=== PATIENT | female | born 1935 | race Caucasian/White ===

== ENCOUNTER 2018-09-04 23:16 | Inpatient (IN) ==
--- OUTSIDE RECORDS SUMMARY | 2018-09-04 23:19 | External Medical Summary | Continuity of Care Document ---
:1935 Author Name Hernando Stack, Provider Address Unavailable Unavailable , Care Team Providers Name Role Phone Jan Canela DO Unavailable [email or web address] Unavailable Unavailable Problems Active medical history not documented Allergies and Adverse Reactions Allergy history not documented Medications Medications not documented Procedures Procedures not documented Immunizations Immunizations not documented Plan of Treatment Planned Observations Planned Goals not documented Results No Known Results Results not documented Encounters Appointment; Vascular, Studies SC1 11-Aug-2014 10:00 Encounter Diagnosis: Problem not documented
[2018-09-04] MEDS ORDERED: HYDROmorphone INJ 0.5 MG/0.5 ML SYR IV PRN (23:37)
[2018-09-04] MEDS ORDERED: ONDANSETRON INJ 2 MG/ML 2 ML VIAL IV STA (23:37)
[2018-09-05 00:24] LABS: INR 1.1 (0.9-1.1); Partial Thromboplastin Ratio 0.9; Partial Thromboplastin Time 24.6 Seconds (21.0-31.0); Prothrombin Time 11.1 Seconds (9.0-12.0)
[2018-09-05 00:25] LABS: Alanine Aminotransferase 24 U/L (12-78); Aspartate Aminotransferase 23 U/L (15-37); BUN Creatinine Ratio 27.3 (10-20); Blood Urea Nitrogen 54 mg/dl (7-18); Calcium 6.8 mg/dl (8.5-10.1); Carbon Dioxide 25 mmol/L (21-32); Chloride 109 mmol/L (98-107); Creatinine Clr Calc Pharmacy 23.2 ml/min; Est GFR (Non-African American) 23.3; Glucose 127 mg/dl (70-99); Hematocrit (blood only) 17.2 % (37-47); Hemoglobin 5.5 g/dL (12.0-16.0); Mean Corpuscular Volume 111.7 fL (80-100); Mean Platelet Volume 9.2 fL (7.4-10.4); Platelet Count 124 K/uL (130-400); RDW Coefficient of Variation 16.7 % (11.5-14.5); RDW Standard Deviation 65.7 fL (36.4-46.3); Red Blood Count 1.54 M/uL (4.2-5.4); Sodium 142 mmol/L (136-145)
[2018-09-05 00:27] LABS: Albumin Globulin Ratio 1.7 (0.9-2); Alkaline Phosphatase 62 U/L (45-117); Bilirubin,Total 1.2 mg/dl (0.2-1); Globulin 2.4 gm/dl (2.5-4.0); Total Protein 6.4 gm/dl (6.4-8.2)
[2018-09-05] MEDS ORDERED: SODIUM CHLORIDE 0.9% 250 ML IV PRN ×3 (00:34→18:42)
[2018-09-05 00:35] LABS: Basophilic Stippling 1+; Basophils # (auto) 0.01 K/uL (0-0.2); Basophils % (auto) 0.1 %; Eosinophils # (auto) 0.13 K/uL (0-0.5); Eosinophils % (auto) 1.1 %; Immature Granulocytes # (auto) 0.04 K/uL (0.00-0.02); Immature Granulocytes % (auto) 0.3 %; Lymphocytes # (auto) 9.07 K/uL (1.2-3.4); Lymphocytes % (auto) 77.5 %; Macrocytosis Present; Monocytes # (auto) 0.24 K/uL (0.11-0.59); Monocytes % (auto) 2.1 %; Neutrophils # (auto) 2.21 K/uL (1.4-6.5); Neutrophils % (auto) 18.9 %; Polychromasia 1+; Tear Drop Cells 1+
[2018-09-05] MEDS ORDERED: methylPREDNISolone 125 MG/2 ML VIAL IV STA (01:38)
[2018-09-05] MEDS ORDERED: CALCIUM GLUCONATE 10% 10 ML VIAL IV STA (01:47)
[2018-09-05] MEDS ORDERED: SODIUM CHLORIDE 0.45 % 1,000 ML IV STA (01:53)
[2018-09-05] MEDS ORDERED: CALCIUM GLUCONATE 10% 3,000 MG in 0.9 % SODIUM CHLORIDE 100 ML IV ONE (02:00)
[2018-09-05 02:12] LABS: Magnesium 2.1 mg/dl (1.8-2.4); Troponin I < 0.015 ng/ml (0-0.045)
--- NOTE | 2018-09-05 02:38 | Emergency Department Note ---
Entered by Thor Chapa acting as a scribe for ED Provider Note CHIEF COMPLAINT: Abnormal labs HISTORY OF PRESENT ILLNESS: The patient is an 83 year old female who presents to the Emergency Room after edna cm referred here by her PCP following abnormal blood work results. The patient states she had the test taken this afternoon around 13:00 because she has not been feeling well for the past 2 weeks. She states she has been feeling more fatigued and short of breath than normal. Her results came back later on today that showed her Hemoglobin was 5. The patient has a history of anemia and her last blood transfusion was in [place] about 3 years ago. The patient did note that she had to be transferred to [place] for this blood due to [facility] not having the correct type. Pt denies LOC, headache, fevers, chills, diaphoresis, visual changes, neck pain, chest pain, nausea, vomiting, abdominal pain, back pain, melena, hematochezia, urinary symptoms, numbness, weakness, lymphadenopathy, rash, or other complaints. REVIEW OF SYSTEMS: See HPI for pertinent positives and negatives. A total of ten systems were reviewed and were otherwise negative. PMHx/PSHx: Lymphoma, Asthma, Diabetes, Kidney stone, Anemia, NSTEMI, Sepsis, Thyroid cancer SOCIAL HISTORY: Patient lives at home. PHYSICAL EXAM: GENERAL: Awake, alert, well-appearing but pale, in no distress HENT: Normocephalic, atraumatic. Oropharynx unremarkable. EYES: Normal conjunctiva. Sclera non-icteric. NECK: Inspection normal. Non-tender. Supple. No nuchal rigidity. FROM. No masses. RESPIRATORY: Clear to auscultation. No wheezes. No rales. Normal respiratory effort. CARDIAC: Tachycardic rate. Normal rhythm. No murmurs. No rubs. Extremities warm and well perfused. Pulses equal. No JVD. GI: Soft, non-distended. No tenderness to palpation. No rebound or guarding. No masses. RECTAL: Deferred. MUSCULOSKELETAL: Atraumatic. Chest examination reveals no tenderness. The back is symmetrical on inspection without obvious abnormality. There is no CVA tenderness to palpation. No joint edema. LOWER EXTREMITIES: Calves are equal size bilaterally and non-tender. Trace edema. No discoloration. NEURO: Normal sensorium. No sensory or motor deficits noted. SKIN: No rash or jaundice noted. EMERGENCY DEPARTMENT COURSE: 2343: The patient was evaluated in room B12B, and a complete history and physical examination were performed. 0035: I reevaluated the patient and updated them on the treatment plan. Both the patient and family are agreeable with the plan. 0040: I spoke to Dr. Pierce - [facility] about the patient's case and he will be accepting him for further evaluation. 0105: After evaluation, Dr. Pierce would like a hematology consultation before he accepts the patient. [facility] has been paged. 0122: I spoke to Dr. Cardoso - [facility] and he recommended starting the patient on steroids and to have the blood transferred here so that she can be treated here. 0135: I spoke to Dr. Pierce about the hematology consult and he will be accepting the patient for further treatment. MEDICAL DECISION MAKING: Prior records/ancillary studies reviewed. 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 She was treated with prednisone and Rituxan. She had 2 courses of this. Once in 2013 and also in 2016. Nursing notes reviewed and agree them. The patient's history was concerning for recurrent anemia, fatigue and exertional shortness of breath. Differential diagnosis: Etiologies such as symptomatic anemia, metabolic, infection, hypo/hyperglycemia, electrolyte abnormalities, cardiac sources, intracerebral event, toxicologic, neurologic, as well as others were entertained. Physical examination: As above. ER treatment provided: IV Lock IV Solu-Medrol after consult with hematology. Type and cross. Patient consented for packed red blood cell transfusion however she has significant antibodies in her blood is not available here. Blood will need to be brought in for treatment. Diagnostics interpretation by me: ECG did not reveal any ischemia. The labs revealed severe anemia on CBC. Mild thrombocytopenia. Chemistry panel revealed some mild renal insufficiency. Consultation: A consultation was placed with the hospitalist. The case was discussed and diagnostics were reviewed. The patient was evaluated in the ER for further treatment. Dr. Pierce requested hematology consult. I did consult with [facility], Dr. Cardoso. Given the situation he felt it would be reasonable to treat the patient here, Initiate IV Solu-Medrol, and transfuse the patient. IMPRESSION: Severe anemia PLAN: Admitted as inpatient The scribe's documentation has been prepared under my direction and personally reviewed by me in its entirety. I confirm that the note above accurately reflects all work, treatment, procedures, and medical decision making performed by me. Impression & Plan Severe anemia Past Med/Surg History Medical History Lymphoma (Acute) Thyroid cancer (Acute) Asthma (Chronic) Diabetes (Chronic) Kidney stones (Chronic) Acute renal failure (Acute) Fever (Acute) Hemolytic anemia (Acute) Non-STEMI (non-ST elevated myocardial infarction) (Acute) Sepsis (Acute) Severe anemia (Acute) Symptomatic anemia (Acute 12/28/13) Weakness (Acute) Family History Other Family history non-contributory Social History Feels Safe at Home: Yes Smoking Status: Never smoker Results & Data Vital Signs Vital Signs - 24 hr 09/04/18 23:21 09/04/18 23:37 09/04/18 23:40 Temperature 36.8 C Temperature Source Oral Sepsis Recent Fever Within 48 Hours No Sepsis Action Taken by Nursing No Action Required Pulse Rate 109 H 103 H 101 H Pulse Rate from SpO2 Sensor 104 H 101 H Pulse Rhythm Regular Pulse Strength Normal Respiratory Rate 18 25 H 16 Respiratory Effort / Characteristics Non-Labored Spontaneous Respiratory Depth Normal Respiratory Pattern Regular Blood Pressure 103/49 L 112/54 L Blood Pressure Mean 67 73 Blood Pressure Position Sitting Pulse Oximetry 100 99 99 Oxygen Delivery Method Room Air Room Air Room Air 09/04/18 23:55 09/05/18 00:00 09/05/18 00:01 Temperature Temperature Source Sepsis Recent Fever Within 48 Hours Sepsis Action Taken by Nursing Pulse Rate 101 H 100 H Pulse Rate from SpO2 Sensor 99 H Pulse Rhythm Pulse Strength Respiratory Rate 20 17 Respiratory Effort / Characteristics Respiratory Depth Respiratory Pattern Blood Pressure 113/55 L Blood Pressure Mean 74 Blood Pressure Position Pulse Oximetry 100 100 Oxygen Delivery Method Room Air Room Air 09/05/18 00:30 09/05/18 01:00 09/05/18 01:30 Temperature Temperature Source Sepsis Recent Fever Within 48 Hours Sepsis Action Taken by Nursing Pulse Rate 94 H 96 H 92 H Pulse Rate from SpO2 Sensor 95 H 94 H 92 H Pulse Rhythm Pulse Strength Respiratory Rate 13 22 15 Respiratory Effort / Characteristics Respiratory Depth Respiratory Pattern Blood Pressure 109/58 L 118/52 L 113/50 L Blood Pressure Mean 75 74 71 Blood Pressure Position Pulse Oximetry 94 98 Oxygen Delivery Method Room Air Room Air 09/05/18 02:00 Temperature Temperature Source Sepsis Recent Fever Within 48 Hours Sepsis Action Taken by Nursing Pulse Rate 92 H Pulse Rate from SpO2 Sensor 92 H Pulse Rhythm Pulse Strength Respiratory Rate 13 Respiratory Effort / Characteristics Respiratory Depth Respiratory Pattern Blood Pressure 113/48 L Blood Pressure Mean 69 Blood Pressure Position Pulse Oximetry 99 Oxygen Delivery Method Room Air Home Medications Current Medication List: was personally reviewed by me Laboratory Data Attestation: I reviewed the patient's lab results. Result diagrams: 09/04/18 23:48 09/04/18 23:48 Lab Results 09/04/18 09/04/18 09/04/18 Range/Units 23:48 23:48 23:48 WBC 11.70 H (4.8-10.8) K/uL RBC 1.54 L (4.2-5.4) M/uL Hgb 5.5 L* (12.0-16.0) g/dL Hct 17.2 L* (37-47) % MCV 111.7 H (80-100) fL MCH 35.7 H (25-34) pg MCHC 32.0 (32-36) g/dL RDW Std Deviation 65.7 H (36.4-46.3) fL RDW Coeff of Marcelina 16.7 H (11.5-14.5) % Plt Count 124 L (130-400) K/uL MPV 9.2 (7.4-10.4) fL Immature Gran % (Auto) 0.3 % Neut % (Auto) 18.9 % Lymph % (Auto) 77.5 % Kimble % (Auto) 2.1 % Eos % (Auto) 1.1 % Baso % (Auto) 0.1 % Immature Gran # (Auto) 0.04 H (0.00-0.02) K/uL Neut # (Auto) 2.21 (1.4-6.5) K/uL Lymph # (Auto) 9.07 H (1.2-3.4) K/uL Kimble # (Auto) 0.24 (0.11-0.59) K/uL Eos # (Auto) 0.13 (0-0.5) K/uL Baso # (Auto) 0.01 (0-0.2) K/uL Polychromasia 1+ Basophilic Stippling 1+ Macrocytosis Present Tear Drop Cells 1+ PT 11.1 (9.0-12.0) Seconds INR 1.1 (0.9-1.1) APTT 24.6 (21.0-31.0) Seconds PTT Ratio 0.9 Sodium 142 (136-145) mmol/L Potassium 4.0 (3.5-5.1) mmol/L Chloride 109 H (98-107) mmol/L Carbon Dioxide 25 (21-32) mmol/L Anion Gap 8.0 (3-11) BUN 54 H (7-18) mg/dl Creatinine 1.97 H (0.6-1.2) mg/dl Est Cr Clr Drug Dosing 23.2 ml/min Est GFR ( Amer) 27.0 Est GFR (Non-Af Amer) 23.3 BUN/Creatinine Ratio 27.3 H (10-20) Glucose 127 H (70-99) mg/dl Calcium 6.8 L (8.5-10.1) mg/dl Magnesium 2.1 (1.8-2.4) mg/dl Total Bilirubin 1.2 H (0.2-1) mg/dl AST 23 (15-37) U/L ALT 24 (12-78) U/L Alkaline Phosphatase 62 (45-117) U/L Troponin I < 0.015 (0-0.045) ng/ml Total Protein 6.4 (6.4-8.2) gm/dl Albumin 4.0 (3.4-5.0) gm/dl Globulin 2.4 L (2.5-4.0) gm/dl Albumin/Globulin Ratio 1.7 (0.9-2) TSH 0.502 (0.300-4.500) uIu/ml Crossmatch 09/04/18 Range/Units 23:48 WBC (4.8-10.8) K/uL RBC (4.2-5.4) M/uL Hgb (12.0-16.0) g/dL Hct (37-47) % MCV (80-100) fL MCH (25-34) pg MCHC (32-36) g/dL RDW Std Deviation (36.4-46.3) fL RDW Coeff of Marcelina (11.5-14.5) % Plt Count (130-400) K/uL MPV (7.4-10.4) fL Immature Gran % (Auto) % Neut % (Auto) % Lymph % (Auto) % Kimble % (Auto) % Eos % (Auto) % Baso % (Auto) % Immature Gran # (Auto) (0.00-0.02) K/uL Neut # (Auto) (1.4-6.5) K/uL Lymph # (Auto) (1.2-3.4) K/uL Kimble # (Auto) (0.11-0.59) K/uL Eos # (Auto) (0-0.5) K/uL Baso # (Auto) (0-0.2) K/uL Polychromasia Basophilic Stippling Macrocytosis Tear Drop Cells PT (9.0-12.0) Seconds INR (0.9-1.1) APTT (21.0-31.0) Seconds PTT Ratio Sodium (136-145) mmol/L Potassium (3.5-5.1) mmol/L Chloride (98-107) mmol/L Carbon Dioxide (21-32) mmol/L Anion Gap (3-11) BUN (7-18) mg/dl Creatinine (0.6-1.2) mg/dl Est Cr Clr Drug Dosing ml/min Est GFR ( Amer) Est GFR (Non-Af Amer) BUN/Creatinine Ratio (10-20) Glucose (70-99) mg/dl Calcium (8.5-10.1) mg/dl Magnesium (1.8-2.4) mg/dl Total Bilirubin (0.2-1) mg/dl AST (15-37) U/L ALT (12-78) U/L Alkaline Phosphatase (45-117) U/L Troponin I (0-0.045) ng/ml Total Protein (6.4-8.2) gm/dl Albumin (3.4-5.0) gm/dl Globulin (2.5-4.0) gm/dl Albumin/Globulin Ratio (0.9-2) TSH (0.300-4.500) uIu/ml Crossmatch See Detail Administered Medications Sodium Chloride (1/2 Nss) 1,000 mls @ 50 mls/hr IV .Q20H STA Stop: 09/05/18 21:52 Last Admin: 09/05/18 02:07 Dose: 50 mls/hr Documented by: [id number] Discontinued Medications Calcium Gluconate 3,000 mg/ (Sodium Chloride) 130 mls @ 260 mls/hr IV ONE ONE Stop: 09/05/18 02:29 Last Admin: 09/05/18 02:07 Dose: 260 mls/hr Documented by: [id number] Methylprednisolone (Solumedrol) 125 mg IV NOW STA Stop: 09/05/18 01:39 Last Admin: 09/05/18 01:49 Dose: 125 mg Documented by: [id number] Ondansetron HCl (Zofran) 4 mg IV NOW STA Stop: 09/04/18 23:38 Last Admin: 09/05/18 00:10 Dose: Not Given Documented by: [id number] ECG Data Attestation: I personally reviewed and interpreted this ECG as follows: Indication: toxicologic Rate (beats per minute): 103 Rhythm: sinus tachycardia Findings: no PAC, no PVC, no ST depression and no ST elevation Blood Pressure Blood Pressure Findings: Low blood pressure Blood Pressure Disposition: further management by hospitalist Discharge Plan Visit Data Chief Complaint: Referred by Doctor Stated Complaint: TRANSFUSION ED Provider: Jonathan Norris Discharge Problem: Severe anemia Patient Disposition: Being Evaluated by Hospitalist Forms Stand Alone Forms: My [facility] Prescriptions Prescriptions: No Action isosorbide mononitrate 30 mg Tablet Extended Release 24 Hr 30 mg PO DAILY RF: 0 citalopram 10 mg Tablet 10 mg PO DAILY RF: 0 sennosides-docusate sodium [Senna with Docusate Sodium] 8.6-50 mg Tablet 1 tab PO DAILY PRN (Reason: Constipation) RF: 0 prochlorperazine maleate 10 mg Tablet 10 mg PO Q6H PRN (Reason: Nausea) RF: 0 folic acid 1 mg Tablet 1 mg PO DAILY RF: 0 tramadol 50 mg Tablet 25 mg PO Q6H PRN (Reason: Pain) RF: 0 benazepril 20 mg Tablet 20 mg PO DAILY RF: 0 clonazepam 1 mg Tablet 1 mg PO BID RF: 0 calcium carbonate-vitamin D3 [Oysco 500/D] 500 mg(1,250mg) -200 unit Tablet 1 tab PO BID RF: 0 glimepiride 1 mg Tablet 1 mg PO QAM RF: 0 furosemide [Lasix] 20 mg Tablet 20 mg PO TID RF: 0 triamcinolone acetonide 0.1 % Cream 1 applic TOPICAL BID RF: 0 levothyroxine 150 mcg Tablet 150 mcg PO DAILY RF: 0 omeprazole 20 mg Capsule,Delayed Release(Dr/Ec) 20 mg PO BID RF: 0 clotrimazole 10 mg Patrice 10 mg PO TID RF: 0 Referrals Referrals: Lor Garcia MD [Primary Care Provider] - The scribe's documentation has been prepared under my direction and personally reviewed by me in its entirety. I confirm that the note above accurately reflects all work, treatment, procedures, and medical decision making performed by me.
--- NOTE | 2018-09-05 04:34 | History & Physical Report ---
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 SCDs RE chronic thrombocytopenia Full code Case discussed with Dr. Flores ([facility] booking prizer on-call), He recommends 4-day oral course of Decadron 40 mg daily to follow IV Solu-Medrol administered at the ER. History of Present Illness Chief Complaint: Abnormal blood work Primary Care Provider: Lor Garcia MD History obtained from patient and records. Medical history significant for hypertension, DM 2 on oral meds, CRI (baseline creatinine 1.8), history of NHL, B cell CLL, hx Kailyn positive autoimmune hemolytic anemia status post prednisone, Rituxan Rx, chronic anemia (baseline hemoglobin 10-11), history of recurrent papillary thyroid cancer sp surgery/WILL, postsurgical hypothyroidism, chronic thrombocytopenia Recent confinement July 2014 for ARF. Patient diagnosed to have of autoimmune hemolytic anemia in 2013 status post prednisone, Rituxan chemotherapy. Recurrent AIHA bout in 2015. No treatment for AIHA since July 2017 as per outpatient records. 2 weeks history of fatigue, exertional SOB symptoms more prominent in the last few days. No chest pain. No black/bloody stools. Outpatient hemoglobin yesterday noted to be 5.4. Patient directed by PCP to the emergency room. 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 Cardoso) as per ER provider. 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 Allergies Allergy/AdvReac Type Severity Reaction Status Date / Time lorazepam Allergy Unknown UNKNOWN Unverified 09/05/18 00:19 pneumococcal vaccine Allergy Unknown Unknown Verified 09/05/18 00:19 Home Medications Home Medications Medication Instructions Recorded Confirmed Type benazepril 20 mg PO DAILY 09/05/18 09/05/18 History calcium carbonate-vitamin D3 1 tab PO BID 09/05/18 09/05/18 History [Oysco 500/D] citalopram 10 mg PO DAILY 09/05/18 09/05/18 History clonazepam 1 mg PO BID 09/05/18 09/05/18 History clotrimazole 10 mg PO TID 09/05/18 09/05/18 History folic acid 1 mg PO DAILY 09/05/18 09/05/18 History furosemide [Lasix] 20 mg PO TID 09/05/18 09/05/18 History glimepiride 1 mg PO QAM 09/05/18 09/05/18 History isosorbide mononitrate 30 mg PO DAILY 09/05/18 09/05/18 History levothyroxine 150 mcg PO DAILY 09/05/18 09/05/18 History omeprazole 20 mg PO BID 09/05/18 09/05/18 History prochlorperazine maleate 10 mg PO Q6H PRN 09/05/18 09/05/18 History sennosides-docusate sodium [Senna 1 tab PO DAILY PRN 09/05/18 09/05/18 History with Docusate Sodium] tramadol 25 mg PO Q6H PRN 09/05/18 09/05/18 History triamcinolone acetonide 1 applic TOPICAL BID 09/05/18 09/05/18 History Past Med/Surg History Medical History Lymphoma (Acute) Thyroid cancer (Acute) Asthma (Chronic) Diabetes (Chronic) Kidney stones (Chronic) Acute renal failure (Acute) Fever (Acute) Hemolytic anemia (Acute) Non-STEMI (non-ST elevated myocardial infarction) (Acute) Sepsis (Acute) Severe anemia (Acute) Symptomatic anemia (Acute 12/28/13) Weakness (Acute) Family History Other Family history non-contributory Social History Preferred Language: Turkmen Communication Ability: Effective Acid Mixer Required: No Beliefs That Will Affect Care: None Current Living Situation: Alone Current Living Situation Comment: Patient lives alone, Currently has son and gf living with her at this time. Other Information That Helps Us Care for You: No Feels Safe at Home: Yes Safety Concerns: Feels Safe At This Time Smoking Status: Never smoker Hx Alcohol Use: No Hx Substance Use: No Review of Systems Review of Systems: As per HPI, all 10 systems reviewed, all other ROS negative Physical Exam Physical Exam: GENERAL: Comfortable, pleasant, looks younger for stated age, obese, no respiratory distress SKIN: Pallor, warm HEENT: Bespectacled, pale palpebral conjunctivae, no ptosis, moist buccal mucosa, chronic left lower lip asymmetry as per patient NECK : Supple, short, no tenderness CHEST : CTA, no tenderness HEART : RRR, no obvious murmurs ABDOMEN: Some distention, nontender Rectal exam: Refused EXTREMITIES : Bilateral LE swelling (chronic as per patient, no LE tenderness, no other conspicuous deformities noted NEUROLOGIC : Coherent, chronic left lower lip asymmetry, no other gross focality Results & Data Vital Signs (Past 12 Hours) Vital Signs Temp Pulse Resp BP Pulse Ox 09/05/18 04:00 118/53 L 96 09/05/18 03:30 92 H 16 117/57 L 95 09/05/18 03:00 92 H 15 128/56 L 97 09/05/18 02:30 121 H 20 09/05/18 02:00 92 H 13 113/48 L 99 09/05/18 01:30 92 H 15 113/50 L 98 09/05/18 01:00 96 H 22 118/52 L 09/05/18 00:30 94 H 13 109/58 L 94 09/05/18 00:01 100 H 17 113/55 L 100 09/05/18 00:00 101 H 20 09/04/18 23:55 100 09/04/18 23:40 101 H 16 99 09/04/18 23:37 103 H 25 H 112/54 L 99 09/04/18 23:21 36.8 C 109 H 18 103/49 L 100 Laboratory Results Laboratory Results WBC 11.70 K/uL (4.8-10.8) H 09/04/18 23:48 RBC 1.54 M/uL (4.2-5.4) L 09/04/18 23:48 Hgb 5.5 g/dL (12.0-16.0) L* 09/04/18 23:48 Hct 17.2 % (37-47) L* 09/04/18 23:48 MCV 111.7 fL (80-100) H 09/04/18 23:48 MCH 35.7 pg (25-34) H 09/04/18 23:48 MCHC 32.0 g/dL (32-36) 09/04/18 23:48 RDW Std Deviation 65.7 fL (36.4-46.3) H 09/04/18 23:48 RDW Coeff of Marcelina 16.7 % (11.5-14.5) H 09/04/18 23:48 Plt Count 124 K/uL (130-400) L 09/04/18 23:48 MPV 9.2 fL (7.4-10.4) 09/04/18 23:48 Immature Gran % (Auto) 0.3 % 09/04/18 23:48 Neut % (Auto) 18.9 % 09/04/18 23:48 Lymph % (Auto) 77.5 % 09/04/18 23:48 [place] % (Auto) 2.1 % 09/04/18 23:48 Eos % (Auto) 1.1 % 09/04/18 23:48 Baso % (Auto) 0.1 % 09/04/18 23:48 Immature Gran # (Auto) 0.04 K/uL (0.00-0.02) H 09/04/18 23:48 Neut # (Auto) 2.21 K/uL (1.4-6.5) 09/04/18 23:48 Lymph # (Auto) 9.07 K/uL (1.2-3.4) H 09/04/18 23:48 [place] # (Auto) 0.24 K/uL (0.11-0.59) 09/04/18 23:48 Eos # (Auto) 0.13 K/uL (0-0.5) 09/04/18 23:48 Baso # (Auto) 0.01 K/uL (0-0.2) 09/04/18 23:48 Polychromasia 1+ 09/04/18 23:48 Basophilic Stippling 1+ 09/04/18 23:48 Macrocytosis Present 09/04/18 23:48 Tear Drop Cells 1+ 09/04/18 23:48 PT 11.1 Seconds (9.0-12.0) 09/04/18 23:48 INR 1.1 (0.9-1.1) 09/04/18 23:48 APTT 24.6 Seconds (21.0-31.0) 09/04/18 23:48 PTT Ratio 0.9 09/04/18 23:48 Sodium 142 mmol/L (136-145) 09/04/18 23:48 Potassium 4.0 mmol/L (3.5-5.1) 09/04/18 23:48 Chloride 109 mmol/L (98-107) H 09/04/18 23:48 Carbon Dioxide 25 mmol/L (21-32) 09/04/18 23:48 Anion Gap 8.0 (3-11) 09/04/18 23:48 BUN 54 mg/dl (7-18) H 09/04/18 23:48 Creatinine 1.97 mg/dl (0.6-1.2) H 09/04/18 23:48 Est Cr Clr Drug Dosing 23.2 ml/min 09/04/18 23:48 Est GFR ( Amer) 27.0 09/04/18 23:48 Est GFR (Non-Af Amer) 23.3 09/04/18 23:48 BUN/Creatinine Ratio 27.3 (10-20) H 09/04/18 23:48 Glucose 127 mg/dl (70-99) H 09/04/18 23:48 Calcium 6.8 mg/dl (8.5-10.1) L 09/04/18 23:48 Magnesium 2.1 mg/dl (1.8-2.4) 09/04/18 23:48 Total Bilirubin 1.2 mg/dl (0.2-1) H 09/04/18 23:48 AST 23 U/L (15-37) 09/04/18 23:48 ALT 24 U/L (12-78) 09/04/18 23:48 Alkaline Phosphatase 62 U/L (45-117) 09/04/18 23:48 Troponin I < 0.015 ng/ml (0-0.045) 09/04/18 23:48 Total Protein 6.4 gm/dl (6.4-8.2) 09/04/18 23:48 Albumin 4.0 gm/dl (3.4-5.0) 09/04/18 23:48 Globulin 2.4 gm/dl (2.5-4.0) L 09/04/18 23:48 Albumin/Globulin Ratio 1.7 (0.9-2) 09/04/18 23:48 TSH 0.502 uIu/ml (0.300-4.500) 09/04/18 23:48 Blood Type O Positive 09/04/18 23:48 Antibody Screen POSITIVE A 09/04/18 23:48 Crossmatch See Detail 09/04/18 23:48 Diagnostic Findings Chest x-ray as per my interpretation no congestion EKG as per my interpretation : Rate 105, sinus tachycardia, no ischemia
[2018-09-05] MEDS ORDERED: DOCUSATE SODIUM/SENNA 50/8.6MG TAB PO PRN (05:27)
[2018-09-05] MEDS ORDERED: GLUCAGON FOR INJ 1 MG VIAL SQ PRN (05:27)
[2018-09-05] MEDS ORDERED: DEXTROSE 50% 50 ML SYRINGE IV PRN (05:27)
[2018-09-05] MEDS ORDERED: CARBOHYDRATES FOR HYPOGLYCEMIA PO PRN (05:27)
[2018-09-05] MEDS ORDERED: GLUCOSE 10 TABS/TUBE PO PRN (05:27)
[2018-09-05] MEDS ORDERED: GLUCOSE 40% GEL 15 GM TUBE PO PRN (05:27)
[2018-09-05] MEDS ORDERED: TRAMADOL HCL 50 MG TABLET PO PRN (05:27)
[2018-09-05] MEDS ORDERED: INSULIN GLARGINE SOLOSTAR 100 UNITS/ML 3 ML PEN SQ ONE (05:45)
[2018-09-05] MEDS: INSULIN ASPART 100 UNITS/ML 3 ML PEN SC SCH ×4 (06:21→20:52)
[2018-09-05] MEDS: LEVOTHYROXINE SODIUM 150 MCG TABLET PO SCH (07:11)
[2018-09-05] MEDS: FOLIC ACID 1 MG TAB PO SCH (08:20)
[2018-09-05] MEDS: ISOSORBIDE MONO EXTENDED REL 30 MG TABCR PO SCH (08:21)
[2018-09-05] MEDS: PANTOprazole 40 MG TAB PO SCH ×2 (08:21→20:51)
[2018-09-05] MEDS: CITALOPRAM 20 MG TAB PO SCH (08:21)
--- NOTE | 2018-09-05 08:21 | XRay Report ---
XR chest 1V portable HISTORY: fatigue COMPARISON: Chest 10/12/2015. FINDINGS: Punctate calcified granuloma within the right upper lobe. Otherwise, the lungs are clear. T he heart is normal in size. Calcified right hilar lymph nodes are noted. No pleural effusions. No pne umothorax. IMPRESSION: No acute process. Electronically signed by: Gautam Ramirez M.D. 09/05/2018 8:19 AM
[2018-09-05] MEDS: clonazePAM 1 MG TAB PO SCH ×2 (08:55→22:55)
[2018-09-05 09:06] LABS: Reticulocytes # 0.2 10^6/uL (0.02-0.10)
[2018-09-05] MEDS: dexAMETHasone 4 MG TAB PO SCH (09:50)
--- NOTE | 2018-09-05 12:37 | Hospitalist Progress Note ---
Date of Service September 05, 2018 Assessment & Plan (1) Symptomatic anemia: Admitted with symptomatic anemia mainly exertional shortness of breath Noted to have hemoglobin of 5.5 We will get 3 units of blood transfusion Denies any symptoms at rest Present on Admission?: Yes (2) Hemolytic anemia: Has history of autoimmune hemolytic anemia Seems to be has an exacerbation Reticulocyte count is 11% Discussed with marine technician Received intravenous Solu-Medrol and will continue with Decadron 40 mg daily for the next 3 days as per recommendation Present on Admission?: Yes (3) Acute renal failure: Has acute kidney injury with history of CKD Creatinine 1.9 to We will give IV fluids cautiously and advised to increase oral intake of fluid Monitor PRP (4) Diabetes: Has been on SSI Other medical condition remains stable DVT prophylaxis SCDs due to thrombocytopenia Subjective 09/05 The patient was seen in medical telemetry unit She has symptomatic anemia secondary to autoimmune hemolytic anemia No complaints at rest Awaiting blood transfusion Review of Systems Review of Systems: All systems reviewed and are unremarkable except as noted below Constitutional: + weakness Respiratory: no dyspnea Cardiovascular: no chest pain Physical Exam Physical Exam: Lying in bed comfortably Constitutional: well developed; no acute distress Looks pale Eyes: PERRL, conjunctivae normal, anicteric sclerae ENMT: external ear and nose normal, oropharynx normal Neck: trachea midline, no thyromegaly Respiratory: normal respiratory effort, lungs clear to auscultation Cardiovascular: Rate/Rhythm: regular rate and regular rhythm Heart Sounds: no murmur Gastrointestinal (Abdomen): Inspection/Auscultation: abdomen normal to inspection Percussion/Palpation: abdomen soft; abdomen nontender Neurologic: moves all extremities Lymphatic: no cervical or axillary lymphadenopathy Results & Data Vital Signs (Past 12 Hours) Vital Signs Temp Pulse Pulse Resp BP BP Pulse Ox 09/05/18 11:50 36.7 C 98 H 20 102/62 95 09/05/18 08:00 37.2 C 94 H 18 117/72 94 09/05/18 07:00 94 H 09/05/18 05:51 96 H 09/05/18 05:30 36.8 C 18 119/71 97 09/05/18 05:00 94 H 14 112/49 L 96 09/05/18 04:30 92 H 14 130/60 97 09/05/18 04:00 118/53 L 96 09/05/18 03:30 92 H 16 117/57 L 95 09/05/18 03:00 92 H 15 128/56 L 97 09/05/18 02:30 121 H 20 09/05/18 02:00 92 H 13 113/48 L 99 09/05/18 01:30 92 H 15 113/50 L 98 09/05/18 01:00 96 H 22 118/52 L 09/05/18 00:30 94 H 13 109/58 L 94 Laboratory Results Short CBC 09/04/18 Range/Units 23:48 WBC 11.70 H (4.8-10.8) K/uL Hgb 5.5 L* (12.0-16.0) g/dL Hct 17.2 L* (37-47) % Plt Count 124 L (130-400) K/uL BMP 09/04/18 23:48 Sodium 142 Potassium 4.0 Chloride 109 H Carbon Dioxide 25 BUN 54 H Creatinine 1.97 H Glucose 127 H Calcium 6.8 L Cardiac Enzymes 09/04/18 Range/Units 23:48 Troponin I < 0.015 (0-0.045) ng/ml Liver Function 09/04/18 Range/Units 23:48 Total Bilirubin 1.2 H (0.2-1) mg/dl AST 23 (15-37) U/L ALT 24 (12-78) U/L Alkaline Phosphatase 62 (45-117) U/L Albumin 4.0 (3.4-5.0) gm/dl Medications Administered Current Inpatient Medications Citalopram Hydrobromide (Celexa) 10 mg PO DAILY YOGESH Stop: 10/05/18 08:59 Last Admin: 09/05/18 08:21 Dose: 10 mg Documented by: Clonazepam (Klonopin) 1 mg PO BID YOGESH Stop: 10/05/18 08:59 Last Admin: 09/05/18 08:55 Dose: 1 mg Documented by: Dexamethasone (Decadron) 40 mg PO DAILY YOGESH Stop: 09/09/18 08:59 Last Admin: 09/05/18 09:50 Dose: 40 mg Documented by: Dextrose (Dextrose 50%) 25 - 50 ml IV UD PRN; Protocol PRN Reason: Hypoglycemia Protocol Stop: 10/05/18 05:26 Folic Acid (Folvite) 1 mg PO DAILY YOGESH Stop: 10/05/18 08:59 Last Admin: 09/05/18 08:20 Dose: 1 mg Documented by: Glucagon (Glucagen) 1 mg SQ UD PRN; Protocol PRN Reason: Hypoglycemia Protocol Stop: 10/05/18 05:26 Glucose (Glucose 40%) 15 - 30 gm PO UD PRN; Protocol PRN Reason: Hypoglycemia Protocol Stop: 10/05/18 05:26 Glucose (Dex4 Glucose) 4 - 8 tabs PO UD PRN; Protocol PRN Reason: Hypoglycemia Protocol Stop: 10/05/18 05:26 Insulin Aspart (Novolog Flexpen) 0 units SC ACHS YOGESH Stop: 10/05/18 05:26 Last Admin: 09/05/18 06:21 Dose: Not Given Documented by: Insulin Glargine (Lantus Solostar Pen) 5 units SC DAILY [facility] Stop: 10/06/18 08:59 Isosorbide Mononitrate (Imdur Extended Rel) 30 mg PO DAILY [facility] Stop: 10/05/18 08:59 Last Admin: 09/05/18 08:21 Dose: 30 mg Documented by: Levothyroxine Sodium (Synthroid) 150 mcg PO DAILYBB YOGESH Stop: 10/05/18 06:29 Last Admin: 09/05/18 07:11 Dose: 150 mcg Documented by: Miscellaneous (Carbohydrates For Hypoglycemia) 15 - 30 gm PO UD PRN PRN Reason: Hypoglycemia Treatment Stop: 10/05/18 05:26 Pantoprazole Sodium (Protonix) 40 mg PO BID [facility] Stop: 10/05/18 08:59 Last Admin: 09/05/18 08:21 Dose: 40 mg Documented by: Senna/Docusate Sodium (Senokot S) 1 tab PO DAILY PRN PRN Reason: Constipation Stop: 10/05/18 05:26 Tramadol HCl (Ultram) 25 mg PO Q6H PRN PRN Reason: Pain Stop: 10/05/18 05:26
[2018-09-05] MEDS: SODIUM CHLORIDE 0.9% 1000ML 1,000 ML IV SCH (16:29)
[2018-09-05] MEDS ORDERED: INSULIN GLARGINE SOLOSTAR 100 UNITS/ML 3 ML PEN SQ STA (19:41)
[2018-09-05] MEDS ORDERED: FUROSEMIDE 20 MG in SYRINGE 0 ML IV SCH (20:00)
[2018-09-05] MEDS ORDERED: clonazePAM 0.5 MG TAB PO PRN (22:47)
[2018-09-05 23:26] LABS: Appearance Urine Clear (Clear); Bilirubin Urine Negative (Negative); Blood Urine Negative (Negative); Color Urine Yellow; Glucose Urine UA Negative (Negative); Ketones Urine Negative (Negative); Leukocyte Esterase Urine Negative (Negative); Nitrite Urine Negative (Negative); Protein Urine Negative (Negative); Specific Gravity Urine 1.014 (1.000-1.030); Urobilinogen Urine Negative (Negative)
[2018-09-06] MEDS: SODIUM CHLORIDE 0.9% 1000ML 1,000 ML IV SCH ×4 (01:45→22:38)
[2018-09-06] MEDS: LEVOTHYROXINE SODIUM 150 MCG TABLET PO SCH (05:52)
[2018-09-06 06:36] LABS: BUN Creatinine Ratio 31.2 (10-20); Calcium 7.4 mg/dl (8.5-10.1); Creatinine Clr Calc Pharmacy 24.4 ml/min; Est GFR (African American) 28.7; Est GFR (Non-African American) 24.8; Potassium 4.4 mmol/L (3.5-5.1)
[2018-09-06 06:41] LABS: Ferritin 227.6 ng/ml (8-388)
[2018-09-06 07:11] LABS: Hematocrit (blood only) 27.6 % (37-47); Hemoglobin 9.1 g/dL (12.0-16.0); Mean Corpuscular Volume 98.2 fL (80-100); Mean Platelet Volume 10.7 fL (7.4-10.4); Platelet Count 131 K/uL (130-400); RDW Coefficient of Variation 20.9 % (11.5-14.5); Red Blood Count 2.81 M/uL (4.2-5.4); White Blood Count 22.08 K/uL (4.8-10.8)
[2018-09-06 07:15] LABS: Anisocytosis Present; Basophils # (auto) 0.02 K/uL (0-0.2); Basophils % (auto) 0.1 %; Immature Granulocytes # (auto) 0.14 K/uL (0.00-0.02); Immature Granulocytes % (auto) 0.6 %; Lymphocytes % (auto) 76.5 %; Monocytes # (auto) 0.25 K/uL (0.11-0.59); Monocytes % (auto) 1.1 %; Neutrophils # (auto) 4.77 K/uL (1.4-6.5); Neutrophils % (auto) 21.7 %
[2018-09-06] MEDS: ISOSORBIDE MONO EXTENDED REL 30 MG TABCR PO SCH (07:59)
[2018-09-06] MEDS: CITALOPRAM 20 MG TAB PO SCH (07:59)
[2018-09-06] MEDS: dexAMETHasone 4 MG TAB PO SCH (07:59)
[2018-09-06] MEDS: FOLIC ACID 1 MG TAB PO SCH (07:59)
[2018-09-06] MEDS: clonazePAM 1 MG TAB PO SCH ×2 (07:59→21:58)
[2018-09-06] MEDS: PANTOprazole 40 MG TAB PO SCH ×2 (07:59→21:56)
[2018-09-06] MEDS ORDERED: INSULIN GLARGINE SOLOSTAR 100 UNITS/ML 3 ML PEN SC SCH (09:00)
[2018-09-06] MEDS ORDERED: predniSONE 20 MG TAB PO SCH (09:00)
[2018-09-06] MEDS: INSULIN ASPART 100 UNITS/ML 3 ML PEN SC SCH ×4 (09:06→20:41)
[2018-09-06] MEDS: INSULIN GLARGINE SOLOSTAR 100 UNITS/ML 3 ML PEN SC SCH (09:07)
--- NOTE | 2018-09-06 14:28 | Hospitalist Progress Note ---
Date of Service September 06, 2018 Assessment & Plan (1) Symptomatic anemia: Admitted with symptomatic anemia mainly exertional shortness of breath Noted to have hemoglobin of 5.5 Status post 3 units of PRBC transfusion Has been feeling better Hemoglobin went up to 9.1 as of this morning-09/06 Remains very weak and lethargic without any acute symptoms Will need PT and OT evaluation before discharge (2) Hemolytic anemia: Has history of autoimmune hemolytic anemia Seems to be has an exacerbation Reticulocyte count is 11% Discussed with art psychotherapist Received intravenous Solu-Medrol and will continue with Decadron 40 mg daily for the next 3 days as per recommendation from on-call art psychotherapist Will need to talk to her art psychotherapist for dose of Decadron on discharge (3) Acute renal failure: Has acute kidney injury with history of CKD Creatinine 1.9 to We will give IV fluids cautiously and advised to increase oral intake of fluid On Eliquis acute renal failure is slightly improved with creatinine of 1.87 on 09/06 We will continue intravenous fluid and advised more fluid intake orally Check PRP in the morning (4) Diabetes: Has been on SSI Other medical condition remains stable DVT prophylaxis SCDs due to thrombocytopenia Subjective 09/05 The patient was seen in medical telemetry unit She has symptomatic anemia secondary to autoimmune hemolytic anemia No complaints at rest Awaiting blood transfusion 09/06 Patient was seen and examined in medical telemetry unit She is status post 3 unit of packed red cell blood transfusion She has been very lethargic and drowsy since this morning Not been able to go home today Review of Systems Review of Systems: As per HPI, all 10 systems reviewed, all other ROS negative Constitutional: + fatigue and + weakness Neurologic: + generalized weakness Physical Exam Physical Exam: Remains very weak and lethargic in bed without any acute distress Constitutional: well developed and + ill appearing; no acute distress Eyes: PERRL, conjunctivae normal, anicteric sclerae ENMT: external ear and nose normal, oropharynx normal Neck: trachea midline, no thyromegaly Respiratory: normal respiratory effort; no respiratory distress Auscultation: lungs clear to auscultation bilaterally Cardiovascular: Rate/Rhythm: regular rate and regular rhythm Heart Sounds: no murmur Gastrointestinal (Abdomen): Inspection/Auscultation: abdomen normal to inspection Percussion/Palpation: abdomen soft; abdomen nontender Musculoskeletal: No acute arthritis in any joint Skin: no rashes, warm and dry Neurologic: moves all extremities; no focal motor deficits Remains very drowsy Lymphatic: no cervical or axillary lymphadenopathy Results & Data Vital Signs (Past 12 Hours) Vital Signs Temp Pulse Resp BP Pulse Ox 09/06/18 11:39 36.5 C 80 20 106/61 96 09/06/18 07:46 37.0 C 83 20 123/72 97 Laboratory Results Short CBC 09/06/18 Range/Units 05:39 WBC 22.08 H (4.8-10.8) K/uL Hgb 9.1 L D (12.0-16.0) g/dL Hct 27.6 L (37-47) % Plt Count 131 (130-400) K/uL BMP 09/06/18 05:39 Sodium 143 Potassium 4.4 Chloride 110 H Carbon Dioxide 23 BUN 58 H Creatinine 1.87 H Glucose 113 H Calcium 7.4 L Urine 09/05/18 Range/Units 22:10 Urine Color Yellow Urine Appearance Clear (Clear) Urine pH 5.0 (4.5-7.5) Ur Specific [place] 1.014 (1.000-1.030) Urine Protein Negative (Negative) Urine Glucose (UA) Negative (Negative) Medications Administered Current Inpatient Medications Citalopram Hydrobromide (Celexa) 10 mg PO DAILY YOGESH Stop: 10/05/18 08:59 Last Admin: 09/06/18 07:59 Dose: 10 mg Documented by: Clonazepam (Klonopin) 1 mg PO BID YOGESH Stop: 10/05/18 08:59 Last Admin: 09/06/18 07:59 Dose: 1 mg Documented by: Clonazepam (Klonopin) 0.5 mg PO HS PRN PRN Reason: Insomnia Stop: 10/05/18 22:46 Dexamethasone (Decadron) 40 mg PO DAILY YOGESH Stop: 09/09/18 08:59 Last Admin: 09/06/18 07:59 Dose: 40 mg Documented by: Dextrose (Dextrose 50%) 25 - 50 ml IV UD PRN; Protocol PRN Reason: Hypoglycemia Protocol Stop: 10/05/18 05:26 Folic Acid (Folvite) 1 mg PO DAILY YOGESH Stop: 10/05/18 08:59 Last Admin: 09/06/18 07:59 Dose: 1 mg Documented by: Glucagon (Glucagen) 1 mg SQ UD PRN; Protocol PRN Reason: Hypoglycemia Protocol Stop: 10/05/18 05:26 Glucose (Glucose 40%) 15 - 30 gm PO UD PRN; Protocol PRN Reason: Hypoglycemia Protocol Stop: 10/05/18 05:26 Glucose (Dex4 Glucose) 4 - 8 tabs PO UD PRN; Protocol PRN Reason: Hypoglycemia Protocol Stop: 10/05/18 05:26 Sodium Chloride (Nss) 250 mls @ 15 mls/hr IV .[id number] PRN PRN Reason: For Transfusion Stop: 10/05/18 18:41 Sodium Chloride (Nss 1000ml) 1,000 mls @ 125 mls/hr IV .Q8H YOGESH Stop: 09/07/18 07:59 Last Admin: 09/06/18 14:15 Dose: 125 mls/hr Documented by: Insulin Aspart (Novolog Flexpen) 0 units SC ACHS YOGESH Stop: 10/05/18 05:26 Last Admin: 09/06/18 12:25 Dose: 2 units Documented by: Insulin Glargine (Lantus Solostar Pen) 10 units SC DAILY YOGESH Stop: 10/06/18 08:59 Last Admin: 09/06/18 09:07 Dose: 10 units Documented by: Isosorbide Mononitrate (Imdur Extended Rel) 30 mg PO DAILY [facility] Stop: 10/05/18 08:59 Last Admin: 09/06/18 07:59 Dose: 30 mg Documented by: Levothyroxine Sodium (Synthroid) 150 mcg PO DAILYBB YOGESH Stop: 10/05/18 06:29 Last Admin: 09/06/18 05:52 Dose: 150 mcg Documented by: Miscellaneous (Carbohydrates For Hypoglycemia) 15 - 30 gm PO UD PRN PRN Reason: Hypoglycemia Treatment Stop: 10/05/18 05:26 Pantoprazole Sodium (Protonix) 40 mg PO BID YOGESH Stop: 10/05/18 08:59 Last Admin: 09/06/18 07:59 Dose: 40 mg Documented by: Senna/Docusate Sodium (Senokot S) 1 tab PO DAILY PRN PRN Reason: Constipation Stop: 10/05/18 05:26 Tramadol HCl (Ultram) 25 mg PO Q6H PRN PRN Reason: Pain Stop: 10/05/18 05:26
[2018-09-07] MEDS: LEVOTHYROXINE SODIUM 150 MCG TABLET PO SCH (06:07)
[2018-09-07 06:15] LABS: Hematocrit (blood only) 26.2 % (37-47); Hemoglobin 8.4 g/dL (12.0-16.0); Mean Corpuscular Hgb Conc 32.1 g/dL (32-36); Mean Corpuscular Volume 102.3 fL (80-100); Mean Platelet Volume 9.9 fL (7.4-10.4); Platelet Count 108 K/uL (130-400); RDW Coefficient of Variation 20.8 % (11.5-14.5); RDW Standard Deviation 74.9 fL (36.4-46.3); Red Blood Count 2.56 M/uL (4.2-5.4); White Blood Count 15.18 K/uL (4.8-10.8)
[2018-09-07 06:37] LABS: Anisocytosis Present; Immature Granulocytes # (auto) 0.09 K/uL (0.00-0.02); Immature Granulocytes % (auto) 0.6 %; Lymphocytes # (auto) 11.03 K/uL (1.2-3.4); Lymphocytes % (auto) 72.7 %; Monocytes # (auto) 0.33 K/uL (0.11-0.59); Monocytes % (auto) 2.2 %; Neutrophils # (auto) 3.73 K/uL (1.4-6.5); Neutrophils % (auto) 24.5 %; Ovalocytes 1+; Polychromasia 1+; Tear Drop Cells 1+
[2018-09-07 06:52] LABS: BUN Creatinine Ratio 36.6 (10-20); Calcium 6.6 mg/dl (8.5-10.1); Creatinine Clr Calc Pharmacy 26.5 ml/min; Est GFR (African American) 32.2; Est GFR (Non-African American) 27.8; Magnesium 2.2 mg/dl (1.8-2.4)
[2018-09-07 06:53] LABS: Phosphorus 5.5 mg/dl (2.5-4.9)
[2018-09-07] MEDS: ISOSORBIDE MONO EXTENDED REL 30 MG TABCR PO SCH (07:40)
[2018-09-07] MEDS: PANTOprazole 40 MG TAB PO SCH (07:40)
[2018-09-07] MEDS: clonazePAM 1 MG TAB PO SCH (07:40)
[2018-09-07] MEDS: dexAMETHasone 4 MG TAB PO SCH (07:40)
[2018-09-07] MEDS: CITALOPRAM 20 MG TAB PO SCH (07:41)
[2018-09-07] MEDS: FOLIC ACID 1 MG TAB PO SCH (07:41)
[2018-09-07 08:06] LABS: Folate (Folic Acid) > 24.00 ng/ml (>5.38); Vitamin B12 477 pg/ml (211-911)
[2018-09-07] MEDS ORDERED: INSULIN GLARGINE SOLOSTAR 100 UNITS/ML 3 ML PEN SC SCH (09:00)
[2018-09-07] MEDS: INSULIN GLARGINE SOLOSTAR 100 UNITS/ML 3 ML PEN SC SCH (09:09)
[2018-09-07] MEDS: INSULIN ASPART 100 UNITS/ML 3 ML PEN SC SCH ×2 (09:09→12:15)
--- NOTE | 2018-09-07 15:05 | Hospitalist Progress Note ---
Date of Service September 07, 2018 Assessment & Plan (1) Symptomatic anemia: Admitted for symptomatic anemia with fatigue and SOB Hemoglobin of 5.5 on admission Received 3 units of PRBC during hospital course Hgb today 8.4 Continue monitor CBC outpatient (2) Hemolytic anemia: Has history of autoimmune hemolytic anemia Reticulocyte count is 11% Discussed with raw sampler dr. Long recommended to continue decadron 40mg daily for 3 days Follow up with Hematology outpatient (3) CKD (chronic kidney disease) stage 3, GFR 30-59 ml/min: Creatinine 1.9 on admission, creatinine btw 1.8 to 2 baseline Received gentle hydration creatinine 1.7 today Avoid Nephroxic agents Will resume lasix on discharge Monitor BMP as an outpatient (4) Diabetes: Has been on SSI DVT prophylaxis SCDs due to thrombocytopenia Disposition Follow up with your primary care provider Dr. Garcia on 09/11 @ 11:05 AM Follow up with hematology Dr. Long Check CBC and BMP within 1 week Subjective Pt was seen and examined Lying in bed with no distress Pt said that she feels fine She said that she is ready to be discharged Denies any chest pain, palpitation, dizziness and SOB Physical Exam Physical Exam: General- No acute distress Head- atraumatic Eyes- PERRL, EOMI, ENT- oropharynx clear Neck- supple, no JVD Lungs- clear to auscultation Heart- regular rhythm; no murmur Abdomen- normal bowel sounds, soft, nontender Extremities- no calf tenderness Neuro- alert, oriented x 3; PERRL, EOMI; no facial palsy; no dysarthria Skin- warm & dry Results & Data Vital Signs (Past 12 Hours) Vital Signs Temp Pulse Resp BP Pulse Ox 09/07/18 11:39 36.4 C L 72 16 102/66 97 09/07/18 07:04 36.6 C 114 H 19 150/83 H 98 09/07/18 04:00 36.6 C 64 18 105/66 97
--- NOTE | 2018-09-08 08:05 | Discharge Summary ---
Date of Service September 07, 2018 Admission HPI Per Admitting Provider History obtained from patient and records. Medical history significant for hypertension, DM 2 on oral meds, CRI (baseline creatinine 1.8), history of NHL, B cell CLL, hx Kailyn positive autoimmune hemolytic anemia stat us post prednisone, Rituxan Rx, chronic anemia (baseline hemoglobin 10-11), history of recurrent papillary thyroid cancer sp surgery/WILL, postsurgical hypothyroidism, chronic thrombocytopenia Recent confinement July 2014 for ARF. Patient diagnosed to have of autoimmune hemolytic anemia in 2013 status post prednisone, Rituxan chemotherapy. Recurrent AIHA bout in 2016. No treatment for AIHA since July 2017 as per outpatient records. 2 weeks history of fatigue, exertional SOB symptoms more prominent in the last few days. No chest pain. No black/bloody stools. Outpatient hemoglobin yesterday noted to be 5.4. Patient directed by PCP to the emergency room. IV Solu-Medrol administered at the ER for possible AIHA relapse as per recommendations of [facility] materials scientist child monitor (Dr. Cardoso) as per ER provider. 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 Admission Exam Per Admitting Provider GENERAL: Comfortable, pleasant, looks younger for stated age, obese, no respiratory distress SKIN: Pallor, warm HEENT: Bespectacled, pale palpebral conjunctivae, no ptosis, moist buccal mucosa, chronic left lower lip asymmetry as per patient NECK : Supple, short, no tenderness CHEST : CTA, no tenderness HEART : RRR, no obvious murmurs ABDOMEN: Some distention, nontender Rectal exam: Refused EXTREMITIES : Bilateral LE swelling (chronic as per patient, no LE tenderness, no other conspicuous deformities noted NEUROLOGIC : Coherent, chronic left lower lip asymmetry, no other gross focality Principal Diagnosis Symptomatic anemia Hemolytic anemia CKD (chronic kidney disease) stage 3 Diabetes Discharge Exam General- No acute distress Head- atraumatic Eyes- PERRL, EOMI, ENT- oropharynx clear Neck- supple, no JVD Lungs- clear to auscultation Heart- regular rhythm; no murmur Abdomen- normal bowel sounds, soft, nontender Extremities- no calf tenderness Neuro- alert, oriented x 3; PERRL, EOMI; no facial palsy; no dysarthria Skin- warm & dry Discharge Data Allergies Allergy/AdvReac Type Severity Reaction Status Date / Time lorazepam Allergy Unknown UNKNOWN Unverified 09/05/18 00:19 pneumococcal vaccine Allergy Unknown Unknown Verified 09/05/18 00:19 Consultations 09/05/18 00:34 ED Decision to Admit Stat 09/05/18 05:27 Consult Hematology Routine Ordered Studies XR chest 1V portable HISTORY: fatigue COMPARISON: Chest 10/12/2015. FINDINGS: Punctate calcified granuloma within the right upper lobe. Otherwise, the lungs are clear. The heart is normal in size. Calcified right hilar lymph nodes are noted. No pleural effusions. No pneumothorax. IMPRESSION: No acute process. Electronically signed by: Gautam Ramirez M.D. 09/05/2018 8:19 AM Dictated: 09/05/18817 Transcribed: 09/05/18817 Hospital Course (1) Symptomatic anemia: Admitted for symptomatic anemia with fatigue and SOB Hemoglobin of 5.5 on admission Received 3 units of PRBC during hospital course Hgb today 8.4 Continue monitor CBC outpatient (2) Hemolytic anemia: Has history of autoimmune hemolytic anemia Reticulocyte count is 11% Discussed with materials scientist dr. Long recommended to continue decadron 40mg daily for 3 days Follow up with Hematology outpatient (3) CKD (chronic kidney disease) stage 3, GFR 30-59 ml/min: Creatinine 1.9 on admission, creatinine btw 1.8 to 2 baseline Received gentle hydration creatinine 1.7 today Avoid Nephroxic agents Will resume lasix on discharge Monitor BMP as an outpatient (4) Diabetes: Has been on SSI DVT prophylaxis SCDs due to thrombocytopenia Disposition Follow up with your primary care provider Dr. Garcia on 09/11 @ 11:05 AM Follow up with hematology Dr. Long Check CBC and BMP within 1 week Total Time Total Time Spent Total Time Spent (In Minutes): 35 minutes Total Time Includes: Examination of the Patient, Discharge Planning, Medication Reconciliation, Communication With Other Providers and Other Discharge Plan Discharge Items Patient Disposition: Home - Self-Care Reason For Visit: SYMPTOMATIC ANEMIA Discharge Diagnosis: Symptomatic anemia Hemolytic anemia CKD (chronic kidney disease) stage 3 Diabetes Discharge Goals: Decrease discomfort, Improve disease control, Improve function and Increase independence Activity: Resume your previous activity Activity Comment: As tolerated Non-emergency contact: Primary Care Provider and Oncologist Call non-emergency contact if: you have any medication questions Follow-up/Referrals: Lor Garcia MD [Primary Care Provider] - Diet: Carb Consistent or DM2 Addtl Provider Instructions: Follow up with your primary care provider Dr. Garcia on 09/11 @ 11:05 AM Follow up with hematology Dr. Long Check CBC and BMP within 1 week Avoid any NSAID (such as motrin, aleve, naproxen, advil, , ibuprofen, ..) Prescriptions: New dexamethasone 6 mg tablet 40 mg PO DAILY 3 Days Qty: 20.01 RF: 0 Continued isosorbide mononitrate 30 mg Tablet Extended Release 24 Hr 30 mg PO DAILY RF: 0 citalopram 10 mg Tablet 10 mg PO DAILY RF: 0 sennosides-docusate sodium [Senna with Docusate Sodium] 8.6-50 mg Tablet 1 tab PO DAILY PRN (Reason: Constipation) RF: 0 prochlorperazine maleate 10 mg Tablet 10 mg PO Q6H PRN (Reason: Nausea) RF: 0 folic acid 1 mg Tablet 1 mg PO DAILY RF: 0 tramadol 50 mg Tablet 25 mg PO Q6H PRN (Reason: Pain) RF: 0 benazepril 20 mg Tablet 20 mg PO DAILY RF: 0 clonazepam 1 mg Tablet 1 mg PO BID RF: 0 calcium carbonate-vitamin D3 [Oysco 500/D] 500 mg(1,250mg) -200 unit Tablet 1 tab PO BID RF: 0 glimepiride 1 mg Tablet 1 mg PO QAM RF: 0 furosemide [Lasix] 20 mg Tablet 20 mg PO TID RF: 0 triamcinolone acetonide 0.1 % Cream 1 applic TOPICAL BID RF: 0 levothyroxine 150 mcg Tablet 150 mcg PO DAILY RF: 0 omeprazole 20 mg Capsule,Delayed Release(Dr/Ec) 20 mg PO BID RF: 0 clotrimazole 10 mg Patrice 10 mg PO TID RF: 0 Stand-Alone Forms: [facility] Discharge Orders: Discharge Order (Routine); Ordered 09/07/18 Ordered By: Milagros Galdamez Admission Data Admit Date/Time: 09/05/18 04:36 Attending Provider: Milagros Galdamez Admit Provider: Tenzin Pierce Primary Care Provider: Lor Garcia Other Providers: Tenzin Pierce ; Latesha Flores ; Wendy Ribeiro Service: Telemetry Medical Other Interventions: Discharge Summary Assessment (RN) Last Done: 09/07/18 15:45 DC Date/Time DO NOT enter until pt leaves facility: 09/07/18 16:30
== END 2018-09-07 16:30 | disposition home or self-care (01) | DRG 809 ==
LOC: ED 23:16 → 2N 09-05 04:36 → SUATTDRO 09-05 04:36 → 2N 09-05 05:13

== ENCOUNTER 2018-09-24 16:35 | Inpatient (IN) ==
[2018-09-24] MEDS ORDERED: SODIUM CHLORIDE 0.9% 1000ML 1,000 ML IV ONE (17:14)
[2018-09-24] MEDS ORDERED: predniSONE 50 MG TAB PO ONE (17:15)
[2018-09-24] MEDS ORDERED: predniSONE 50 MG TAB PO STA (17:21)
[2018-09-24] MEDS ORDERED: predniSONE 20 MG TAB ONE (17:30)
[2018-09-24] MEDS ORDERED: SODIUM CHLORIDE 0.9% 250 ML IV PRN ×3 (17:34→21:39)
[2018-09-24 17:36] LABS: Hematocrit (blood only) 20.3 % (37-47); Hemoglobin 6.3 g/dL (12.0-16.0); Mean Corpuscular Volume 109.1 fL (80-100); Mean Platelet Volume 9.4 fL (7.4-10.4); Platelet Count 90 K/uL (130-400); RDW Coefficient of Variation 18.4 % (11.5-14.5); RDW Standard Deviation 70.8 fL (36.4-46.3); Red Blood Count 1.86 M/uL (4.2-5.4); White Blood Count 8.63 K/uL (4.8-10.8)
[2018-09-24 17:40] LABS: INR 1.1 (0.9-1.1); Partial Thromboplastin Ratio 0.9; Partial Thromboplastin Time 24.7 Seconds (21.0-31.0); Prothrombin Time 11.4 Seconds (9.0-12.0)
[2018-09-24 17:43] LABS: iSTAT Creatinine 1.7 mg/dl (0.6-1.3); iSTAT Hemoglobin 6.1 g/dl (12.0-16.0); iSTAT Ionized Calcium 0.8 mmol/l (1.12-1.32); iSTAT Potassium 4.5 mEq/L (3.3-5.0)
[2018-09-24 18:06] LABS: Alanine Aminotransferase 20 U/L (12-78); Alkaline Phosphatase 62 U/L (45-117); Aspartate Aminotransferase 26 U/L (15-37); BUN Creatinine Ratio 24.2 (10-20); Bilirubin Direct 0.4 mg/dl (0-0.2); Blood Urea Nitrogen 44 mg/dl (7-18); Calcium 6.2 mg/dl (8.5-10.1); Carbon Dioxide 26 mmol/L (21-32); Chloride 109 mmol/L (98-107); Creatinine Clr Calc Pharmacy 26.1 ml/min; Est GFR (African American) 29.7; Est GFR (Non-African American) 25.6; Glucose 151 mg/dl (70-99); Potassium 4.4 mmol/L (3.5-5.1); Sodium 141 mmol/L (136-145); Total Protein 6.3 gm/dl (6.4-8.2); Troponin I < 0.015 ng/ml (0-0.045)
[2018-09-24 18:11] LABS: Anisocytosis Present; Basophils # (auto) 0.01 K/uL (0-0.2); Basophils % (auto) 0.1 %; Eosinophils # (auto) 0.02 K/uL (0-0.5); Eosinophils % (auto) 0.2 %; Immature Granulocytes # (auto) 0.04 K/uL (0.00-0.02); Immature Granulocytes % (auto) 0.5 %; Lymphocytes # (auto) 4.78 K/uL (1.2-3.4); Lymphocytes % (auto) 55.4 %; Monocytes # (auto) 0.23 K/uL (0.11-0.59); Monocytes % (auto) 2.7 %; Neutrophils # (auto) 3.55 K/uL (1.4-6.5); Neutrophils % (auto) 41.1 %; Platelet Estimate Decreased (Normal)
--- NOTE | 2018-09-24 19:54 | History & Physical Report ---
Date of Service September 24, 2018 Assessment & Plan (1) Symptomatic anemia: (2) Hemolytic anemia: Pt with hx B-cell CLL diagnosed in 2013, Kailyn positive autoimmune hemolytic anemia diagnosed in 2013. Today with Hgb: 6.0. Having exertional SOB and dizziness. Had Rituximab and hydrocortisone 100mg today In ER afebrile, P: 105 down to 93, BP: 80/42 up to 99/43, R: 12, 99% on RA. WBC: 8.6, H/H: 6.3/20, Plt: 90 -In ER given 1L NSS, prednisone 60mg po -Transfuse 2 units PRBCs (pt with antibodies and blood needs to be obtained from [facility]). Will pretreat with Benadryl and Tylenol -Continue prednisone 60mg daily and folic acid 1mg daily per Dr Long - hematology recommendations -Monitor H&H (3) HTN (hypertension): Currently hypotensive -Hold benazepril, lasix -Continue isosorbide with holding parameters (4) CKD (chronic kidney disease) stage 3, GFR 30-59 ml/min: Cr: 1.8. Was 1.7 on 09/15/18 and 1.9 on 09/04/18 -Avoid nephrotoxic agents when possible -Monitor renal functions (5) Diabetes: DM II A1c: 3.9 on 08/05/18 and glimepiride has been discontinued Current diet controlled -Monitor BSGs -Novolog sliding scale per protocol (6) Thyroid cancer: H/O recurrent papillary thyroid cancer in 2009 s/p surgery TSH: 0.38 on 08/05/18 -Continue levothyroxine DVT Prophylaxis -SCDs secondary to anemia and thrombocytopenia DNR/DNI as per discussion with pt Follows with Dr Garcia for routine care Pt was seen and care coordinated with Dr Louis. See addendum History of Present Illness Chief Complaint: Abnormal labs - Anemia Primary Care Provider: Lor Garcia MD Pt is 83 y/o F with PMH HTN, DM II, CKD III, B-cell CLL diagnosed in 2013, Kailyn positive autoimmune hemolytic anemia diagnosed in 2013, H/O recurrent papillary thyroid cancer in 2009 s/p surgery presented to ER for abnormal labs with hemoglobin of 6.0 today. Patient follows with Dr. Long with hematology oncology and had rituximab today. Patient was instructed to start taking p rednisone 60 mg daily and was referred to ER for transfusion. Patient reports past several days has been having shortness of breath with walking approximately 15 steps and has been feeling lightheaded. Denies any syncope or falls. Patient with hemoglobin 7.0 on 09/15/2018 and received 2 units PRBCs on 09/18/2018. Recent hospital admission 09/05/2018-09/07/2018 for symptomatic anemia, KEO it was transfused with 3 units PRBCs and received Decadron 40 mg daily x3 days. Pt reports didn't take her medications today. Denies fever/chills, diaphoresis, N/V/D/C, ANDREA, syncope, vision changes, neck pain, CP, orthopnea, palpitations, cough, sore throat, choking, otalgia, rhinorrhea, abdominal pain, paresthesias, extremity weakness, extremity edema, rashes, urinary symptoms, epistaxis, hematuria, melena, hematochezia. Allergies Allergy/AdvReac Type Severity Reaction Status Date / Time lorazepam Allergy Unknown UNKNOWN Unverified 09/24/18 18:00 pneumococcal vaccine Allergy Unknown Unknown Verified 09/24/18 18:00 Home Medications Home Medications Medication Instructions Recorded Confirmed Type benazepril 20 mg PO HS 09/05/18 09/24/18 History calcium carbonate-vitamin D3 1 tab PO BID 09/05/18 09/24/18 History [Oysco 500/D] clonazepam 1 mg PO BID PRN 09/05/18 09/24/18 History folic acid 1 mg PO QAM 09/05/18 09/24/18 History furosemide [Lasix] 20 mg PO TID 09/05/18 09/24/18 History isosorbide mononitrate 30 mg PO QAM 09/05/18 09/24/18 History levothyroxine 150 mcg PO QAM 09/05/18 09/24/18 History omeprazole 20 mg PO BID 09/05/18 09/24/18 History tramadol 25 mg PO Q6H PRN 09/05/18 09/24/18 History citalopram 10 mg PO DAILY 09/24/18 09/24/18 History prednisone 60 mg PO DAILY 09/24/18 09/24/18 History Past Med/Surg History Medical History HTN (hypertension) (Chronic) TIA (transient ischemic attack) (Resolved) Lymphoma (Chronic) B-cell CLL, dx in 2013 Thyroid cancer (Chronic) recurrent papillary thyroid cancer; s/p surgery; dx in 2009 Asthma (Chronic) Diabetes (Chronic) Kidney stones (Chronic) Acute renal failure (Resolved) 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; dx in 2013 Non-STEMI (non-ST elevated myocardial infarction) (Resolved) Sepsis (Resolved) Surgical History History of thyroidectomy (Chronic) several cancer surgeries on thyroid History of knee surgery (Chronic) b/l knees History of hernia repair (Chronic) Family History Mother Colorectal cancer Brother Diabetes Sister Diabetes Social History Preferred Language: Wolof Communication Ability: Effective Celery Cutter Required: No Beliefs That Will Affect Care: None Current Living Situation: Family Current Living Situation Comment: Lives in own home; her son and granddtr are living w/ her at this time. Other Information That Helps Us Care for You: No Feels Safe at Home: Yes Safety Concerns: Feels Safe At This Time Smoking Status: Never smoker Do You Dip or Chew Tobacco: No Hx Alcohol Use: No Hx Substance Use: No Review of Systems Review of Systems: All systems reviewed & are unremarkable except as noted in HPI & below Physical Exam Physical Exam: General: no acute distress, WDWN Head: normocephalic, atraumatic Eyes: PERRL, EOM's intact, pale conjunctiva, anicteric ENT: normal inspection external ears, nose, mucous membranes moist Neck: supple, trachea midline Lungs: clear, no respiratory distress, no wheezing/rhonchi/rales CV: RRR, systolic murmur, no JVD, 1+ pretibial edema Abd: normal BS, soft, non-tender Ext: no cyanosis, no calf tenderness Neuro: A&O x 3, no focal deficits noted, normal affect Skin: warm, dry, pale Results & Data Vital Signs (Past 12 Hours) Vital Signs Temp Pulse Resp BP Pulse Ox 09/24/18 18:30 93 H 10 L 09/24/18 18:15 97 H 14 09/24/18 18:00 98 H 14 09/24/18 17:45 99 H 10 L 09/24/18 17:31 101 H 12 99/43 L 09/24/18 17:30 102 H 12 09/24/18 17:17 107 H 15 09/24/18 17:15 94 09/24/18 17:07 107 H 19 107/50 L 09/24/18 16:59 37 C 105 H 20 80/42 L 99 Laboratory Results Short CBC 09/24/18 Range/Units 17:16 WBC 8.63 (4.8-10.8) K/uL Hgb 6.3 L* (12.0-16.0) g/dL Hct 20.3 L* (37-47) % Plt Count 90 L (130-400) K/uL BMP 09/24/18 17:16 Sodium 141 Potassium 4.4 Chloride 109 H Carbon Dioxide 26 BUN 44 H Creatinine 1.82 H Glucose 151 H Calcium 6.2 L Cardiac Enzymes 09/24/18 Range/Units 17:16 Troponin I < 0.015 (0-0.045) ng/ml Liver Function 09/24/18 Range/Units 17:16 Total Bilirubin 1.0 (0.2-1) mg/dl Direct Bilirubin 0.4 H (0-0.2) mg/dl AST 26 (15-37) U/L ALT 20 (12-78) U/L Alkaline Phosphatase 62 (45-117) U/L Albumin 4.0 (3.4-5.0) gm/dl Supervising Physician Co-Signing Physician Notes I saw this patient with the physician assistant to the dean, I participated in the history, physical, review of systems, and physical exam. I reviewed the medications with the patient and the physician assistant to the dean and helped reconcile the medications. I helped take a detailed family and social history as well. I formulated the assessment and plan personally with the physician assistant to the dean and went over it with the patient. ROS-No Headache, No Visual Changes, No Nausea, No Vomiting, No Fever, No Chills, No Neck Pain or Stiffness, No Chest Pain, No Palpitations, No SOB, No LEVY, No Cough, No Sputum, No Wheezing, No Abdominal Pain, No Diarrhea, No Hematemesis, No Hemoptysis, No Unexpected Weight Loss, No Flank pain, No Melena, No Hematochezia, No Frequency, No Urgency, No Burning, No Hematuria, No Rashes, No Diaphoresis. Appetite is Normal, Weak Physical Exam Gen-AAO x 3, NAD, Afebrile, Pale, Pleasant Head-NCAT, EOMI, PERRLA, Anicteric Sclera, No Posterior Pharyngeal Erythema Neck-Supple, No JVD, No Thyromegaly, No Masses, No LAD, No Bruits Lungs-Clear to Auscultation Bilaterally, No Rales, No Rhonchi, No Wheezing, No Crepitus Chest-No S4, +S1, +S2, No S3, No Murmurs, No Rubs, No Gallops, No Ectopy Abdomen-Soft, Bowel Sounds Present, Non Tender, Non Distended, No Hepatomegaly, No Splenomegaly, No Palpable Masses, No Rebound, No Rigidity, No Guarding Musculoskeletal-Full Range of Motion Bilaterally, No CVAT Extremities-No Cyanosis, No Clubbing, No Edema Nuero-Cranial Nerves II-XII grossly intact, Motor WNL, DTRs WNL, Strength WNL, Non Focal Psych-Normal Mood
--- NOTE | 2018-09-24 20:12 | Emergency Department Note ---
Entered by Carolee Mccoy acting as a scribe for History of Present Illness General Chief complaint: Abnormal Labs/Diagnostic Testing Stated complaint: LOW LABS, NEEDS TRANSFUSION Time Seen by Provider: 09/24/18 17:07 Source: patient and other (nursing staff) History of Present Illness Onset (ago): hour(s) (just prior to arrival) Location: head (general) Severity: similar to prior episodes Pain Consistency: + other (episode ) Quality: + other (abnormal blood work ) Associated symptoms: + shortness of breath (with exertion), + weakness and + other (negative dark black stools; negative blood in stool; positive left lower quadrant abdominal pain); no chest pain and no nausea/vomiting The patient is a 83 year old female who presents to the Emergency Room with complaints of an episode of abnormal blood work that began just prior to arrival. The patient states that she was at her PCP's office when her blood counts were found to be at 6. The patient states that her PCP generally tries to keep her at about 9 or 10. She reports feeling weak currently. The patient denies dark black stools, blood in her stool, nausea, vomiting, and chest pain. She states that she has some shortness of breath with exertion and some left lower quadrant abdominal pain. The patient denies any recent falls or head trauma, and denies being on blood thinners. The patient states that she has a history of leukemia and hemolytic anemia. Nursing staff states that the patient received chemotherapy treatment this morning for lymphoma. The patient states that she was in the ED 2 weeks ago and received a transfusion, and states that about one week after this she received another transfusion outpatient. Home Medications Home Medications Medication Instructions Recorded Confirmed Type benazepril 20 mg PO HS 09/05/18 09/24/18 History calcium carbonate-vitamin D3 1 tab PO BID 09/05/18 09/24/18 History [Oysco 500/D] clonazepam 1 mg PO BID PRN 09/05/18 09/24/18 History folic acid 1 mg PO QAM 09/05/18 09/24/18 History furosemide [Lasix] 20 mg PO TID 09/05/18 09/24/18 History isosorbide mononitrate 30 mg PO QAM 09/05/18 09/24/18 History levothyroxine 150 mcg PO QAM 09/05/18 09/24/18 History omeprazole 20 mg PO BID 09/05/18 09/24/18 History tramadol 25 mg PO Q6H PRN 09/05/18 09/24/18 History citalopram 10 mg PO DAILY 09/24/18 09/24/18 History prednisone 60 mg PO DAILY 09/24/18 09/24/18 History Allergies Allergy/AdvReac Type Severity Reaction Status Date / Time lorazepam Allergy Unknown UNKNOWN Unverified 09/24/18 18:00 pneumococcal vaccine Allergy Unknown Unknown Verified 09/24/18 18:00 Past Med/Surg History Medical History HTN (hypertension) (Chronic) TIA (transient ischemic attack) (Resolved) Lymphoma (Chronic) B-cell CLL, dx in 2013 Thyroid cancer (Chronic) recurrent papillary thyroid cancer; s/p surgery; dx in 2009 Asthma (Chronic) Diabetes (Chronic) Kidney stones (Chronic) Acute renal failure (Resolved) 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; dx in 2013 Non-STEMI (non-ST elevated myocardial infarction) (Resolved) Sepsis (Resolved) Surgical History History of thyroidectomy (Chronic) several cancer surgeries on thyroid History of knee surgery (Chronic) b/l knees History of hernia repair (Chronic) Family History Mother Colorectal cancer Brother Diabetes Sister Diabetes Social History Preferred Language: Macanese Communication Ability: Effective Executive Director Of Nursing Required: No Beliefs That Will Affect Care: None Current Living Situation: Family Current Living Situation Comment: Lives in own home; her son and granddtr are living w/ her at this time. Other Information That Helps Us Care for You: No Feels Safe at Home: Yes Safety Concerns: Feels Safe At This Time Smoking Status: Never smoker Do You Dip or Chew Tobacco: No Hx Alcohol Use: No Hx Substance Use: No Review of Systems See HPI for pertinent positives & negatives. and A total of 10 systems reviewed and were otherwise negative Physical Exam Vital Signs Vital Signs - 24 hr 09/24/18 16:59 09/24/18 17:07 09/24/18 17:15 Temperature 37 C Temperature Source Oral Sepsis Recent Fever Within 48 Hours No Sepsis New/Unexplained Change in Mental Status No Sepsis Action Taken by Nursing No Action Required Pulse Rate 105 H 107 H Pulse Rhythm Regular Pulse Strength Normal Respiratory Rate 20 19 Respiratory Effort / Characteristics Non-Labored Spontaneous Respiratory Depth Normal Respiratory Pattern Regular Blood Pressure 80/42 L 107/50 L Blood Pressure Mean 54 69 Blood Pressure Position Sitting Pulse Oximetry 99 94 Oxygen Delivery Method Room Air Room Air 09/24/18 17:17 09/24/18 17:30 09/24/18 17:31 Temperature Temperature Source Sepsis Recent Fever Within 48 Hours Sepsis New/Unexplained Change in Mental Status Sepsis Action Taken by Nursing Pulse Rate 107 H 102 H 101 H Pulse Rhythm Pulse Strength Respiratory Rate 15 12 12 Respiratory Effort / Characteristics Respiratory Depth Respiratory Pattern Blood Pressure 99/43 L Blood Pressure Mean 61 Blood Pressure Position Pulse Oximetry Oxygen Delivery Method 09/24/18 17:45 09/24/18 18:00 09/24/18 18:15 Temperature Temperature Source Sepsis Recent Fever Within 48 Hours Sepsis New/Unexplained Change in Mental Status Sepsis Action Taken by Nursing Pulse Rate 99 H 98 H 97 H Pulse Rhythm Pulse Strength Respiratory Rate 10 L 14 14 Respiratory Effort / Characteristics Respiratory Depth Respiratory Pattern Blood Pressure Blood Pressure Mean Blood Pressure Position Pulse Oximetry Oxygen Delivery Method 09/24/18 18:30 09/24/18 18:31 09/24/18 18:37 Temperature Temperature Source Sepsis Recent Fever Within 48 Hours Sepsis New/Unexplained Change in Mental Status Sepsis Action Taken by Nursing Pulse Rate 93 H 91 H Pulse Rhythm Pulse Strength Respiratory Rate 10 L 12 Respiratory Effort / Characteristics Respiratory Depth Respiratory Pattern Blood Pressure 105/52 L Blood Pressure Mean 69 Blood Pressure Position Pulse Oximetry Oxygen Delivery Method Room Air 09/24/18 18:45 09/24/18 19:00 09/24/18 19:01 Temperature Temperature Source Sepsis Recent Fever Within 48 Hours Sepsis New/Unexplained Change in Mental Status Sepsis Action Taken by Nursing Pulse Rate 95 H 93 H 91 H Pulse Rhythm Pulse Strength Respiratory Rate 17 13 13 Respiratory Effort / Characteristics Respiratory Depth Respiratory Pattern Blood Pressure 118/51 L Blood Pressure Mean 73 Blood Pressure Position Pulse Oximetry Oxygen Delivery Method 09/24/18 19:15 09/24/18 19:30 09/24/18 19:31 Temperature Temperature Source Sepsis Recent Fever Within 48 Hours Sepsis New/Unexplained Change in Mental Status Sepsis Action Taken by Nursing Pulse Rate 93 H 89 88 Pulse Rhythm Pulse Strength Respiratory Rate 14 17 17 Respiratory Effort / Characteristics Respiratory Depth Respiratory Pattern Blood Pressure 106/57 L Blood Pressure Mean 73 Blood Pressure Position Pulse Oximetry Oxygen Delivery Method 09/24/18 19:45 09/24/18 20:00 09/24/18 20:01 Temperature Temperature Source Sepsis Recent Fever Within 48 Hours Sepsis New/Unexplained Change in Mental Status Sepsis Action Taken by Nursing Pulse Rate 89 87 88 Pulse Rhythm Pulse Strength Respiratory Rate 18 16 16 Respiratory Effort / Characteristics Respiratory Depth Respiratory Pattern Blood Pressure 105/52 L Blood Pressure Mean 69 Blood Pressure Position Pulse Oximetry Oxygen Delivery Method Physical Exam GENERAL: The patient is pale. She is oriented to person, place, and time. She appears well-developed and well-nourished. She does not appear distressed. HENT: Exam performed. - Head: Normocephalic and atraumatic. - Right Ear: External ear normal. No mastoid tenderness. - Left Ear: External ear normal. No mastoid tenderness. - Mouth/Throat: The oropharynx is clear and moist. No trismus in the jaw. No dental abscesses or uvula swelling. No oropharyngeal exudate or tonsillar abscesses. EYES: Conjunctivae and EOM are normal. Pupils are equal, round, and reactive to light. Right eye exhibits no discharge. Left eye exhibits no discharge. No scleral icterus. NECK: Normal range of motion. Neck supple. No JVD present. No spinous process tenderness present. No carotid bruit present. No rigidity. No tracheal deviation and normal range of motion present. No Brudzinski's sign and no Kernig's sign noted. CV: Systolic murmur. Normal rate, regular rhythm, normal heart sounds and intact distal pulses. There is no peripheral edema. Palpable radial pulses bue. PULM/CHEST: Effort normal and breath sounds normal. No respiratory distress. No stridor. She has no wheezes. She has no rales. - Chest Wall: She exhibits no tenderness. ABD: The abdomen is soft. Bowel sounds are normal. She has no distension. No mass is present. Pain on palpation of the left lower quadrant. There is no rebound, no guarding, no Mendez's sign and no tenderness at McBurney's point. Rovsig negative RECTAL: Hemoccult negative. MUSC/SKEL: Normal range of motion. There is no peripheral edema, tenderness or deformity. LYMPH: No cervical adenopathy. NEURO: She is alert and oriented to person, place, and time. She has normal strength. No cranial nerve deficit or sensory deficit. Coordination and gait normal. GCS eye subscore is 4. GCS verbal subscore is 5. GCS motor subscore is 6. cerbellar tests wnl. SKIN: Skin is warm and dry. She is not diaphoretic. PSYCH: She has a normal mood and affect. Her behavior is normal. Judgment and thought content normal. Course 1707: Past medical records reviewed. The patient was evaluated in room A3. A complete history and physical exam was performed. EMR reviewed showed that the patient has a history of Kailyn positive autoimmune hemolytic anemia, B cell CLL. The patient was starting rituxan and became nauseous during her infusion. The patient's hemoglobin was at 6 today which is down from 7 on 09/15. The patient had a transfusion on 09/15 of 2 units of red blood cells. Dr. Long- Hematology Oncology states that the patient is a difficult cross match, so he recommends the patient being further evaluated in the hospital and being given 16 mg of prednisone daily. There is no mention of a cardiac murmur in the patient's past history and physicals. On arrival in the emergency department, the patient is tachycardic and hypotensive. 2 large-bore IVs were immediately obtained. I-STAT was immediately obtained to make sure this patient's anemia sent causing her hypotension. IV fluids were immediately started. 1731: The patient's ISTAT hemoglobin was 6.1 and lactate 2.3. I ordered for 2 units to be transfused. We are waiting for the patient's blood work to come back and will plan for further evaluation in the hospital. 3: Vital signs stable status post IV fluid resuscitation. Hemoglobin shows 6.3. I discussed the case with Manisha Girard PA-C who accepts the patient to Dr. Louis service for further evaluation. Administered Medications Discontinued Medications Sodium Chloride (Nss 1000ml) 1,000 mls @ 999 mls/hr IV .Q1H1M ONE Stop: 09/24/18 18:14 Last Admin: 09/24/18 17:35 Dose: 999 mls/hr Documented by: [id number] Prednisone (Prednisone) 50 mg PO ONCE ONE Stop: 09/24/18 17:16 Last Admin: 09/24/18 19:37 Dose: Not Given Documented by: [id number] Prednisone (Prednisone) 60 mg PO NOW STA Stop: 09/24/18 17:22 Last Admin: 09/24/18 17:36 Dose: Not Given Documented by: [id number] Prednisone (Prednisone) Confirm Administered Dose 60 mg .ROUTE .STK-MED ONE Stop: 09/24/18 17:31 Last Admin: 09/24/18 17:35 Dose: 60 mg Documented by: [id number] Medical Decision Making Medical Records Attestation: I reviewed the patient's medical records. Home Medications Current Medication List: was personally reviewed by me Laboratory Data Attestation: I reviewed the patient's lab results. Result diagrams: 09/24/18 17:16 09/24/18 17:16 Lab Results 09/24/18 09/24/18 09/24/18 Range/Units 17:16 17:16 17:16 WBC 8.63 (4.8-10.8) K/uL RBC 1.86 L (4.2-5.4) M/uL Hgb 6.3 L* (12.0-16.0) g/dL POC Hgb (12.0-16.0) g/dl Hct 20.3 L* (37-47) % POC Hct (37-47) % MCV 109.1 H (80-100) fL MCH 33.9 (25-34) pg MCHC 31.0 L (32-36) g/dL RDW Std Deviation 70.8 H (36.4-46.3) fL RDW Coeff of Marcelina 18.4 H (11.5-14.5) % Plt Count 90 L (130-400) K/uL MPV 9.4 (7.4-10.4) fL Immature Gran % (Auto) 0.5 % Neut % (Auto) 41.1 % Lymph % (Auto) 55.4 % Coal % (Auto) 2.7 % Eos % (Auto) 0.2 % Baso % (Auto) 0.1 % Immature Gran # (Auto) 0.04 H (0.00-0.02) K/uL Neut # (Auto) 3.55 (1.4-6.5) K/uL Lymph # (Auto) 4.78 H (1.2-3.4) K/uL Coal # (Auto) 0.23 (0.11-0.59) K/uL Eos # (Auto) 0.02 (0-0.5) K/uL Baso # (Auto) 0.01 (0-0.2) K/uL Platelet Estimate Decreased L (Normal) Anisocytosis Present PT 11.4 (9.0-12.0) Seconds INR 1.1 (0.9-1.1) APTT 24.7 (21.0-31.0) Seconds PTT Ratio 0.9 POC Sodium (135-144) mEq/L Sodium (136-145) mmol/L POC Potassium (3.3-5.0) mEq/L Potassium (3.5-5.1) mmol/L POC Chloride (101-112) mEq/L Chloride (98-107) mmol/L Carbon Dioxide (21-32) mmol/L POC Total CO2 (24-31) mEq/l Anion Gap (3-11) POC Anion Gap (16-25) mmol/L POC BUN (7-18) mg/dl BUN (7-18) mg/dl Creatinine (0.6-1.2) mg/dl POC Creatinine (0.6-1.3) mg/dl Est Cr Clr Drug Dosing ml/min Est GFR ( Amer) Est GFR (Non-Af Amer) BUN/Creatinine Ratio (10-20) Glucose (70-99) mg/dl POC Glucose (other) (70-99) mg/dl POC Lactic Acid Sy (0.90-1.70) mmol/L Calcium (8.5-10.1) mg/dl POC Ioniz Calcium Will (1.12-1.32) mmol/l Total Bilirubin (0.2-1) mg/dl Direct Bilirubin (0-0.2) mg/dl AST (15-37) U/L ALT (12-78) U/L Alkaline Phosphatase (45-117) U/L Troponin I (0-0.045) ng/ml Total Protein (6.4-8.2) gm/dl Albumin (3.4-5.0) gm/dl Lipase (73-393) U/L Blood Type O Positive Antibody Screen POSITIVE A Antibody Identification Cancelled Direct Antiglob Test Positive A (Negative) RONALDO (IgG-AHG) 3+ A (Negative) RONALDO, Polyspecific 3+ A (Negative) RONALDO C3b, C3d 5 Min Weak Pos A (Negative) Crossmatch See Detail 09/24/18 09/24/18 09/24/18 Range/Units 17:16 17:26 17:30 WBC (4.8-10.8) K/uL RBC (4.2-5.4) M/uL Hgb (12.0-16.0) g/dL POC Hgb 6.1 L* (12.0-16.0) g/dl Hct (37-47) % POC Hct 18 L* (37-47) % MCV (80-100) fL MCH (25-34) pg MCHC (32-36) g/dL RDW Std Deviation (36.4-46.3) fL RDW Coeff of Marcelina (11.5-14.5) % Plt Count (130-400) K/uL MPV (7.4-10.4) fL Immature Gran % (Auto) % Neut % (Auto) % Lymph % (Auto) % Coal % (Auto) % Eos % (Auto) % Baso % (Auto) % Immature Gran # (Auto) (0.00-0.02) K/uL Neut # (Auto) (1.4-6.5) K/uL Lymph # (Auto) (1.2-3.4) K/uL Coal # (Auto) (0.11-0.59) K/uL Eos # (Auto) (0-0.5) K/uL Baso # (Auto) (0-0.2) K/uL Platelet Estimate (Normal) Anisocytosis PT (9.0-12.0) Seconds INR (0.9-1.1) APTT (21.0-31.0) Seconds PTT Ratio POC Sodium 141 (135-144) mEq/L Sodium 141 (136-145) mmol/L POC Potassium 4.5 (3.3-5.0) mEq/L Potassium 4.4 (3.5-5.1) mmol/L POC Chloride 104 (101-112) mEq/L Chloride 109 H (98-107) mmol/L Carbon Dioxide 26 (21-32) mmol/L POC Total CO2 22 L (24-31) mEq/l Anion Gap 6.0 (3-11) POC Anion Gap 21.0 (16-25) mmol/L POC BUN 45 H (7-18) mg/dl BUN 44 H (7-18) mg/dl Creatinine 1.82 H (0.6-1.2) mg/dl POC Creatinine 1.7 H (0.6-1.3) mg/dl Est Cr Clr Drug Dosing 26.1 ml/min Est GFR ( Amer) 29.7 Est GFR (Non-Af Amer) 25.6 BUN/Creatinine Ratio 24.2 H (10-20) Glucose 151 H (70-99) mg/dl POC Glucose (other) 155 H (70-99) mg/dl POC Lactic Acid Sy 2.34 H (0.90-1.70) mmol/L Calcium 6.2 L (8.5-10.1) mg/dl POC Ioniz Calcium Will 0.80 L (1.12-1.32) mmol/l Total Bilirubin 1.0 (0.2-1) mg/dl Direct Bilirubin 0.4 H (0-0.2) mg/dl AST 26 (15-37) U/L ALT 20 (12-78) U/L Alkaline Phosphatase 62 (45-117) U/L Troponin I < 0.015 (0-0.045) ng/ml Total Protein 6.3 L (6.4-8.2) gm/dl Albumin 4.0 (3.4-5.0) gm/dl Lipase 97 (73-393) U/L Blood Type Antibody Screen Antibody Identification Direct Antiglob Test (Negative) RONALDO (IgG-AHG) (Negative) RONALDO, Polyspecific (Negative) RONALDO C3b, C3d 5 Min (Negative) Crossmatch ECG Data Attestation: I personally reviewed and interpreted this ECG as follows: Indication: weakness Rate (beats per minute): 105 Rhythm: sinus rhythm Findings: + other (GA, QRS, QTC intervals within normal limits); no ST depre ssion and no ST elevation Blood Pressure Blood Pressure Findings: Low blood pressure Blood Pressure Disposition: further management by hospitalist SEDRICK Narrative 0487: Past medical records reviewed. The patient was evaluated in room A3. A complete history and physical exam was performed. EMR reviewed showed that the patient has a history of Kailyn positive autoimmune hemolytic anemia, B cell CLL. The patient was starting rituxan and became nauseous during her infusion. The patient's hemoglobin was at 6 today which is down from 7 on 09/15. The patient had a transfusion on 09/15 of 2 units of red blood cells. Dr. Long- Hematology Oncology states that the patient is a difficult cross match, so he recommends the patient being further evaluated in the hospital and being given 16 mg of prednisone daily. There is no mention of a cardiac murmur in the patie nt's past history and physicals. On arrival in the emergency department, the patient is tachycardic and hypotensive. 2 large-bore IVs were immediately obtained. I-STAT was immediately obtained to make sure this patient's anemia sent causing her hypotension. IV fluids were immediately started. 1731: The patient's ISTAT hemoglobin was 6.1 and lactate 2.3. I ordered for 2 units to be transfused. We are waiting for the patient's blood work to come back and will plan for further evaluation in the hospital. 1902: Vital signs stable status post IV fluid resuscitation. Hemoglobin shows 6.3. I discussed the case with Manisha Girard PA-C who accepts the patient to Dr. Louis service for further evaluation. Impression & Plan Symptomatic anemia, Acute kidney injury Critical Care Time Critical Care Time: Yes Total Critical Care Time: 40 I have personally spent 40 minutes of critical care time in the direct managemen t of this patient. This includes bedside care, interpretation of diagnostic studies, and testing, discussion with consultants, patient, and family members, and other required patient management activities. This 40 minutes is in excess of all separately billable procedures. Discharge Plan Visit Data Chief Complaint: Abnormal Labs/Diagnostic Testing Stated Complaint: LOW LABS, NEEDS TRANSFUSION ED Provider: Fred Powers Discharge Problem: Symptomatic anemia, Acute kidney injury Patient Disposition: Being Evaluated by Hospitalist Forms Stand Alone Forms: My [facility] [employer] Prescriptions Prescriptions: No Action prednisone 10 mg Tablet 60 mg PO DAILY RF: 0 citalopram 10 mg Tablet 10 mg PO DAILY RF: 0 isosorbide mononitrate 30 mg Tablet Extended Release 24 Hr 30 mg PO QAM RF: 0 folic acid 1 mg Tablet 1 mg PO QAM RF: 0 tramadol 50 mg Tablet 25 mg PO Q6H PRN (Reason: Pain) RF: 0 benazepril 20 mg Tablet 20 mg PO HS RF: 0 clonazepam 1 mg Tablet 1 mg PO BID PRN (Reason: Anxiety) RF: 0 calcium carbonate-vitamin D3 [Oysco 500/D] 500 mg(1,250mg) -200 unit Tablet 1 tab PO BID RF: 0 furosemide [Lasix] 20 mg Tablet 20 mg PO TID RF: 0 levothyroxine 150 mcg Tablet 150 mcg PO QAM RF: 0 omeprazole 20 mg Capsule,Delayed Release(Dr/Ec) 20 mg PO BID RF: 0 Referrals Referrals: Lor Garcia MD [Primary Care Provider] - The scribe's documentation has been prepared under my direction and personally reviewed by me in its entirety. I confirm that the note above accurately reflects all work, treatment, procedures, and medical decision making performed by me.
[2018-09-24] MEDS ORDERED: CARBOHYDRATES FOR HYPOGLYCEMIA PO PRN (21:13)
[2018-09-24] MEDS ORDERED: GLUCOSE 40% GEL 15 GM TUBE PO PRN (21:13)
[2018-09-24] MEDS ORDERED: TRAMADOL HCL 50 MG TABLET PO PRN (21:13)
[2018-09-24] MEDS ORDERED: DEXTROSE 50% 50 ML SYRINGE IV PRN (21:13)
[2018-09-24] MEDS ORDERED: GLUCAGON FOR INJ 1 MG VIAL SQ PRN (21:13)
[2018-09-24] MEDS ORDERED: GLUCOSE 10 TABS/TUBE PO PRN (21:13)
[2018-09-24] MEDS ORDERED: ACETAMINOPHEN 325 MG TAB PO PRN (21:13)
[2018-09-24] MEDS ORDERED: clonazePAM 1 MG TAB PO PRN (21:13)
[2018-09-24] MEDS ORDERED: ACETAMINOPHEN 325 MG TAB PO ONE (21:13)
[2018-09-24] MEDS ORDERED: FUROSEMIDE 40 MG in SYRINGE 0 ML IV ONE (22:00)
[2018-09-24] MEDS: INSULIN ASPART 100 UNITS/ML 3 ML PEN SC SCH (22:01)
[2018-09-24] MEDS: CALCIUM 600MG + VIT D 400 IU TAB PO SCH (22:05)
[2018-09-24] MEDS: PANTOprazole 40 MG TAB PO SCH (22:05)
[2018-09-25] MEDS: LEVOTHYROXINE SODIUM 150 MCG TABLET PO SCH (06:20)
[2018-09-25] MEDS: INSULIN ASPART 100 UNITS/ML 3 ML PEN SC SCH ×4 (08:01→21:25)
[2018-09-25] MEDS: FOLIC ACID 1 MG TAB PO SCH (08:16)
[2018-09-25] MEDS: CALCIUM 600MG + VIT D 400 IU TAB PO SCH ×2 (08:16→21:24)
[2018-09-25] MEDS: PANTOprazole 40 MG TAB PO SCH ×2 (08:16→21:24)
[2018-09-25] MEDS: CITALOPRAM 20 MG TAB PO SCH (08:17)
[2018-09-25] MEDS: ISOSORBIDE MONO EXTENDED REL 30 MG TABCR PO SCH (08:17)
[2018-09-25] MEDS: predniSONE 10 MG TABLET PO SCH (08:17)
[2018-09-25 12:15] LABS: Hematocrit (blood only) 23.6 % (37-47); Hemoglobin 7.9 g/dL (12.0-16.0); Mean Corpuscular Hgb Conc 33.5 g/dL (32-36); Mean Corpuscular Volume 100.9 fL (80-100); Mean Platelet Volume 9.9 fL (7.4-10.4); Platelet Count 90 K/uL (130-400); RDW Coefficient of Variation 20.1 % (11.5-14.5); RDW Standard Deviation 71.4 fL (36.4-46.3); Red Blood Count 2.34 M/uL (4.2-5.4)
[2018-09-25 12:26] LABS: BUN Creatinine Ratio 29.9 (10-20); Calcium 6.3 mg/dl (8.5-10.1); Creatinine Clr Calc Pharmacy 28.5 ml/min; Est GFR (African American) 32.4; Potassium 4.3 mmol/L (3.5-5.1)
[2018-09-25 12:32] LABS: Anisocytosis Present; Basophils # (auto) 0.01 K/uL (0-0.2); Basophils % (auto) 0.1 %; Immature Granulocytes # (auto) 0.03 K/uL (0.00-0.02); Immature Granulocytes % (auto) 0.3 %; Lymphocytes # (auto) 8.55 K/uL (1.2-3.4); Lymphocytes % (auto) 71.3 %; Monocytes % (auto) 0.8 %; Neutrophils # (auto) 3.31 K/uL (1.4-6.5); Neutrophils % (auto) 27.5 %
--- NOTE | 2018-09-25 14:46 | Hospitalist Progress Note ---
Date of Service September 25, 2018 Assessment & Plan (1) Symptomatic anemia: Secondary to autoimmune hemolytic anemia (2) Hemolytic anemia: Pt with hx B-cell CLL diagnosed in 2013, Kailyn positive autoimmune hemolytic anemia diagnosed in 2014. Today with Hgb: 6.0. Having exertional SOB and dizziness. Had Rituximab and hydrocortisone 100mg on the day of admission Was started with oral prednisone 60 mg a day as per recommendations from branch logistics supervisor We will get blood transfusion Check H&H after the transfusion, if remains stable tomorrow then she will be discharged Denies any symptoms (3) HTN (hypertension): Currently hypotensive -Hold benazepril, lasix -Continue isosorbide with holding parameters -Blood pressure is controlled (4) CKD (chronic kidney disease) stage 3, GFR 30-59 ml/min: Cr: 1.8. Was 1.7 on 09/15/18 and 1.9 on 09/04/18 -Avoid nephrotoxic agents when possible -Creatinine remains stable at 1.69 (5) Diabetes: DM II A1c: 3.9 on 08/05/18 and glimepiride has been discontinued Current diet controlled -Monitor BSGs -Novolog sliding scale per protocol (6) Thyroid cancer: H/O recurrent papillary thyroid cancer in 2009 s/p surgery TSH: 0.38 on 08/05/18 -Continue levothyroxine DVT Prophylaxis -SCDs secondary to anemia and thrombocytopenia DNR/DNI as per discussion with pt Follows with Dr Garcia for routine care Likely discharge tomorrow Subjective 09/25 The patient was seen and examined in medical floor She does not have any complaints except weakness and shortness of breath on exertion Denies any chest pain and/or palpitation, any nausea and/or vomiting Review of Systems Review of Systems: All systems reviewed and are unremarkable except as noted below Constitutional: Looks pale without any symptoms at rest Physical Exam Physical Exam: Lying in bed comfortably Constitutional: well developed and well nourished; no acute distress Eyes: PERRL, conjunctivae normal, anicteric sclerae Respiratory: normal respiratory effort; no respiratory distress Cardiovascular: Rate/Rhythm: regular rate and regular rhythm Extremities: no edema Gastrointestinal (Abdomen): Inspection/Auscultation: abdomen normal to inspection and normal bowel sounds Musculoskeletal: No acute arthritis Neurologic: moves all extremities Alert, awake and oriented x3 Lymphatic: no cervical or axillary lymphadenopathy Results & Data Vital Signs (Past 12 Hours) Vital Signs Temp Pulse Pulse Resp BP BP Pulse Ox 09/25/18 10:15 36.6 C 87 18 109/67 100 09/25/18 09:45 36.6 C 89 18 129/76 98 09/25/18 09:15 36.7 C 87 18 129/76 99 09/25/18 09:05 36.6 C 90 18 107/57 L 100 09/25/18 08:46 36.7 C 90 18 98/62 L 100 09/25/18 08:22 86 09/25/18 07:57 36.9 C 94 H 18 118/76 99 09/25/18 07:19 36.7 C 83 20 110/71 97 09/25/18 06:19 36.7 C 82 20 112/57 L 97 09/25/18 06:16 36.7 C 82 20 112/57 L 97 09/25/18 05:49 36.6 C 87 18 103/66 96 09/25/18 05:34 36.8 C 96 H 18 105/67 95 09/25/18 05:19 36.8 C 91 H 18 110/54 L 97 09/25/18 04:07 36.8 C 89 16 111/71 98 Laboratory Results Short CBC 09/24/18 09/25/18 Range/Units 17:16 11:53 WBC 8.63 12.00 H (4.8-10.8) K/uL Hgb 6.3 L* 7.9 L (12.0-16.0) g/dL Hct 20.3 L* 23.6 L (37-47) % Plt Count 90 L 90 L (130-400) K/uL BMP 09/24/18 09/25/18 17:16 11:53 Sodium 141 145 Potassium 4.4 4.3 Chloride 109 H 113 H Carbon Dioxide 26 24 BUN 44 H 51 H Creatinine 1.82 H 1.69 H Glucose 151 H 124 H Calcium 6.2 L 6.3 L Cardiac Enzymes 09/24/18 Range/Units 17:16 Troponin I < 0.015 (0-0.045) ng/ml Liver Function 09/24/18 Range/Units 17:16 Total Bilirubin 1.0 (0.2-1) mg/dl Direct Bilirubin 0.4 H (0-0.2) mg/dl AST 26 (15-37) U/L ALT 20 (12-78) U/L Alkaline Phosphatase 62 (45-117) U/L Albumin 4.0 (3.4-5.0) gm/dl Medications Administered Current Inpatient Medications Acetaminophen (Tylenol) 650 mg PO Q4H PRN PRN Reason: Pain or Fever Stop: 10/24/18 21:12 Citalopram Hydrobromide (Celexa) 10 mg PO DAILY [facility] Stop: 10/25/18 08:59 Last Admin: 09/25/18 08:17 Dose: 10 mg Documented by: Clonazepam (Klonopin) 1 mg PO BID PRN PRN Reason: Anxiety Stop: 10/24/18 21:12 Dextrose (Dextrose 50%) 25 - 50 ml IV UD PRN; Protocol PRN Reason: Hypoglycemia Protocol Stop: 10/24/18 21:12 Folic Acid (Folvite) 1 mg PO QAM [facility] Stop: 10/25/18 08:59 Last Admin: 09/25/18 08:16 Dose: 1 mg Documented by: Glucagon (Glucagen) 1 mg SQ UD PRN; Protocol PRN Reason: Hypoglycemia Protocol Stop: 10/24/18 21:12 Glucose (Glucose 40%) 15 - 30 gm PO UD PRN; Protocol PRN Reason: Hypoglycemia Protocol Stop: 10/24/18 21:12 Glucose (Dex4 Glucose) 4 - 8 tabs PO UD PRN; Protocol PRN Reason: Hypoglycemia Protocol Stop: 10/24/18 21:12 Sodium Chloride (Nss) 250 mls @ 15 mls/hr IV .[id number] PRN PRN Reason: For Transfusion Stop: 10/24/18 21:12 Sodium Chloride (Nss) 250 mls @ 15 mls/hr IV .[id number] PRN PRN Reason: For Transfusion Stop: 10/24/18 21:38 Insulin Aspart (Novolog Flexpen) 0 units SC ACHS [facility] Stop: 10/24/18 21:12 Last Admin: 09/25/18 13:14 Dose: 3 units Documented by: Isosorbide Mononitrate (Imdur Extended Rel) 30 mg PO QAM [facility] Stop: 10/25/18 08:59 Last Admin: 09/25/18 08:17 Dose: 30 mg Documented by: Levothyroxine Sodium (Synthroid) 150 mcg PO DAILYBB [facility] Stop: 10/25/18 06:29 Last Admin: 09/25/18 06:20 Dose: 150 mcg Documented by: Miscellaneous (Carbohydrates For Hypoglycemia) 15 - 30 gm PO UD PRN PRN Reason: Hypoglycemia Treatment Stop: 10/24/18 21:12 Multivitamins/Minerals (Caltrate Plus) 1 tab PO BID [facility] Stop: 10/24/18 21:12 Last Admin: 09/25/18 08:16 Dose: 1 tab Documented by: Pantoprazole Sodium (Protonix) 40 mg PO BID [facility] Stop: 10/24/18 21:12 Last Admin: 09/25/18 08:16 Dose: 40 mg Documented by: Prednisone (Prednisone) 60 mg PO DAILY [facility] Stop: 10/25/18 08:59 Last Admin: 09/25/18 08:17 Dose: 60 mg Documented by: Tramadol HCl (Ultram) 25 mg PO Q6H PRN PRN Reason: Pain Stop: 10/24/18 21:12
[2018-09-26] MEDS: LEVOTHYROXINE SODIUM 150 MCG TABLET PO SCH (06:20)
[2018-09-26 06:49] LABS: Hematocrit (blood only) 24.2 % (37-47); Mean Corpuscular Hgb Conc 33.1 g/dL (32-36); Mean Corpuscular Volume 101.7 fL (80-100); RDW Coefficient of Variation 20.6 % (11.5-14.5); RDW Standard Deviation 74.3 fL (36.4-46.3); Red Blood Count 2.38 M/uL (4.2-5.4); White Blood Count 11.39 K/uL (4.8-10.8)
[2018-09-26 06:51] LABS: Mean Platelet Volume 10.2 fL (7.4-10.4); Platelet Count 94 K/uL (130-400)
[2018-09-26 07:17] LABS: BUN Creatinine Ratio 27.5 (10-20); Creatinine Clr Calc Pharmacy 23.3 ml/min; Est GFR (African American) 25.4; Est GFR (Non-African American) 21.9; Potassium 3.7 mmol/L (3.5-5.1)
[2018-09-26 07:25] LABS: Anisocytosis Present; Basophils # (auto) 0.01 K/uL (0-0.2); Basophils % (auto) 0.1 %; Eosinophils # (auto) 0.01 K/uL (0-0.5); Eosinophils % (auto) 0.1 %; Immature Granulocytes # (auto) 0.02 K/uL (0.00-0.02); Immature Granulocytes % (auto) 0.2 %; Lymphocytes # (auto) 8.19 K/uL (1.2-3.4); Lymphocytes % (auto) 71.9 %; Monocytes # (auto) 0.29 K/uL (0.11-0.59); Monocytes % (auto) 2.5 %; Neutrophils # (auto) 2.87 K/uL (1.4-6.5); Neutrophils % (auto) 25.2 %; Polychromasia 1+
[2018-09-26] MEDS: INSULIN ASPART 100 UNITS/ML 3 ML PEN SC SCH ×2 (08:32→12:41)
[2018-09-26] MEDS: FOLIC ACID 1 MG TAB PO SCH (08:32)
[2018-09-26] MEDS: ISOSORBIDE MONO EXTENDED REL 30 MG TABCR PO SCH (08:33)
[2018-09-26] MEDS: PANTOprazole 40 MG TAB PO SCH (08:33)
[2018-09-26] MEDS: predniSONE 10 MG TABLET PO SCH (08:33)
[2018-09-26] MEDS: CITALOPRAM 20 MG TAB PO SCH (08:33)
[2018-09-26] MEDS: CALCIUM 600MG + VIT D 400 IU TAB PO SCH (08:36)
--- NOTE | 2018-09-26 11:47 | Hospitalist Progress Note ---
Date of Service September 26, 2018 Assessment & Plan (1) Symptomatic anemia: Secondary to autoimmune hemolytic anemia (2) Hemolytic anemia: Pt with hx B-cell CLL diagnosed in 2013, Kailyn positive autoimmune hemolytic anemia diagnosed in 2013. Today with Hgb: 6.0. Having exertional SOB and dizziness. Had Rituximab and hydrocortisone 100mg on the day of admission Was started with oral prednisone 60 mg a day as per recommendations from slitter creaser slotter operator We will get blood transfusion Check H&H after the transfusion, if remains stable tomorrow then she will be discharged Denies any symptoms Hemoglobin went up to 8.0 Has prescription of prednisone as an outpatient Discussed with slitter creaser slotter operator and the patient will be going home this afternoon (3) HTN (hypertension): Currently hypotensive -Hold benazepril, lasix -Continue isosorbide with holding parameters -Blood pressure is controlled (4) CKD (chronic kidney disease) stage 3, GFR 30-59 ml/min: Cr: 1.8. Was 1.7 on 09/15/18 and 1.9 on 09/04/18 -Avoid nephrotoxic agents when possible -Creatinine remains stable at 1.69 (5) Diabetes: DM II A1c: 3.9 on 08/05/18 and glimepiride has been discontinued Current diet controlled -Monitor BSGs -Novolog sliding scale per protocol (6) Thyroid cancer: H/O recurrent papillary thyroid cancer in 2009 s/p surgery TSH: 0.38 on 08/05/18 -Continue levothyroxine DVT Prophylaxis -SCDs secondary to anemia and thrombocytopenia DNR/DNI as per discussion with pt Follows with Dr Garcia for routine care Discharge this afternoon Subjective 09/25 The patient was seen and examined in medical floor She does not have any complaints except weakness and shortness of breath on exertion Denies any chest pain and/or palpitation, any nausea and/or vomiting 09/26 The patient was seen and examined in medical floor She is a status post blood transfusion and her hemoglobin is 8.0 this morning Denies any symptoms No acute bleeding source Review of Systems Review of Systems: All systems reviewed and are unremarkable except as noted below Constitutional: Looks pale without any symptoms at rest Physical Exam Physical Exam: No apparent distress at rest Constitutional: well developed and well nourished; no acute distress and not ill appearing Eyes: PERRL, conjunctivae normal, anicteric sclerae Respiratory: normal respiratory effort; no respiratory distress Cardiovascular: Rate/Rhythm: regular rate and regular rhythm Extremities: no edema Gastrointestinal (Abdomen): Inspection/Auscultation: abdomen normal to inspection and normal bowel sounds Neurologic: moves all extremities Lymphatic: no cervical or axillary lymphadenopathy Results & Data Vital Signs (Past 12 Hours) Vital Signs Temp Pulse Pulse Resp BP Pulse Ox 09/26/18 07:26 76 09/26/18 07:15 36.8 C 84 16 118/71 99 09/26/18 04:43 36.7 C 78 16 97/60 L 97 09/26/18 00:00 72 Laboratory Results Short CBC 09/25/18 09/26/18 Range/Units 11:53 06:21 WBC 12.00 H 11.39 H (4.8-10.8) K/uL Hgb 7.9 L 8.0 L (12.0-16.0) g/dL Hct 23.6 L 24.2 L (37-47) % Plt Count 90 L 94 L (130-400) K/uL BMP 09/25/18 09/26/18 11:53 06:21 Sodium 145 142 Potassium 4.3 3.7 Chloride 113 H 109 H Carbon Dioxide 24 24 BUN 51 H 57 H Creatinine 1.69 H 2.07 H D Glucose 124 H 100 H Calcium 6.3 L 6.0 L Medications Administered Current Inpatient Medications Acetaminophen (Tylenol) 650 mg PO Q4H PRN PRN Reason: Pain or Fever Stop: 10/24/18 21:12 Citalopram Hydrobromide (Celexa) 10 mg PO DAILY [facility] Stop: 10/25/18 08:59 Last Admin: 09/26/18 08:33 Dose: 10 mg Documented by: Clonazepam (Klonopin) 1 mg PO BID PRN PRN Reason: Anxiety Stop: 10/24/18 21:12 Dextrose (Dextrose 50%) 25 - 50 ml IV UD PRN; Protocol PRN Reason: Hypoglycemia Protocol Stop: 10/24/18 21:12 Folic Acid (Folvite) 1 mg PO QAM [facility] Stop: 10/25/18 08:59 Last Admin: 09/26/18 08:32 Dose: 1 mg Documented by: Glucagon (Glucagen) 1 mg SQ UD PRN; Protocol PRN Reason: Hypoglycemia Protocol Stop: 10/24/18 21:12 Glucose (Glucose 40%) 15 - 30 gm PO UD PRN; Protocol PRN Reason: Hypoglycemia Protocol Stop: 10/24/18 21:12 Glucose (Dex4 Glucose) 4 - 8 tabs PO UD PRN; Protocol PRN Reason: Hypoglycemia Protocol Stop: 10/24/18 21:12 Sodium Chloride (Nss) 250 mls @ 15 mls/hr IV .[id number] PRN PRN Reason: For Transfusion Stop: 10/24/18 21:12 Sodium Chloride (Nss) 250 mls @ 15 mls/hr IV .[id number] PRN PRN Reason: For Transfusion Stop: 10/24/18 21:38 Insulin Aspart (Novolog Flexpen) 0 units SC ACHS [facility] Stop: 10/24/18 21:12 Last Admin: 09/26/18 08:32 Dose: 1 units Documented by: Isosorbide Mononitrate (Imdur Extended Rel) 30 mg PO QAM [facility] Stop: 10/25/18 08:59 Last Admin: 09/26/18 08:33 Dose: 30 mg Documented by: Levothyroxine Sodium (Synthroid) 150 mcg PO DAILYBB [facility] Stop: 10/25/18 06:29 Last Admin: 09/26/18 06:20 Dose: 150 mcg Documented by: Miscellaneous (Carbohydrates For Hypoglycemia) 15 - 30 gm PO UD PRN PRN Reason: Hypoglycemia Treatment Stop: 10/24/18 21:12 Multivitamins/Minerals (Caltrate Plus) 1 tab PO BID [facility] Stop: 10/24/18 21:12 Last Admin: 09/26/18 08:36 Dose: 1 tab Documented by: Pantoprazole Sodium (Protonix) 40 mg PO BID [facility] Stop: 10/24/18 21:12 Last Admin: 09/26/18 08:33 Dose: 40 mg Documented by: Prednisone (Prednisone) 60 mg PO DAILY [facility] Stop: 10/25/18 08:59 Last Admin: 09/26/18 08:33 Dose: 60 mg Documented by: Tramadol HCl (Ultram) 25 mg PO Q6H PRN PRN Reason: Pain Stop: 10/24/18 21:12
--- NOTE | 2018-09-27 08:02 | Discharge Summary ---
Date of Service September 27, 2018 Admission HPI Per Admitting Provider Pt is 83 y/o F with PMH HTN, DM II, CKD III, B-cell CLL diagnosed in 2013, Kailyn positive autoimmune hemolytic anemia diagnosed in 2013, H/O recurrent papillary thyroid cancer in 2009 s/p surgery presented to ER for abnormal labs with hemoglobin of 6.0 today. Patient follows with Dr. Long with hematology oncology and had rituximab today. Patient was instructed to start taking prednisone 60 mg daily and was referred to ER for transfusion. Patient reports past several days has been having shortness of breath with walking approximately 15 steps and has been feeling lightheaded. Denies any syncope or falls. Seb tient with hemoglobin 7.0 on 09/15/2018 and received 2 units PRBCs on 09/18/2018. Recent hospital admission 09/05/2018-09/07/2018 for symptomatic anemia, KEO it was transfused with 3 units PRBCs and received Decadron 40 mg daily x3 days. Pt reports didn't take her medications today. Denies fever/chills, diaphoresis, N/V/D/C, ANDREA, syncope, vision changes, neck pain, CP, orthopnea, palpitations, cough, sore throat, choking, otalgia, rhinorrhea, abdominal pain, paresthesias, extremity weakness, extremity edema, rashes, urinary symptoms, epistaxis, hematuria, melena, hematochezia. Admission Exam Per Admitting Provider Physical Exam: General: no acute distress, WDWN Head: normocephalic, atraumatic Eyes: PERRL, EOM's intact, pale conjunctiva, anicteric ENT: normal inspection external ears, nose, mucous membranes moist Neck: supple, trachea midline Lungs: clear, no respiratory distress, no wheezing/rhonchi/rales CV: RRR, systolic murmur, no JVD, 1+ pretibial edema Abd: normal BS, soft, non-tender Ext: no cyanosis, no calf tenderness Neuro: A&O x 3, no focal deficits noted, normal affect Skin: warm, dry, pale Principal Diagnosis Autoimmune hemolytic anemia, symptomatic anemia status post 2 units of blood transfusion Discharge Exam Constitutional well developed and well nourished; no acute distress and not ill appearing Eyes PERRL, conjunctivae normal, anicteric sclerae Respiratory normal respiratory effort; no respiratory distress Cardiovascular Rate/Rhythm: regular rate and regular rhythm Extremities: no edema Gastrointestinal (Abdomen) Inspection/Auscultation: abdomen normal to inspection and normal bowel sounds Neurologic moves all extremities Lymphatic no cervical or axillary lymphadenopathy Discharge Data Allergies Allergy/AdvReac Type Severity Reaction Status Date / Time lorazepam Allergy Unknown UNKNOWN Unverified 09/24/18 18:00 pneumococcal vaccine Allergy Unknown Unknown Verified 09/24/18 18:00 Consultations 09/24/18 19:03 ED Decision to Admit Stat 09/24/18 21:13 Consult Case Management - Discharge Planning Routine Hospital Course (1) Symptomatic anemia: Secondary to autoimmune hemolytic anemia (2) Hemolytic anemia: Pt with hx B-cell CLL diagnosed in 2013, Kailyn positive autoimmune hemolytic anemia diagnosed in 2013. Today with Hgb: 6.0. Having exertional SOB and dizziness. Had Rituximab and hydrocortisone 100mg on the day of admission Was started with oral prednisone 60 mg a day as per recommendations from test fixture designer We will get blood transfusion Check H&H after the transfusion, if remains stable tomorrow then she will be discharged Denies any symptoms Hemoglobin went up to 8.0 Has prescription of prednisone as an outpatient Discussed with test fixture designer and the patient will be going home this afternoon (3) HTN (hypertension): Currently hypotensive -Hold benazepril, lasix -Continue isosorbide with holding parameters -Blood pressure is controlled (4) CKD (chronic kidney disease) stage 3, GFR 30-59 ml/min: Cr: 1.8. Was 1.7 on 09/15/18 and 1.9 on 09/04/18 -Avoid nephrotoxic agents when possible -Creatinine remains stable at 1.69 (5) Diabetes: DM II A1c: 3.9 on 08/05/18 and glimepiride has been discontinued Current diet controlled -Monitor BSGs -Novolog sliding scale per protocol (6) Thyroid cancer: H/O recurrent papillary thyroid cancer in 2009 s/p surgery TSH: 0.38 on 08/05/18 -Continue levothyroxine DVT Prophylaxis -SCDs secondary to anemia and thrombocytopenia DNR/DNI as per discussion with pt Follows with Dr Garcia for routine care Discharge this afternoon Total Time Total Time Spent Total Time Spent (In Minutes): 35 minutes Total Time Includes: Examination of the Patient, Discharge Planning, Medication Reconciliation and Communication With Other Providers Discharge Plan Discharge Items Patient Disposition: Home - Self-Care Reason For Visit: SYMPTOMATIC ANEMIA Discharge Diagnosis: Autoimmune hemolytic anemia, symptomatic anemia status post 2 units of blood transfusion Condition: Good Discharge Goals: Decrease discomfort, Improve function and Increase independence Activity: Resume your previous activity Non-emergency contact: Primary Care Provider Call non-emergency contact if: you have any medication questions and your sympt oms worsen Follow-up/Referrals: Lor Garcia MD [Primary Care Provider] - (Please make an appointment with your primary care physician within 2 weeks. Keep appointment with your h ematologist) Diet: Carb Consistent or DM2 Addtl Provider Instructions: Please keep taking prednisone as prescribed Keep appointment with your test fixture designer on . Prescriptions: Continued prednisone 10 mg Tablet 60 mg PO DAILY RF: 0 citalopram 10 mg Tablet 10 mg PO DAILY RF: 0 isosorbide mononitrate 30 mg Tablet Extended Release 24 Hr 30 mg PO QAM RF: 0 folic acid 1 mg Tablet 1 mg PO QAM RF: 0 tramadol 50 mg Tablet 25 mg PO Q6H PRN (Reason: Pain) RF: 0 benazepril 20 mg Tablet 20 mg PO HS RF: 0 clonazepam 1 mg Tablet 1 mg PO BID PRN (Reason: Anxiety) RF: 0 calcium carbonate-vitamin D3 [Oysco 500/D] 500 mg(1,250mg) -200 unit Tablet 1 tab PO BID RF: 0 furosemide [Lasix] 20 mg Tablet 20 mg PO TID RF: 0 levothyroxine 150 mcg Tablet 150 mcg PO QAM RF: 0 omeprazole 20 mg Capsule,Delayed Release(Dr/Ec) 20 mg PO BID RF: 0 Stand-Alone Forms: [facility] Discharge Orders: Discharge Order (Routine); Ordered 09/26/18 Ordered By: Wendy Ribeiro Admission Data Admit Date/Time: 09/24/18 19:37 Attending Provider: Wendy Ribeiro Admit Provider: Tye Louis Primary Care Provider: Lor Garcia Other Providers: Tye Louis Service: Telemetry Medical Other Interventions: Discharge Summary Assessment (RN) Last Done: 09/26/18 13:24 DC Date/Time DO NOT enter until pt leaves facility: 09/26/18 13:44
== END 2018-09-26 13:44 | disposition home or self-care (01) | DRG 809 ==
LOC: ED 16:35 → 2W 19:37

== ENCOUNTER 2018-10-15 14:47 | Observation (INO) ==
[2018-10-15] MEDS ORDERED: SODIUM CHLORIDE 0.9% 250 ML IV PRN ×2 (15:02→19:15)
--- NOTE | 2018-10-15 15:26 | XRay Report ---
XR chest 1V portable CLINICAL HISTORY: weakness dyspnea COMPARISON STUDY: 09/05/2018 FINDINGS: The bones soft tissues and hemidiaphragms are normal. The cardiomediastinal silhouette is n ormal. The lungs are clear. The pulmonary vasculature is normal. IMPRESSION: Negative chest. The above report was generated using voice recognition software. It may contain grammatical, syntax or spelling errors. Electronically signed by: Aquilino Sosa M.D. 10/15/2018 3:25 PM
--- NOTE | 2018-10-15 15:43 | Emergency Department Note ---
Entered by Nika Zamora acting as a scribe for Luis Carmona MD History of Present Illness General Chief complaint: Abnormal Labs/Diagnostic Testing Stated complaint: REFERRED BY DR. CORINA LONG FOR TRANSFUSION Time Seen by Provider: 10/15/18 14:52 Source: patient History of Present Illness Onset (ago): day(s) (this morning) Severity: moderate (hemoglobin 6.6) Pain Consistency: + other (episode) Quality: + other (abnormal labs) Associated symptoms: + denies other symptoms (abnormal eating/drinking), + shortness of breath and + other (dizzy); no fever/chills (fever) The patient is an 83 year old female who presents to the Emergency Room with complaints of an episode of abnormal labs occurring this morning. The patient states that she is currently seeing Dr. Long for lymphoma. She reports that she had her fourth chemo treatment this morning and they did blood work with it. She notes that this was supposed to be her last chemo treatment. She states that a few hours later, they called her telling her she needed to come to the ED as her hemoglobin was 6.6 and she needed a blood transfusion. The patient states that she had 7 pints of blood transfused 2 weeks ago when her hemoglobin was in the 6s. She states that she had to stay in the hospital for 2 days. She reports that she felt like she was low again as she has been dizzy and short of breath. She notes that Dr. Long told her her hemoglobin is dropping because the white corpuscles are eating the red ones faster than her body can manufacture them. The patient denies abnormal eating/drinking, fever, a history of GI bleeds, and difficulty with her past blood transfusions. Home Medications Home Medications Medication Instructions Recorded Confirmed Type benazepril 20 mg PO DAILY 09/05/18 10/15/18 History calcium carbonate-vitamin D3 1 tab PO BID 09/05/18 10/15/18 History [Oysco 500/D] clonazepam 1 mg PO BID PRN 09/05/18 10/15/18 History folic acid 1 mg PO QAM 09/05/18 10/15/18 History furosemide [Lasix] 20 mg PO TID 09/05/18 10/15/18 History isosorbide mononitrate 30 mg PO QAM 09/05/18 10/15/18 History levothyroxine 150 mcg PO QAM 09/05/18 10/15/18 History omeprazole 20 mg PO BID 09/05/18 10/15/18 History tramadol 25 mg PO Q6H PRN 09/05/18 10/15/18 History citalopram 10 mg PO DAILY 09/24/18 10/15/18 History prednisone 60 mg PO DAILY 09/24/18 10/15/18 History glimepiride 1 mg PO DAILY 10/15/18 10/15/18 History nystatin 5 ml PO QID 10/15/18 10/15/18 History prochlorperazine maleate 10 mg PO Q6H PRN 10/15/18 10/15/18 History [Compazine] sennosides-docusate sodium [Senna 1 tab PO DAILY 10/15/18 10/15/18 History with Docusate Sodium] triamcinolone acetonide 1 applic TOPICAL BID PRN 10/15/18 10/15/18 History Allergies Allergy/AdvReac Type Severity Reaction Status Date / Time lorazepam Allergy Unknown UNKNOWN Unverified 09/24/18 18:00 pneumococcal vaccine Allergy Unknown Unknown Verified 09/24/18 18:00 Past Med/Surg History Medical History Hypocalcemia (Chronic) HTN (hypertension) (Chronic) TIA (transient ischemic attack) (Resolved) Lymphoma (Chronic) B-cell CLL, dx in 2013 Thyroid cancer (Chronic) recurrent papillary thyroid cancer; s/p surgery; dx in 2009 Asthma (Chronic) Diabetes (Chronic) Kidney stones (Chronic) Acute renal failure (Resolved) 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; dx in 2013 Non-STEMI (non-ST elevated myocardial infarction) (Resolved) Sepsis (Resolved) Surgical History History of thyroidectomy (Chronic) several cancer surgeries on thyroid History of knee surgery (Chronic) b/l knees History of hernia repair (Chronic) Family History Mother Colorectal cancer Brother Diabetes Sister Diabetes Social History Preferred Language: German Communication Ability: 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 current occupational status: retired Feels Safe at Home: Yes Smoking Status: Never smoker Hx Alcohol Use: No Hx Substance Use: No Review of Systems See HPI for pertinent positives & negatives. and A total of 10 systems reviewed and were otherwise negative Physical Exam Vital Signs Vital Signs - 24 hr 10/15/18 14:49 10/15/18 15:20 10/15/18 15:34 Temperature 36.4 C L Temperature Source Oral Sepsis Recent Fever Within 48 Hours No Sepsis New/Unexplained Change in Mental Status No Sepsis Action Taken by Nursing No Action Required Pulse Rate 97 H 89 Pulse Rate from SpO2 Sensor 90 Respiratory Rate 20 11 L Blood Pressure 121/67 Blood Pressure Mean 85 Pulse Oximetry 96 96 99 Oxygen Delivery Method Room Air Room Air Room Air 10/15/18 16:00 Temperature Temperature Source Sepsis Recent Fever Within 48 Hours Sepsis New/Unexplained Change in Mental Status Sepsis Action Taken by Nursing Pulse Rate 86 Pulse Rate from SpO2 Sensor 86 Respiratory Rate 16 Blood Pressure Blood Pressure Mean Pulse Oximetry 97 Oxygen Delivery Method Room Air GENERAL: Patient is in no acute distress. HEENT: No acute trauma, normocephalic atraumatic, mucous membranes moist, no nasal congestion, no scleral icterus. NECK: No stridor, no adenopathy, no meningismus, trachea is midline. LUNGS: Clear to auscultation bilaterally, no wheeze, no rhonchi, breath sounds equal. HEART: 2/6 systolic murmur. Mild tachycardia. Normal rhythm. ABDOMEN: Soft, nontender, bowel sounds positive, no hernias, no peritonitis. EXTREMITIES: No cyanosis or edema, full range of motion of all the joints without pain or difficulty, no signs for acute trauma. NEUROLOGIC: Oriented x 3, no acute motor or sensory deficits, no focal weakness. SKIN: Pale. No rash, no jaundice, no diaphoresis. Course 1453: Past medical records reviewed. The patient was evaluated in room B12B. A complete history and physical exam was performed. 1457: I reviewed the patient's lab results that she bought with her. Her labs from today at [facility] show a creatinine of 2.1, a potassium of 5.3, a hemoglobin of 6.6, a white blood cell count of 28, and a platelet count of 130. 1522: I discussed the patient's case with SHAZIA Squires. She accepts the patient for further evaluation under Dr. Esperanza Ruiz. 1539: I reevaluated the patient and updated her on her test results. I discussed the treatment plan with her. She verbally agrees and understands. Consultations Consultation #1: I discussed the patient's case with SHAZIA Squires. She accepts the patient for further evaluation under Dr. Esperanza Ruiz. Time: 15:22 Administered Medications Medical Decision Making Differential Diagnosis Differential diagnoses include anemia, hemolytic anemia, chemotherapy reaction, GI bleeding, bone marrow suppression, CHF, pneumonia, [place] Medical Records Attestation: I reviewed the patient's medical records. Home Medications Current Medication List: was personally reviewed by me Laboratory Data Attestation: I reviewed the patient's lab results. Result diagrams: 10/15/18 15:17 10/15/18 15:17 Lab Results 10/15/18 10/15/18 10/15/18 Range/Units 15:17 15:17 15:17 WBC 43.59 H* (4.8-10.8) K/uL RBC 1.98 L (4.2-5.4) M/uL Hgb 7.1 L (12.0-16.0) g/dL Hct 22.3 L (37-47) % MCV 112.6 H (80-100) fL MCH 35.9 H (25-34) pg MCHC 31.8 L (32-36) g/dL RDW Std Deviation 74.4 H (36.4-46.3) fL RDW Coeff of Marcelina 19.1 H (11.5-14.5) % Plt Count 141 (130-400) K/uL MPV 10.4 (7.4-10.4) fL Immature Gran % (Auto) 0.3 % Neut % (Auto) 16.1 % Lymph % (Auto) 83.6 % [place] % (Auto) 0.0 % Eos % (Auto) 0.0 % Baso % (Auto) 0.0 % Immature Gran # (Auto) 0.14 H (0.00-0.02) K/uL Neut # (Auto) 6.97 H (1.4-6.5) K/uL Lymph # (Auto) 36.44 H (1.2-3.4) K/uL [place] # (Auto) 0.02 L (0.11-0.59) K/uL Eos # (Auto) 0.00 (0-0.5) K/uL Baso # (Auto) 0.02 (0-0.2) K/uL Anisocytosis Present PT 10.7 (9.0-12.0) Seconds INR 1.0 (0.9-1.1) APTT 21.7 (21.0-31.0) Seconds PTT Ratio 0.8 Sodium 140 (136-145) mmol/L Potassium 4.4 (3.5-5.1) mmol/L Chloride 104 (98-107) mmol/L Carbon Dioxide 26 (21-32) mmol/L Anion Gap 10.0 (3-11) BUN 84 H (7-18) mg/dl Creatinine 2.17 H (0.6-1.2) mg/dl Est Cr Clr Drug Dosing 21.7 ml/min Est GFR ( Amer) 24.0 Est GFR (Non-Af Amer) 20.7 BUN/Creatinine Ratio 38.6 H (10-20) Glucose 188 H (70-99) mg/dl Calcium 5.8 L* (8.5-10.1) mg/dl Magnesium 2.3 (1.8-2.4) mg/dl Total Bilirubin 0.9 (0.2-1) mg/dl AST 7 L (15-37) U/L ALT 18 (12-78) U/L Alkaline Phosphatase 59 (45-117) U/L Troponin I 0.023 (0-0.045) ng/ml Total Protein 6.5 (6.4-8.2) gm/dl Albumin 4.3 (3.4-5.0) gm/dl Globulin 2.2 L (2.5-4.0) gm/dl Albumin/Globulin Ratio 2.0 (0.9-2) Blood Type Antibody Screen Direct Antiglob Test (Negative) RONALDO (IgG-AHG) (Negative) RONALDO, Polyspecific (Negative) RONALDO C3b, C3d 5 Min (Negative) Crossmatch 10/15/18 Range/Units 15:17 WBC (4.8-10.8) K/uL RBC (4.2-5.4) M/uL Hgb (12.0-16.0) g/dL Hct (37-47) % MCV (80-100) fL MCH (25-34) pg MCHC (32-36) g/dL RDW Std Deviation (36.4-46.3) fL RDW Coeff of Marcelina (11.5-14.5) % Plt Count (130-400) K/uL MPV (7.4-10.4) fL Immature Gran % (Auto) % Neut % (Auto) % Lymph % (Auto) % [place] % (Auto) % Eos % (Auto) % Baso % (Auto) % Immature Gran # (Auto) (0.00-0.02) K/uL Neut # (Auto) (1.4-6.5) K/uL Lymph # (Auto) (1.2-3.4) K/uL [place] # (Auto) (0.11-0.59) K/uL Eos # (Auto) (0-0.5) K/uL Baso # (Auto) (0-0.2) K/uL Anisocytosis PT (9.0-12.0) Seconds INR (0.9-1.1) APTT (21.0-31.0) Seconds PTT Ratio Sodium (136-145) mmol/L Potassium (3.5-5.1) mmol/L Chloride (98-107) mmol/L Carbon Dioxide (21-32) mmol/L Anion Gap (3-11) BUN (7-18) mg/dl Creatinine (0.6-1.2) mg/dl Est Cr Clr Drug Dosing ml/min Est GFR ( Amer) Est GFR (Non-Af Amer) BUN/Creatinine Ratio (10-20) Glucose (70-99) mg/dl Calcium (8.5-10.1) mg/dl Magnesium (1.8-2.4) mg/dl Total Bilirubin (0.2-1) mg/dl AST (15-37) U/L ALT (12-78) U/L Alkaline Phosphatase (45-117) U/L Troponin I (0-0.045) ng/ml Total Protein (6.4-8.2) gm/dl Albumin (3.4-5.0) gm/dl Globulin (2.5-4.0) gm/dl Albumin/Globulin Ratio (0.9-2) Blood Type O Positive Antibody Screen POSITIVE A Direct Antiglob Test Positive A (Negative) RONALDO (IgG-AHG) 3+ A (Negative) RONALDO, Polyspecific 3+ A (Negative) RONALDO C3b, C3d 5 Min Weak Pos A (Negative) Crossmatch See Detail Imaging Data Radiologist's Impression: Radiology results as stated below per my review and the radiologist's interpretation: XR chest 1V portable CLINICAL HISTORY: weakness dyspnea COMPARISON STUDY: 09/05/2018 FINDINGS: The bones soft tissues and hemidiaphragms are normal. The cardiomediastinal silhouette is normal. The lungs are clear. The pulmonary vasculature is normal. IMPRESSION: Negative chest. The above report was generated using voice recognition software. It may contain grammatical, syntax or spelling errors. Electronically signed by: Aquilino Sosa M.D. 10/15/2018 3:25 PM ECG Data Attestation: I personally reviewed and interpreted this ECG as follows: Indication: SOB/dyspnea Rate (beats per minute): 91 Rhythm: normal sinus Findings: no PVC and no ST elevation Blood Pressure Blood Pressure Findings: Normal blood pressure Blood Pressure Disposition: did not require urgent referral MDM Narrative There is a significant leukocytosis at 43,000, she has had an elevated white blood cell count before however, today's value is quite a bit higher than baseline. The patient is anemic with a hemoglobin of 7.1. Platelet count is normal. There is no coagulopathy. Creatinine is elevated at 2.1, she has had a higher creatinine value in the past but today's value is higher than baseline. Calcium was low at 5.8. No liver enzyme elevation. Blood was ordered for transfusion but is not yet ready to be given. As per the laboratory, the patient's blood may not be ready until tomorrow as she has a history of difficult matching. Chest film does not show pneumonia or CHF. EKG shows a sinus rhythm, no acute ischemia. Cardiac enzyme testing x1 is not consistent with acute cardiac injury. The patient requires a hospital stay for this transfusion. Her calcium can be replaced while here in the hospital. I did speak to the patient and case management. The on-call hospitalist was consulted. The blood bank is working on her matching for transfusion. Impression & Plan Shortness of breath, Weakness, Anemia, History of lymphoma, Leukocytosis, Hypocalcemia Discharge Plan Visit Data Chief Complaint: Abnormal Labs/Diagnostic Testing Stated Complaint: REFERRED BY DR. CORINA LONG FOR TRANSFUSION ED Provider: Luis Carmona Discharge Problem: Shortness of breath, Weakness, Anemia, History of lymphoma, Leukocytosis, Hypocalcemia Patient Disposition: Being Evaluated by Hospitalist Discharge Instructions Interventions: ED Discharge Assessment Last Done: 10/15/18 18:28 Discharge Problem: Anemia Qualifiers: Anemia type: unspecified type Qualified Code(s): D64.9 - Anemia, unspecified Leukocytosis Qualifiers: Leukocytosis type: unspecified Qualified Code(s): D72.829 - Elevated white blood cell count, unspecified The scribe's documentation has been prepared under my direction and personally reviewed by me in its entirety. I confirm that the note above accurately reflects all work, treatment, procedures, and medical decision making performed by me.
[2018-10-15 15:44] LABS: Hematocrit (blood only) 22.3 % (37-47); Hemoglobin 7.1 g/dL (12.0-16.0); Mean Corpuscular Hgb Conc 31.8 g/dL (32-36); Mean Corpuscular Volume 112.6 fL (80-100); Mean Platelet Volume 10.4 fL (7.4-10.4); Platelet Count 141 K/uL (130-400); RDW Coefficient of Variation 19.1 % (11.5-14.5); RDW Standard Deviation 74.4 fL (36.4-46.3); Red Blood Count 1.98 M/uL (4.2-5.4); White Blood Count 43.59 K/uL (4.8-10.8)
[2018-10-15 15:47] LABS: Partial Thromboplastin Ratio 0.8; Partial Thromboplastin Time 21.7 Seconds (21.0-31.0); Prothrombin Time 10.7 Seconds (9.0-12.0)
[2018-10-15 16:02] LABS: Albumin Level 4.3 gm/dl (3.4-5.0); BUN Creatinine Ratio 38.6 (10-20); Bilirubin,Total 0.9 mg/dl (0.2-1); Calcium 5.8 mg/dl (8.5-10.1); Creatinine Clr Calc Pharmacy 21.7 ml/min; Est GFR (Non-African American) 20.7; Globulin 2.2 gm/dl (2.5-4.0); Magnesium 2.3 mg/dl (1.8-2.4); Potassium 4.4 mmol/L (3.5-5.1); Total Protein 6.5 gm/dl (6.4-8.2); Troponin I 0.023 ng/ml (0-0.045)
--- NOTE | 2018-10-15 16:07 | History & Physical Report ---
Date of Service October 15, 2018 Assessment & Plan (1) Symptomatic anemia: (2) Hemolytic anemia: Pt with hx B-cell CLL diagnosed in 2013, Kailyn positive autoimmune hemolytic anemia diagnosed in 2013. outpatient labs today: WBC:28, H/H: 6.6/2.3, Plt: 130 Today In ER WBC: 43 H/H: 7.1/22.3. Afebrile, P: 97, BP: 121/67, R: 20 -Had Rituximab and hydrocortisone 100mg today -Had prednisone 60mg po today -Transfuse 2 units PRBCs (pt with antibodies and blood needs to be obtained from [employer]). Will pretreat with Benadryl and Tylenol -Continue prednisone 60mg daily and folic acid 1mg daily -Monitor H&H (3) Hypocalcemia: Chronic hypocalcemia with baseline ~6-7 outpatient labs today: Calcium: 6.9 In ER calcium: 5.8 which is corrected 5.6 with albumin of 4.3 -obtain ionized calcium, and may need to give IV calcium -obtain magnesium and phosphorus labs -Pt did not take her am calcium carbonate 500mg today -Continue calcium carbonate oral supplement (4) CKD (chronic kidney disease) stage 3, GFR 30-59 ml/min: CKD III-IV Cr: 2.17, was 2.0 on 10/08/18 and 10/01/18, was 1.8 on 09/24/18 -Monitor renal functions -Avoid nephrotoxic agents when possible (5) HTN (hypertension): BP stable at 121/67 -Hold benazepril, lasix and re-evaluate tomorrow -Continue isosorbide (6) Diabetes: A1c: 3.9 on 08/05/18 -Hold glimepiride -Monitor BSGs -Novolog sliding scale per protocol (7) Thyroid cancer: H/O recurrent papillary thyroid cancer in 2009 s/p surgery TSH: 0.38 on 08/05/18 -Continue levothyroxine DVT Prophylaxis -SCDs secondary to anemia and thrombocytopenia DNR/DNI as per discussion with pt Follows with Dr Garcia for routine care Pt was seen and care coordinated with Dr Ribeiro. See addendum History of Present Illness Chief Complaint: Referred for symptomatic anemia Primary Care Provider: Lor Garcia MD Pt is 83 y/o F with PMH HTN, DM II, CKD III, B-cell CLL diagnosed in 2013, Kailyn positive autoimmune hemolytic anemia diagnosed in 2013, H/O recurrent papillary thyroid cancer in 2009 s/p surgery presented to ER for abnormal labs with hemoglobin of 6.6 today with exertional SOB, dizziness. Denies any syncope or CP. Follows with Dr. Long with hematology oncology and had rituximab today which is reported fourth dose. She is on prednisone 60 mg daily and had dose this morning. Pt has required multiple PRBC transfusions recently with most recent admission in 09/24/18 for symptomatic anemia with Hgb: 6 and received PRBC transfusion. Also received 2 units PRBCs on 09/18/2018 for hgb: 7. Denies fever/chills, diaphoresis, N/V/D/C, ANDREA, syncope, vision changes, neck pain, CP, orthopnea, palpitations, cough, sore throat, choking, otalgia, rhinorrhea, abdominal pain, paresthesias, extremity weakness, extremity edema, rashes, urinary symptoms, epistaxis, hematuria, melena, hematochezia. outpatient labs today: WBC:28, H/H: 6.6/2.3, Plt: 130, BUN: 89, Cr: 2.2, GFR: 20.8, Calcium: 6.9 Pt only had prednisone, and compazine, no other am meds today. Allergies Allergy/AdvReac Type Severity Reaction Status Date / Time lorazepam Allergy Unknown UNKNOWN Unverified 09/24/18 18:00 pneumococcal vaccine Allergy Unknown Unknown Verified 09/24/18 18:00 Home Medications Home Medications Medication Instructions Recorded Confirmed Type benazepril 20 mg PO DAILY 09/05/18 10/15/18 History calcium carbonate-vitamin D3 1 tab PO BID 09/05/18 10/15/18 History [Oysco 500/D] clonazepam 1 mg PO BID PRN 09/05/18 10/15/18 History folic acid 1 mg PO QAM 09/05/18 10/15/18 History furosemide [Lasix] 20 mg PO TID 09/05/18 10/15/18 History isosorbide mononitrate 30 mg PO QAM 09/05/18 10/15/18 History levothyroxine 150 mcg PO QAM 09/05/18 10/15/18 History omeprazole 20 mg PO BID 09/05/18 10/15/18 History tramadol 25 mg PO Q6H PRN 09/05/18 10/15/18 History citalopram 10 mg PO DAILY 09/24/18 10/15/18 History prednisone 60 mg PO DAILY 09/24/18 10/15/18 History glimepiride 1 mg PO DAILY 10/15/18 10/15/18 History nystatin 5 ml PO QID 10/15/18 10/15/18 History prochlorperazine maleate 10 mg PO Q6H PRN 10/15/18 10/15/18 History [Compazine] sennosides-docusate sodium [Senna 1 tab PO DAILY 10/15/18 10/15/18 History with Docusate Sodium] triamcinolone acetonide 1 applic TOPICAL BID PRN 10/15/18 10/15/18 History Past Med/Surg History Medical History Hypocalcemia (Chronic) HTN (hypertension) (Chronic) TIA (transient ischemic attack) (Resolved) Lymphoma (Chronic) B-cell CLL, dx in 2013 Thyroid cancer (Chronic) recurrent papillary thyroid cancer; s/p surgery; dx in 2009 Asthma (Chronic) Diabetes (Chronic) Kidney stones (Chronic) Acute renal failure (Resolved) 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; dx in 2013 Non-STEMI (non-ST elevated myocardial infarction) (Resolved) Sepsis (Resolved) Surgical History History of thyroidectomy (Chronic) several cancer surgeries on thyroid History of knee surgery (Chronic) b/l knees History of hernia repair (Chronic) Family History Mother Colorectal cancer Brother Diabetes Sister Diabetes Social History Preferred Language: French Communication Ability: Effective Family Medicine Physician Required: No Beliefs That Will Affect Care: None marital status: / Current Living Situation: Family Current Living Situation Comment: pt son lives in pt basement until he is able to find a new place to live. current occupational status: retired Feels Safe at Home: Yes Safety Concerns: Feels Safe At This Time Smoking Status: Never smoker Hx Alcohol Use: No Hx Substance Use: No Review of Systems Review of Systems: All systems reviewed & are unremarkable except as noted in HPI & below Physical Exam Physical Exam: General: no acute distress, obese Head: normocephalic, atraumatic Eyes: PERRL, EOM's intact, pale conjunctiva, anicteric ENT: normal inspection external ears, nose, mucous membranes moist Neck: supple, trachea midline Lungs: clear, no respiratory distress, no wheezing/rhonchi/rales CV: RRR, rate 96, systolic murmur, no JVD, trace pretibial edema Abd: normal BS, soft, non-tender Ext: no cyanosis, no calf tenderness Neuro: A&O x 3, no focal deficits noted, normal affect Skin: warm, dry, pale Results & Data Vital Signs (Past 12 Hours) Vital Signs Temp Pulse Resp BP Pulse Ox 10/15/18 15:20 96 10/15/18 14:49 36.4 C L 97 H 20 121/67 96 Laboratory Results Short CBC 10/15/18 10/15/18 Range/Units 15:17 15:17 WBC 43.59 H* (4.8-10.8) K/uL Hgb 7.1 L (12.0-16.0) g/dL Hct 22.3 L (37-47) % Plt Count 141 (130-400) K/uL Creatinine 2.17 H (0.6-1.2) mg/dl Calcium 5.8 L* (8.5-10.1) mg/dl BMP 10/15/18 15:17 Sodium 140 Potassium 4.4 Chloride 104 Carbon Dioxide 26 BUN 84 H Creatinine 2.17 H Glucose 188 H Calcium 5.8 L* Cardiac Enzymes 10/15/18 Range/Units 15:17 Troponin I 0.023 (0-0.045) ng/ml Liver Function 10/15/18 Range/Units 15:17 Total Bilirubin 0.9 (0.2-1) mg/dl AST 7 L (15-37) U/L ALT 18 (12-78) U/L Alkaline Phosphatase 59 (45-117) U/L Albumin 4.3 (3.4-5.0) gm/dl Diagnostic Findings CXR: IMPRESSION: Negative chest. Code Status & VTE Plan VTE Prophylaxis Plan VTE Prophylaxis will be ordered: Yes Supervising Physician Co-Signing Physician Notes Attending addendum The patient was seen and examined in emergency room She has known history of autoimmune hemolytic anemia with symptomatic anemia which came hemoglobin of 7.1 She complains of weakness and tiredness going to shortness of breath on exertion but no chest pain Examination No apparent distress at rest Looks pale Hemodynamically stable Chest-clear to auscultate bilaterally Heart-S1-S2 regular no murmur, Abdomen-benign Extremities -trace edema bilateral 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 No focal neuro deficit Admission labs noted Has hemolytic anemia with symptomatic anemia on presentation We will get blood transfusion as ordered Agree with assessment plan as outlined above by SHAZIA Squires Dr
[2018-10-15 16:25] LABS: Anisocytosis Present; Basophils # (auto) 0.02 K/uL (0-0.2); Immature Granulocytes # (auto) 0.14 K/uL (0.00-0.02); Immature Granulocytes % (auto) 0.3 %; Lymphocytes # (auto) 36.44 K/uL (1.2-3.4); Lymphocytes % (auto) 83.6 %; Monocytes # (auto) 0.02 K/uL (0.11-0.59); Neutrophils # (auto) 6.97 K/uL (1.4-6.5); Neutrophils % (auto) 16.1 %
[2018-10-15 17:23] LABS: Magnesium 2.5 mg/dl (1.8-2.4); Phosphorus 5.4 mg/dl (2.5-4.9)
[2018-10-15] MEDS ORDERED: CALCIUM GLUCONATE 10% 1,000 MG in SODIUM CHLORIDE 0.9% 50 ML IV ONE (19:15)
[2018-10-15] MEDS ORDERED: DEXTROSE 50% 50 ML SYRINGE IV PRN (19:15)
[2018-10-15] MEDS ORDERED: CARBOHYDRATES FOR HYPOGLYCEMIA PO PRN (19:15)
[2018-10-15] MEDS ORDERED: clonazePAM 1 MG TAB PO PRN (19:15)
[2018-10-15] MEDS ORDERED: GLUCOSE 10 TABS/TUBE PO PRN (19:15)
[2018-10-15] MEDS ORDERED: TRAMADOL HCL 50 MG TABLET PO PRN (19:15)
[2018-10-15] MEDS ORDERED: GLUCAGON FOR INJ 1 MG VIAL SQ PRN (19:15)
[2018-10-15] MEDS ORDERED: ACETAMINOPHEN 325 MG TAB PO PRN (19:15)
[2018-10-15] MEDS ORDERED: PROCHLORPERAZINE MALEATE 10 MG TAB PO PRN (19:15)
[2018-10-15] MEDS ORDERED: ACETAMINOPHEN 325 MG TAB PO ONE (19:15)
[2018-10-15] MEDS ORDERED: FUROSEMIDE 20 MG in SYRINGE 0 ML IV ONE (19:15)
[2018-10-15] MEDS ORDERED: GLUCOSE 40% GEL 15 GM TUBE PO PRN (19:15)
[2018-10-15] MEDS: INSULIN ASPART 100 UNITS/ML 3 ML PEN SC SCH (20:33)
[2018-10-15] MEDS: NYSTATIN SUSP 500,000 U/5 ML UDC PO SCH ×2 (20:33→20:39)
[2018-10-15] MEDS: PANTOprazole 40 MG TAB PO SCH (20:36)
[2018-10-15] MEDS: CALCIUM 600MG + VIT D 400 IU TAB PO SCH (20:38)
[2018-10-16] MEDS ORDERED: ACETAMINOPHEN 325 MG TAB PO SCH (06:00)
[2018-10-16] MEDS ORDERED: FUROSEMIDE 20 MG in SYRINGE 0 ML IV SCH (06:00)
[2018-10-16] MEDS: LEVOTHYROXINE SODIUM 150 MCG TABLET PO SCH (06:12)
[2018-10-16 07:10] LABS: Hematocrit (blood only) 20.4 % (37-47); Hemoglobin 6.5 g/dL (12.0-16.0); Mean Corpuscular Hgb Conc 31.9 g/dL (32-36); Mean Corpuscular Volume 111.5 fL (80-100); Platelet Count 97 K/uL (130-400); RDW Coefficient of Variation 18.5 % (11.5-14.5); RDW Standard Deviation 72.7 fL (36.4-46.3); Red Blood Count 1.83 M/uL (4.2-5.4); White Blood Count 17.55 K/uL (4.8-10.8)
[2018-10-16 07:33] LABS: Anisocytosis Present; Basophils # (auto) 0.01 K/uL (0-0.2); Basophils % (auto) 0.1 %; Immature Granulocytes # (auto) 0.05 K/uL (0.00-0.02); Immature Granulocytes % (auto) 0.3 %; Lymphocytes % (auto) 80.9 %; Macrocytosis Present; Monocytes # (auto) 0.19 K/uL (0.11-0.59); Monocytes % (auto) 1.1 %; Neutrophils % (auto) 17.6 %; Platelet Estimate Decreased (Normal)
[2018-10-16 07:40] LABS: Albumin Level 3.8 gm/dl (3.4-5.0); BUN Creatinine Ratio 38.7 (10-20); Calcium 6.2 mg/dl (8.5-10.1); Creatinine Clr Calc Pharmacy 23.6 ml/min; Est GFR (African American) 26.8; Est GFR (Non-African American) 23.1; Phosphorus 5.6 mg/dl (2.5-4.9); Potassium 4.3 mmol/L (3.5-5.1)
[2018-10-16] MEDS: INSULIN ASPART 100 UNITS/ML 3 ML PEN SC SCH ×4 (08:20→21:08)
[2018-10-16] MEDS: DOCUSATE SODIUM/SENNA 50/8.6MG TAB PO SCH (08:21)
[2018-10-16] MEDS: ISOSORBIDE MONO EXTENDED REL 30 MG TABCR PO SCH (08:21)
[2018-10-16] MEDS: CALCIUM 600MG + VIT D 400 IU TAB PO SCH ×2 (08:21→21:00)
[2018-10-16] MEDS: NYSTATIN SUSP 500,000 U/5 ML UDC PO SCH ×4 (08:21→21:01)
[2018-10-16] MEDS: PANTOprazole 40 MG TAB PO SCH ×2 (08:21→21:00)
[2018-10-16] MEDS: predniSONE 20 MG TAB PO SCH (08:21)
[2018-10-16] MEDS: FOLIC ACID 1 MG TAB PO SCH (08:21)
[2018-10-16] MEDS: CITALOPRAM 20 MG TAB PO SCH (08:22)
[2018-10-16] MEDS ORDERED: CALCIUM GLUCONATE 10% 1,000 MG in SODIUM CHLORIDE 0.9% 50 ML IV ONE (10:00)
--- NOTE | 2018-10-16 10:52 | Hospitalist Progress Note ---
Date of Service October 16, 2018 Assessment & Plan (1) Symptomatic anemia: (2) Hemolytic anemia: Hx B-cell CLL diagnosed in 2013, Kailyn positive autoimmune hemolytic anemia diagnosed in 2014. Had multiple blood transfusion in the past outpatient labs today: WBC:28, H/H: 6.6/2.3, Plt: 130 Hbg on admission 7.1, then 6.5 today On Rituximab and hydrocortisone 100mg today Type and cross done and waiting for the blood to [facility] Will transfuse 2 units PRBC Continue monitor CBC (3) Hypocalcemia: Chronic hypocalcemia with baseline ~6-7 Calcium on admission 5.8, that slightly increased to 6.2 today Ionized calcium is low, will give Calcium gluconate 1 g today Continue calcium carbonate oral supplement (4) CKD (chronic kidney disease) stage 3, GFR 30-59 ml/min: CKD III-IV Cr: 2.17 on admission, His creatinine was 2.0 on 10/08/18 and 10/01/18, was 1.8 on 09/24/18 Creatinine 1.9 today Continue to avoid nephrotoxic agents (5) HTN (hypertension): BP stable Continue to hold Benazepril and Lasix for now Will give Lasix between transfusion Continue isosorbide (6) Diabetes: A1c: 3.9 on 08/05/18 Hba1c will not be accurate due to recurrent blood transfusion Glimepiride on hold On Novolog sliding scale per protocol (7) Thyroid cancer: Hypothyroidism H/O recurrent papillary thyroid cancer in 2009 s/p surgery TSH: 0.38 on 08/05/18 Continue levothyroxine Electrolytes Imbalance Elevated Mg and phosphorus Low calcium Mostly related to repeat blood transfusion Monitor Electrolytes DVT Prophylaxis SCDs secondary to anemia and thrombocytopenia CODE STATUS DNR/DNI Subjective Pt was seen and examined. Lying in bed with no distress. Pt said that she feels fine She said that she had multiple blood transfusion in the past Denies any chest pain, palpitation, dizziness and SOB Physical Exam Physical Exam: General- No acute distress Head- atraumatic Eyes- PERRL, EOMI, ENT- oropharynx clear Neck- supple, no JVD Lungs- clear to auscultation Heart- regular rhythm; +murmur Abdomen- normal bowel sounds, soft, nontender Extremities- no calf tenderness Neuro- alert, oriented x 3; PERRL, EOMI; no facial palsy; no dysarthria Skin- warm & dry Results & Data Vital Signs (Past 12 Hours) Vital Signs Temp Pulse Pulse Resp BP BP Pulse Ox 10/16/18 08:40 68 10/16/18 07:27 36.7 C 74 18 103/65 100 10/16/18 04:00 36.2 C L 74 18 113/73 97 10/16/18 00:32 81 10/15/18 23:00 36.7 C 91 H 20 113/71 97
[2018-10-17] MEDS: LEVOTHYROXINE SODIUM 150 MCG TABLET PO SCH (05:40)
--- NOTE | 2018-10-17 08:06 | Hospitalist Progress Note ---
Date of Service October 17, 2018 Assessment & Plan (1) Symptomatic anemia: (2) Hemolytic anemia: Hx B-cell CLL diagnosed in 2013, Kailyn positive autoimmune hemolytic anemia diagnosed in 2014. Had multiple blood transfusion in the past Presented with abnormal labshemoglobin 6.6 with exertional shortness of breath/dizziness. Outpatient labs on presentation: WBC:28, H/H: 6.6/2.3, Plt: 130 -Hbg on admission 7.1, then went as low as 6.5. -On Rituximab and hydrocortisone 100 mg -Type and cross done and waiting for the blood to give from [facility] --> Received 2 units PRBC overnight -Monitor H & H outpatient and anticipate requirement for blood transfusions in the future too which can be arranged for outpatient. (3) Hypocalcemia: -Chronic hypocalcemia with baseline ~6-7 -Calcium on admission 5.8, that slightly increased -Received Calcium gluconate 1 g , will give another dose. -Continue calcium carbonate oral supplement (4) CKD (chronic kidney disease) stage 3, GFR 30-59 ml/min: CKD III-IV -Cr: 2.17 on admission, His creatinine was 2.0 on 10/08/18 and 10/01/18, was 1.8 on 09/24/18 -Currently Hb 2.17, received a dose of lasix between blood transfusions. -Hold benazepril and Lasix 20 mg 3 times daily which are home medications -Continue to avoid nephrotoxic agents -Monitor BMP. Repeat BMP during next office appt (5) HTN (hypertension): BP slightly high -Hold benazapril, lasix as creatinine high -Will start on low dose of amlodipine as holding benazapril and lasix both -Continue isosorbide (6) Diabetes: A1c: 3.9 on 08/05/18 -Hba1c will not be accurate due to recurrent blood transfusion -Glimepiride on hold -On Novolog sliding scale per protocol (7) Thyroid cancer: Hypothyroidism H/O recurrent papillary thyroid cancer in 2009 s/p surgery TSH: 0.38 on 08/05/18 -Continue levothyroxine DVT Prophylaxis SCDs secondary to anemia and thrombocytopenia CODE STATUS DNR/DNI Disposition Very eager to be discharged. No discharge needs identified. Ambulating well. Okay to discharge home today Subjective Pt is feeling much better today. Received 2 units of blood transfusion yesterday night, hemoglobin is up to 9.5. Patient is very eager to be discharged home. Denies any fever, chills. Shortness of breath, fatigue has significantly improved. No melena, fresh red blood in stool, no abdominal pain. Physical Exam Physical Exam: GENERAL- AAOX3, No acute distress LUNGS- Air entry bilaterally equal. No rales, rhonchi, crackles, wheezes heard. HEART- Regular rate and rhythm. Murmur + ABDOMEN- Soft, non tender, non distended, Bowel sounds heard. EXTREMITIES- Good peripheral pulses, no edema Results & Data Vital Signs (Past 12 Hours) Vital Signs Temp Pulse Pulse Resp BP BP Pulse Ox 10/17/18 07:32 36.7 C 91 H 18 149/79 H 95 10/17/18 07:24 67 10/17/18 05:35 36.6 C 70 18 134/73 100 10/17/18 05:20 36.7 C 64 18 114/58 L 100 10/17/18 04:20 36.4 C L 63 18 123/68 100 10/17/18 03:50 36.7 C 70 18 121/70 99 10/17/18 03:20 36.6 C 70 18 118/71 100 10/17/18 03:05 36.7 C 67 18 129/69 96 10/17/18 02:45 36.7 C 80 18 122/71 99 10/17/18 01:17 78 10/17/18 00:55 36.6 C 82 18 126/71 98 10/17/18 00:25 36.7 C 80 18 125/73 99 10/16/18 23:25 36.8 C 83 18 112/69 98 10/16/18 22:55 36.7 C 85 18 107/65 96 10/16/18 22:25 37.0 C 85 18 104/63 97 10/16/18 22:10 36.8 C 90 18 109/65 96 10/16/18 21:53 36.7 C 90 18 119/65 96 10/16/18 21:31 89
[2018-10-17] MEDS: INSULIN ASPART 100 UNITS/ML 3 ML PEN SC SCH (08:26)
[2018-10-17] MEDS: NYSTATIN SUSP 500,000 U/5 ML UDC PO SCH (08:27)
[2018-10-17] MEDS: PANTOprazole 40 MG TAB PO SCH (08:27)
[2018-10-17] MEDS: predniSONE 20 MG TAB PO SCH (08:27)
[2018-10-17] MEDS: CITALOPRAM 20 MG TAB PO SCH (08:28)
[2018-10-17] MEDS: ISOSORBIDE MONO EXTENDED REL 30 MG TABCR PO SCH (08:28)
[2018-10-17] MEDS: CALCIUM 600MG + VIT D 400 IU TAB PO SCH (08:28)
[2018-10-17] MEDS: DOCUSATE SODIUM/SENNA 50/8.6MG TAB PO SCH (08:28)
[2018-10-17] MEDS: FOLIC ACID 1 MG TAB PO SCH (08:29)
[2018-10-17 08:56] LABS: Hematocrit (blood only) 29.1 % (37-47); Hemoglobin 9.5 g/dL (12.0-16.0); Mean Corpuscular Hgb Conc 32.6 g/dL (32-36); Mean Corpuscular Volume 101.7 fL (80-100); Mean Platelet Volume 10.6 fL (7.4-10.4); Platelet Count 97 K/uL (130-400); RDW Coefficient of Variation 23.1 % (11.5-14.5); RDW Standard Deviation 80.2 fL (36.4-46.3); Red Blood Count 2.86 M/uL (4.2-5.4); White Blood Count 18.87 K/uL (4.8-10.8)
[2018-10-17 09:53] LABS: BUN Creatinine Ratio 30.1 (10-20); Calcium 6.6 mg/dl (8.5-10.1); Creatinine Clr Calc Pharmacy 21.4 ml/min; Est GFR (African American) 23.8; Est GFR (Non-African American) 20.6; Potassium 3.8 mmol/L (3.5-5.1)
--- NOTE | 2018-10-17 10:24 | Discharge Summary ---
Date of Service October 17, 2018 Admission HPI Per Admitting Provider Pt is 83 y/o F with PMH HTN, DM II, CKD III, B-cell CLL diagnosed in 2013, Kailyn positive autoimmune hemolytic anemia diagnosed in 2013, H/O recurrent papillary thyroid cancer in 2009 s/p surgery presented to ER for abnormal labs with hemoglobin of 6.6 today with exertional SOB, dizziness. Denies any syncope or CP. Follows with Dr. Long with hematology oncology and had rituximab today which is reported fourth dose. She is on prednisone 60 mg daily and had dose this morning. Pt has required multiple PRBC transfusions recently with most recent admission in 09/24/18 for symptomatic anemia with Hgb: 6 and received PRBC transfusion. Also received 2 units PRBCs on 09/18/2018 for hgb: 7. Denies fever/chills, diaphoresis, N/V/D/C, ANDREA, syncope, vision changes, neck pain, CP, orthopnea, palpitations, cough, sore throat, choking, otalgia, rhinorrhea, abdominal pain, paresthesias, extremity weakness, extremity edema, rashes, urinary symptoms, epistaxis, hematuria, melena, hematochezia. outpatient labs today: WBC:28, H/H: 6.6/2.3, Plt: 130, BUN: 89, Cr: 2.2, GFR: 20.8, Calcium: 6.9 Pt only had prednisone, and compazine, no other am meds today. Principal Diagnosis 1. Symptomatic hemolytic anemia 2. History of B-cell chronic lymphocytic leukemia/Kailyn positive autoimmune hemolytic anemia 3. Hypocalcemia Secondary diagnoses on discharge 1. Chronic kidney disease stage III-IV 2. Hypertension 3. Diabetes mellitus type 2 4. Thyroid carcinoma history Discharge Exam GENERAL- AAOX3, No acute distress LUNGS- Air entry bilaterally equal. No rales, rhonchi, crackles, wheezes heard. HEART- Regular rate and rhythm. Murmur + ABDOMEN- Soft, non tender, non distended, Bowel sounds heard. EXTREMITIES- Good peripheral pulses, no edema Discharge Data Allergies Allergy/AdvReac Type Severity Reaction Status Date / Time lorazepam Allergy Unknown UNKNOWN Unverified 09/24/18 18:00 pneumococcal vaccine Allergy Unknown Unknown Verified 09/24/18 18:00 Consultations 10/15/18 15:23 ED Decision to Admit Stat 10/15/18 19:15 Consult Case Management - Discharge Planning Routine Hospital Course (1) Symptomatic anemia: (2) Hemolytic anemia: Hx B-cell CLL diagnosed in 2013, Kailyn positive autoimmune hemolytic anemia diagnosed in 2014. Had multiple blood transfusion in the past Presented with abnormal labshemoglobin 6.6 with exertional shortness of breath/dizziness. Outpatient labs on presentation: WBC:28, H/H: 6.6/2.3, Plt: 130 -Hbg on admission 7.1, then went as low as 6.5. -On Rituximab and hydrocortisone 100 mg -Type and cross done and waiting for the blood to give from [facility] --> Received 2 units PRBC overnight -Monitor H & H outpatient and anticipate requirement for blood transfusions in the future too which can be arranged for outpatient. (3) Hypocalcemia: -Chronic hypocalcemia with baseline ~6-7 -Calcium on admission 5.8, that slightly increased -Received Calcium gluconate 1 g , will give another dose. -Continue calcium carbonate oral supplement (4) CKD (chronic kidney disease) stage 3, GFR 30-59 ml/min: CKD III-IV -Cr: 2.17 on admission, His creatinine was 2.0 on 10/08/18 and 10/01/18, was 1.8 on 09/24/18 -Currently Hb 2.17, received a dose of lasix between blood transfusions. -Hold benazepril and Lasix 20 mg 3 times daily which are home medications -Continue to avoid nephrotoxic agents -Monitor BMP. Repeat BMP during next office appt (5) HTN (hypertension): BP slightly high -Hold benazapril, lasix as creatinine high -Will start on low dose of amlodipine as holding benazapril and lasix both -Continue isosorbide (6) Diabetes: A1c: 3.9 on 08/05/18 -Hba1c will not be accurate due to recurrent blood transfusion -Glimepiride on hold -On Novolog sliding scale per protocol (7) Thyroid cancer: Hypothyroidism H/O recurrent papillary thyroid cancer in 2009 s/p surgery TSH: 0.38 on 08/05/18 -Continue levothyroxine DVT Prophylaxis SCDs secondary to anemia and thrombocytopenia CODE STATUS DNR/DNI Disposition Very eager to be discharged. No discharge needs identified. Ambulating well. Okay to discharge home today Total Time Total Time Spent Total Time Spent (In Minutes): 38 minutes Discharge Plan Discharge Items Patient Disposition: Home - Self-Care Reason For Visit: SYMPTOMATIC ANEMIA Discharge Diagnosis: Symptomatic hemolytic anemia requiring blood transfusions Discharge Goals: Decrease discomfort Activity: Resume your previous activity Non-emergency contact: Primary Care Provider Call non-emergency contact if: your symptoms worsen Follow-up/Referrals: Lor Garcia MD [Primary Care Provider] - (We will call you for 7-day hospital follow-up visit with date/time) Diet: Carb Consistent or DM2 and Low Sodium (2gm) Addtl Provider Instructions: You were admitted to the hospital for symptomatic anemia. You received 2 units of packed red blood cells. MEDICATION CHANGES 1. Hold benazepril and Lasix due to elevated creatinine 2. New medicationamlodipine 5 mg daily as held above medications for high blood pressure. Monitor 1. Need BMP to monitor creatinine levels during next office visit 2. Need to monitor CBC for hemoglobin levels on a regular basis Prescriptions: New amlodipine 5 mg tablet 5 mg PO DAILY Qty: 30 RF: 0 Continued prednisone 10 mg Tablet 60 mg PO DAILY RF: 0 citalopram 10 mg Tablet 10 mg PO DAILY RF: 0 nystatin 100,000 unit/mL Suspension 5 ml PO QID RF: 0 sennosides-docusate sodium [Senna with Docusate Sodium] 8.6-50 mg Tablet 1 tab PO DAILY RF: 0 prochlorperazine maleate [Compazine] 10 mg Tablet 10 mg PO Q6H PRN (Reason: Nausea And Vomiting) RF: 0 triamcinolone acetonide 0.1 % Cream 1 applic TOPICAL BID PRN (Reason: Rash) RF: 0 glimepiride 1 mg tablet 1 mg PO DAILY RF: 0 isosorbide mononitrate 30 mg Tablet Extended Release 24 Hr 30 mg PO QAM RF: 0 folic acid 1 mg Tablet 1 mg PO QAM RF: 0 tramadol 50 mg Tablet 25 mg PO Q6H PRN (Reason: Pain) RF: 0 clonazepam 1 mg Tablet 1 mg PO BID PRN (Reason: Anxiety) RF: 0 calcium carbonate-vitamin D3 [Oysco 500/D] 500 mg(1,250mg) -200 unit Tablet 1 tab PO BID RF: 0 levothyroxine 150 mcg Tablet 150 mcg PO QAM RF: 0 omeprazole 20 mg Capsule,Delayed Release(Dr/Ec) 20 mg PO BID RF: 0 Discontinued benazepril 20 mg Tablet 20 mg PO DAILY RF: 0 furosemide [Lasix] 20 mg Tablet 20 mg PO TID RF: 0 Stand-Alone Forms: [facility] Discharge Orders: Discharge Order (Routine); Ordered 10/17/18 Ordered By: Celine Long Admission Data Admit Date/Time: 10/15/18 16:02 Attending Provider: Celine Long Admit Provider: Wendy Ribeiro Primary Care Provider: Lor Garcia Other Providers: Wendy Ribeiro Service: Telemetry Medical Other Interventions: Discharge Summary Assessment (RN) Last Done: 10/17/18 11:42 DC Date/Time DO NOT enter until pt leaves facility: 10/17/18 12:50
[2018-10-17] MEDS ORDERED: CALCIUM GLUCONATE 10% 1,000 MG in SODIUM CHLORIDE 0.9% 50 ML IV ONE (10:30)
== END 2018-10-17 12:50 | disposition home or self-care (01) ==
LOC: 2N 14:47 → ED 14:47 → SUATTDRO 16:02 → 2N 18:28
DX: D59.1 Other autoimmune hemolytic anemias; N18.3 Chronic kidney disease, stage 3 (moderate); I12.9 Hypertensive chronic kidney disease with stage 1 through stage 4 chronic kidney disease, or unspecified chronic kidney disease; E11.22 Type 2 diabetes mellitus with diabetic chronic kidney disease; C91.11 Chronic lymphocytic leukemia of B-cell type in remission; Z79.899 Other long term (current) drug therapy; Z85.850 Personal history of malignant neoplasm of thyroid

== ENCOUNTER 2018-12-01 16:30 | Inpatient (IN) ==
[2018-12-01] MEDS ORDERED: SODIUM CHLORIDE 0.9% 1000ML 1,000 ML IV SCH (17:45)
[2018-12-01 18:35] LABS: Hematocrit (blood only) 26.3 % (37-47); Hemoglobin 8.5 g/dL (12.0-16.0); Mean Corpuscular Hemoglobin 35.6 pg (25-34); Mean Corpuscular Hgb Conc 32.3 g/dL (32-36); Mean Platelet Volume 9.9 fL (7.4-10.4); Platelet Count 126 K/uL (130-400); RDW Coefficient of Variation 15.2 % (11.5-14.5); RDW Standard Deviation 60.3 fL (36.4-46.3); Red Blood Count 2.39 M/uL (4.2-5.4); White Blood Count 4.07 K/uL (4.8-10.8)
[2018-12-01 19:04] LABS: Alanine Aminotransferase 18 U/L (12-78); Albumin Globulin Ratio 1.3 (0.9-2); Albumin Level 3.6 gm/dl (3.4-5.0); Alkaline Phosphatase 49 U/L (45-117); Aspartate Aminotransferase 13 U/L (15-37); BUN Creatinine Ratio 22.6 (10-20); Bilirubin,Total 0.8 mg/dl (0.2-1); Blood Urea Nitrogen 49 mg/dl (7-18); Calcium 5.1 mg/dl (8.5-10.1); Carbon Dioxide 34 mmol/L (21-32); Chloride 94 mmol/L (98-107); Est GFR (African American) 23.8; Est GFR (Non-African American) 20.6; Globulin 2.7 gm/dl (2.5-4.0); Glucose 89 mg/dl (70-99); Magnesium 1.7 mg/dl (1.8-2.4); Potassium 3.1 mmol/L (3.5-5.1); Sodium 140 mmol/L (136-145); Total Protein 6.3 gm/dl (6.4-8.2)
[2018-12-01 19:10] LABS: Anisocytosis Present; Dohle Bodies 1+; Immature Granulocytes # (auto) 0.04 K/uL (0.00-0.02); Lymphocytes # (auto) 2.55 K/uL (1.2-3.4); Lymphocytes % (auto) 62.7 %; Macrocytosis Present; Monocytes # (auto) 0.21 K/uL (0.11-0.59); Monocytes % (auto) 5.2 %; Neutrophils # (auto) 1.27 K/uL (1.4-6.5); Neutrophils % (auto) 31.1 %
[2018-12-01] MEDS ORDERED: CALCIUM GLUCONATE 10% 1,000 MG in SODIUM CHLORIDE 0.9% 50 ML IV STA (19:10)
[2018-12-01] MEDS ORDERED: POTASSIUM CHLORIDE 20 MEQ TABCR PO STA (19:11)
[2018-12-01] MEDS ORDERED: MAGNESIUM SULFATE 1GM / D5W BAG IV STA (19:18)
[2018-12-01] MEDS ORDERED: TRAMADOL HCL 50 MG TABLET PO PRN (19:52)
--- NOTE | 2018-12-01 20:15 | History & Physical Report ---
Date of Service December 01, 2018 Assessment & Plan (1) Hypocalcemia: -chronic hypocalcemia; as per October 2018 discharge summary Chronic hypocalcemia with baseline between 6 to 7 -serum albumin generally normal as 3.6 -presentation calcium level as 5.1 -received calcium gluconate in the ED -give oral calcium/vitamin D supplements -check vitamin D levels, check PTH, check ionized calcium Hypomagnesemia -serum magnesium 1.7, receiving magnesium supplements from ED provider, trend and try to target serum level of 2 Hypokalemia -serum potassium 3.1, received oral potassium of 40 meq, trend and try to target serum level of 3.5 to 4 CKD (chronic kidney disease) stage 4 -monitor renal function Hypertension -blood pressure is low normal tensive -hold diuretics, hold ELIE inhibitor for now -continue amlodipine 5 mg daily Hypothyroidism -H/O recurrent papillary thyroid cancer in 2009 s/p surgery -check TSH -continue home dose levothyroxine Diabetes Mellitus without supervisor intermediates use of insulin -hold home dose oral anti-hyperglycemics -sliding scale insulin and glucose checks History of B-cell Chronic lymphocytic leukemia diagnosed in 2013 chronic current use of steroids -reports last chemotherapy in August 2018 -on daily prednisone, continue Chronic Anemia History of Hemolytic anemia -Kailyn positive autoimmune hemolytic anemia diagnosed in 2013 -Hgb is 8.5 -maintain active type and screen DVT prophylaxis: SCDs because of anemia patient reports she has advance directives but currently the code status is Full Code as per my discussion with patient son Jan [phone] History of Present Illness Pt is 83 y/o F with PMH HTN, DM II, CKD III, B-cell CLL diagnosed in 2013, Kailyn positive autoimmune hemolytic anemia diagnosed in 2013, H/O recurrent papillary thyroid cancer in 2009 s/p surgery presented to ER for abnormal labs of hypocalcemia that is lower than her baseline of between 6 to 7. admission serum calcium of 5.1. Patient reports she has been taking home medications of calcium/vitamin D at home On review of systems: Patient denies recent symptoms of headache, lightheadedness, dizziness, vomiting, chest pain, abdominal pain, palpitations. Patient's heart rate was noted to be mildly tachycardic in the emergency room. patient reports subjective warmth 3 days ago but did not take a body temperature. is afebrile in the emergency room. blood pressures noted to be low normotensive. patient denies blood loss in urine or stool. Primary Care Provider: Lor Garcia MD Allergies Allergy/AdvReac Type Severity Reaction Status Date / Time lorazepam Allergy Unknown UNKNOWN Unverified 12/01/18 17:35 pneumococcal vaccine Allergy Unknown Unknown Verified 12/01/18 17:35 Home Medications Home Medications Medication Instructions Recorded Confirmed Type calcium carbonate-vitamin D3 1 tab PO BID 09/05/18 12/01/18 History [Oysco 500/D] clonazepam 1 mg PO BID 09/05/18 12/01/18 History folic acid 1 mg PO QAM 09/05/18 12/01/18 History isosorbide mononitrate 30 mg PO QAM 09/05/18 12/01/18 History levothyroxine 150 mcg PO QAM 09/05/18 12/01/18 History omeprazole 20 mg PO BID 09/05/18 12/01/18 History tramadol 25 mg PO Q6H PRN 09/05/18 12/01/18 History citalopram 10 mg PO DAILY 09/24/18 12/01/18 History prednisone 60 mg PO DAILY 09/24/18 12/01/18 History nystatin 5 ml PO QID 10/15/18 12/01/18 History prochlorperazine maleate 10 mg PO Q6H PRN 10/15/18 12/01/18 History [Compazine] sennosides-docusate sodium [Senna 1 tab PO DAILY 10/15/18 12/01/18 History with Docusate Sodium] triamcinolone acetonide 1 applic TOPICAL BID PRN 10/15/18 12/01/18 History amlodipine 5 mg PO DAILY #30 tab 10/17/18 12/01/18 Rx benazepril 20 mg PO DAILY 12/01/18 12/01/18 History furosemide 20 mg PO TID 12/01/18 12/01/18 History glimepiride 1 mg PO DAILY@0800 12/01/18 12/01/18 History glipizide 5 mg PO DAILY@0800 12/01/18 12/01/18 History nystatin 1 applic TOPICAL TID 12/01/18 12/01/18 History Past Med/Surg History Medical History Hypocalcemia (Chronic) HTN (hypertension) (Chronic) TIA (transient ischemic attack) (Resolved) Lymphoma (Chronic) B-cell CLL, dx in 2013 Thyroid cancer (Chronic) recurrent papillary thyroid cancer; s/p surgery; dx in 2009 Asthma (Chronic) Diabetes (Chronic) Kidney stones (Chronic) Acute renal failure (Resolved) 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; dx in 2013 Non-STEMI (non-ST elevated myocardial infarction) (Resolved) Sepsis (Resolved) Surgical History History of thyroidectomy (Chronic) several cancer surgeries on thyroid History of knee surgery (Chronic) b/l knees History of hernia repair (Chronic) Family History Mother Colorectal cancer Brother Diabetes Sister Diabetes Social History Preferred Language: Afghan Communication Ability: Effective Clerical Manager Required: No Beliefs That Will Affect Care: None marital status: / Current Living Situation: Family Current Living Situation Comment: pt son lives in pt basement until he is able to find a new place to live. current occupational status: retired Feels Safe at Home: Yes Smoking Status: Never smoker Hx Alcohol Use: No Hx Substance Use: No Review of Systems Review of Systems: All systems reviewed & are unremarkable except as noted in HPI & below Physical Exam Constitutional: comfortable Eyes: PERRL, conjunctivae normal, anicteric sclerae EOM intact bilaterally ENMT: mouth asymmetry is chronic as per patient Neck: normal visual inspection Respiratory: normal respiratory effort, lungs clear to auscultation Cardiovascular: mild tacycardia Gastrointestinal (Abdomen): normal bowel sounds, soft, nontender, no hepatosplenomegaly Musculoskeletal: Head/Neck/Chest: normocephalic and head atraumatic Neurologic: CN's II-XI intact bilaterally Psychiatric: A+Ox3, euthymic affect Results & Data Vital Signs (Past 12 Hours) Vital Signs Temp Pulse Resp BP Pulse Ox 12/01/18 17:00 37.1 C 104 H 18 105/60 99 Code Status & VTE Plan VTE Prophylaxis Plan VTE Prophylaxis will be ordered: Yes
[2018-12-01] MEDS ORDERED: CARBOHYDRATES FOR HYPOGLYCEMIA PO PRN (20:32)
[2018-12-01] MEDS ORDERED: GLUCOSE 40% GEL 15 GM TUBE PO PRN (20:32)
[2018-12-01] MEDS ORDERED: GLUCAGON FOR INJ 1 MG VIAL SQ PRN (20:32)
[2018-12-01] MEDS ORDERED: GLUCOSE 10 TABS/TUBE PO PRN (20:32)
[2018-12-01] MEDS ORDERED: DEXTROSE 50% 50 ML SYRINGE IV PRN (20:32)
--- NOTE | 2018-12-01 20:43 | Emergency Department Note ---
Entered by Ashley Finch acting as a scribe for History of Present Illness General Chief complaint: Abnormal Labs/Diagnostic Testing Stated complaint: EXTREMELY LOW LABS Time Seen by Provider: 12/01/18 17:28 Source: patient Limitations: no limitations History of Present Illness Onset (ago): hour(s) (a few hours ) Location: head Pain Consistency: + other (episode) Maximum Pain Intensity: 0 Quality: + other (abnormal labs) Associated symptoms: + other (fever, fatigue ); no chest pain and no cough The patient is an 83 year old female who presents to the Emergency Room with complaints of an episode of abnormal labs that occurred a few hours ago. She states that she gets blood work done weekly, because she has leukemia, and her results from today showed a low potassium. The patient states that the blood work was done through Dr. Long's office with Rames[facility]. She complains of constant fatigue that began 2-3 days ago. The patient complains of a fever 4 days ago, noting that it is now resolved. She denies any diarrhea, chest pain, cough, and urinary symptoms. The patient notes a history of diabetes, stating that her blood sugars have between 300-400 recently. She states that she has been on Prednisone for the past 3 months. The patient states that she takes a potassium supplement daily. Home Medications Home Medications Medication Instructions Recorded Confirmed Type calcium carbonate-vitamin D3 1 tab PO BID 09/05/18 12/01/18 History [Oysco 500/D] clonazepam 1 mg PO BID 09/05/18 12/01/18 History folic acid 1 mg PO QAM 09/05/18 12/01/18 History isosorbide mononitrate 30 mg PO QAM 09/05/18 12/01/18 History levothyroxine 150 mcg PO QAM 09/05/18 12/01/18 History omeprazole 20 mg PO BID 09/05/18 12/01/18 History tramadol 25 mg PO Q6H PRN 09/05/18 12/01/18 History citalopram 10 mg PO DAILY 09/24/18 12/01/18 History prednisone 60 mg PO DAILY 09/24/18 12/01/18 History nystatin 5 ml PO QID 10/15/18 12/01/18 History prochlorperazine maleate 10 mg PO Q6H PRN 10/15/18 12/01/18 History [Compazine] sennosides-docusate sodium [Senna 1 tab PO DAILY 10/15/18 12/01/18 History with Docusate Sodium] triamcinolone acetonide 1 applic TOPICAL BID PRN 10/15/18 12/01/18 History amlodipine 5 mg PO DAILY #30 tab 10/17/18 12/01/18 Rx benazepril 20 mg PO DAILY 12/01/18 12/01/18 History furosemide 20 mg PO TID 12/01/18 12/01/18 History glimepiride 1 mg PO DAILY@0800 12/01/18 12/01/18 History glipizide 5 mg PO DAILY@0800 12/01/18 12/01/18 History nystatin 1 applic TOPICAL TID 12/01/18 12/01/18 History Allergies Allergy/AdvReac Type Severity Reaction Status Date / Time lorazepam Allergy Unknown UNKNOWN Unverified 12/01/18 17:35 pneumococcal vaccine Allergy Unknown Unknown Verified 12/01/18 17:35 Past Med/Surg History Medical History Hypocalcemia (Chronic) HTN (hypertension) (Chronic) TIA (transient ischemic attack) (Resolved) Lymphoma (Chronic) B-cell CLL, dx in 2013 Thyroid cancer (Chronic) recurrent papillary thyroid cancer; s/p surgery; dx in 2009 Asthma (Chronic) Diabetes (Chronic) Kidney stones (Chronic) Acute renal failure (Resolved) 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; dx in 2013 Non-STEMI (non-ST elevated myocardial infarction) (Resolved) Sepsis (Resolved) Surgical History History of thyroidectomy (Chronic) several cancer surgeries on thyroid History of knee surgery (Chronic) b/l knees History of hernia repair (Chronic) Family History Mother Colorectal cancer Brother Diabetes Sister Diabetes Social History Preferred Language: Sami Communication Ability: Effective Bolt Loader Required: No Beliefs That Will Affect Care: None marital status: / Current Living Situation: Alone Current Living Situation Comment: pt son lives in pt basement until he is able to find a new place to live. current occupational status: retired Other Information That Helps Us Care for You: No Feels Safe at Home: Yes Safety Concerns: Feels Safe At This Time Smoking Status: Never smoker Hx Alcohol Use: No Hx Substance Use: No Review of Systems See HPI for pertinent positives & negatives. and A total of 10 systems reviewed and were otherwise negative Physical Exam Vital Signs Vital Signs - 24 hr 12/01/18 17:00 Temperature 37.1 C Temperature Source Oral Sepsis Recent Fever Within 48 Hours No Sepsis New/Unexplained Change in Mental Status No Sepsis Action Taken by Nursing No Action Required Pulse Rate 104 H Respiratory Rate 18 Respiratory Effort / Characteristics Non-Labored Spontaneous Respiratory Depth Normal Respiratory Pattern Regular Blood Pressure 105/60 Blood Pressure Mean 75 Blood Pressure Position Sitting Pulse Oximetry 99 Oxygen Delivery Method Room Air GENERAL: Patient is in no acute distress. HEENT: No acute trauma, normocephalic atraumatic, mucous membranes moist, no nasal congestion, no scleral icterus. NECK: No stridor, no adenopathy, no meningismus, trachea is midline. LUNGS: Clear to auscultation bilaterally, no wheeze, no rhonchi, breath sounds equal. HEART: Irregular rhythm, normal rate. 2/6 systolic murmur that is heard best at the left sternal boarder. ABDOMEN: Soft, nontender, bowel sounds positive, no hernias, no peritonitis. EXTREMITIES: No cyanosis, full range of motion of all the joints without pain or difficulty, no signs for acute trauma. Mild bilateral pedal edema. NEUROLOGIC: Oriented x 3, no acute motor or sensory deficits, no focal weakness. SKIN: No rash, no jaundice, no diaphoresis. Course 1736: The patient was evaluated in room C04. A complete history and physical exam was performed. 1745: I reviewed the lab work from [facility] today, and it showed creatinine of 1.9, a potassium of 3.5, a hemoglobin of 8.7, and a calcium of 5.4. 1908: I got a call informing me that the patient has a critical calcium value. 1915: I spoke with Ramesh Holley PA-C, about the patient's case. She will further evaluate the patient with Dr. Cardenas, [facility] hospitalist. 1923: I updated the patient, and she was in agreement with the plan. Consultations Consultation #1: I spoke with Ramesh Holley PA-C, about the patient's case. She will further evaluate the patient with Dr. Cardenas, [facility] hospitalist. Time: 19:16 Administered Medications Insulin Aspart (Novolog Flexpen) 0 units SC ACHS YOGESH Stop: 12/31/18 20:59 Last Admin: 12/01/18 21:47 Dose: Not Given Documented by: [id number] Cosigned by: [id number] Magnesium Oxide (Mag-Ox) 400 mg PO BID YOGESH Stop: 12/31/18 20:59 Last Admin: 12/01/18 21:52 Dose: 400 mg Documented by: [id number] Metoprolol Tartrate (Lopressor) 5 mg IV Q6 PRN PRN Reason: heart rate above 110 bpm Stop: 01/01/19 00:00 Last Admin: 12/01/18 22:31 Dose: 5 mg Documented by: [id number] Multivitamins/Minerals (Caltrate Plus) 1 tab PO BID YOGESH Stop: 12/31/18 20:59 Last Admin: 12/01/18 21:52 Dose: 1 tab Documented by: [id number] Discontinued Medications Sodium Chloride (Nss 1000ml) 1,000 mls @ 999 mls/hr IV .Q1H1M YOGESH Stop: 12/01/18 18:45 Last Infusion: 12/01/18 20:58 Dose: 0 mls/hr Documented by: [id number] Admin: 12/01/18 18:26 Dose: 999 mls/hr Documented by: [id number] Calcium Gluconate 1,000 mg/ (Sodium Chloride) 60 mls @ 240 mls/hr IV NOW STA Stop: 12/01/18 19:24 Last Infusion: 12/01/18 20:57 Dose: 0 mls/hr Documented by: [id number] Admin: 12/01/18 19:36 Dose: 240 mls/hr Documented by: [id number] Calcium Gluconate 2,000 mg/ (Sodium Chloride) 70 mls @ 120 mls/hr IV NOW ONE Stop: 12/01/18 23:19 Last Admin: 12/01/18 22:45 Dose: 120 mls/hr Documented by: [id number] Magnesium Sulfate/Dextrose (Magnesium Sulfate / D5w) 1 gm IV NOW STA Stop: 12/01/18 19:19 Last Admin: 12/01/18 20:15 Dose: 1 gm Documented by: [id number] Potassium Chloride (Klor-Con M20) 40 meq PO NOW STA Stop: 12/01/18 19:12 Last Admin: 12/01/18 19:36 Dose: 40 meq Documented by: [id number] Potassium Chloride (Klor-Con M20) 40 meq PO NOW ONE Stop: 12/01/18 22:46 Last Admin: 12/01/18 22:43 Dose: 40 meq Documented by: [id number] Medical Decision Making Differential Diagnosis The differential diagnosis includes: hypokalemia, hypocalcemia, dehydration, renal failure, anemia, hyperglycemia, dysthymia, A-fib, and A-flutter. Medical Records Attestation: I reviewed the patient's medical records. Home Medications Current Medication List: was personally reviewed by me Laboratory Data Attestation: I reviewed the patient's lab results. Result diagrams: 12/01/18 18:26 12/01/18 21:15 Lab Results 12/01/18 12/01/18 Range/Units 18:26 18:26 WBC 4.07 L (4.8-10.8) K/uL RBC 2.39 L (4.2-5.4) M/uL Hgb 8.5 L (12.0-16.0) g/dL Hct 26.3 L (37-47) % MCV 110.0 H (80-100) fL MCH 35.6 H (25-34) pg MCHC 32.3 (32-36) g/dL RDW Std Deviation 60.3 H (36.4-46.3) fL RDW Coeff of Marcelina 15.2 H (11.5-14.5) % Plt Count 126 L (130-400) K/uL MPV 9.9 (7.4-10.4) fL Immature Gran % (Auto) 1.0 % Neut % (Auto) 31.1 % Lymph % (Auto) 62.7 % Graves % (Auto) 5.2 % Eos % (Auto) 0.0 % Baso % (Auto) 0.0 % Immature Gran # (Auto) 0.04 H (0.00-0.02) K/uL Neut # (Auto) 1.27 L (1.4-6.5) K/uL Lymph # (Auto) 2.55 (1.2-3.4) K/uL Graves # (Auto) 0.21 (0.11-0.59) K/uL Eos # (Auto) 0.00 (0-0.5) K/uL Baso # (Auto) 0.00 (0-0.2) K/uL Hypersegmented Neuts 1+ Dohle Bodies 1+ Anisocytosis Present Macrocytosis Present Sodium 140 (136-145) mmol/L Potassium 3.1 L (3.5-5.1) mmol/L Chloride 94 L (98-107) mmol/L Carbon Dioxide 34 H (21-32) mmol/L Anion Gap 12.0 H (3-11) BUN 49 H (7-18) mg/dl Creatinine 2.18 H (0.6-1.2) mg/dl Est Cr Clr Drug Dosing Not Reportable Est GFR ( Amer) 23.8 Est GFR (Non-Af Amer) 20.6 BUN/Creatinine Ratio 22.6 H (10-20) Glucose 89 (70-99) mg/dl Calcium 5.1 L* (8.5-10.1) mg/dl Magnesium 1.7 L (1.8-2.4) mg/dl Total Bilirubin 0.8 (0.2-1) mg/dl AST 13 L (15-37) U/L ALT 18 (12-78) U/L Alkaline Phosphatase 49 (45-117) U/L Total Protein 6.3 L (6.4-8.2) gm/dl Albumin 3.6 (3.4-5.0) gm/dl Globulin 2.7 (2.5-4.0) gm/dl Albumin/Globulin Ratio 1.3 (0.9-2) ECG Data Attestation: I personally reviewed and interpreted this ECG as follows: Indication: other (abnormal labs) Rate (beats per minute): 100 Rhythm: sinus rhythm (with frequent PACs and a PVC) Findings: + other (QTC is 559), + PAC and + PVC; no ST elevation and no acute ischemic change Blood Pressure Blood Pressure Findings: Normal blood pressure Blood Pressure Disposition: further management by hospitalist MDM Narrative There is a slightly low white count, this is baseline though for the patient looking back at recent testing. The patient is anemic but this is also baseline looking back at recent testing. Platelet count slightly low at 126. Renal panel testing shows an elevation to the creatinine of 2.18, this is chronic for the patient. Magnesium is low at 1.7. Calcium is critically low at 5.1. Potassium low at 3.1. No liver enzyme elevations. EKG shows a sinus rhythm with frequent PACs and PVCs. No acute ischemia. The patient received IV saline, oral potassium, IV magnesium and IV calcium. The patient presents with weakness. She has significant electrolyte abnormalities in particular, her calcium is critically low. Hospitalization is warranted. I spoke to the patient and case management. The on-call hospitalist was consulted. Impression & Plan Hypocalcemia, Weakness, Hypokalemia, Leukemia, Hypomagnesemia Critical Care Time Critical Care Time: Yes Total Critical Care Time: 32 I have personally spent greater than 32 minutes of critical care time in the direct management of this patient. This includes bedside care, interpretation of diagnostic studies and testing, discussion with consultants, the patient, and family members, and other required patient management activities. This 32 minutes is in excess of all separately billable procedures. Discharge Plan Visit Data *Final* Discharge Date/Time: 12/01/18 20:48 Chief Complaint: Abnormal Labs/Diagnostic Testing Stated Complaint: EXTREMELY LOW LABS ED Provider: Luis Carmona Discharge Problem: Hypocalcemia, Weakness, Hypokalemia, Leukemia, Hypomagnesemia Patient Disposition: Admitted As Inpatient Discharge Instructions Interventions: ED Discharge Assessment Last Done: 12/01/18 20:48 Discharge Problem: Leukemia Qualifiers: Leukemia type: unspecified Leukemia Active/Remission status: without remission Qualified Code(s): C95.90 - Leukemia, unspecified not having achieved remission The gay's documentation has been prepared under my direction and personally reviewed by me in its entirety. I confirm that the note above accurately reflects all work, treatment, procedures, and medical decision making performed by me.
[2018-12-01] MEDS ORDERED: CALCIUM 600MG + VIT D 400 IU TAB PO SCH (21:00)
[2018-12-01] MEDS ORDERED: ACETAMINOPHEN 325 MG TAB PO PRN (21:05)
[2018-12-01] MEDS: INSULIN ASPART 100 UNITS/ML 3 ML PEN SC SCH (21:47)
[2018-12-01] MEDS: MAGNESIUM OXIDE 400 MG TAB PO SCH (21:52)
[2018-12-01 22:14] LABS: Albumin Globulin Ratio 1.5 (0.9-2); Albumin Level 3.8 gm/dl (3.4-5.0); BUN Creatinine Ratio 23.7 (10-20); Calcium 5.4 mg/dl (8.5-10.1); Creatinine Clr Calc Pharmacy 23.4 ml/min; Est GFR (Non-African American) 22.4; Globulin 2.5 gm/dl (2.5-4.0); Magnesium 2.2 mg/dl (1.8-2.4); Phosphorus 5.5 mg/dl (2.5-4.9); Potassium 2.9 mmol/L (3.5-5.1); Thyroid Stimulating Hormone 0.399 uIu/ml (0.300-4.500); Total Protein 6.3 gm/dl (6.4-8.2)
[2018-12-01] MEDS ORDERED: METOPROLOL TARTRATE 1 MG/ML VIAL IV PRN (22:19)
[2018-12-01] MEDS ORDERED: CALCIUM GLUCONATE 10% 2,000 MG in SODIUM CHLORIDE 0.9% 50 ML IV ONE (22:45)
[2018-12-01] MEDS ORDERED: CALCIUM GLUCONATE 10% 1,000 MG in SODIUM CHLORIDE 0.9% 50 ML IV ONE (22:45)
[2018-12-01] MEDS ORDERED: POTASSIUM CHLORIDE 20 MEQ TABCR PO ONE (22:45)
[2018-12-01] MEDS: POTASSIUM CHLORIDE / WTR 10 MEQ/100 ML PLCT IV SCH (23:32)
[2018-12-02] MEDS: POTASSIUM CHLORIDE / WTR 10 MEQ/100 ML PLCT IV SCH (01:23)
[2018-12-02 02:10] LABS: Hematocrit (blood only) 25.3 % (37-47); Hemoglobin 8.2 g/dL (12.0-16.0); Mean Corpuscular Hgb Conc 32.4 g/dL (32-36); Mean Platelet Volume 10.4 fL (7.4-10.4); Platelet Count 120 K/uL (130-400); RDW Coefficient of Variation 15.2 % (11.5-14.5); RDW Standard Deviation 60.3 fL (36.4-46.3); Red Blood Count 2.28 M/uL (4.2-5.4); White Blood Count 3.64 K/uL (4.8-10.8)
[2018-12-02 02:30] LABS: INR 1.1 (0.9-1.1); Partial Thromboplastin Ratio 1.1; Partial Thromboplastin Time 28.7 Seconds (21.0-31.0); Prothrombin Time 11.4 Seconds (9.0-12.0)
[2018-12-02 02:38] LABS: Albumin Globulin Ratio 1.3 (0.9-2); Albumin Level 3.2 gm/dl (3.4-5.0); BUN Creatinine Ratio 24.2 (10-20); Bilirubin,Total 0.7 mg/dl (0.2-1); Calcium 5.7 mg/dl (8.5-10.1); Creatinine Clr Calc Pharmacy 23.6 ml/min; Dohle Bodies 1+; Est GFR (African American) 26.3; Est GFR (Non-African American) 22.7; Giant Platelets 1+; Globulin 2.4 gm/dl (2.5-4.0); Immature Granulocytes # (auto) 0.05 K/uL (0.00-0.02); Immature Granulocytes % (auto) 1.4 %; Lymphocytes % (auto) 63.2 %; Macrocytosis Present; Monocytes # (auto) 0.22 K/uL (0.11-0.59); Neutrophils # (auto) 1.07 K/uL (1.4-6.5); Neutrophils % (auto) 29.4 %; Potassium 3.6 mmol/L (3.5-5.1); Total Protein 5.6 gm/dl (6.4-8.2)
[2018-12-02 03:01] LABS: Magnesium 1.9 mg/dl (1.8-2.4)
[2018-12-02] MEDS: SODIUM CHLOR 0.45% + 20MEQ KCL 20 MEQ/1,000 ML BAG IV SCH ×2 (03:14→08:49)
[2018-12-02] MEDS ORDERED: CALCIUM GLUCONATE 10% 2,000 MG in SODIUM CHLORIDE 0.9% 50 ML IV ONE ×2 (03:15→15:15)
[2018-12-02] MEDS ORDERED: POTASSIUM CHLORIDE 20 MEQ TABCR PO ONE (03:15)
[2018-12-02] MEDS: LEVOTHYROXINE SODIUM 150 MCG TABLET PO SCH (06:00)
[2018-12-02 08:05] LABS: Estimated Average Glucose 68 mg/dl
[2018-12-02 08:27] LABS: Albumin Level 3.2 gm/dl (3.4-5.0); BUN Creatinine Ratio 23.8 (10-20); Calcium 6.4 mg/dl (8.5-10.1); Est GFR (African American) 29.3; Est GFR (Non-African American) 25.3; Magnesium 2.1 mg/dl (1.8-2.4); Potassium 4.3 mmol/L (3.5-5.1)
[2018-12-02 08:28] LABS: Albumin Globulin Ratio 1.4 (0.9-2); Bilirubin,Total 0.8 mg/dl (0.2-1); Globulin 2.3 gm/dl (2.5-4.0); Total Protein 5.5 gm/dl (6.4-8.2)
[2018-12-02] MEDS ORDERED: ERGOCALCIFEROL 50,000 UNITS CAP PO STA (08:44)
[2018-12-02] MEDS ORDERED: CALCIUM GLUCONATE 10% 1,000 MG in SODIUM CHLORIDE 0.9% 50 ML IV STA (08:47)
[2018-12-02] MEDS: INSULIN ASPART 100 UNITS/ML 3 ML PEN SC SCH ×4 (08:51→20:36)
[2018-12-02] MEDS: ISOSORBIDE MONO EXTENDED REL 30 MG TABCR PO SCH (08:53)
[2018-12-02] MEDS: predniSONE 20 MG TAB PO SCH (08:54)
[2018-12-02] MEDS: CITALOPRAM 20 MG TAB PO SCH (08:55)
[2018-12-02] MEDS: DOCUSATE SODIUM/SENNA 50/8.6MG TAB PO SCH (08:56)
[2018-12-02] MEDS: MAGNESIUM OXIDE 400 MG TAB PO SCH ×2 (08:56→20:37)
[2018-12-02] MEDS: FOLIC ACID 1 MG TAB PO SCH (08:57)
[2018-12-02] MEDS ORDERED: INFLUENZA VIRUS QUAD VACCINE 0.5 ML SYR IM ONE (09:00)
[2018-12-02] MEDS ORDERED: INFLUENZA ADMINISTRATION CHARGE ONE (09:00)
[2018-12-02] MEDS ORDERED: CALCIUM CARBONATE 1,250 MG/5 ML UDC PO SCH (09:00)
[2018-12-02] MEDS ORDERED: AMLODIPINE BESYLATE 5 MG TAB PO SCH (09:00)
[2018-12-02] MEDS ORDERED: ENALAPRIL MALEATE 10 MG TAB PO SCH (09:00)
--- NOTE | 2018-12-02 10:06 | Cardiology Consultation ---
Date of Consultation December 02, 2018 Assessment & Plan (1) Multifocal atrial tachycardia: Patient presented with abnormal laboratory testing as described with marked hypokalemia hypocalcemia as a referral diagnosis. Telemetry on presentation demonstrated marked sinus arrhythmia with atrial and ventricular ectopy as well as intermittent multifocal atrial tachycardia. Recommendations: Treat underlying electrolyte abnormalities as already begun. Add low-dose beta-melvin to regimen for heart rate control, will begin Toprol- XL 12.5 g p.o. daily Echocardiogram ordered no recent study Review of telemetry reveals no atrial fibrillation and suspect current arrhythmias exacerbated by underlying medical issues and electrolyte abnormalities. Remains at risk for further atrial arrhythmias (2) Hypokalemia: (3) Hypocalcemia: History of Present Illness Reason for Consultation: Abnormal EKG, atrial tachycardia Requesting Physician: Dr. Cardenas Attending Physician: Tye Cardenas MD History of Present Illness Patient is an 83-year-old female with complex past medical history on review of records and discussion with patient. Issues include 1. B-cell chronic lymphocytic leukemia 2. Kailyn positive autoimmune hemolytic anemia 3. Profound hypocalcemia recurrence 4. Chronic kidney disease stage IV 5. Hypertension 6. History of TIA post thyroidectomy 2009 7. Type 2 diabetes mellitus Patient presents this admission having been referred after abnormal lab testing as an outpatient. She noted symptoms of weakness and fatigue. Notes no prior cardiac disease or cardiac complaints. Denies any chest pain or worsening shortness of breath. Has not been aware of any tachypalpitations syncope or near syncope. There is no prior difficulties with anemia. Notes no overt bleeding melena hematochezia dysuria hematuria. Denies current fevers chills or sweats. EKG and telemetry since admission have demonstrated sinus with sinus arrhythmia atrial ventricular ectopy and runs of multifocal atrial tachycardia. No overt atrial fibrillation observed despite mechanical EKG reading. Laboratory studies on presentation notable for marked hypokalemia and hypocalcemia Patient denies prior history of atrial fibrillation myocardial infarction or congestive heart failure. Allergies Allergy/AdvReac Type Severity Reaction Status Date / Time lorazepam Allergy Unknown UNKNOWN Unverified 12/01/18 17:35 pneumococcal vaccine Allergy Unknown Unknown Verified 12/01/18 17:35 Home Medications Home Medications Medication Instructions Recorded Confirmed Type calcium carbonate-vitamin D3 1 tab PO BID 09/05/18 12/01/18 History [Oysco 500/D] clonazepam 1 mg PO BID 09/05/18 12/01/18 History folic acid 1 mg PO QAM 09/05/18 12/01/18 History isosorbide mononitrate 30 mg PO QAM 09/05/18 12/01/18 History levothyroxine 150 mcg PO QAM 09/05/18 12/01/18 History omeprazole 20 mg PO BID 09/05/18 12/01/18 History tramadol 25 mg PO Q6H PRN 09/05/18 12/01/18 History citalopram 10 mg PO DAILY 09/24/18 12/01/18 History prednisone 60 mg PO DAILY 09/24/18 12/01/18 History nystatin 5 ml PO QID 10/15/18 12/01/18 History prochlorperazine maleate 10 mg PO Q6H PRN 10/15/18 12/01/18 History [Compazine] sennosides-docusate sodium [Senna 1 tab PO DAILY 10/15/18 12/01/18 History with Docusate Sodium] triamcinolone acetonide 1 applic TOPICAL BID PRN 10/15/18 12/01/18 History amlodipine 5 mg PO DAILY #30 tab 10/17/18 12/01/18 Rx benazepril 20 mg PO DAILY 12/01/18 12/01/18 History furosemide 20 mg PO TID 12/01/18 12/01/18 History glimepiride 1 mg PO DAILY@0800 12/01/18 12/01/18 History glipizide 5 mg PO DAILY@0800 12/01/18 12/01/18 History nystatin 1 applic TOPICAL TID 12/01/18 12/01/18 History Patient History Medical History Hypocalcemia (Chronic) HTN (hypertension) (Chronic) TIA (transient ischemic attack) (Resolved) Lymphoma (Chronic) B-cell CLL, dx in 2013 Thyroid cancer (Chronic) recurrent papillary thyroid cancer; s/p surgery; dx in 2009 Asthma (Chronic) Diabetes (Chronic) Kidney stones (Chronic) Acute renal failure (Resolved) 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; dx in 2013 Non-STEMI (non-ST elevated myocardial infarction) (Resolved) Sepsis (Resolved) Surgical History History of thyroidectomy (Chronic) several cancer surgeries on thyroid History of knee surgery (Chronic) b/l knees History of hernia repair (Chronic) Family History Mother Colorectal cancer Brother Diabetes Sister Diabetes Social History Preferred Language: [place] Communication Ability: Effective [employer]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 current occupational status: retired Other Information That Helps Us Care for You: No Feels Safe at Home: Yes Safety Concerns: Feels Safe At This Time Smoking Status: Never smoker Hx Alcohol Use: No Hx Substance Use: No Physical Exam Constitutional: WD/WN, vitals as above no acute distress Eyes: PERRL, conjunctivae normal, anicteric sclerae ENMT: external ear and nose normal, oropharynx normal Neck: trachea midline Thyroidectomy scar present Respiratory: normal respiratory effort, lungs clear to auscultation Cardiovascular: Rate/Rhythm: regular rate and regular rhythm Heart Sounds: normal S1 and normal S2; no gallop and no murmur Palpation: normal PMI Vessels: normal carotid upstroke and radial pulses present; no JVD and no carotid bruit Extremities: no edema Gastrointestinal (Abdomen): normal bowel sounds, soft, nontender, no hepatosplenomegaly Musculoskeletal: no cyanosis or clubbing, extremities motor strength 5/5 Skin: no rashes, warm and dry Neurologic: PERRL, EOMI, accommodation nl, no face palsy, no dysarthria Psychiatric: A+Ox3, euthymic affect Results & Data Vital Signs (Past 12 Hours) Vital Signs Temp Pulse Pulse Resp BP BP Pulse Ox 12/02/18 07:51 37.1 C 92 H 16 124/78 95 12/02/18 04:59 120 H 12/02/18 02:45 37.1 C 111 H 18 112/64 97 12/01/18 23:19 37.2 C 112 H 20 100/67 95 12/01/18 22:31 135 H 109/69 Laboratory Results Laboratory Results - last 24 hr 12/01/18 12/01/1812/01/19 18:26 18:26 21:10 WBC 4.07 L RBC 2.39 L Hgb 8.5 L Hct 26.3 L MCV 110.0 H MCH 35.6 H MCHC 32.3 RDW Std Deviation 60.3 H RDW Coeff of Marcelina 15.2 H Plt Count 126 L MPV 9.9 Immature Gran % (Auto) 1.0 Neut % (Auto) 31.1 Lymph % (Auto) 62.7 [place] % (Auto) 5.2 Eos % (Auto) 0.0 Baso % (Auto) 0.0 Immature Gran # (Auto) 0.04 H Neut # (Auto) 1.27 L Lymph # (Auto) 2.55 [place] # (Auto) 0.21 Eos # (Auto) 0.00 Baso # (Auto) 0.00 Hypersegmented Neuts 1+ Dohle Bodies 1+ Giant Platelets Anisocytosis Present Macrocytosis Present PT INR APTT PTT Ratio Sodium 140 Potassium 3.1 L Chloride 94 L Carbon Dioxide 34 H Anion Gap 12.0 H BUN 49 H Creatinine 2.18 H Est Cr Clr Drug Dosing Not Reportable Est GFR ( Amer) 23.8 Est GFR (Non-Af Amer) 20.6 BUN/Creatinine Ratio 22.6 H Glucose 89 POC Glucose 94 Estimat Average Glucose Hemoglobin A1c Calcium 5.1 L* Ionized Calcium Phosphorus Magnesium 1.7 L Total Bilirubin 0.8 AST 13 L ALT 18 Alkaline Phosphatase 49 Total Protein 6.3 L Albumin 3.6 Globulin 2.7 Albumin/Globulin Ratio 1.3 25-OH Vitamin D Total TSH PTH Intact Blood Type Antibody Screen Antibody Identification Antibody ID Comment Direct Antiglob Test RONALDO (IgG-AHG) RONALDO, Polyspecific RONALDO C3b, C3d 5 Min 12/01/18 12/01/18 12/01/18 21:15 21:15 21:15 WBC RBC Hgb Hct MCV MCH MCHC RDW Std Deviation RDW Coeff of Marcelina Plt Count MPV Immature Gran % (Auto) Neut % (Auto) Lymph % (Auto) [place] % (Auto) Eos % (Auto) Baso % (Auto) Immature Gran # (Auto) Neut # (Auto) Lymph # (Auto) [place] # (Auto) Eos # (Auto) Baso # (Auto) Hypersegmented Neuts Dohle Bodies Giant Platelets Anisocytosis Macrocytosis PT INR APTT PTT Ratio Sodium 139 Potassium 2.9 L Chloride 97 L Carbon Dioxide 35 H Anion Gap 8.0 BUN 48 H Creatinine 2.03 H Est Cr Clr Drug Dosing 23.4 Est GFR ( Amer) 26.0 Est GFR (Non-Af Amer) 22.4 BUN/Creatinine Ratio 23.7 H Glucose 94 POC Glucose Estimat Average Glucose Hemoglobin A1c Calcium 5.4 L* Ionized Calcium Phosphorus 5.5 H Magnesium 2.2 Total Bilirubin 1.0 AST 16 ALT 18 Alkaline Phosphatase 53 Total Protein 6.3 L Albumin 3.8 Globulin 2.5 Albumin/Globulin Ratio 1.5 25-OH Vitamin D Total 28.4 L TSH 0.399 PTH Intact Blood Type O Positive Antibody Screen POSITIVE A Antibody Identification Pending Antibody ID Comment Pending Direct Antiglob Test Positive A RONALDO (IgG-AHG) 3+ A RONALDO, Polyspecific 3+ A RONALDO C3b, C3d 5 Min Weak Pos A 12/01/18 12/01/18 12/01/18 21:15 21:15 21:15 WBC RBC Hgb Hct MCV MCH MCHC RDW Std Deviation RDW Coeff of Marcelina Plt Count MPV Immature Gran % (Auto) Neut % (Auto) Lymph % (Auto) [place] % (Auto) Eos % (Auto) Baso % (Auto) Immature Gran # (Auto) Neut # (Auto) Lymph # (Auto) [place] # (Auto) Eos # (Auto) Baso # (Auto) Hypersegmented Neuts Dohle Bodies Giant Platelets Anisocytosis Macrocytosis PT INR APTT PTT Ratio Sodium Potassium Chloride Carbon Dioxide Anion Gap BUN Creatinine Est Cr Clr Drug Dosing Est GFR ( Amer) Est GFR (Non-Af Amer) BUN/Creatinine Ratio Glucose POC Glucose Estimat Average Glucose 68 Hemoglobin A1c 4.0 L Calcium Ionized Calcium 0.60 L* Phosphorus Magnesium Total Bilirubin AST ALT Alkaline Phosphatase Total Protein Albumin Globulin Albumin/Globulin Ratio 25-OH Vitamin D Total TSH PTH Intact 65.6 Blood Type Antibody Screen Antibody Identification Antibody ID Comment Direct Antiglob Test RONALDO (IgG-AHG) RONALDO, Polyspecific RONALDO C3b, C3d 5 Min 12/02/18 12/02/18 12/02/18 01:56 01:56 01:56 WBC 3.64 L RBC 2.28 L Hgb 8.2 L Hct 25.3 L MCV 111.0 H MCH 36.0 H MCHC 32.4 RDW Std Deviation 60.3 H RDW Coeff of Marcelina 15.2 H Plt Count 120 L MPV 10.4 Immature Gran % (Auto) 1.4 Neut % (Auto) 29.4 Lymph % (Auto) 63.2 [place] % (Auto) 6.0 Eos % (Auto) 0.0 Baso % (Auto) 0.0 Immature Gran # (Auto) 0.05 H Neut # (Auto) 1.07 L Lymph # (Auto) 2.30 [place] # (Auto) 0.22 Eos # (Auto) 0.00 Baso # (Auto) 0.00 Hypersegmented Neuts Dohle Bodies 1+ Giant Platelets 1+ Anisocytosis Macrocytosis Present PT 11.4 INR 1.1 APTT 28.7 PTT Ratio 1.1 Sodium 145 Potassium 3.6 D Chloride 101 Carbon Dioxide 36 H Anion Gap 8.0 BUN 49 H Creatinine 2.01 H Est Cr Clr Drug Dosing 23.6 Est GFR ( Amer) 26.3 Est GFR (Non-Af Amer) 22.7 BUN/Creatinine Ratio 24.2 H Glucose 105 H POC Glucose Estimat Average Glucose Hemoglobin A1c Calcium 5.7 L* Ionized Calcium Phosphorus Magnesium 1.9 Total Bilirubin 0.7 AST 13 L ALT 16 Alkaline Phosphatase 43 L Total Protein 5.6 L Albumin 3.2 L Globulin 2.4 L Albumin/Globulin Ratio 1.3 25-OH Vitamin D Total TSH PTH Intact Blood Type Antibody Screen Antibody Identification Antibody ID Comment Direct Antiglob Test RONALDO (IgG-AHG) RONALDO, Polyspecific RONALDO C3b, C3d 5 Min 12/02/18 12/02/18 12/02/18 01:56 07:43 07:43 WBC RBC Hgb Hct MCV MCH MCHC RDW Std Deviation RDW Coeff of Marcelina Plt Count MPV Immature Gran % (Auto) Neut % (Auto) Lymph % (Auto) [place] % (Auto) Eos % (Auto) Baso % (Auto) Immature Gran # (Auto) Neut # (Auto) Lymph # (Auto) [place] # (Auto) Eos # (Auto) Baso # (Auto) Hypersegmented Neuts Dohle Bodies Giant Platelets Anisocytosis Macrocytosis PT INR APTT PTT Ratio Sodium 144 Potassium 4.3 D Chloride 104 Carbon Dioxide 33 H Anion Gap 7.0 BUN 44 H Creatinine 1.84 H Est Cr Clr Drug Dosing 26.0 Est GFR ( Amer) 29.3 Est GFR (Non-Af Amer) 25.3 BUN/Creatinine Ratio 23.8 H Glucose 82 POC Glucose Estimat Average Glucose Hemoglobin A1c Calcium 6.4 L Ionized Calcium 0.68 L* 0.70 L* Phosphorus Magnesium 2.1 Total Bilirubin 0.8 AST 15 ALT 15 Alkaline Phosphatase 46 Total Protein 5.5 L Albumin 3.2 L Globulin 2.3 L Albumin/Globulin Ratio 1.4 25-OH Vitamin D Total TSH PTH Intact Blood Type Antibody Screen Antibody Identification Antibody ID Comment Direct Antiglob Test RONALDO (IgG-AHG) RONALDO, Polyspecific RONALDO C3b, C3d 5 Min 12/02/18 07:43 WBC RBC Hgb Hct MCV MCH MCHC RDW Std Deviation RDW Coeff of Marcelina Plt Count MPV Immature Gran % (Auto) Neut % (Auto) Lymph % (Auto) [place] % (Auto) Eos % (Auto) Baso % (Auto) Immature Gran # (Auto) Neut # (Auto) Lymph # (Auto) [place] # (Auto) Eos # (Auto) Baso # (Auto) Hypersegmented Neuts Dohle Bodies Giant Platelets Anisocytosis Macrocytosis PT INR APTT PTT Ratio Sodium Potassium Chloride Carbon Dioxide Anion Gap BUN Creatinine Est Cr Clr Drug Dosing Est GFR ( Amer) Est GFR (Non-Af Amer) BUN/Creatinine Ratio Glucose POC Glucose Estimat Average Glucose Hemoglobin A1c Calcium Ionized Calcium Phosphorus 5.1 H Magnesium Total Bilirubin AST ALT Alkaline Phosphatase Total Protein Albumin Globulin Albumin/Globulin Ratio 25-OH Vitamin D Total TSH PTH Intact Blood Type Antibody Screen Antibody Identification Antibody ID Comment Direct Antiglob Test RONALDO (IgG-AHG) RONALDO, Polyspecific RONALDO C3b, C3d 5 Min Laboratory Results - last 24 hr 12/01/18 12/01/18 12/01/18 18:26 18:26 21:10 WBC 4.07 L RBC 2.39 L Hgb 8.5 L Hct 26.3 L MCV 110.0 H MCH 35.6 H MCHC 32.3 RDW Std Deviation 60.3 H RDW Coeff of Marcelina 15.2 H Plt Count 126 L MPV 9.9 Immature Gran % (Auto) 1.0 Neut % (Auto) 31.1 Lymph % (Auto) 62.7 [place] % (Auto) 5.2 Eos % (Auto) 0.0 Baso % (Auto) 0.0 Immature Gran # (Auto) 0.04 H Neut # (Auto) 1.27 L Lymph # (Auto) 2.55 [place] # (Auto) 0.21 Eos # (Auto) 0.00 Baso # (Auto) 0.00 Hypersegmented Neuts 1+ Dohle Bodies 1+ Giant Platelets Anisocytosis Present Macrocytosis Present PT INR APTT PTT Ratio Sodium 140 Potassium 3.1 L Chloride 94 L Carbon Dioxide 34 H Anion Gap 12.0 H BUN 49 H Creatinine 2.18 H Est Cr Clr Drug Dosing Not Reportable Est GFR ( Amer) 23.8 Est GFR (Non-Af Amer) 20.6 BUN/Creatinine Ratio 22.6 H Glucose 89 POC Glucose 94 Estimat Average Glucose Hemoglobin A1c Calcium 5.1 L* Ionized Calcium Phosphorus Magnesium 1.7 L Total Bilirubin 0.8 AST 13 L ALT 18 Alkaline Phosphatase 49 Total Protein 6.3 L Albumin 3.6 Globulin 2.7 Albumin/Globulin Ratio 1.3 25-OH Vitamin D Total TSH PTH Intact Blood Type Antibody Screen Antibody Identification Antibody ID Comment Direct Antiglob Test RONALDO (IgG-AHG) RONALDO, Polyspecific RONALDO C3b, C3d 5 Min 12/01/18 12/01/18 12/01/18 21:15 21:15 21:15 WBC RBC Hgb Hct MCV MCH MCHC RDW Std Deviation RDW Coeff of Marcelina Plt Count MPV Immature Gran % (Auto) Neut % (Auto) Lymph % (Auto) [place] % (Auto) Eos % (Auto) Baso % (Auto) Immature Gran # (Auto) Neut # (Auto) Lymph # (Auto) [place] # (Auto) Eos # (Auto) Baso # (Auto) Hypersegmented Neuts Dohle Bodies Giant Platelets Anisocytosis Macrocytosis PT INR APTT PTT Ratio Sodium 139 Potassium 2.9 L Chloride 97 L Carbon Dioxide 35 H Anion Gap 8.0 BUN 48 H Creatinine 2.03 H Est Cr Clr Drug Dosing 23.4 Est GFR ( Amer) 26.0 Est GFR (Non-Af Amer) 22.4 BUN/Creatinine Ratio 23.7 H Glucose 94 POC Glucose Estimat Average Glucose Hemoglobin A1c Calcium 5.4 L* Ionized Calcium Phosphorus 5.5 H Magnesium 2.2 Total Bilirubin 1.0 AST 16 ALT 18 Alkaline Phosphatase 53 Total Protein 6.3 L Albumin 3.8 Globulin 2.5 Albumin/Globulin Ratio 1.5 25-OH Vitamin D Total 28.4 L TSH 0.399 PTH Intact Blood Type O Positive Antibody Screen POSITIVE A Antibody Identification Pending Antibody ID Comment Pending Direct Antiglob Test Positive A RONALDO (IgG-AHG) 3+ A RONALDO, Polyspecific 3+ A RONALDO C3b, C3d 5 Min Weak Pos A 12/01/18 12/01/18 12/01/18 21:15 21:15 21:15 WBC RBC Hgb Hct MCV MCH MCHC RDW Std Deviation RDW Coeff of Marcelina Plt Count MPV Immature Gran % (Auto) Neut % (Auto) Lymph % (Auto) [place] % (Auto) Eos % (Auto) Baso % (Auto) Immature Gran # (Auto) Neut # (Auto) Lymph # (Auto) [place] # (Auto) Eos # (Auto) Baso # (Auto) Hypersegmented Neuts Dohle Bodies Giant Platelets Anisocytosis Macrocytosis PT INR APTT PTT Ratio Sodium Potassium Chloride Carbon Dioxide Anion Gap BUN Creatinine Est Cr Clr Drug Dosing Est GFR ( Amer) Est GFR (Non-Af Amer) BUN/Creatinine Ratio Glucose POC Glucose Estimat Average Glucose 68 Hemoglobin A1c 4.0 L Calcium Ionized Calcium 0.60 L* Phosphorus Magnesium Total Bilirubin AST ALT Alkaline Phosphatase Total Protein Albumin Globulin Albumin/Globulin Ratio 25-OH Vitamin D Total TSH PTH Intact 65.6 Blood Type Antibody Screen Antibody Identification Antibody ID Comment Direct Antiglob Test RONALDO (IgG-AHG) RONALDO, Polyspecific RONALDO C3b, C3d 5 Min 12/02/18 12/02/18 12/02/18 01:56 01:56 01:56 WBC 3.64 L RBC 2.28 L Hgb 8.2 L Hct 25.3 L MCV 111.0 H MCH 36.0 H MCHC 32.4 RDW Std Deviation 60.3 H RDW Coeff of Marcelina 15.2 H Plt Count 120 L MPV 10.4 Immature Gran % (Auto) 1.4 Neut % (Auto) 29.4 Lymph % (Auto) 63.2 [place] % (Auto) 6.0 Eos % (Auto) 0.0 Baso % (Auto) 0.0 Immature Gran # (Auto) 0.05 H Neut # (Auto) 1.07 L Lymph # (Auto) 2.30 [place] # (Auto) 0.22 Eos # (Auto) 0.00 Baso # (Auto) 0.00 Hypersegmented Neuts Dohle Bodies 1+ Giant Platelets 1+ Anisocytosis Macrocytosis Present PT 11.4 INR 1.1 APTT 28.7 PTT Ratio 1.1 Sodium 145 Potassium 3.6 D Chloride 101 Carbon Dioxide 36 H Anion Gap 8.0 BUN 49 H Creatinine 2.01 H Est Cr Clr Drug Dosing 23.6 Est GFR ( Amer) 26.3 Est GFR (Non-Af Amer) 22.7 BUN/Creatinine Ratio 24.2 H Glucose 105 H POC Glucose Estimat Average Glucose Hemoglobin A1c Calcium 5.7 L* Ionized Calcium Phosphorus Magnesium 1.9 Total Bilirubin 0.7 AST 13 L ALT 16 Alkaline Phosphatase 43 L Total Protein 5.6 L Albumin 3.2 L Globulin 2.4 L Albumin/Globulin Ratio 1.3 25-OH Vitamin D Total TSH PTH Intact Blood Type Antibody Screen Antibody Identification Antibody ID Comment Direct Antiglob Test RONALDO (IgG-AHG) RONALDO, Polyspecific RONALDO C3b, C3d 5 Min 12/02/18 12/02/18 12/02/18 01:56 07:43 07:43 WBC RBC Hgb Hct MCV MCH MCHC RDW Std Deviation RDW Coeff of Marcelina Plt Count MPV Immature Gran % (Auto) Neut % (Auto) Lymph % (Auto) [place] % (Auto) Eos % (Auto) Baso % (Auto) Immature Gran # (Auto) Neut # (Auto) Lymph # (Auto) [place] # (Auto) Eos # (Auto) Baso # (Auto) Hypersegmented Neuts Dohle Bodies Giant Platelets Anisocytosis Macrocytosis PT INR APTT PTT Ratio Sodium 144 Potassium 4.3 D Chloride 104 Carbon Dioxide 33 H Anion Gap 7.0 BUN 44 H Creatinine 1.84 H Est Cr Clr Drug Dosing 26.0 Est GFR ( Amer) 29.3 Est GFR (Non-Af Amer) 25.3 BUN/Creatinine Ratio 23.8 H Glucose 82 POC Glucose Estimat Average Glucose Hemoglobin A1c Calcium 6.4 L Ionized Calcium 0.68 L* 0.70 L* Phosphorus Magnesium 2.1 Total Bilirubin 0.8 AST 15 ALT 15 Alkaline Phosphatase 46 Total Protein 5.5 L Albumin 3.2 L Globulin 2.3 L Albumin/Globulin Ratio 1.4 25-OH Vitamin D Total TSH PTH Intact Blood Type Antibody Screen Antibody Identification Antibody ID Comment Direct Antiglob Test RONALDO (IgG-AHG) RONALDO, Polyspecific RONALDO C3b, C3d 5 Min 12/02/18 07:43 WBC RBC Hgb Hct MCV MCH MCHC RDW Std Deviation RDW Coeff of Marcelina Plt Count MPV Immature Gran % (Auto) Neut % (Auto) Lymph % (Auto) [place] % (Auto) Eos % (Auto) Baso % (Auto) Immature Gran # (Auto) Neut # (Auto) Lymph # (Auto) [place] # (Auto) Eos # (Auto) Baso # (Auto) Hypersegmented Neuts Dohle Bodies Giant Platelets Anisocytosis Macrocytosis PT INR APTT PTT Ratio Sodium Potassium Chloride Carbon Dioxide Anion Gap BUN Creatinine Est Cr Clr Drug Dosing Est GFR ( Amer) Est GFR (Non-Af Amer) BUN/Creatinine Ratio Glucose POC Glucose Estimat Average Glucose Hemoglobin A1c Calcium Ionized Calcium Phosphorus 5.1 H Magnesium Total Bilirubin AST ALT Alkaline Phosphatase Total Protein Albumin Globulin Albumin/Globulin Ratio 25-OH Vitamin D Total TSH PTH Intact Blood Type Antibody Screen Antibody Identification Antibody ID Comment Direct Antiglob Test RONALDO (IgG-AHG) RONALDO, Polyspecific RONALDO C3b, C3d 5 Min
[2018-12-02] MEDS: METOPROLOL SUCC 25MG EXT REL TAB PO SCH (10:23)
--- NOTE | 2018-12-02 10:24 | Nephrology Consultation ---
Date of Consultation December 02, 2018 Assessment & Plan (1) Hypocalcemia: Patient with hypercalcemia of likely multifactorial etiology. She had thyroidectomy many years ago. It is possible that she lost some parathyroid tissue. PTH is inappropriately normal in setting of hypocalcemia. Patient now has multifocal atrial tachycardia. Recommend aggressive calcium supplementation. We will give her calcium carbonate 750 mg 3 times daily. We will give her calcitriol 0.5 mcg daily. Monitor calcium daily. (2) Hypokalemia: Likely in setting of increased renal potassium wasting with the high doses of prednisone which can have mineralocorticoid activity. Agree with aggressive supplementation with potassium chloride. K is 4.3 today. (3) CKD (chronic kidney disease) stage 4, GFR 15-29 ml/min: Patient with the CKD stage IV of multifactorial etiology including history of diabetes and multiple episodes of chemotherapy. Creatinine runs between 1.8- 2 at baseline. Renal function appears to be at baseline. Will obtain a renal ultrasound to ensure no obstructive uropathy given history of kidney stones in the past. Monitor renal function with daily BMP. Avoid nephrotoxins. No indication for dialysis. History of Present Illness Reason for Consultation: Hypocalcemia Requesting Physician: Tye Cardenas MD Attending Physician: Tye Cardenas MD History of Present Illness This is 83 y/o F with PMH HTN, DM II, CKD 4 baseline cr 1.8-2, B-cell CLL diagnosed in 2013, Kailyn positive autoimmune hemolytic anemia diagnosed in 2013, H/O recurrent papillary thyroid cancer in 2009 s/p surgery who was admitted on 12/01/18 with abnormal labs of hypocalcemia that is lower than her baseline of between 6 to 7. admission serum calcium of 5.1. Patient reports she has been taking home medications of calcium/vitamin D at home. She reports completing chemotherapy in August 2018. She is now taking prednisone. She has recently been told that she has kidney disease but does not follow with nephrology outpatient. She denied NSAID use. No vomiting or diarrhea recently. She has had low calcium for a long time and takes vitamin D and calcium supplements at home. She denies any shortness of breath or leg swelling. No urinary symptoms such as dysuria, hematuria or frequency. She has reportedly had kidney stones in the past. Allergies Allergy/AdvReac Type Severity Reaction Status Date / Time lorazepam Allergy Unknown UNKNOWN Unverified 12/01/18 17:35 pneumococcal vaccine Allergy Unknown Unknown Verified 12/01/18 17:35 Home Medications Home Medications Medication Instructions Recorded Confirmed Type calcium carbonate-vitamin D3 1 tab PO BID 09/05/18 12/01/18 History [Oysco 500/D] clonazepam 1 mg PO BID 09/05/18 12/01/18 History folic acid 1 mg PO QAM 09/05/18 12/01/18 History isosorbide mononitrate 30 mg PO QAM 09/05/18 12/01/18 History levothyroxine 150 mcg PO QAM 09/05/18 12/01/18 History omeprazole 20 mg PO BID 09/05/18 12/01/18 History tramadol 25 mg PO Q6H PRN 09/05/18 12/01/18 History citalopram 10 mg PO DAILY 09/24/18 12/01/18 History prednisone 60 mg PO DAILY 09/24/18 12/01/18 History nystatin 5 ml PO QID 10/15/18 12/01/18 History prochlorperazine maleate 10 mg PO Q6H PRN 10/15/18 12/01/18 History [Compazine] sennosides-docusate sodium [Senna 1 tab PO DAILY 10/15/18 12/01/18 History with Docusate Sodium] triamcinolone acetonide 1 applic TOPICAL BID PRN 10/15/18 12/01/18 History amlodipine 5 mg PO DAILY #30 tab 10/17/18 12/01/18 Rx benazepril 20 mg PO DAILY 12/01/18 12/01/18 History furosemide 20 mg PO TID 12/01/18 12/01/18 History glimepiride 1 mg PO DAILY@0800 12/01/18 12/01/18 History glipizide 5 mg PO DAILY@0800 12/01/18 12/01/18 History nystatin 1 applic TOPICAL TID 12/01/18 12/01/18 History Patient History Medical History Hypocalcemia (Chronic) HTN (hypertension) (Chronic) TIA (transient ischemic attack) (Resolved) Lymphoma (Chronic) B-cell CLL, dx in 2013 Thyroid cancer (Chronic) recurrent papillary thyroid cancer; s/p surgery; dx in 2009 Asthma (Chronic) Diabetes (Chronic) Kidney stones (Chronic) Acute renal failure (Resolved) 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; dx in 2013 Non-STEMI (non-ST elevated myocardial infarction) (Resolved) Sepsis (Resolved) Surgical History History of thyroidectomy (Chronic) several cancer surgeries on thyroid History of knee surgery (Chronic) b/l knees History of hernia repair (Chronic) Family History Mother Colorectal cancer Brother Diabetes Sister Diabetes Social History Preferred Language: Bhutanese Communication Ability: Effective Lead Assistant Manager Required: No Beliefs That Will Affect Care: None marital status: / Current Living Situation: Alone Current Living Situation Comment: pt son lives in pt basement until he is able to find a new place to live. current occupational status: retired Other Information That Helps Us Care for You: No Feels Safe at Home: Yes Safety Concerns: Feels Safe At This Time Smoking Status: Never smoker Hx Alcohol Use: No Hx Substance Use: No Review of Systems Review of Systems: All systems reviewed & are unremarkable except as noted in HPI & below Physical Exam Physical Exam: General exam: Appears comfortable, no acute distress HEENT: Pupils are equal and reactive to light Neck: No JVD, neck is supple trachea is midline Respiratory system: Clear breath sounds bilaterally. Gastrointestinal: Abdomen is soft, non distended, non tender, bowel sounds are present CVS: Regular rate and rhythm. No murmurs, rubs or gallops Musculoskeletal: No joint or muscle tenderness Extremities: Non tender, no edema, peripheral pulses are present Neuro: Oriented, no tremors, no focal neurological deficits Skin: No rashes Results & Data Vital Signs (Past 12 Hours) Vital Signs Temp Pulse Pulse Resp BP BP Pulse Ox 12/02/18 07:51 37.1 C 92 H 16 124/78 95 12/02/18 04:59 120 H 12/02/18 02:45 37.1 C 111 H 18 112/64 97 12/01/18 23:19 37.2 C 112 H 20 100/67 95 12/01/18 22:31 135 H 109/69 Laboratory Results Laboratory Results - last 24 hr 10/03/2112/01/18 12/01/18 18:26 18:26 21:10 WBC 4.07 L RBC 2.39 L Hgb 8.5 L Hct 26.3 L MCV 110.0 H MCH 35.6 H MCHC 32.3 RDW Std Deviation 60.3 H RDW Coeff of Marcelina 15.2 H Plt Count 126 L MPV 9.9 Immature Gran % (Auto) 1.0 Neut % (Auto) 31.1 Lymph % (Auto) 62.7 [place] % (Auto) 5.2 Eos % (Auto) 0.0 Baso % (Auto) 0.0 Immature Gran # (Auto) 0.04 H Neut # (Auto) 1.27 L Lymph # (Auto) 2.55 [place] # (Auto) 0.21 Eos # (Auto) 0.00 Baso # (Auto) 0.00 Hypersegmented Neuts 1+ Dohle Bodies 1+ Giant Platelets Anisocytosis Present Macrocytosis Present PT INR APTT PTT Ratio Sodium 140 Potassium 3.1 L Chloride 94 L Carbon Dioxide 34 H Anion Gap 12.0 H BUN 49 H Creatinine 2.18 H Est Cr Clr Drug Dosing Not Reportable Est GFR ( Amer) 23.8 Est GFR (Non-Af Amer) 20.6 BUN/Creatinine Ratio 22.6 H Glucose 89 POC Glucose 94 Estimat Average Glucose Hemoglobin A1c Calcium 5.1 L* Ionized Calcium Phosphorus Magnesium 1.7 L Total Bilirubin 0.8 AST 13 L ALT 18 Alkaline Phosphatase 49 Total Protein 6.3 L Albumin 3.6 Globulin 2.7 Albumin/Globulin Ratio 1.3 25-OH Vitamin D Total TSH PTH Intact Blood Type Antibody Screen Antibody Identification Antibody ID Comment Direct Antiglob Test RONALDO (IgG-AHG) RONALDO, Polyspecific RONALDO C3b, C3d 5 Min 12/01/18 12/01/18 12/01/18 21:15 21:15 21:15 WBC RBC Hgb Hct MCV MCH MCHC RDW Std Deviation RDW Coeff of Marcelina Plt Count MPV Immature Gran % (Auto) Neut % (Auto) Lymph % (Auto) [place] % (Auto) Eos % (Auto) Baso % (Auto) Immature Gran # (Auto) Neut # (Auto) Lymph # (Auto) [place] # (Auto) Eos # (Auto) Baso # (Auto) Hypersegmented Neuts Dohle Bodies Giant Platelets Anisocytosis Macrocytosis PT INR APTT PTT Ratio Sodium 139 Potassium 2.9 L Chloride 97 L Carbon Dioxide 35 H Anion Gap 8.0 BUN 48 H Creatinine 2.03 H Est Cr Clr Drug Dosing 23.4 Est GFR ( Amer) 26.0 Est GFR (Non-Af Amer) 22.4 BUN/Creatinine Ratio 23.7 H Glucose 94 POC Glucose Estimat Average Glucose Hemoglobin A1c Calcium 5.4 L* Ionized Calcium Phosphorus 5.5 H Magnesium 2.2 Total Bilirubin 1.0 AST 16 ALT 18 Alkaline Phosphatase 53 Total Protein 6.3 L Albumin 3.8 Globulin 2.5 Albumin/Globulin Ratio 1.5 25-OH Vitamin D Total 28.4 L TSH 0.399 PTH Intact Blood Type O Positive Antibody Screen POSITIVE A Antibody Identification Pending Antibody ID Comment Pending Direct Antiglob Test Positive A RONALDO (IgG-AHG) 3+ A RONALDO, Polyspecific 3+ A RONALDO C3b, C3d 5 Min Weak Pos A 12/01/18 12/01/18 12/01/18 21:15 21:15 21:15 WBC RBC Hgb Hct MCV MCH MCHC RDW Std Deviation RDW Coeff of Marcelina Plt Count MPV Immature Gran % (Auto) Neut % (Auto) Lymph % (Auto) [place] % (Auto) Eos % (Auto) Baso % (Auto) Immature Gran # (Auto) Neut # (Auto) Lymph # (Auto) [place] # (Auto) Eos # (Auto) Baso # (Auto) Hypersegmented Neuts Dohle Bodies Giant Platelets Anisocytosis Macrocytosis PT INR APTT PTT Ratio Sodium Potassium Chloride Carbon Dioxide Anion Gap BUN Creatinine Est Cr Clr Drug Dosing Est GFR ( Amer) Est GFR (Non-Af Amer) BUN/Creatinine Ratio Glucose POC Glucose Estimat Average Glucose 68 Hemoglobin A1c 4.0 L Calcium Ionized Calcium 0.60 L* Phosphorus Magnesium Total Bilirubin AST ALT Alkaline Phosphatase Total Protein Albumin Globulin Albumin/Globulin Ratio 25-OH Vitamin D Total TSH PTH Intact 65.6 Blood Type Antibody Screen Antibody Identification Antibody ID Comment Direct Antiglob Test RONALDO (IgG-AHG) RONALDO, Polyspecific RONALDO C3b, C3d 5 Min 12/02/18 12/02/18 12/02/18 01:56 01:56 01:56 WBC 3.64 L RBC 2.28 L Hgb 8.2 L Hct 25.3 L MCV 111.0 H MCH 36.0 H MCHC 32.4 RDW Std Deviation 60.3 H RDW Coeff of Marcelina 15.2 H Plt Count 120 L MPV 10.4 Immature Gran % (Auto) 1.4 Neut % (Auto) 29.4 Lymph % (Auto) 63.2 [place] % (Auto) 6.0 Eos % (Auto) 0.0 Baso % (Auto) 0.0 Immature Gran # (Auto) 0.05 H Neut # (Auto) 1.07 L Lymph # (Auto) 2.30 [place] # (Auto) 0.22 Eos # (Auto) 0.00 Baso # (Auto) 0.00 Hypersegmented Neuts Dohle Bodies 1+ Giant Platelets 1+ Anisocytosis Macrocytosis Present PT 11.4 INR 1.1 APTT 28.7 PTT Ratio 1.1 Sodium 145 Potassium 3.6 D Chloride 101 Carbon Dioxide 36 H Anion Gap 8.0 BUN 49 H Creatinine 2.01 H Est Cr Clr Drug Dosing 23.6 Est GFR ( Amer) 26.3 Est GFR (Non-Af Amer) 22.7 BUN/Creatinine Ratio 24.2 H Glucose 105 H POC Glucose Estimat Average Glucose Hemoglobin A1c Calcium 5.7 L* Ionized Calcium Phosphorus Magnesium 1.9 Total Bilirubin 0.7 AST 13 L ALT 16 Alkaline Phosphatase 43 L Total Protein 5.6 L Albumin 3.2 L Globulin 2.4 L Albumin/Globulin Ratio 1.3 25-OH Vitamin D Total TSH PTH Intact Blood Type Antibody Screen Antibody Identification Antibody ID Comment Direct Antiglob Test RONALDO (IgG-AHG) RONALDO, Polyspecific RONALDO C3b, C3d 5 Min 12/02/18 12/02/18 12/02/18 01:56 07:43 07:43 WBC RBC Hgb Hct MCV MCH MCHC RDW Std Deviation RDW Coeff of Marcelina Plt Count MPV Immature Gran % (Auto) Neut % (Auto) Lymph % (Auto) [place] % (Auto) Eos % (Auto) Baso % (Auto) Immature Gran # (Auto) Neut # (Auto) Lymph # (Auto) [place] # (Auto) Eos # (Auto) Baso # (Auto) Hypersegmented Neuts Dohle Bodies Giant Platelets Anisocytosis Macrocytosis PT INR APTT PTT Ratio Sodium 144 Potassium 4.3 D Chloride 104 Carbon Dioxide 33 H Anion Gap 7.0 BUN 44 H Creatinine 1.84 H Est Cr Clr Drug Dosing 26.0 Est GFR ( Amer) 29.3 Est GFR (Non-Af Amer) 25.3 BUN/Creatinine Ratio 23.8 H Glucose 82 POC Glucose Estimat Average Glucose Hemoglobin A1c Calcium 6.4 L Ionized Calcium 0.68 L* 0.70 L* Phosphorus Magnesium 2.1 Total Bilirubin 0.8 AST 15 ALT 15 Alkaline Phosphatase 46 Total Protein 5.5 L Albumin 3.2 L Globulin 2.3 L Albumin/Globulin Ratio 1.4 25-OH Vitamin D Total TSH PTH Intact Blood Type Antibody Screen Antibody Identification Antibody ID Comment Direct Antiglob Test RONALDO (IgG-AHG) RONALDO, Polyspecific RONALDO C3b, C3d 5 Min 12/02/18 07:43 WBC RBC Hgb Hct MCV MCH MCHC RDW Std Deviation RDW Coeff of Marcelnia Plt Count MPV Immature Gran % (Auto) Neut % (Auto) Lymph % (Auto) [place] % (Auto) Eos % (Auto) Baso % (Auto) Immature Gran # (Auto) Neut # (Auto) Lymph # (Auto) [place] # (Auto) Eos # (Auto) Baso # (Auto) Hypersegmented Neuts Dohle Bodies Giant Platelets Anisocytosis Macrocytosis PT INR APTT PTT Ratio Sodium Potassium Chloride Carbon Dioxide Anion Gap BUN Creatinine Est Cr Clr Drug Dosing Est GFR ( Amer) Est GFR (Non-Af Amer) BUN/Creatinine Ratio Glucose POC Glucose Estimat Average Glucose Hemoglobin A1c Calcium Ionized Calcium Phosphorus 5.1 H Magnesium Total Bilirubin AST ALT Alkaline Phosphatase Total Protein Albumin Globulin Albumin/Globulin Ratio 25-OH Vitamin D Total TSH PTH Intact Blood Type Antibody Screen Antibody Identification Antibody ID Comment Direct Antiglob Test RONALDO (IgG-AHG) RONALDO, Polyspecific RONALDO C3b, C3d 5 Min
[2018-12-02] MEDS: CALCITRIOL 0.25 MCG CAPSULE PO SCH (11:28)
--- NOTE | 2018-12-02 13:33 | Ultrasound Report ---
RENAL ULTRASOUND CLINICAL HISTORY: CKD 4 ? obstructive uropathy COMPARISON STUDY: CT of the abdomen and pelvis October 12, 2015. TECHNIQUE: Sonography of the kidneys and the urinary bladder was performed. FINDINGS: This exam is moderately compromised by suboptimal penetration. There is marked bilateral re nal cortical thinning. The right kidney measures 10.7 x 3.5 x 5.1 cm and the left measures 12.5 x 6.4 x 5.8 cm. There is moderate right hydronephrosis. There is no left hydronephrosis. There are suspect ed bilateral renal calculi. There is a 2 cm cyst within the left kidney. The right ureteral jet was n ot visualized. IMPRESSION: 1. Moderate right hydronephrosis of uncertain etiology. 2. Marked bilateral renal cortical thinning. 3. Suspected bilateral nephrolithiasis. Electronically signed by: Elio Cohen M.D. 12/02/2018 1:32 PM
--- NOTE | 2018-12-02 13:43 | Hospitalist Progress Note ---
Date of Service December 02, 2018 Assessment & Plan (1) Hypocalcemia: -chronic hypocalcemia; as per October 2018 discharge summary Chronic hypocalcemia with baseline between 6 to 7 -presentation calcium level as 5.1 with low ionized calcium on 12/01/18, serum albumin generally normal as 3.6, mildly decreased vitamin D levels of 28, normal PTH of 65.6 -since admission, patient has received multiple rounds of IV calcium gluconate and also oral calcium and vitamin D supplements -as of the 12/02/18 AM labs, serum calcium increased to 6.4 and additional IV calcium gluconate given -asked nephrology for further assistance on 12/02/18: nephrology recommending calcium carbonate 750 mg 3 times daily and calcitriol 0.5 mcg daily -will give additional dose of IV calcium gluconate later on 12/02/18 and recheck labs Hypomagnesemia -serum magnesium 1.7 on admission -serum magnesium has been repleted and now at goal Hypokalemia -serum potassium 3.1 on admission -serum potassium has been repleted and now at goal CKD (chronic kidney disease) stage 4 -monitor renal function -patient does not have flank pain; the renal ultrasound completed on 12/02/18 as ordered by nephrology service is moderately compromised by suboptimal penetration. "There is marked bilateral renal cortical thinning. The right kidney measures 10.7 x 3.5 x 5.1 cm and the left measures 12.5 x 6.4 x 5.8 cm. There is moderate right hydronephrosis. There is no left hydronephrosis. There are suspected bilateral renal calculi. There is a 2 cm cyst within the left kidney. The right ureteral jet was not visualized" Multifocal atrial tachycardia: -Telemetry on presentation demonstrated marked sinus arrhythmia with atrial and ventricular ectopy as well as intermittent multifocal atrial tachycardia. -Treat underlying electrolyte abnormalities -sap pi architect added Toprol-XL 12.5 g p.o. daily and Echocardiogram ordered Hypertension -blood pressure is controlled -will stop amlodipine after 12/02/18 -restart ELIE inhibitor on 12/03/18 Hypothyroidism -H/O recurrent papillary thyroid cancer in 2009 s/p surgery -TSH 0.399 is normal -continue home dose levothyroxine of 150 mcg daily Diabetes Mellitus without vermin exterminator use of insulin -hold home dose oral anti-hyperglycemics -sliding scale insulin and glucose checks History of B-cell Chronic lymphocytic leukemia diagnosed in 2013 chronic current use of steroids -reports last chemotherapy in August 2018 -on daily prednisone, continue Chronic Anemia History of Hemolytic anemia -Kailyn positive autoimmune hemolytic anemia diagnosed in 2013 -Hgb is above 8 -maintain active type and screen DVT prophylaxis: SCDs because of anemia patient reports she has advance directives but currently the code status is Full Code as per my discussion with patient son Jan [phone] Subjective Patient denies feeling palpitations. no chest pain. no shortness of breath. breathing on room air. able to eat the meals. no vomiting. no abdomen pain. Physical Exam Constitutional: comfortable Eyes: PERRL, conjunctivae normal, anicteric sclerae EOM intact bilaterally Neck: normal visual inspection Respiratory: normal respiratory effort, lungs clear to auscultation Cardiovascular: mild tachycardia on exam Gastrointestinal (Abdomen): normal bowel sounds, soft, nontender, no hepatosplenomegaly Musculoskeletal: Head/Neck/Chest: normocephalic and head atraumatic Neurologic: CN's II-XI intact bilaterally Psychiatric: A+Ox3, euthymic affect Results & Data Vital Signs (Past 12 Hours) Vital Signs Temp Pulse Pulse Resp BP Pulse Ox 12/02/18 07:51 37.1 C 92 H 16 124/78 95 12/02/18 04:59 120 H 12/02/18 02:45 37.1 C 111 H 18 112/64 97
[2018-12-02] MEDS: CALCIUM CARBONATE 1,250 MG/5 ML UDC PO SCH ×2 (13:59→20:37)
[2018-12-02 14:55] LABS: Albumin Level 3.5 gm/dl (3.4-5.0); BUN Creatinine Ratio 22.7 (10-20); Calcium 6.7 mg/dl (8.5-10.1); Creatinine Clr Calc Pharmacy 26.3 ml/min; Est GFR (African American) 29.7; Est GFR (Non-African American) 25.6; Potassium 4.4 mmol/L (3.5-5.1)
[2018-12-02 15:02] LABS: Albumin Globulin Ratio 1.5 (0.9-2); Bilirubin,Total 0.7 mg/dl (0.2-1); Globulin 2.3 gm/dl (2.5-4.0); Total Protein 5.9 gm/dl (6.4-8.2)
[2018-12-02] MEDS ORDERED: CALCIUM GLUCONATE 10% 10 ML VIAL IV STA (15:08)
[2018-12-02] MEDS ORDERED: PHARMACY GLYCEMIC MGMT CONSULT PRN (15:17)
--- NOTE | 2018-12-02 20:55 | Pharmacy Report ---
Pharmacy Glycemic Short Note 2 - Date of Service December 02, 2018 - Glycemic Short BSG Results (Last 24 hours): 12/01/18 12/01/18 12/02/18 21:10 21:15 01:56 Glucose 94 105 H POC Glucose 94 12/02/18 12/02/18 12/02/18 07:34 07:43 11:37 Glucose 82 POC Glucose 85 214 H 12/02/18 12/02/18 12/02/18 14:11 16:35 20:00 Glucose 209 H POC Glucose 189 H 249 H OUTPATIENT ANTIDIABETIC REGIMEN: * Glipizide 5 mg PO daily * Of note, pt also on prednisone 60 mg PO daily * A1 c = 4% (12/01/18) * However, this result is likely somewhat unreliable in ESRD patients d/t interactions between the A1c analyzing technique and high levels of urea in ESRD, reduced RBC life span, iron deficiency anemia, and EPO administration. ASSESSMENT: * 83 yr old T2DM female with h/o CKD stage IV admitted with electrolyte abnormalities. * Fasting BSG of 85 mg/dL is at goal. * Post prandial BSG elevation is due to chronic prednisone use. * Initiate once daily weight based dose of NPH to combat steroid induced hyperglycemia (Dose = 0.32 units/kg) * Tighten carb ratio to weight/stress 3 PLAN FOR INPATIENT GLYCEMIC CONTROL: * Hold outpatient oral diabetes medications * Basal insulin * NPH 30 units SQ daily - to be given with prednisone * Bolus insulin * NovoLog per scale ACHS or Q6hrs while NPO * Goal Range: Low 100 mg/dL - High 140 mg/dL * Correction Factor: 20 mg/dL/unit * Nutritional / Prandial insulin per carb ratio of 1 unit per 6 grams CHO consumed thank you
[2018-12-02] MEDS ORDERED: ZOLPIDEM TARTRATE 5 MG TAB PO STA (22:13)
[2018-12-03] MEDS ORDERED: INSULIN ASPART 100 UNITS/ML 3 ML PEN SC SCH
[2018-12-03] MEDS: LEVOTHYROXINE SODIUM 150 MCG TABLET PO SCH (06:26)
[2018-12-03] MEDS ORDERED: CALCIUM GLUCONATE 10% 10 ML VIAL IV STA (07:09)
[2018-12-03 07:22] LABS: Albumin Level 3.4 gm/dl (3.4-5.0); Calcium 7.2 mg/dl (8.5-10.1); Creatinine Clr Calc Pharmacy 29.7 ml/min; Est GFR (African American) 34.4; Est GFR (Non-African American) 29.7; Potassium 4.6 mmol/L (3.5-5.1)
[2018-12-03 07:27] LABS: Albumin Globulin Ratio 1.5 (0.9-2); Globulin 2.3 gm/dl (2.5-4.0); Phosphorus 4.4 mg/dl (2.5-4.9); Total Protein 5.7 gm/dl (6.4-8.2)
[2018-12-03] MEDS ORDERED: CALCIUM GLUCONATE 10% 2,000 MG in SODIUM CHLORIDE 0.9% 50 ML IV SCH (07:30)
[2018-12-03] MEDS: CITALOPRAM 20 MG TAB PO SCH (07:58)
[2018-12-03] MEDS: predniSONE 20 MG TAB PO SCH (07:58)
[2018-12-03] MEDS: ISOSORBIDE MONO EXTENDED REL 30 MG TABCR PO SCH (07:58)
[2018-12-03] MEDS: CALCITRIOL 0.25 MCG CAPSULE PO SCH (07:59)
[2018-12-03] MEDS: METOPROLOL SUCC 25MG EXT REL TAB PO SCH ×2 (07:59→20:50)
[2018-12-03] MEDS: CALCIUM CARBONATE 1,250 MG/5 ML UDC PO SCH ×3 (07:59→20:52)
[2018-12-03] MEDS: FOLIC ACID 1 MG TAB PO SCH (07:59)
[2018-12-03] MEDS: MAGNESIUM OXIDE 400 MG TAB PO SCH ×2 (07:59→20:51)
[2018-12-03] MEDS: DOCUSATE SODIUM/SENNA 50/8.6MG TAB PO SCH (07:59)
[2018-12-03] MEDS: INSULIN ASPART 100 UNITS/ML 3 ML PEN SC SCH ×4 (08:08→20:53)
[2018-12-03] MEDS: lisinopriL 20 MG TAB PO SCH (08:34)
[2018-12-03] MEDS ORDERED: INSULIN HUMAN NPH SC SCH (09:00)
--- NOTE | 2018-12-03 09:52 | Pharmacy Report ---
Pharmacy Glycemic Short Note 2 - Date of Service December 03, 2018 - Glycemic Short BSG Results (Last 24 hours): 12/02/18 12/02/18 12/02/18 07:34 11:37 14:11 Glucose 209 H POC Glucose 85 214 H 12/02/18 12/02/18 12/03/18 16:35 20:00 00:15 Glucose POC Glucose 189 H 249 H 97 12/03/18 12/03/18 06:16 07:24 Glucose 89 POC Glucose 89 OUTPATIENT ANTIDIABETIC REGIMEN: * Glipizide 5 mg PO daily * Of note, pt also on prednisone 60 mg PO daily for B-cell chronic lymphocytic leukemia * A1 c = 4% (12/01/18) * However, this result is likely somewhat unreliable in ESRD patients d/t interactions between the A1c analyzing technique and high levels of urea in ESRD, reduced RBC life span, iron deficiency anemia, and EPO administration. ASSESSMENT: * 83 yr old T2DM female with h/o CKD stage IV admitted with electrolyte abnormalities. * BSGs ranging 82-249 yesterday (highs most likely due to steroid-induced hyperglycemia) * Patient received 24 units of bolus insulin yesterday * Fasting BSG of 89 mg/dL is at goal * Patient to continue on prednisone 60 mg PO daily PLAN FOR INPATIENT GLYCEMIC CONTROL: * Hold outpatient oral diabetes medications * Basal insulin * NPH 30 units SQ daily - given with prednisone * 0.3 unit/kg dose * Bolus insulin - continue current parameters * NovoLog per scale ACHS or Q6hrs while NPO * Goal Range: Low 100 mg/dL - High 140 mg/dL * Correction Factor: 15 mg/dL/unit * Nutritional / Prandial insulin per carb ratio of 1 unit per 5 grams CHO consumed thank you
--- NOTE | 2018-12-03 11:32 | Cardiology Progress Note ---
Date of Service December 03, 2018 Assessment & Plan (1) Multifocal atrial tachycardia: Patient presented with abnormal laboratory testing as described with marked hypokalemia hypocalcemia as a referral diagnosis. Telemetry on presentation demonstrated marked sinus arrhythmia with atrial and ventricular ectopy as well as intermittent multifocal atrial tachycardia. Recommendations: We will increase Toprol-XL to 12.5 mg twice per day given good tolerance so far and hopefully prevent further atrial arrhythmias, degeneration into atrial fibrillation (2) Hypokalemia: Improved (3) Hypocalcemia: Subjective Patient seen and examined, chart, medications, telemetry reviewed. Patient denies any cardiac complaints and is not aware of elevated heart rate or palpitations. No chest pain or shortness of breath. No dizziness or lightheadedness. Telemetry reveals sinus and sinus arrhythmia/multifocal atrial tachycardia times Physical Exam Constitutional: WD/WN, vitals as above no acute distress Eyes: PERRL, conjunctivae normal, anicteric sclerae ENMT: external ear and nose normal, oropharynx normal Neck: trachea midline Respiratory: normal respiratory effort, lungs clear to auscultation Cardiovascular: Rate/Rhythm: regular rate and regular rhythm Heart Sounds: normal S1 and normal S2; no gallop and no murmur Palpation: normal PMI Vessels: normal carotid upstroke and radial pulses present; no JVD and no ca rotid bruit Extremities: no edema Gastrointestinal (Abdomen): normal bowel sounds, soft, nontender, no hepatosplenomegaly Musculoskeletal: no cyanosis or clubbing, extremities motor strength 5/5 Skin: no rashes, warm and dry Neurologic: PERRL, EOMI, accommodation nl, no face palsy, no dysarthria Psychiatric: A+Ox3, euthymic affect Results & Data Vital Signs (Past 12 Hours) Vital Signs Temp Pulse Pulse Resp BP Pulse Ox 12/03/18 11:16 37.5 C 98 H 18 98/61 L 93 12/03/18 06:57 36.9 C 90 18 116/72 95 12/03/18 03:49 37 C 92 H 18 105/60 96 Laboratory Results Laboratory Results - last 24 hr 12/01/18 12/02/18 12/02/18 21:15 07:34 11:37 Sodium Potassium Chloride Carbon Dioxide Anion Gap BUN Creatinine Est Cr Clr Drug Dosing Est GFR ( Amer) Est GFR (Non-Af Amer) BUN/Creatinine Ratio Glucose POC Glucose 85 214 H Calcium Ionized Calcium Phosphorus Total Bilirubin AST ALT Alkaline Phosphatase Total Protein Albumin Globulin Albumin/Globulin Ratio Antibody Identification Auto Pittman Agglutinin 12/02/18 12/02/18 12/02/18 14:11 14:11 16:35 Sodium 141 Potassium 4.4 Chloride 104 Carbon Dioxide 31 Anion Gap 7.0 BUN 41 H Creatinine 1.82 H Est Cr Clr Drug Dosing 26.3 Est GFR ( Amer) 29.7 Est GFR (Non-Af Amer) 25.6 BUN/Creatinine Ratio 22.7 H Glucose 209 H POC Glucose 189 H Calcium 6.7 L Ionized Calcium 0.72 L* Phosphorus Total Bilirubin 0.7 AST 14 L ALT 18 Alkaline Phosphatase 50 Total Protein 5.9 L Albumin 3.5 Globulin 2.3 L Albumin/Globulin Ratio 1.5 Antibody Identification 12/02/18 12/03/18 12/03/18 20:00 00:15 06:16 Sodium 145 Potassium 4.6 Chloride 107 Carbon Dioxide 32 Anion Gap 6.0 BUN 35 H Creatinine 1.61 H Est Cr Clr Drug Dosing 29.7 Est GFR ( Amer) 34.4 Est GFR (Non-Af Amer) 29.7 BUN/Creatinine Ratio 22.0 H Glucose 89 POC Glucose 249 H 97 Calcium 7.2 L Ionized Calcium Phosphorus 4.4 Total Bilirubin 1.0 AST 12 L ALT 15 Alkaline Phosphatase 47 Total Protein 5.7 L Albumin 3.4 Globulin 2.3 L Albumin/Globulin Ratio 1.5 Antibody Identification 12/03/18 12/03/18 06:16 07:24 Sodium Potassium Chloride Carbon Dioxide Anion Gap BUN Creatinine Est Cr Clr Drug Dosing Est GFR ( Amer) Est GFR (Non-Af Amer) BUN/Creatinine Ratio Glucose POC Glucose 89 Calcium Ionized Calcium 0.85 L Phosphorus Total Bilirubin AST ALT Alkaline Phosphatase Total Protein Albumin Globulin Albumin/Globulin Ratio Antibody Identification Diagnostic Findings Echocardiogram 12/02/2018 Mild left hypertrophy with normal left systolic function EF 65 to 70% Aortic sclerosis without stenosis Mild mitral tricuspid insufficiency
--- NOTE | 2018-12-03 12:09 | Hospitalist Progress Note ---
Date of Service December 03, 2018 Assessment & Plan (1) Hypocalcemia: -chronic hypocalcemia; as per October 2018 discharge summary Chronic hypocalcemia with baseline between 6 to 7 -of note, patient has been on chronic prednisone since August 2018 and steroids can decrease calcium absorption. chart review also shows furosemide home medications and diuretics can also contribute to patient electrolyte abnormalities -presentation calcium level as 5.1 with low ionized calcium on 12/01/18, serum al bumin generally normal as 3.6, mildly decreased vitamin D levels of 28, normal PTH of 65.6 -since admission, patient has received multiple rounds of IV calcium gluconate and also oral calcium and vitamin D supplements -asked nephrology for further assistance on 12/02/18: nephrology recommending calcium carbonate 750 mg 3 times daily and calcitriol 0.5 mcg daily -as of the 12/03/18 AM labs, serum calcium increased to 7.2 and additional IV calcium gluconate given Hypomagnesemia -serum magnesium 1.7 on admission -serum magnesium has been repleted and currently at goal Hypokalemia -serum potassium 3.1 on admission -serum potassium has been repleted and currently at goal CKD (chronic kidney disease) stage 4 -monitor renal function -patient does not have flank pain; the renal ultrasound completed on 12/02/18 as ordered by nephrology service is moderately compromised by suboptimal penetration. "There is marked bilateral renal cortical thinning. The right kidney measures 10.7 x 3.5 x 5.1 cm and the left measures 12.5 x 6.4 x 5.8 cm. There is moderate right hydronephrosis. There is no left hydronephrosis. There are suspected bilateral renal calculi. There is a 2 cm cyst within the left kidn ey. The right ureteral jet was not visualized" Multifocal atrial tachycardia: -Telemetry on presentation demonstrated marked sinus arrhythmia with atrial and ventricular ectopy as well as intermittent multifocal atrial tachycardia. -Treat underlying electrolyte abnormalities -Echocardiogram with ejection fraction of 60 to 65 percent -gis engineer added Toprol-XL 12.5 g p.o. daily on 12/02/18 and increased to BID starting on 12/03/18 Hypertension -blood pressure is controlled -off amlodipine after 12/02/18 -restarted ELIE inhibitor on 12/03/18 -continue to hold diuretics Hypothyroidism -H/O recurrent papillary thyroid cancer in 2009 s/p surgery -TSH 0.399 is normal -continue home dose levothyroxine of 150 mcg daily Diabetes Mellitus without supervisor intermediates use of insulin -PLAN FOR INPATIENT GLYCEMIC CONTROL: Hold outpatient oral diabetes medications; Basal insulin NPH 30 units SQ daily - given with prednisone History of B-cell Chronic lymphocytic leukemia diagnosed in 2013 chronic current use of systemic steroids -reports last chemotherapy in August 2018 -on daily prednisone 60 mg daily, continue Chronic Anemia History of Hemolytic anemia -Kailyn positive autoimmune hemolytic anemia diagnosed in 2013 -Hgb is above 8 -maintain active type and screen DVT prophylaxis: SCDs because of anemia patient reports she has advance directives but currently the code status is Full Code as per my discussion with patient son Jan [phone] Subjective patient denies palpitations. no chest pain. no shortness of breath. breathing on room air. no abdominal pain. no vomiting. we discussed telemetry findings of the persistent tachycardia and that doctors in hospital would recommend further adjustment of metoprolol and inpatient hospital monitoring while working on supplementing the serum calcium levels. Patient initially wanted to go home but then changed her mind when no available family members to transport her from hospital. She agrees for further interventions in the hospital on heart rate and hypocalcemia Physical Exam Constitutional: comfortable Eyes: PERRL, conjunctivae normal, anicteric sclerae EOM intact bilaterally Neck: normal visual inspection Respiratory: normal respiratory effort, lungs clear to auscultation Cardiovascular: mild tachycardia Gastrointestinal (Abdomen): normal bowel sounds, soft, nontender, no hepatosplenomegaly Musculoskeletal: Head/Neck/Chest: normocephalic and head atraumatic Neurologic: CN's II-XI intact bilaterally Psychiatric: A+Ox3, euthymic affect Results & Data Vital Signs (Past 12 Hours) Vital Signs Temp Pulse Pulse Resp BP Pulse Ox 12/03/18 11:16 37.5 C 98 H 18 98/61 L 93 12/03/18 06:57 36.9 C 90 18 116/72 95 12/03/18 03:49 37 C 92 H 18 105/60 96
--- NOTE | 2018-12-03 17:42 | Nephrology Progress Note ---
Date of Service December 03, 2018 Assessment & Plan (1) Hypocalcemia: Patient with hypercalcemia of likely multifactorial etiology. She had thyroidectomy many years ago. It is possible that she lost some parathyroid tissue. PTH is inappropriately normal in setting of hypocalcemia. Patient now has multifocal atrial tachycardia. Continue calcium carbonate 750 mg 3 times daily and calcitriol 0.5 mcg daily. Monitor calcium daily. She will likely go home on same. She will need renal follow up in 2 weeks and BMP in a week (2) Hypokalemia: Likely in setting of increased renal potassium wasting with the high doses of prednisone which can have mineralocorticoid activity. Agree with aggressive supplementation with potassium chloride. K is 4.6 today. (3) CKD (chronic kidney disease) stage 4, GFR 15-29 ml/min: Patient with the CKD stage IV of multifactorial etiology including history of diabetes and multiple episodes of chemotherapy. Creatinine runs between 1.8- 2 at baseline. Renal function appears to be at baseline. renal ultrasound show moderate right hydronephrosis. She will need to see urology. Monitor renal function with daily BMP. Avoid nephrotoxins. No indication for dialysis. Subjective She feels better. No palpitations or SOB. Ca improving. She wants to go home Review of Systems Review of Systems: All systems reviewed & are unremarkable except as noted in HPI & below Physical Exam Physical Exam: General exam: Appears comfortable, no acute distress HEENT: Pupils are equal and reactive to light Neck: No JVD, neck is supple trachea is midline Respiratory system: Clear breath sounds bilaterally. Gastrointestinal: Abdomen is soft, non distended, non tender, bowel sounds are present CVS: Regular rate and rhythm. No murmurs, rubs or gallops Musculoskeletal: No joint or muscle tenderness Extremities: Non tender, no edema, peripheral pulses are present Neuro: Oriented, no tremors, no focal neurological deficits Skin: No rashes Results & Data Vital Signs (Past 12 Hours) Vital Signs Temp Pulse Pulse Resp BP Pulse Ox 12/03/18 15:02 36.9 C 85 18 105/66 93 12/03/18 11:16 37.5 C 98 H 18 98/61 L 93 12/03/18 06:57 36.9 C 90 18 116/72 95 Laboratory Results Laboratory Results - last 24 hr 12/01/18 12/02/18 12/03/18 21:15 20:00 00:15 Sodium Potassium Chloride Carbon Dioxide Anion Gap BUN Creatinine Est Cr Clr Drug Dosing Est GFR ( Amer) Est GFR (Non-Af Amer) BUN/Creatinine Ratio Glucose POC Glucose 249 H 97 Calcium Ionized Calcium Phosphorus Total Bilirubin AST ALT Alkaline Phosphatase Total Protein Albumin Globulin Albumin/Globulin Ratio Antibody Identification Auto Pittman Agglutinin Antibody ID Comment 12/03/18 12/03/18 12/03/18 06:16 06:16 07:24 Sodium 145 Potassium 4.6 Chloride 107 Carbon Dioxide 32 Anion Gap 6.0 BUN 35 H Creatinine 1.61 H Est Cr Clr Drug Dosing 29.7 Est GFR ( Amer) 34.4 Est GFR (Non-Af Amer) 29.7 BUN/Creatinine Ratio 22.0 H Glucose 89 POC Glucose 89 Calcium 7.2 L Ionized Calcium 0.85 L Phosphorus 4.4 Total Bilirubin 1.0 AST 12 L ALT 15 Alkaline Phosphatase 47 Total Protein 5.7 L Albumin 3.4 Globulin 2.3 L Albumin/Globulin Ratio 1.5 Antibody Identification Antibody ID Comment
[2018-12-04] MEDS: LEVOTHYROXINE SODIUM 150 MCG TABLET PO SCH (05:52)
[2018-12-04] MEDS ORDERED: INSULIN HUMAN NPH SC SCH (07:30)
[2018-12-04 07:40] LABS: Albumin Globulin Ratio 1.6 (0.9-2); Albumin Level 3.3 gm/dl (3.4-5.0); BUN Creatinine Ratio 20.4 (10-20); Bilirubin,Total 0.8 mg/dl (0.2-1); Calcium 7.7 mg/dl (8.5-10.1); Creatinine Clr Calc Pharmacy 28.5 ml/min; Est GFR (African American) 32.7; Est GFR (Non-African American) 28.2; Phosphorus 4.3 mg/dl (2.5-4.9); Potassium 3.6 mmol/L (3.5-5.1); Total Protein 5.3 gm/dl (6.4-8.2)
[2018-12-04] MEDS ORDERED: CALCIUM GLUCONATE 10% 1,000 MG in SODIUM CHLORIDE 0.9% 50 ML IV STA (08:45)
[2018-12-04] MEDS: ISOSORBIDE MONO EXTENDED REL 30 MG TABCR PO SCH (08:51)
[2018-12-04] MEDS: CITALOPRAM 20 MG TAB PO SCH (08:51)
[2018-12-04] MEDS: predniSONE 20 MG TAB PO SCH (08:51)
[2018-12-04] MEDS: lisinopriL 20 MG TAB PO SCH (08:51)
[2018-12-04] MEDS: CALCIUM CARBONATE 1,250 MG/5 ML UDC PO SCH ×3 (08:52→13:54)
[2018-12-04] MEDS: MAGNESIUM OXIDE 400 MG TAB PO SCH (08:52)
[2018-12-04] MEDS: CALCITRIOL 0.25 MCG CAPSULE PO SCH (08:53)
[2018-12-04] MEDS: FOLIC ACID 1 MG TAB PO SCH (08:54)
[2018-12-04] MEDS: DOCUSATE SODIUM/SENNA 50/8.6MG TAB PO SCH (08:54)
[2018-12-04] MEDS: METOPROLOL SUCC 25MG EXT REL TAB PO SCH (08:55)
[2018-12-04] MEDS: INSULIN ASPART 100 UNITS/ML 3 ML PEN SC SCH ×2 (08:58→13:05)
--- NOTE | 2018-12-04 10:19 | Nephrology Progress Note ---
Date of Service December 04, 2018 Assessment & Plan (1) Hypocalcemia: Patient with hypercalcemia of likely multifactorial etiology. Ca better at 7.7 today. She had thyroidectomy many years ago. It is possible that she lost some parathyroid tissue. PTH is inappropriately normal in setting of hypocalcemia. Patient with multifocal atrial tachycardia. Continue calcium carbonate 750 mg 3 times daily and calcitriol 0.5 mcg daily. Monitor calcium daily. She will likely go home on same. She will need renal follow up in 1-2 weeks and BMP in a week (2) Hypokalemia: Likely in setting of increased renal potassium wasting with the high doses of prednisone which can have mineralocorticoid activity. Agree with kcl supplementation as needed. K is 3.6 today. (3) CKD (chronic kidney disease) stage 4, GFR 15-29 ml/min: Patient with the CKD stage IV of multifactorial etiology including history of diabetes and multiple episodes of chemotherapy. Creatinine runs between 1.8- 2 at baseline. Renal function appears to be at baseline. renal ultrasound showed moderate right hydronephrosis. She will need to see urology but this can done as an outpatient. Monitor renal function with daily BMP. Avoid nephrot oxins. No indication for dialysis. Subjective She is doing well and wants to go home. No SOB. She is eating well. No leg swelling. No vomiting or diarrhoea. Review of Systems Review of Systems: All systems reviewed & are unremarkable except as noted in HPI & below Physical Exam Physical Exam: General exam: Appears comfortable, no acute distress HEENT: Pupils are equal and reactive to light Neck: No JVD, neck is supple trachea is midline Respiratory system: Clear breath sounds bilaterally. Gastrointestinal: Abdomen is soft, non distended, non tender, bowel sounds are present CVS: Regular rate and rhythm. No murmurs, rubs or gallops Musculoskeletal: No joint or muscle tenderness Extremities: Non tender, no edema, peripheral pulses are present Neuro: Oriented, no tremors, no focal neurological deficits Skin: No rashes Results & Data Vital Signs (Past 12 Hours) Vital Signs Temp Pulse Pulse Resp BP BP Pulse Ox 12/04/18 07:08 37.2 C 83 18 113/70 94 12/04/18 07:00 73 12/04/18 03:37 36.9 C 84 18 122/60 96 12/03/18 23:13 37 C 86 79 18 108/66 97 Laboratory Results Laboratory Results - last 24 hr 12/01/18 12/03/18 12/03/18 21:15 11:27 16:05 Sodium Potassium Chloride Carbon Dioxide Anion Gap BUN Creatinine Est Cr Clr Drug Dosing Est GFR ( Amer) Est GFR (Non-Af Amer) BUN/Creatinine Ratio Glucose POC Glucose 224 H 236 H Calcium Phosphorus Total Bilirubin AST ALT Alkaline Phosphatase Total Protein Albumin Globulin Albumin/Globulin Ratio Antibody Identification Auto Pittman Agglutinin Antibody ID Comment 12/03/18 12/04/18 12/04/18 20:10 06:30 07:42 Sodium 144 Potassium 3.6 D Chloride 106 Carbon Dioxide 34 H Anion Gap 5.0 BUN 34 H Creatinine 1.68 H Est Cr Clr Drug Dosing 28.5 Est GFR ( Amer) 32.7 Est GFR (Non-Af Amer) 28.2 BUN/Creatinine Ratio 20.4 H Glucose 84 POC Glucose 211 H 88 Calcium 7.7 L Phosphorus 4.3 Total Bilirubin 0.8 AST 16 ALT 15 Alkaline Phosphatase 45 Total Protein 5.3 L Albumin 3.3 L Globulin 2.0 L Albumin/Globulin Ratio 1.6 Antibody Identification Antibody ID Comment
--- NOTE | 2018-12-04 10:48 | Pharmacy Report ---
Pharmacy Glycemic Short Note 2 - Date of Service December 04, 2018 - Glycemic Short BSG Results (Last 24 hours): 12/03/18 12/03/18 12/03/18 11:27 16:05 20:10 Glucose POC Glucose 224 H 236 H 211 H 12/04/18 12/04/18 06:30 07:42 Glucose 84 POC Glucose 88 OUTPATIENT ANTIDIABETIC REGIMEN: * Glipizide 5 mg PO daily * Of note, pt also on prednisone 60 mg PO daily for B-cell chronic lymphocytic leukemia * A1 c = 4% (12/01/18) * However, this result is likely somewhat unreliable in ESRD patients d/t interactions between the A1c analyzing technique and high levels of urea in ESRD, reduced RBC life span, iron deficiency anemia, and EPO administration. ASSESSMENT: * 83 yr old T2DM female with h/o CKD stage IV admitted with electrolyte abnormalities. * BSGs ranging 89-236 yesterday (highs most likely due to steroid-induced hyperglycemia) * Patient received 63 units of insulin yesterday (30 of which were NPH to cover prednisone 60 mg) * This dose of NPH clearly insufficient based on BSGs throughout the day (will adjust) * Fasting BSG of 88 mg/dL and follow-up before lunch at 81 mg/dL- will loosen CF and CR due to significant changes from yesterday * Patient to continue on prednisone 60 mg PO daily PLAN FOR INPATIENT GLYCEMIC CONTROL: * Hold outpatient oral diabetes medications * Basal insulin - increase NPH * NPH 38 units SQ daily - given with prednisone * 0.4 unit/kg dose (will plan on this covering for most of her prandial needs) * Bolus insulin - loosen current parameters * NovoLog per scale ACHS or Q6hrs while NPO * Goal Range: Low 100 mg/dL - High 140 mg/dL * Correction Factor: 25 mg/dL/unit * Nutritional / Prandial insulin per carb ratio of 1 unit per 15 grams CHO consumed DISCHARGE: * As stated above, A1c is likely unreliable based on ESRD and chronic anemia. Could consider initiating self-monitoring of blood glucose twice daily to better assess glycemic control. Reasonable to continue home glipizide 5 mg PO daily at this time. thank you
--- NOTE | 2018-12-04 12:03 | Hospitalist Progress Note ---
Date of Service December 04, 2018 Assessment & Plan (1) Hypocalcemia: -chronic hypocalcemia; as per October 2018 discharge summary Chronic hypocalcemia with baseline between 6 to 7 -of note, patient has been on chronic prednisone since August 2018 and steroids can decrease calcium absorption. chart review also shows furosemide home medications and diuretics can also contribute to patient electrolyte abnormalities -presentation calcium level as 5.1 with low ionized calcium on 12/01/18, serum al bumin generally normal as 3.6, mildly decreased vitamin D levels of 28, normal PTH of 65.6 -since admission, patient has received multiple rounds of IV calcium gluconate and also oral calcium and vitamin D supplements -asked nephrology for further assistance on 12/02/18: nephrology recommending calcium carbonate 750 mg 3 times daily and calcitriol 0.5 mcg daily -as of the 12/03/18 AM labs, serum calcium increased to 7.2 and additional IV calcium gluconate given -discharge serum calcium on 12/04/18 is 7.7 -When discharged to home, patient should avoid home calcium/vitamin D medications and instead should take: calcium carbonate 3 times a day and calcitriol 0.5 mcg daily; and once a week of 50,000 units of Vitamin D for 4 weeks -Patient should reduce furosemide from three times a day to only once a day Hypomagnesemia -serum magnesium 1.7 on admission -serum magnesium has been repleted and currently at goal -Patient should also take daily magnesium for now Hypokalemia -serum potassium 3.1 on admission -serum potassium has been repleted and currently at goal CKD (chronic kidney disease) stage 4 suspected right hydronephrosis -monitor renal function -patient does not have flank pain; the renal ultrasound completed on 12/02/18 as ordered by nephrology service is moderately compromised by suboptimal penetration. "There is marked bilateral renal cortical thinning. The right kidney measures 10.7 x 3.5 x 5.1 cm and the left measures 12.5 x 6.4 x 5.8 cm. There is moderate right hydronephrosis. There is no left hydronephrosis. There are suspected bilateral renal calculi. There is a 2 cm cyst within the left kidney. The right ureteral jet was not visualized" -Nephrology Dr. Duarte recommends outpatient urology follow up because imaging of moderate right hydronephrosis but the patient does not have any flank pain or urinary symptoms Multifocal atrial tachycardia: -Telemetry on presentation demonstrated marked sinus arrhythmia with atrial and ventricular ectopy as well as intermittent multifocal atrial tachycardia. -Treat underlying electrolyte abnormalities ; Echocardiogram with ejection fraction of 60 to 65 percent ; metoprolol succinate 12.5 g p.o. daily on 12/02/18 and increased to BID starting on 12/03/18 -as of 19/06/18 heart rate and rhythm appears controlled, on discharge patient should take metoprolol succinate 25 mg daily -cardiology clinic at [facility] [address], [place] [id number] was notified about making follow up appointments but Dr. Parkinson the fiscal analyst who evaluated the patient in the hospital and started her on metoprolol does not think a cardiology appointment is needed and he does not recommend for ZIO patch at this time for further heart monitoring. Hypertension -blood pressure is controlled -off amlodipine after 12/02/18, stopped amlodipine from medication list -restarted ELIE inhibitor on 12/03/18 -diuretics were held during hospital stay, patient may resume furosemide as daily dose when at home instead of TID Hypothyroidism -H/O recurrent papillary thyroid cancer in 2009 s/p surgery -TSH 0.399 is normal -continue home dose levothyroxine of 150 mcg daily Diabetes Mellitus without assisted use of insulin -Patient may resume home oral diabetes medications on discharge -During hospital evaluation, home diabetes medications were held and insulin was started to give tighter glucose control while patient on her usual 60 mg prednisone -If patient chooses to go on insulin therapy for glucose control alone with current 60 mg daily prednisone, then insulin requirements are estimated to be NPH insulin 38 units subcutaneous daily given with prednisone -patient given prescription for the OneTouch Ultra 2 glucose meter at discharge History of B-cell Chronic lymphocytic leukemia diagnosed in 2013 chronic current use of systemic steroids -reports last chemotherapy in August 2018 -on daily prednisone 60 mg daily, continue Chronic Anemia History of Hemolytic anemia -Kailyn positive autoimmune hemolytic anemia diagnosed in 2013 -Hgb is above 8 -maintain active type and screen DVT prophylaxis: SCDs because of anemia patient reports she has advance directives but currently the code status is Full Code as per my discussion with patient jina Montoya [phone] Discharge Diagnosis: Hypocalcemia, Multifocal atrial Tachycardia, Chronic Kidney Disease stage IV, Type 2 diabetics medication without assisted current use of insulin, Hypomagnesemia, Hypokalemia, Chronic anemia, Current chronic use of systemic steroids , suspected right hydronephrosis, B-cell Chronic lymphocytic leukemia clinic appointments 12/05/2018 10:00 AM Provider Gregoria Ignacio RN Department [facility] primary care doctor 12/10/2018 1:30 PM Provider Carol Drake DO Department Family Practice [facility] Nephrology 12/15/2018 1:00 PM Provider Bennie Duarte MD Department Nephrology, [facility] 12/22/2018 8:00 AM Provider [facility] 12/23/2018 2:00 PM Provider Talha Bahena DO Department Otolaryngology [facility] 12/29/2018 10:15 AM Provider Chester Long MD Department Hematology/Oncology [facility] Subjective heart rates controlled. denies palpitations. no chest pain. no shortness of breath. no abdominal pain. no dizziness. no lightheadedness. Discharge plans discussed at length Physical Exam Constitutional: comfortable Eyes: PERRL, conjunctivae normal, anicteric sclerae EOM intact bilaterally ENMT: external ear and nose normal, oropharynx normal Neck: normal visual inspection Respiratory: normal respiratory effort, lungs clear to auscultation Gastrointestinal (Abdomen): normal bowel sounds, soft, nontender, no hepatosplenomegaly Musculoskeletal: Head/Neck/Chest: normocephalic and head atraumatic Neurologic: CN's II-XI intact bilaterally Psychiatric: A+Ox3, euthymic affect Results & Data Vital Signs (Past 12 Hours) Vital Signs Temp Pulse Pulse Resp BP BP Pulse Ox 12/04/18 07:08 37.2 C 83 18 113/70 94 12/04/18 07:00 73 12/04/18 03:37 36.9 C 84 18 122/60 96
--- NOTE | 2018-12-04 12:14 | Discharge Summary ---
Date of Service December 04, 2018 Admission HPI Per Admitting Provider Pt is 83 y/o F with PMH HTN, DM II, CKD III, B-cell CLL diagnosed in 2013, Kailyn positive autoimmune hemolytic anemia diagnosed in 2013, H/O recurrent papillary thyroid cancer in 2009 s/p surgery presented to ER for abnormal labs of hypocalcemia that is lower than her baseline of between 6 to 7. admission serum calcium of 5.1. Patient reports she has been taking home medications of calcium/vitamin D at home On review of systems: Patient denies recent symptoms of headache, lightheadedness, dizziness, vomiting, chest pain, abdominal pain, palpitations. Patient's heart rate was noted to be mildly tachycardic in the emergency room. patient reports subjective warmth 3 days ago but did not take a body temperature. is afebrile in the emergency room. blood pressures noted to be low normotensive. patient denies blood loss in urine or stool. Admission Exam Per Admitting Provider Constitutional: comfortable Eyes: PERRL, conjunctivae normal, anicteric sclerae EOM intact bilaterally ENMT: mouth asymmetry is chronic as per patient Neck: normal visual inspection Respiratory: normal respiratory effort, lungs clear to auscultation Cardiovascular: mild tacycardia Gastrointestinal (Abdomen): normal bowel sounds, soft, nontender, no hepatosplenomegaly Musculoskeletal: Head/Neck/Chest: normocephalic and head atraumatic Neurologic: CN's II-XI intact bilaterally Psychiatric: A+Ox3, euthymic affect Principal Diagnosis Hypocalcemia, Multifocal atrial Tachycardia, Chronic Kidney Disease stage IV, Type 2 diabetics medication without half-way current use of insulin, Hypomagnesemia, Hypokalemia, Chronic anemia, Current chronic use of systemic steroids , suspected right hydronephrosis, B-cell Chronic lymphocytic leukemia Discharge Exam Constitutional comfortable Eyes PERRL, conjunctivae normal, anicteric sclerae EOM intact bilaterally ENMT external ear and nose normal, oropharynx normal Neck normal visual inspection Respiratory normal respiratory effort, lungs clear to auscultation Gastrointestinal (Abdomen) normal bowel sounds, soft, nontender, no hepatosplenomegaly Musculoskeletal Head/Neck/Chest: normocephalic and head atraumatic Neurologic CN's II-XI intact bilaterally Psychiatric A+Ox3, euthymic affect Discharge Data Allergies Allergy/AdvReac Type Severity Reaction Status Date / Time lorazepam Allergy Unknown UNKNOWN Unverified 12/01/18 17:35 pneumococcal vaccine Allergy Unknown Unknown Verified 12/01/18 17:35 Consultations 12/01/18 19:17 ED Decision to Admit Stat 12/02/18 07:40 Consult Case Management - Discharge Planning Routine 12/02/18 07:55 Consult Cardiology Routine 12/02/18 09:16 Consult Nephrology Routine Ordered Studies 12/02/18 10:35 US renal/blad retro comp Urgent Hospital Course (1) Hypocalcemia: -chronic hypocalcemia; as per October 2018 discharge summary Chronic hypocalcemia with baseline between 6 to 7 -of note, patient has been on chronic prednisone since August 2018 and steroids can decrease calcium absorption. chart review also shows furosemide home medications and diuretics can also contribute to patient electrolyte abnormalities -presentation calcium level as 5.1 with low ionized calcium on 12/01/18, serum albumin generally normal as 3.6, mildly decreased vitamin D levels of 28, normal PTH of 65.6 -since admission, patient has received multiple rounds of IV calcium gluconate and also oral calcium and vitamin D supplements -asked nephrology for further assistance on 12/02/18: nephrology recommending calcium carbonate 750 mg 3 times daily and calcitriol 0.5 mcg daily -as of the 12/03/18 AM labs, serum calcium increased to 7.2 and additional IV calcium gluconate given -discharge serum calcium on 12/04/18 is 7.7 -When discharged to home, patient should avoid home calcium/vitamin D medications and instead should take: calcium carbonate 3 times a day and calcitriol 0.5 mcg daily; and once a week of 50,000 units of Vitamin D for 4 weeks -Patient should reduce furosemide from three times a day to only once a day Hypomagnesemia -serum magnesium 1.7 on admission -serum magnesium has been repleted and currently at goal -Patient should also take daily magnesium for now Hypokalemia -serum potassium 3.1 on admission -serum potassium has been repleted and currently at goal CKD (chronic kidney disease) stage 4 suspected right hydronephrosis -monitor renal function -patient does not have flank pain; the renal ultrasound completed on 12/02/18 as ordered by nephrology service is moderately compromised by suboptimal penetration. "There is marked bilateral renal cortical thinning. The right kidney measures 10.7 x 3.5 x 5.1 cm and the left measures 12.5 x 6.4 x 5.8 cm. There is moderate right hydronephrosis. There is no left hydronephrosis. There are suspected bilateral renal calculi. There is a 2 cm cyst within the left kidney. The right ureteral jet was not visualized" -Nephrology Dr. Duarte recommends outpatient urology follow up because imaging of moderate right hydronephrosis but the patient does not have any flank pain or urinary symptoms Multifocal atrial tachycardia: -Telemetry on presentation demonstrated marked sinus arrhythmia with atrial and ventricular ectopy as well as intermittent multifocal atrial tachycardia. -Treat underlying electrolyte abnormalities ; Echocardiogram with ejection fraction of 60 to 65 percent ; metoprolol succinate 12.5 g p.o. daily on 12/02/18 and increased to BID starting on 12/03/18 -as of 19/06/18 heart rate and rhythm appears controlled, on discharge patient should take metoprolol succinate 25 mg daily -cardiology clinic at [facility] [address], [place] [address] was notified about making follow up appointments but Dr. Parkinson the conflicts analyst who evaluated the patient in the hospital and started her on metoprolol does not think a cardiology appointment is needed and he does not recommend for ZIO patch at this time for further heart monitoring. Hypertension -blood pressure is controlled -off amlodipine after 12/02/18, stopped amlodipine from medication list -restarted ELIE inhibitor on 12/03/18 -diuretics were held during hospital stay, patient may resume furosemide as daily dose when at home instead of TID Hypothyroidism -H/O recurrent papillary thyroid cancer in 2009 s/p surgery -TSH 0.399 is normal -continue home dose levothyroxine of 150 mcg daily Diabetes Mellitus without half-way use of insulin -Patient may resume home oral diabetes medications on discharge -During hospital evaluation, home diabetes medications were held and insulin was started to give tighter glucose control while patient on her usual 60 mg prednisone -If patient chooses to go on insulin therapy for glucose control alone with current 60 mg daily prednisone, then insulin requirements are estimated to be NPH insulin 38 units subcutaneous daily given with prednisone -patient given prescription for the OneKaptureuch Ultra 2 glucose meter at discharge History of B-cell Chronic lymphocytic leukemia diagnosed in 2013 chronic current use of systemic steroids -reports last chemotherapy in August 2018 -on daily prednisone 60 mg daily, continue Chronic Anemia History of Hemolytic anemia -Kailyn positive autoimmune hemolytic anemia diagnosed in 2013 -Hgb is above 8 -maintain active type and screen DVT prophylaxis: SCDs because of anemia patient reports she has advance directives but currently the code status is Full Code as per my discussion with patient jina Montoya [phone] Discharge Diagnosis: Hypocalcemia, Multifocal atrial Tachycardia, Chronic Kidney Disease stage IV, Type 2 diabetics medication without half-way current use of insulin, Hypomagnesemia, Hypokalemia, Chronic anemia, Current chronic use of systemic steroids , suspected right hydronephrosis, B-cell Chronic lymphocytic leukemia clinic appointments 12/05/2018 10:00 AM Provider Gregoria Ignacio RN Department [facility] primary care doctor 12/10/2018 1:30 PM Provider Carol Drake DO Department Family Practice [facility] Nephrology 12/15/2018 1:00 PM Provider Bennie Duarte MD Department Nephrology, [facility] 12/22/2018 8:00 AM [facility] 12/23/2018 2:00 PM Provider Talha Bahena DO Department Otolaryngology [facility] 12/29/2018 10:15 AM Provider Chester Long MD Department Hematology/Oncology [facility] Total Time Total Time Spent Total Time Spent (In Minutes): 40 minutes Total Time Includes: Examination of the Patient, Discharge Planning, Medication Reconciliation and Communication With Other Providers Discharge Plan Discharge Items Patient Disposition: Home - Self-Care Reason For Visit: HYPOCALCEMIA,HYPOMAGNESMIA,HYPOKALEMIA Discharge Diagnosis: Hypocalcemia, Multifocal atrial Tachycardia, Chronic Kidney Disease stage IV, Type 2 diabetics medication without half-way current use of insulin, Hypomagnesemia, Hypokalemia, Chronic anemia, Current chronic use of systemic steroids , suspected right hydronephrosis, B-cell Chronic lymphocytic leukemia Condition on Discharge: Good Activity: Resume your previous activity Non-emergency contact: Primary Care Provider and Specialist Call non-emergency contact if: you have any medication questions Follow-up/Referrals: Lor Garcia MD [Primary Care Provider] - Diet: Carb Consistent or DM2 Addtl Attending Provider Instructions: Discharge Instructions -Patient was evaluated for severe electrolyte abnormalities primarily low calcium levels which is likely from prednisone use and home diuretic of furosemi de as 20 mg three times a day -discharge serum calcium on 12/04/18 is 7.7 -When discharged to home, patient should avoid home calcium/vitamin D medications and instead should take: calcium carbonate 3 times a day and calcitriol 0.5 mcg daily and once a week of 50,000 units of Vitamin D for 4 weeks -Patient should also take daily magnesium for now -Patient should reduce furosemide from three times a day to only once a day -Because patient had multifocal atrial tachycardia, patient should take metoprolol succinate 25 mg daily - stopped amlodipine from medication list -Patient will need to have basic metabolic panel and serum magnesium level to be arrange by outpatient providers to recheck electrolytes in 1 week -Patient may resume home oral diabetes medications on discharge During hospital evaluation, home diabetes medications were held and insulin was started to give tighter glucose control while patient on her usual 60 mg prednisone -If patient chooses to go on insulin therapy for glucose control alone with current 60 mg daily prednisone, then insulin requirements are estimated to be NPH insulin 38 units subcutaneous daily given with prednisone Below are the arranged appointments (Of note, cardiology clinic at [facility] [address], [place] [address] was notified about making follow up appointments but Dr. Parkinson the conflicts analyst who evaluated the patient in the hospital and started her on metoprolol does not think a cardiology appointment is needed and he does not recommend for ZIO patch at this time for further heart monitoring. Nephrology Dr. Duarte also recommends outpatient urology follow up because imaging of moderate right hydronephrosis but the patient does not have any flank pain or urinary symptoms) 12/05/2018 10:00 AM Provider Gregoria Ignacio RN Department [facility] primary care doctor 12/10/2018 1:30 PM Provider Carol Drake DO Department [facility] Nephrology 12/15/2018 1:00 PM Provider Bennie Duarte MD Department Nephrology, [facility] 12/22/2018 8:00 AM Provider Cammy Gonzalez Department [facility] 12/23/2018 2:00 PM Provider Talha Bahena DO Department Otolaryngology [facility] 12/29/2018 10:15 AM Provider Chester Long MD Department Hematology/Oncology [facility] Pending Studies at Discharge: No Stand-Alone Forms: My [facility] Medications and DC Order Prescriptions: New metoprolol succinate 25 mg Tablet Extended Release 24 Hr 25 mg PO DAILY 30 Days Qty: 30 RF: 0 magnesium oxide 400 mg (241.3 mg magnesium) Tablet 400 mg PO DAILY 30 Days Qty: 30 RF: 0 ergocalciferol (vitamin D2) [Vitamin D2] 50,000 unit Capsule 50,000 unit PO CQWK 4 Days Qty: 4 RF: 0 calcitriol 0.25 mcg Capsule 0.5 mcg PO QAM 30 Days Qty: 60 RF: 0 calcium carbonate 650 mg calcium (1,625 mg) tablet 650 mg PO TID 30 Days Qty: 90 RF: 0 furosemide 20 mg tablet 20 mg PO DAILY 30 Days Qty: 30 RF: 0 Continued prednisone 10 mg Tablet 60 mg PO DAILY RF: 0 citalopram 10 mg Tablet 10 mg PO DAILY RF: 0 nystatin 100,000 unit/mL Suspension 5 ml PO QID RF: 0 sennosides-docusate sodium [Senna with Docusate Sodium] 8.6-50 mg Tablet 1 tab PO DAILY RF: 0 prochlorperazine maleate [Compazine] 10 mg Tablet 10 mg PO Q6H PRN (Reason: Nausea And Vomiting) RF: 0 triamcinolone acetonide 0.1 % Cream 1 applic TOPICAL BID PRN (Reason: Rash) RF: 0 isosorbide mononitrate 30 mg Tablet Extended Release 24 Hr 30 mg PO QAM RF: 0 folic acid 1 mg Tablet 1 mg PO QAM RF: 0 tramadol 50 mg Tablet 25 mg PO Q6H PRN (Reason: Pain) RF: 0 clonazepam 1 mg Tablet 1 mg PO BID RF: 0 levothyroxine 150 mcg Tablet 150 mcg PO QAM RF: 0 omeprazole 20 mg Capsule,Delayed Release(Dr/Ec) 20 mg PO BID RF: 0 glimepiride 1 mg tablet 1 mg PO DAILY@0800 RF: 0 benazepril 20 mg tablet 20 mg PO DAILY RF: 0 nystatin 100,000 unit/gram powder 1 applic topical TID RF: 0 glipizide 5 mg tablet 5 mg PO DAILY@0800 RF: 0 Discontinued amlodipine 5 mg tablet 5 mg PO DAILY Qty: 30 RF: 0 calcium carbonate-vitamin D3 [Oysco 500/D] 500 mg(1,250mg) -200 unit Tablet 1 tab PO BID RF: 0 furosemide 20 mg tablet 20 mg PO TID RF: 0 Discharge Orders: Discharge Order (Routine); Ordered 12/04/18 Ordered By: Tye Weathers/Other Patient Handouts: Hyperglycemia, Hypoglycemia Admission Data Admit Date/Time: 12/02/18 10:54 Attending Provider: Tye Cardenas Admit Provider: Tye Cardenas Primary Care Provider: Lor Garcia Other Providers: Tye Cardenas ; Ernie Faith ; Bennie Duarte
[2018-12-09] MEDS ORDERED: ERGOCALCIFEROL 50,000 UNITS CAP PO SCH (09:00)
== END 2018-12-04 14:11 | disposition home health service (06) | DRG 641 ==
LOC: ED 16:30 → 2W 16:30

== ENCOUNTER 2019-11-14 12:50 | Inpatient (IN) ==
--- NOTE | 2019-11-14 13:03 | Emergency Department Note ---
History of Present Illness General Chief complaint: Fall Stated complaint: fall/ abd&back pain Time Seen by Provider: 11/14/19 12:53 Source: patient, family (Granddaughter who is at the bedside) and EMS Mode of arrival: EMS Limitations: no limitations History of Present Illness Maximum Pain Intensity: 5 This patient comes in after suffering a Mechanical fall while folding towels. She had no syncope or symptoms prior to falling she fell from a stand and has pain in her right upper quadrant. It radiates to her back. Denies shortness of breath or chest pain. No known exposure to COVID. No fever or chills. No numbness or weakness. No extremity injury she did not hit her head or get knocked out. She does have a history of leukemia but I do not have recent labs here as they apparently were done to the [facility] system, she tells me her hemoglobin was 12 last week and her labs look good Home Medications Home Medications Medication Instructions Recorded Confirmed Type clonazepam 1 mg PO BID 09/05/18 11/14/19 History folic acid 1 mg PO QAM 09/05/18 11/14/19 History isosorbide mononitrate 30 mg PO QAM 09/05/18 11/14/19 History levothyroxine 175 mcg PO QAM 09/05/18 11/14/19 History omeprazole 20 mg PO BID 09/05/18 11/14/19 History tramadol 50 mg PO Q12H PRN 09/05/18 11/14/19 History citalopram 10 mg PO DAILY 09/24/18 11/14/19 History prednisone 10 mg PO Q2D 09/24/18 11/14/19 History nystatin 5 ml PO QID 10/15/18 11/14/19 History prochlorperazine maleate 10 mg PO Q6H PRN 10/15/18 11/14/19 History [Compazine] sennosides-docusate sodium [Senna 1 tab PO DAILY 10/15/18 11/14/19 History with Docusate Sodium] triamcinolone acetonide 1 applic TOPICAL BID PRN 10/15/18 11/14/19 History nystatin 1 applic TOPICAL TID 12/01/18 11/14/19 History Colace 100 mg PO BID 11/14/19 11/14/19 History Zofran ODT 8 mg PO Q8H 11/14/19 11/14/19 History allopurinol 100 mg PO DAILY 11/14/19 11/14/19 History calcitriol 1 cap PO DAILY 11/14/19 11/14/19 History calcium carbonate 600 mg PO BIDM 11/14/19 11/14/19 History ibrutinib 280 mg PO DAILY 11/14/19 11/14/19 History polyethylene glycol 3350 17 g PO DAILY 11/14/19 11/14/19 History torsemide 10 mg PO DAILY 11/14/19 11/14/19 History Allergies Allergy/AdvReac Type Severity Reaction Status Date / Time lorazepam Allergy Unknown UNKNOWN Unverified 11/14/19 16:26 pneumococcal vaccine Allergy Unknown Unknown Verified 12/01/18 17:35 sulfamethoxazole AdvReac Nausea Verified 11/14/19 16:26 [From Bactrim] trimethoprim [From Bactrim] AdvReac Nausea Verified 11/14/19 16:23 Past Med/Surg History Medical History (Updated 11/14/19 @ 16:42 by Neeraj Granados MD) Acute renal failure Asthma Diabetes mellitus Hemolytic anemia Kailyn positive hemolytic anemia; dx in 2013 HTN (hypertension) Hypocalcemia Kidney stones Lymphoma B-cell CLL, dx in 2013 Non-STEMI (non-ST elevated myocardial infarction) Sepsis Thyroid cancer recurrent papillary thyroid cancer; s/p surgery; dx in 2009 TIA (transient ischemic attack) Surgical History History of hernia repair History of knee surgery b/l knees History of thyroidectomy several cancer surgeries on thyroid Family History Mother Colorectal cancer Brother Diabetes Sister Diabetes Social History Smoking Status: Never smoker Second Hand Exposure: No; Do You Dip or Chew Tobacco: No; Tobacco Cessation Education Requested by Patient: No Hx Alcohol Use: No Hx Substance Use: No Preferred Language: Divehi Communication Ability: Effective Reconditioning Associate Required: No Beliefs That Will Affect Care: None marital status: / Current Living Situation: Alone Current Living Situation Comment: pt son lives in pt basement until he is able to find a new place to live. current occupational status: retired How many Children do You have: 3 Other Information That Helps Us Care for You: No Feels Safe at Home: Yes Safety Concerns: Feels Safe At This Time Review of Systems A total of 10 systems reviewed and were otherwise negative Physical Exam Vital Signs Vital Signs - 24 hr 11/14/19 12:53 11/14/19 12:55 11/14/19 14:07 Temperature 36.7 C Temperature Source Oral Pulse Rate 87 85 Pulse Rate from SpO2 Sensor 85 Pulse Rhythm Regular Pulse Strength Normal Respiratory Rate 16 10 L Respiratory Effort / Characteristics Non-Labored Respiratory Depth Normal Respiratory Pattern Regular Blood Pressure 167/93 H 167/93 H 145/75 H Blood Pressure Mean 109 117 95 Blood Pressure Position Lying Pulse Oximetry 100 94 Oxygen Delivery Method Room Air Sepsis Recent Fever Within 48 Hours No Sepsis New/Unexplained Change in Mental Status No Sepsis Action Taken by Nursing No Action Required 11/14/19 14:08 11/14/19 14:30 11/14/19 14:31 Temperature Temperature Source Pulse Rate 86 83 83 Pulse Rate from SpO2 Sensor 86 83 85 Pulse Rhythm Pulse Strength Respiratory Rate 13 19 16 Respiratory Effort / Characteristics Respiratory Depth Respiratory Pattern Blood Pressure 144/79 H Blood Pressure Mean 103 Blood Pressure Position Pulse Oximetry 95 100 100 Oxygen Delivery Method Sepsis Recent Fever Within 48 Hours Sepsis New/Unexplained Change in Mental Status Sepsis Action Taken by Nursing 11/14/19 15:00 11/14/19 15:01 11/14/19 15:30 Temperature Temperature Source Pulse Rate 86 86 86 Pulse Rate from SpO2 Sensor Pulse Rhythm Pulse Strength Respiratory Rate 12 13 17 Respiratory Effort / Characteristics Respiratory Depth Respiratory Pattern Blood Pressure 135/75 123/71 Blood Pressure Mean 93 103 Blood Pressure Position Pulse Oximetry Oxygen Delivery Method Sepsis Recent Fever Within 48 Hours Sepsis New/Unexplained Change in Mental Status Sepsis Action Taken by Nursing 11/14/19 15:31 11/14/19 16:01 11/14/19 16:02 Temperature Temperature Source Pulse Rate 85 82 106 H Pulse Rate from SpO2 Sensor Pulse Rhythm Pulse Strength Respiratory Rate 16 17 18 Respiratory Effort / Characteristics Respiratory Depth Respiratory Pattern Blood Pressure 145/70 H Blood Pressure Mean 79 Blood Pressure Position Pulse Oximetry Oxygen Delivery Method Sepsis Recent Fever Within 48 Hours Sepsis New/Unexplained Change in Mental Status Sepsis Action Taken by Nursing General: Well developed well nourished in no acute distress, breathing comfortably on room air. Normal speech HEENT: Normal cephalic atraumatic. Pupils are equal round and reactive to light. Extraocular movements are intact. Oropharynx is pink with moist mucous membranes. No swelling of the mouth lips or tongue. Neck: Supple with a midline trachea. No meningeal signs or stiffness, no JVD or bruits. No Stridor. Chest: Clear to auscultation bilaterally. No wheezes or rhonchi. No increased work of breathing. Heart: Regular rate and rhythm without murmurs or gallops. Abdomen: Soft nontender, nondistended without rebound guarding or rigidity. Extremities: No cyanosis clubbing or edema. No calf tenderness or assymetry Spine/Back. Non tender to palpation. No CVA tenderness Skin: Good turgor without rashes. Neurologic exam: Cranial nerves two through 12 are intact. Motor and sensation are intact and symmetrical throughout. Course Administered Medications Discontinued Medications Morphine Sulfate (Morphine Sulfate 2 Mg/Ml Carp) 2 mg IV NOW STA Stop: 11/14/19 13:26 Last Admin: 11/14/19 14:11 Dose: 2 mg Documented by: [id number] Ondansetron HCl (Ondansetron Inj 2 Mg/Ml 2 Ml Vial) 4 mg IV NOW STA Stop: 11/14/19 13:26 Last Admin: 11/14/19 14:11 Dose: 4 mg Documented by: [id number] Medical Decision Making Differential Diagnosis Trauma, anemia, cardiac disease, intra-abdominal hemorrhage, liver disease/trauma, cancer complicated Medical Records Attestation: I reviewed the patient's medical records. Home Medications Current Medication List: was personally reviewed by me Laboratory Data Attestation: I reviewed the patient's lab results. Result diagrams: 11/14/19 13:22 11/14/19 13:22 Lab Results 11/14/19 11/14/19 11/14/19 Range/Units 13:18 13:22 13:22 WBC 4.93 (4.8-10.8) K/uL RBC 4.43 (4.2-5.4) M/uL Hgb 13.1 (12.0-16.0) g/dL POC Hgb (12.0-16.0) g/dl Hct 41.7 (37-47) % POC Hct (37-47) % MCV 94.1 (80-100) fL MCH 29.6 (25-34) pg MCHC 31.4 L (32-36) g/dL RDW Std Deviation 55.1 H (36.4-46.3) fL RDW Coeff of Marcelina 16.0 H (11.5-14.5) % Plt Count 116 L (130-400) K/uL MPV 12.2 H (7.4-10.4) fL Neutrophils % (Manual) 37.1 % Lymphocytes % (Manual) 21.4 % Monocytes % (Manual) 6.6 % Eosinophils % (Manual) 3.9 % Basophils % (Manual) 2.2 % Neutrophils # (Manual) 1.83 (1.4-6.5) K/uL Total Absolute Neuts 1.83 (1.4-6.5) K/uL Lymphocytes # (Manual) 1.06 L (1.2-3.4) K/uL Total Abs Lymphocytes 2.47 (1.2-3.4) K/uL Monocytes # (Manual) 0.33 (0.11-0.59) K/uL Eosinophils # (Manual) 0.19 (0-0.5) K/uL Basophils # (Manual) 0.11 (0-0.2) K/uL Hypersegmented Neuts Occasional Large Granular Lymphs 28.8 % # Lrg Granular Lymphs 1.42 K/uL Platelet Estimate Decreased L (Normal) Giant Platelets 1+ PT (9.0-12.0) Seconds INR (0.9-1.1) APTT (21.0-31.0) Seconds PTT Ratio POC Sodium (135-144) mmol/L Sodium 142 (136-145) mmol/L POC Potassium (3.3-5.0) mmol/L Potassium 3.7 (3.5-5.1) mmol/L POC Chloride (101-112) mmol/L Chloride 102 (98-107) mmol/L Carbon Dioxide 32 (21-32) mmol/L POC Total CO2 (24-31) mmol/L Anion Gap 8.0 (3-11) POC Anion Gap (16-25) mmol/L POC BUN (7-18) mg/dl BUN 32 H (7-18) mg/dl Creatinine 1.49 H (0.6-1.2) mg/dl POC Creatinine (0.6-1.3) mg/dl Est Cr Clr Drug Dosing 32.7 ml/min Est GFR ( Amer) 37.5 Est GFR (Non-Af Amer) 32.4 BUN/Creatinine Ratio 21.3 H (10-20) Glucose 116 H (70-99) mg/dl POC Glucose (other) (70-99) mg/dl Calcium 9.6 (8.5-10.1) mg/dl POC Ioniz Calcium Will (1.12-1.32) mmol/l Total Bilirubin 0.5 (0.2-1) mg/dl AST 24 (15-37) U/L ALT 20 (12-78) U/L Alkaline Phosphatase 47 (45-117) U/L Troponin I < 0.015 (0-0.045) ng/ml Total Protein 6.7 (6.4-8.2) gm/dl Albumin 3.9 (3.4-5.0) gm/dl Globulin 2.8 (2.5-4.0) gm/dl Albumin/Globulin Ratio 1.4 (0.9-2) Lipase 64 L (73-393) U/L Blood Type O Positive Antibody Screen NEGATIVE 11/14/19 11/14/19 Range/Units 13:22 13:28 WBC (4.8-10.8) K/uL RBC (4.2-5.4) M/uL Hgb (12.0-16.0) g/dL POC Hgb 13.3 (12.0-16.0) g/dl Hct (37-47) % POC Hct 39 (37-47) % MCV (80-100) fL MCH (25-34) pg MCHC (32-36) g/dL RDW Std Deviation (36.4-46.3) fL RDW Coeff of Marcelina (11.5-14.5) % Plt Count (130-400) K/uL MPV (7.4-10.4) fL Neutrophils % (Manual) % Lymphocytes % (Manual) % Monocytes % (Manual) % Eosinophils % (Manual) % Basophils % (Manual) % Neutrophils # (Manual) (1.4-6.5) K/uL Total Absolute Neuts (1.4-6.5) K/uL Lymphocytes # (Manual) (1.2-3.4) K/uL Total Abs Lymphocytes (1.2-3.4) K/uL Monocytes # (Manual) (0.11-0.59) K/uL Eosinophils # (Manual) (0-0.5) K/uL Basophils # (Manual) (0-0.2) K/uL Hypersegmented Neuts Large Granular Lymphs % # Lrg Granular Lymphs K/uL Platelet Estimate (Normal) Giant Platelets PT 10.8 (9.0-12.0) Seconds INR 1.0 (0.9-1.1) APTT 25.1 (21.0-31.0) Seconds PTT Ratio 0.9 POC Sodium 140 (135-144) mmol/L Sodium (136-145) mmol/L POC Potassium 3.6 (3.3-5.0) mmol/L Potassium (3.5-5.1) mmol/L POC Chloride 98 L (101-112) mmol/L Chloride (98-107) mmol/L Carbon Dioxide (21-32) mmol/L POC Total CO2 30 (24-31) mmol/L Anion Gap (3-11) POC Anion Gap 17.0 (16-25) mmol/L POC BUN 30 H (7-18) mg/dl BUN (7-18) mg/dl Creatinine (0.6-1.2) mg/dl POC Creatinine 1.5 H (0.6-1.3) mg/dl Est Cr Clr Drug Dosing ml/min Est GFR ( Amer) Est GFR (Non-Af Amer) BUN/Creatinine Ratio (10-20) Glucose (70-99) mg/dl POC Glucose (other) 117 H (70-99) mg/dl Calcium (8.5-10.1) mg/dl POC Ioniz Calcium Will 1.14 (1.12-1.32) mmol/l Total Bilirubin (0.2-1) mg/dl AST (15-37) U/L ALT (12-78) U/L Alkaline Phosphatase (45-117) U/L Troponin I (0-0.045) ng/ml Total Protein (6.4-8.2) gm/dl Albumin (3.4-5.0) gm/dl Globulin (2.5-4.0) gm/dl Albumin/Globulin Ratio (0.9-2) Lipase (73-393) U/L Blood Type Antibody Screen Imaging Data Radiologist's Impression: CT OF THE CHEST WITHOUT IV CONTRAST CLINICAL HISTORY: Trauma. Right-sided chest pain. History of leukemia. COMPARISON STUDY: Chest radiograph October 15, 2018. CT DOSE: 1924.74 mGy.cm TECHNIQUE: Axial images of the chest were obtained without IV contrast. Images were reviewed in the axial, sagittal, and coronal planes. IV contrast was not administered for this examination. Automated exposure control was utilized for the study. A dose lowering technique was utilized adhering to the principles of ALARA. FINDINGS: Evaluation of the thoracic aorta is suboptimal as unenhanced exam but there is no mediastinal hematoma. There is no evidence for traumatic injury. There is moderate cardiomegaly and extensive coronary calcification. There is no pericardial effusion. No pleural effusion is noted. Note is made of acute nondisplaced fractures of the posterior lateral right fourth through ninth ribs. There is also an additional acute nondisplaced fracture of the posterior right sixth rib. There is a a trace posterior pneumothorax. Several calcified granulomas within the lungs are noted. There are multiple small noncalcified nodules and a 6 mm subpleural right upper lobe nodule on image 66. These are likely benign. No acute thoracic spine fracture is noted. The abdomen and pelvis will be reported separately. IMPRESSION: 1. Acute nondisplaced fractures of the posterolateral right fourth through ninth ribs and an additional acute undisplaced fracture of the posterior right sixth rib. Trace posterior right pneumothorax. 2. No additional acute traumatic findings within the chest. 3. Several small pulmonary nodules which are likely benign. A follow-up chest CT in 6 months to ensure stability is recommended. ECG Data Indication: + chest pain Rate (beats per minute): 82 Rhythm: + normal sinus ECG Intervals/blocks: no Normal QRS, no Normal QT and no Normal MD ECG [place]: + Normal ECG ST segments: + Normal ST segments ECG Findings: no PACs and no PVCs Comparison ECG Date: from (12/02/18) Change: no significant change Blood Pressure Blood Pressure Findings: Normal blood pressure Blood Pressure Disposition: did not require urgent referral MDM Narrative This patient comes in suffer mechanical fall. She has pain in the right upper abdomen is complicated fact that she does a history of leukemia apparently. IV access was established, blood work was obtained and I did order CAT scans. Given her renal insufficiency, I did order these without contrast. She was found to have multiple nondisplaced rib fractures in the right and a trace pneumothorax which is a small just a small air bubble certainly nothing to require a chest tube acutely. EKG was unremarkable. She is not significantly anemic. she has no significant electrolyte or metabolic abnormalities. She did receive IV morphine 2 mg and Zofran 4 mg IV and seems to be resting comfortably with this. I did consult the [facility] hospitalist and they saw her in the ER will admit her for pain management and further evaluation. Impression & Plan Multiple rib fractures involving four or more ribs, Fall, Pneumothorax, Chest pain Discharge Plan Visit Data Chief Complaint: Fall Stated Complaint: fall/ abd&back pain ED Provider: Neeraj Granados Discharge Problem: Multiple rib fractures involving four or more ribs, Fall, Pneumothorax, Chest pain Patient Disposition: Admitted As Inpatient Discharge Instructions Interventions: ED Discharge Assessment Last Done: 11/14/19 16:29 Forms Stand Alone Forms: My [facility] Prescriptions Prescriptions: No Action prednisone 10 mg Tablet 10 mg PO Q2D RF: 0 citalopram 10 mg Tablet 10 mg PO DAILY RF: 0 nystatin 100,000 unit/mL Suspension 5 ml PO QID RF: 0 sennosides-docusate sodium [Senna with Docusate Sodium] 8.6-50 mg Tablet 1 tab PO DAILY RF: 0 prochlorperazine maleate [Compazine] 10 mg Tablet 10 mg PO Q6H PRN (Reason: Nausea And Vomiting) RF: 0 triamcinolone acetonide 0.1 % Cream 1 applic TOPICAL BID PRN (Reason: Rash) RF: 0 torsemide 10 mg tablet 10 mg PO DAILY RF: 0 allopurinol 100 mg tablet 100 mg PO DAILY RF: 0 Colace 100 mg capsule 100 mg PO BID RF: 0 Zofran ODT 8 mg tablet 8 mg PO Q8H RF: 0 calcitriol 1 cap capsule 1 cap PO DAILY RF: 0 calcium carbonate 600 mg tablet 600 mg PO BIDM RF: 0 ibrutinib 140 mg capsule 280 mg PO DAILY RF: 0 polyethylene glycol 3350 17 g 17 g PO DAILY RF: 0 isosorbide mononitrate 30 mg Tablet Extended Release 24 Hr 30 mg PO QAM RF: 0 folic acid 1 mg Tablet 1 mg PO QAM RF: 0 tramadol 50 mg Tablet 50 mg PO Q12H PRN (Reason: Pain) RF: 0 clonazepam 1 mg Tablet 1 mg PO BID RF: 0 levothyroxine 150 mcg Tablet 175 mcg PO QAM RF: 0 omeprazole 20 mg Capsule,Delayed Release(Dr/Ec) 20 mg PO BID RF: 0 nystatin 100,000 unit/gram powder 1 applic topical TID RF: 0 Referrals Referrals: PCP,NO [Primary Care Provider] - Discharge Problem: Fall Qualifiers: Encounter type: initial encounter Qualified Code(s): W19.XXXA - Unspecified fall, initial encounter Pneumothorax Qualifiers: Pneumothorax type: traumatic Encounter type: initial encounter Qualified Code(s): S27.0XXA - Traumatic pneumothorax, initial encounter Chest pain Qualifiers: Chest pain type: unspecified Qualified Code(s): R07.9 - Chest pain, unspecified
[2019-11-14] MEDS ORDERED: MoRPHine SULFATE 2 MG/ML CARP IV STA (13:25)
[2019-11-14] MEDS ORDERED: ONDANSETRON INJ 2 MG/ML 2 ML VIAL IV STA (13:25)
[2019-11-14 13:41] LABS: Partial Thromboplastin Ratio 0.9; Partial Thromboplastin Time 25.1 Seconds (21.0-31.0); Prothrombin Time 10.8 Seconds (9.0-12.0)
[2019-11-14 13:42] LABS: iSTAT Creatinine 1.5 mg/dl (0.6-1.3); iSTAT Hemoglobin 13.3 g/dl (12.0-16.0); iSTAT Ionized Calcium 1.14 mmol/l (1.12-1.32); iSTAT Potassium 3.6 mmol/L (3.3-5.0)
[2019-11-14 13:52] LABS: Alanine Aminotransferase 20 U/L (12-78); Albumin Level 3.9 gm/dl (3.4-5.0); Aspartate Aminotransferase 24 U/L (15-37); BUN Creatinine Ratio 21.3 (10-20); Blood Urea Nitrogen 32 mg/dl (7-18); Calcium 9.6 mg/dl (8.5-10.1); Carbon Dioxide 32 mmol/L (21-32); Chloride 102 mmol/L (98-107); Creatinine Clr Calc Pharmacy 32.7 ml/min; Est GFR (African American) 37.5; Est GFR (Non-African American) 32.4; Glucose 116 mg/dl (70-99); Lipase 64 U/L (73-393); Potassium 3.7 mmol/L (3.5-5.1); Sodium 142 mmol/L (136-145)
[2019-11-14 13:55] LABS: Hematocrit (blood only) 41.7 % (37-47); Hemoglobin 13.1 g/dL (12.0-16.0); Mean Corpuscular Hemoglobin 29.6 pg (25-34); Mean Corpuscular Hgb Conc 31.4 g/dL (32-36); Mean Corpuscular Volume 94.1 fL (80-100); Mean Platelet Volume 12.2 fL (7.4-10.4); Platelet Count 116 K/uL (130-400); RDW Standard Deviation 55.1 fL (36.4-46.3); Red Blood Count 4.43 M/uL (4.2-5.4); White Blood Count 4.93 K/uL (4.8-10.8)
[2019-11-14 13:57] LABS: Albumin Globulin Ratio 1.4 (0.9-2); Alkaline Phosphatase 47 U/L (45-117); Bilirubin,Total 0.5 mg/dl (0.2-1); Globulin 2.8 gm/dl (2.5-4.0); Total Protein 6.7 gm/dl (6.4-8.2); Troponin I < 0.015 ng/ml (0-0.045)
--- NOTE | 2019-11-14 14:13 | CT Scan Report ---
CT OF THE CHEST WITHOUT IV CONTRAST CLINICAL HISTORY: Trauma. Right-sided chest pain. History of leukemia. COMPARISON STUDY: Chest radiograph October 15, 2018. CT DOSE: 1924.74 mGy.cm TECHNIQUE: Axial images of the chest were obtained without IV contrast. Images were reviewed in the axial, sagittal, and coronal planes. IV contrast was not administered for this examination. Automat ed exposure control was utilized for the study. A dose lowering technique was utilized adhering to t he principles of ALARA. FINDINGS: Evaluation of the thoracic aorta is suboptimal as unenhanced exam but there is no mediasti nal hematoma. There is no evidence for traumatic injury. There is moderate cardiomegaly and extensive coronary calcification. There is no pericardial effusion. No pleural effusion is noted. Note is made of acute nondisplaced fractures of the posterior lateral right fourth through ninth ribs. There is a lso an additional acute nondisplaced fracture of the posterior right sixth rib. There is a a trace po sterior pneumothorax. Several calcified granulomas within the lungs are noted. There are multiple sma ll noncalcified nodules and a 6 mm subpleural right upper lobe nodule on image 66. These are likely b enign. No acute thoracic spine fracture is noted. The abdomen and pelvis will be reported separately. IMPRESSION: 1. Acute nondisplaced fractures of the posterolateral right fourth through ninth ribs and an addition al acute undisplaced fracture of the posterior right sixth rib. Trace posterior right pneumothorax. 2. No additional acute traumatic findings within the chest. 3. Several small pulmonary nodules which are likely benign. A follow-up chest CT in 6 months to ensur e stability is recommended. ACT 112: Negative or not required by law. Electronically signed by: Elio Cohen M.D. 11/14/2019 2:11 PM
[2019-11-14 14:20] LABS: ALC (manual) 2.47 K/uL (1.2-3.4); ANC (manual) 1.83 K/uL (1.4-6.5); Basophils # (manual) 0.11 K/uL (0-0.2); Basophils % (manual) 2.2 %; Eosinophils # (manual) 0.19 K/uL (0-0.5); Eosinophils % (manual) 3.9 %; Giant Platelets 1+; Large Granular Lymph # (manua 1.42 K/uL; Large Granular Lymph % (manual) 28.8 %; Lymphocytes # (manual) 1.06 K/uL (1.2-3.4); Lymphocytes % (manual) 21.4 %; Monocytes # (manual) 0.33 K/uL (0.11-0.59); Monocytes % (manual) 6.6 %; Neutrophils # (manual) 1.83 K/uL (1.4-6.5); Neutrophils % (manual) 37.1 %; Platelet Estimate Decreased (Normal)
--- NOTE | 2019-11-14 14:21 | CT Scan Report ---
CT OF THE ABDOMEN AND PELVIS WITHOUT CONTRAST CLINICAL HISTORY: Right-sided abdominal pain following fall. COMPARISON STUDY: CT of the abdomen and pelvis October 12, 2015. Renal ultrasound December 02, 2018. TECHNIQUE: Axial images of the abdomen and pelvis were obtained without IV contrast. Images were revi ewed in the axial, sagittal, and coronal planes. Automated exposure control was utilized for the cedrick dy. A dose lowering technique was utilized adhering to the principles of ALARA. FINDINGS: Please note that the chest will be reported separately. Multiple nondisplaced acute right r ib fractures are better depicted on that exam. No acute fracture within the pelvis or hips is identif ied. There is no hemoperitoneum or pneumoperitoneum. Evaluation of the abdomen and pelvis is suboptim al on this unenhanced study. There are calcified granulomas within the liver and spleen. Note is made of a 3.3 x 2.7 cm peripancreatic lymph node. This has likely slightly increased in size since CT of October 12, 2015. However, similar findings were shown on prior exam with multiple additional enlarged para-aortic and upper abdominal lymph nodes. Overall, lymphadenopathy. Relatively similar. 2 left re nal pelvis calculi measure up to 1.4 cm. There is a 1.1 cm right renal pelvis calculus. Bilateral meseret al atrophy is noted. Mild right collecting system dilatation is unchanged and prior CT. There is sigm oid diverticulosis without evidence for acute diverticulitis. Mild mesenteric infiltration is noted. There is no free fluid within the pelvis. Mild bladder wall thickening is unchanged. Note is made of a 2 mm distal right ureteral calculus. There are no left ureteral catheter. Stones are noted within t he gallbladder without evidence for acute cholecystitis. IMPRESSION: 1. No acute traumatic findings within the abdomen or pelvis on unenhanced exam. 2. 2 mm distal right ureteral calculus with mild right hydroureteronephrosis. No renal pelvis calculi and several calculi within the lower pole of the left kidney. Marked bilateral renal atrophy. 3. Slight increase in abdominal lymphadenopathy since CT of October 12, 2015. 4. Cholelithiasis. No evidence for acute cholecystitis. 5. Mild bladder wall thickening which is similar to prior exam. ACT 112: Negative or not required by law. Electronically signed by: Elio Cohen M.D. 11/14/2019 2:20 PM
--- NOTE | 2019-11-14 16:23 | History & Physical Report ---
Date of Service November 14, 2019 Assessment & Plan (1) Ribs, multiple fractures: Is an 84-year-old female who was folding a blanket at home when she had a fall resulting in multiple rib fractures on the right side #4-9 with no evidence of flail chest. She does not recall falling and states that she does not think that she lost consciousness. She had no lightheadedness or dizziness but her son reports that she has had this over the last couple of days. Renal function is better than previous. She does not appear to be dehydrated. Neurologically she appears to be intact with no evidence of acute stroke or TIA. There is no evidence of ectopy on exam although she does have a history of paroxysmal multifocal atrial tachycardia. Recommendations: We will admit the patient to medical telemetry and keep on monitor. Check echocardiogram Follow vital signs and serial labs Check carotid duplex Ambulation with assistance Hold benzodiazepines PT/OT evaluation and treatment We will check EKG daily Discussed splinting with deep breaths Order incentive spirometry Out of bed to chair as tolerated (2) Multifocal atrial tachycardia: Patient is currently not on any antiarrhythmics or beta-blockers Admit to telemetry unit Check echocardiogram Check EKG x2 mornings No chest pain or tightness Troponin is negative (3) Lymphoma: B cell CLL Followed with Dr. 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 every other day Follow serial CBC (6) HTN (hypertension): Single agent management with Imdur Systolic pressure 144 We will admit to telemetry floor and follow vitals per protocol (7) CKD (chronic kidney disease) stage 3, GFR 30-59 ml/min: Baseline creatinine is been 1.7-2.0 Currently creatinine today is 1.49 Follow serial labs Ins and outs per protocol (8) Diabetes mellitus: Patient has been taken off all oral agents as well as insulin at home Previous hemoglobin A1c has been 4.5 06/18/2019 Check repeat hemoglobin A1c with a.m. labs (9) Pulmonary nodule: Incidental finding of small pulmonary nodules in the right upper lobe Patient has no tobacco abuse history She does have history of CLL and thyroid cancer Would follow-up CT in 6 months per Fleischner criteria (10) DVT prophylaxis: No chemical prophylaxis at this time pending CT scan of the head SCDs BLANCA anderson Please refer to Dr. Hall's addendum for further recommendations. History of Present Illness Primary Care Provider: NO PCP Attending: Dr. 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 Patient states that she was folding blanket today and the next thing she knew she had fallen. She does not remember the fall but does not think that she had any loss of consciousness. She is unaware if she tripped on the blanket or if she slipped on the floor. She does not recall any lightheadedness or dizziness but her son states that she may have had some. She had no chest pain or tightness. She had no shortness of breath. She does not have exertional dyspnea. She denies any fever or chills. She has no recent illness. She has no recent sick contacts. She denies nausea or vomiting. She states that her appetite has been well. She does not report any acute complaints other than rib pain at this time. The patient has never been a smoker. She has never had ethanol abuse. She currently lives alone but has family in the [facility] and [place]. She has no pets . She has no prior episodes of syncope or presyncope and denies any other cardiac or pulmonary disease. 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 She follows with Dr. Chester Long for CLL and for her autoimmune hemolytic anemia. She has been on chronic prednisone use with 60 mg/day initially and now tapered down to 10 mg every other day. Titration is based on hemoglobin and is managed by Dr. Long. She reports that she has been on this prednisone for well over a year. Allergies Allergy/AdvReac Type Severity Reaction Status Date / Time lorazepam Allergy Unknown UNKNOWN Unverified 11/14/19 16:26 pneumococcal vaccine Allergy Unknown Unknown Verified 12/01/18 17:35 sulfamethoxazole AdvReac Nausea Verified 11/14/19 16:26 [From Bactrim] trimethoprim [From Bactrim] AdvReac Nausea Verified 11/14/19 16:23 Home Medications Home Medications Medication Instructions Recorded Confirmed Type clonazepam 1 mg PO BID 09/05/18 11/14/19 History folic acid 1 mg PO QAM 09/05/18 11/14/19 History isosorbide mononitrate 30 mg PO QAM 09/05/18 11/14/19 History levothyroxine 175 mcg PO QAM 09/05/18 11/14/19 History omeprazole 20 mg PO BID 09/05/18 11/14/19 History tramadol 50 mg PO Q12H PRN 09/05/18 11/14/19 History citalopram 10 mg PO DAILY 09/24/18 11/14/19 History prednisone 10 mg PO Q2D 09/24/18 11/14/19 History nystatin 5 ml PO QID 10/15/18 11/14/19 History prochlorperazine maleate 10 mg PO Q6H PRN 10/15/18 11/14/19 History [Compazine] sennosides-docusate sodium [Senna 1 tab PO DAILY 10/15/18 11/14/19 History with Docusate Sodium] triamcinolone acetonide 1 applic TOPICAL BID PRN 10/15/18 11/14/19 History nystatin 1 applic TOPICAL TID 12/01/18 11/14/19 History Colace 100 mg PO BID 11/14/19 11/14/19 History Zofran ODT 8 mg PO Q8H 11/14/19 11/14/19 History allopurinol 100 mg PO DAILY 11/14/19 11/14/19 History calcitriol 1 cap PO DAILY 11/14/19 11/14/19 History calcium carbonate 600 mg PO BIDM 11/14/19 11/14/19 History ibrutinib 280 mg PO DAILY 11/14/19 11/14/19 History polyethylene glycol 3350 17 g PO DAILY 11/14/19 11/14/19 History torsemide 10 mg PO DAILY 11/14/19 11/14/19 History Past Med/Surg History Medical History (Updated 11/14/19 @ 16:42 by Neerja Granados MD) Acute renal failure Asthma Diabetes mellitus Hemolytic anemia Kailyn positive hemolytic anemia; dx in 2013 HTN (hypertension) Hypocalcemia Kidney stones Lymphoma B-cell CLL, dx in 2013 Non-STEMI (non-ST elevated myocardial infarction) Sepsis Thyroid cancer recurrent papillary thyroid cancer; s/p surgery; dx in 2009 TIA (transient ischemic attack) Surgical History History of hernia repair History of knee surgery b/l knees History of thyroidectomy several cancer surgeries on thyroid Family History Mother Colorectal cancer Brother Diabetes Sister Diabetes Social History Smoking Status: Never smoker Second Hand Exposure: No; Do You Dip or Chew Tobacco: No; Tobacco Cessation Education Requested by Patient: No Hx Alcohol Use: No Hx Substance Use: No Preferred Language: Hungarian Communication Ability: Effective Rn Nursery Required: No Beliefs That Will Affect Care: None marital status: / Current Living Situation: Alone Current Living Situation Comment: pt son lives in pt basement until he is able to find a new place to live. current occupational status: retired How many Children do You have: 3 Other Information That Helps Us Care for You: No Feels Safe at Home: Yes Safety Concerns: Feels Safe At This Time Review of Systems Review of Systems: All systems reviewed & are unremarkable except as noted in HPI & below Physical Exam Physical Exam: GENERAL : No acute distress. EYES: No icterus, gaze conjugate. Pupils equal round reactive to light NOSE: No evidence of epistaxis. No evidence of epistaxis MOUTH: No lesions or candidiasis. Mucosa is moist. Upper dentures in place and seems secure. No lower dentures. NECK: Supple. No appreciation of carotid bruits LUNGS: CTA B/L, no wheezes, rales or rhonchi. Poor inspirational effort secondary to pain HEART: Regular, rate controlled. No appreciation of murmurs gallops or rubs ABDOMEN: Soft, NT, ND, BS Present. No guarding or rebound tenderness EXTREMITIES: No LE edema, pedal pulses intact. Some evidence of venous insufficiency on bilateral lower extremities. No tissue breakdown between toes. Good sensation equal bilaterally NEURO: A&OX3. Negative pronator drift. Has difficulty lifting right arm secondary to pain. Pupils equal round react light. Tongue is midline. No facial droop. Mini-Mental Status Examination adequate. No appreciation of focal deficits of cranial nerves II through XII on exam Results & Data Results & Data ([facility]) Vital Signs (Past 12 Hours) Vital Signs Temp Pulse Resp BP Pulse Ox 11/14/19 14:31 83 16 100 11/14/19 14:30 83 19 144/79 H 100 11/14/19 14:08 86 13 95 11/14/19 14:07 85 10 L 145/75 H 94 11/14/19 12:55 36.7 C 87 16 167/93 H 100 11/14/19 12:53 167/93 H Laboratory Results 11/14/19 13:22 11/14/19 13:22 11/14/19 13:22 Troponin I < 0.015 INR 1.0 (0.9-1.1) 11/14/19 13:[address] OF THE CHEST WITHOUT IV CONTRAST CLINICAL HISTORY: Trauma. Right-sided chest pain. History of leukemia. COMPARISON STUDY: Chest radiograph October 15, 2018. CT DOSE: 1924.74 mGy.cm TECHNIQUE: Axial images of the chest were obtained without IV contrast. Images were reviewed in the axial, sagittal, and coronal planes. IV contrast was not administered for this examination. Automated exposure control was utilized for the study. A dose lowering technique was utilized adhering to the principles of ALARA. FINDINGS: Evaluation of the thoracic aorta is suboptimal as unenhanced exam but there is no mediastinal hematoma. There is no evidence for traumatic injury. There is moderate cardiomegaly and extensive coronary calcification. There is no pericardial effusion. No pleural effusion is noted. Note is made of acute nondisplaced fractures of the posterior lateral right fourth through ninth ribs. There is also an additional acute nondisplaced fracture of the posterior right sixth rib. There is a a trace posterior pneumothorax. Several calcified granulomas within the lungs are noted. There are multiple small noncalcified nodules and a 6 mm subpleural right upper lobe nodule on image 66. These are likely benign. No acute thoracic spine fracture is noted. The abdomen and pelvis will be reported separately. IMPRESSION: 1. Acute nondisplaced fractures of the posterolateral right fourth through ninth ribs and an additional acute undisplaced fracture of the posterior right sixth rib. Trace posterior right pneumothorax. 2. No additional acute traumatic findings within the chest. 3. Several small pulmonary nodules which are likely benign. A follow-up chest CT in 6 months to ensure stability is recommended. ACT 112: Negative or not required by law. Electronically signed by: Elio Cohen M.D. 11/14/2019 2:[address] OF THE ABDOMEN AND PELVIS WITHOUT CONTRAST CLINICAL HISTORY: Right-sided abdominal pain following fall. COMPARISON STUDY: CT of the abdomen and pelvis October 12, 2015. Renal ultrasound December 02, 2018. TECHNIQUE: Axial images of the abdomen and pelvis were obtained without IV contrast. Images were reviewed in the axial, sagittal, and coronal planes. Automated exposure control was utilized for the study. A dose lowering te chnique was utilized adhering to the principles of ALARA. FINDINGS: Please note that the chest will be reported separately. Multiple nondisplaced acute right rib fractures are better depicted on that exam. No acute fracture within the pelvis or hips is identified. There is no hemoperitoneum or pneumoperitoneum. Evaluation of the abdomen and pelvis is suboptimal on this unenhanced study. There are calcified granulomas within the liver and spleen. Note is made of a 3.3 x 2.7 cm peripancreatic lymph node. This has likely slightly increased in size since CT of October 12, 2015. However, similar findings were shown on prior exam with multiple additional enlarged para-aortic and upper abdominal lymph nodes. Overall, lymphadenopathy. Relatively similar. 2 left renal pelvis calculi measure up to 1.4 cm. There is a 1.1 cm right renal pelvis calculus. Bilateral renal atrophy is noted. Mild right collecting system dilatation is unchanged and prior CT. There is sigmoid diverticulosis without evidence for acute diverticulitis. Mild mesenteric infiltration is noted. There is no free fluid within the pelvis. Mild bladder wall thickening is unchanged. Note is made of a 2 mm distal right ureteral calculus. There are no left ureteral catheter. Stones are noted within the gallbladder without evidence for acute cholecystitis. IMPRESSION: 1. No acute traumatic findings within the abdomen or pelvis on unenhanced exam. 2. 2 mm distal right ureteral calculus with mild right hydroureteronephrosis. No renal pelvis calculi and several calculi within the lower pole of the left kidney. Marked bilateral renal atrophy. 3. Slight increase in abdominal lymphadenopathy since CT of October 12, 2015. 4. Cholelithiasis. No evidence for acute cholecystitis. 5. Mild bladder wall thickening which is similar to prior exam. ACT 112: Negative or not required by law. Electronically signed by: Elio Cohen M.D. 11/14/2019 2:20 PM Code Status & VTE Plan Code Status Level V: DNR/DNI. This was discussed in the present the patient as well as the son. They do have an advanced directive at home which the son will provide. VTE Prophylaxis Plan VTE Prophylaxis will be ordered: Yes Reason for no VTE drug order: Contraindicated Supervising Physician Co-Signing Physician Notes I have seen and examined the patient and have discussed the case with the provider above. I agree with the assessment and plan as stated. 84 yo F with fall while folding laundry. She is either a poor historian or had a syncopal event as she doesn't remember some of the episode. She is on prednisone and has active cancer on therapy. ROS are otherwise negative aside from OA of her legs. She reports taking APAP at home for this. She lives alone and her granddaughter is in and out. She handles her own medications and she ambulates independently at baseline. She reports not using a walker. She has no other symptoms at this time. Physical exam reveals mild tachycardia likely 2/2 pain, significant TTP on right lateral chest area. No significant bruising. Strength 5/5 throughout. Lungs are clear to auscultation bilaterally. Normal cardiac exam. Treatment overall is supportive. Will give pain patch, K pad for comfort, place her on APAP scheduled with opiates for breakthrough pain. [place], DO
[2019-11-14] MEDS ORDERED: PROCHLORPERAZINE MALEATE 10 MG TAB PO PRN (17:39)
[2019-11-14] MEDS ORDERED: MAGNESIUM HYDROXIDE SUSP 30 ML UDC PO PRN (17:39)
[2019-11-14] MEDS ORDERED: POLYETHYLENE (MIRALAX) 17 GM PACK PO PRN (17:39)
[2019-11-14] MEDS ORDERED: ACETAMINOPHEN 325 MG TAB PO PRN (17:39)
[2019-11-14] MEDS ORDERED: ALUMINUM/MAGNESIUM SUSP 30 ML UDC PO PRN (17:39)
[2019-11-14] MEDS: MoRPHine SULFATE 2 MG/ML CARP IV PRN (17:53)
--- NOTE | 2019-11-14 19:03 | Ultrasound Report ---
CAROTID ARTERY ULTRASOUND CLINICAL HISTORY: S/P fall ? syncope COMPARISON STUDY: None. TECHNIQUE: Real-time, grayscale, and color Doppler sonography of the carotid and vertebral arteries w as performed. Images were viewed in the transverse and longitudinal planes. FINDINGS: There is mild atherosclerotic plaque. Velocity measurements are listed below. COMMON CAROTID PEAK SYSTOLIC VELOCITY (CM/S): RIGHT 55 LEFT 56 ICA PEAK SYSTOLIC VELOCITY (CM/S): RIGHT 63 LEFT 64 The systolic ratios between the internal to common carotid arteries are normal. Antegrade flow is seen in the vertebral arteries. The external carotid arteries are patent. Blood pressure in the right arm measured 131/75. Blood pressure in the left arm measured 117/64. IMPRESSION: No evidence for a hemodynamically significant stenosis. ACT 112: Negative or not required by law. Electronically signed by: Elio Cohen M.D. 11/14/2019 7:02 PM
--- NOTE | 2019-11-14 19:07 | CT Scan Report ---
CT OF THE HEAD WITHOUT CONTRAST CLINICAL HISTORY: 84 yo with traumatic fall at 12:30pm today COMPARISON STUDY: Head CT October 12, 2015. CT DOSE: 537.48 mGy.cm TECHNIQUE: Helical axial images of the head were obtained without IV contrast. Automated exposure con trol was utilized for the study. A dose lowering technique was utilized adhering to the principles o f ALARA. FINDINGS: No acute intracranial hemorrhage, midline shift or mass effect is present. White matter hyp odensity suggests small vessel disease. The ventricular system is unremarkable. The basilar cisterns are patent. No extra-axial collections are present. There are no findings to suggest acute dural sinu s thrombosis or acute territorial infarct. No significant calvarial abnormalities are present. Visual ized portions of the sinuses and mastoid air cells are clear. IMPRESSION: 1. No acute intracranial findings. 2. No calvarial fracture. ACT 112: Negative or not required by law. Electronically signed by: Elio Cohen M.D. 11/14/2019 7:06 PM
--- NOTE | 2019-11-14 19:24 | XRay Report ---
XR chest 1V portable CLINICAL HISTORY: R/O right pneumothorax COMPARISON STUDY: Chest CT November 14, 2019 at 1:46 PM. FINDINGS: Patient is mildly rotated. There is no pneumothorax or pleural effusion. The nondisplaced r ight rib fractures on CT are not evident due to technique. Calcified granuloma within the right upper lobe is incidentally noted. Cardiomegaly is present. There is no evidence for pulmonary edema. Minim al left basilar opacity favors atelectasis. IMPRESSION: 1. No pneumothorax. 2. Mild cardiomegaly without evidence for pulmonary edema. 3. The right rib fractures shown on CT are not evident given radiographic technique. ACT 112: Negative or not required by law. Electronically signed by: Elio Cohen M.D. 11/14/2019 7:22 PM
[2019-11-14] MEDS: DOCUSATE SODIUM 100 MG CAP PO SCH (19:27)
[2019-11-14] MEDS: ACETAMINOPHEN 500 MG TAB PO SCH (19:27)
[2019-11-14] MEDS: PANTOprazole 40 MG TAB PO SCH (19:27)
[2019-11-14] MEDS: NYSTATIN SUSP 500,000 U/5 ML UDC PO SCH ×2 (19:27→20:27)
[2019-11-14] MEDS: predniSONE 10 MG TABLET PO SCH (19:28)
[2019-11-14] MEDS: CALCIUM 600MG + VIT D 400 IU TAB PO SCH (19:28)
[2019-11-14] MEDS: LIDOCAINE 5% 1 PATCH TD SCH (19:28)
[2019-11-15] MEDS: MoRPHine SULFATE 2 MG/ML CARP IV PRN ×2 (04:09→11:00)
[2019-11-15] MEDS: LEVOTHYROXINE SODIUM 175 MCG TABLET PO SCH (05:40)
[2019-11-15] MEDS: ACETAMINOPHEN 500 MG TAB PO SCH ×3 (05:40→21:05)
[2019-11-15 06:44] LABS: Hematocrit (blood only) 39.2 % (37-47); Hemoglobin 12.5 g/dL (12.0-16.0); Mean Corpuscular Hgb Conc 31.9 g/dL (32-36); Mean Platelet Volume 12.7 fL (7.4-10.4); Platelet Count 114 K/uL (130-400); RDW Coefficient of Variation 15.7 % (11.5-14.5); RDW Standard Deviation 54.1 fL (36.4-46.3); Red Blood Count 4.17 M/uL (4.2-5.4); White Blood Count 4.08 K/uL (4.8-10.8)
[2019-11-15 07:02] LABS: BUN Creatinine Ratio 20.3 (10-20); Calcium 8.8 mg/dl (8.5-10.1); Creatinine Clr Calc Pharmacy 36.6 ml/min; Est GFR (Non-African American) 37.1; Potassium 4.5 mmol/L (3.5-5.1)
[2019-11-15 07:10] LABS: ALC (manual) 2.06 K/uL (1.2-3.4); ANC (manual) 1.81 K/uL (1.4-6.5); Basophils # (manual) 0.04 K/uL (0-0.2); Basophils % (manual) 0.9 %; Eosinophils # (manual) 0.11 K/uL (0-0.5); Eosinophils % (manual) 2.6 %; Giant Platelets 1+; Large Granular Lymph # (manua 1.56 K/uL; Large Granular Lymph % (manual) 38.3 %; Lymphocytes % (manual) 12.2 %; Monocytes # (manual) 0.07 K/uL (0.11-0.59); Monocytes % (manual) 1.7 %; Neutrophils # (manual) 1.81 K/uL (1.4-6.5); Neutrophils % (manual) 44.3 %; Thyroid Stimulating Hormone 0.748 uIu/ml (0.300-4.500)
[2019-11-15] MEDS: LIDOCAINE 5% 1 PATCH TD SCH (07:43)
[2019-11-15] MEDS: ISOSORBIDE MONO EXTENDED REL 30 MG TABCR PO SCH (07:43)
[2019-11-15] MEDS: FOLIC ACID 1 MG TAB PO SCH (07:43)
[2019-11-15] MEDS: CITALOPRAM 20 MG TAB PO SCH (07:43)
[2019-11-15] MEDS: DOCUSATE SODIUM 100 MG CAP PO SCH ×2 (07:43→21:04)
[2019-11-15] MEDS: CALCITRIOL 0.25 MCG CAPSULE PO SCH (07:43)
[2019-11-15] MEDS: CALCIUM 600MG + VIT D 400 IU TAB PO SCH ×2 (07:43→16:34)
[2019-11-15] MEDS: TORSEMIDE 10 MG TAB PO SCH (07:43)
[2019-11-15] MEDS: allopurinoL 100 MG TAB PO SCH (07:44)
[2019-11-15] MEDS: PANTOprazole 40 MG TAB PO SCH ×2 (07:44→21:05)
[2019-11-15] MEDS: POLYETHYLENE (MIRALAX) 17 GM PACK PO SCH (07:44)
[2019-11-15] MEDS: OXYCODONE HCL IR 5 MG TAB (IMMEDIATE RELEASE) PO PRN ×3 (07:44→16:34)
[2019-11-15] MEDS: NYSTATIN SUSP 500,000 U/5 ML UDC PO SCH ×4 (07:44→21:05)
[2019-11-15] MEDS: DOCUSATE SODIUM/SENNA 50/8.6MG TAB PO SCH (07:44)
[2019-11-15 08:50] LABS: Estimated Average Glucose 120 mg/dl; Hemoglobin A1C 5.8 % (4.5-5.6)
--- NOTE | 2019-11-15 09:20 | Electrocardiogram Report ---
Test Reason : Blood Pressure : / mmHG Vent. Rate : 082 BPM Atrial Rate : 082 BPM P-R Int : 178 ms QRS Dur : 078 ms QT Int : 408 ms P-R-T Axes : 045 009 034 degrees QTc Int : 476 ms Normal sinus rhythm Normal ECG When compared with ECG of 02-DEC-2018 11:16, No significant change was found Confirmed by Chris Moeller ([id number]) on 11/15/2019 9:19:43 AM Referred By: REFERRED SELF Confirmed By:Chris Moeller
--- NOTE | 2019-11-15 09:39 | Electrocardiogram Report ---
Test Reason : Blood Pressure : / mmHG Vent. Rate : 087 BPM Atrial Rate : 087 BPM P-R Int : 188 ms QRS Dur : 076 ms QT Int : 392 ms P-R-T Axes : 034 007 024 degrees QTc Int : 471 ms Normal sinus rhythm Normal ECG When compared with ECG of 14-NOV-2019 14:05, (unconfirmed) No significant change was found Confirmed by Chris Moeller ([id number]) on 11/15/2019 9:39:12 AM Referred By: REFERRED SELF Confirmed By:Chris Moeller
--- NOTE | 2019-11-15 09:42 | Hospitalist Progress Note ---
Date of Service November 15, 2019 Assessment & Plan (1) Ribs, multiple fractures: No evidence of hemothorax on chest xray yesterday. Good lung sounds to the bases bilaterally on exam. Denies SOB or cough. Using IS. Ambulated today with PT. States lidocaine patch is not helpful. Morphine/luis for pain control on top of scheduled APAP. Cont supportive care. Per PT can go home with help from her son and ?HH. Will need script for rolling walker. (2) Lymphoma: Home cancer therapy, [facility]. will need to check with nurse to get it sent down to pharmacy for verification. (3) Thyroid cancer: s/p thyroidectomy, TSH at goal, cont home levothyroxine. (4) Hemolytic anemia: cont last part of prednisone taper per Dr. Long. (5) HTN (hypertension): At goal, cont home torsemide (6) CKD (chronic kidney disease) stage 3, GFR 30-59 ml/min: at baseline. (7) Diabetes mellitus: A!c 5.8, diet controlled. (8) Pulmonary nodule: follow-up as outpatient at discharge. (9) DVT prophylaxis: Lovenox DNR Dispo-to home once pain is controlled with oral pain medications. I spoke with the son this morning and updated him. All questions answered. Alma Hall DO [facility] Hospitalist Admission and Anticipated Discharge Date Admission Date: November 14, 2019 Subjective Feeling pain in right lateral chest wall as expected. Denies SOB or cough Lungs are clear at bases bilaterally Afebrile overnight Tolerating PO Worked with PT today Spoke with son who is at bedside today. Denies n/v Reports severe heartburn from her beef Review of Systems Review of Systems: All systems reviewed & are unremarkable except as noted in Subjective Physical Exam Physical Exam: CONSTITUTIONAL: obese, vitals as above, generally well- appearing with intermittent periods of grabbing her epigastric area. EYES: normal conjunctivae, no scleral icterus ENT: external ear and nose normal, oropharynx clear,MMM RESPIRATORY: clear to auscultation bilaterally, no crackles, rales or wheezes, normal respiratory effort CARDIOVASCULAR: regular rate and rhythm, 3/6 TONI heard at upper left lateral heart border, no gallops or rubs, no JVD, no peripheral edema GASTROINTESTINAL: soft, nontender, nondistended, no guarding MUSCULOSKELETAL: strength 5/5 throughout, head is normocephalic and atraumatic, significant tenderness to palpation of lateral chest wall without ecchymosis overlying SKIN: warm and dry NEUROLOGIC: CN 2-12 grossly intact, normal cognition, normal speech, no tremor PSYCHIATRIC: alert cooperative and oriented to person, place and time. Results & Data Results & Data ([facility]) Vital Signs (Past 12 Hours) Vital Signs Temp Pulse Pulse Resp BP BP Pulse Ox 11/15/19 07:19 36.9 C 85 18 114/70 91 11/15/19 04:00 36.9 C 87 18 113/69 92 11/15/19 01:20 85 11/14/19 23:00 37.1 C 82 18 113/69 93 Laboratory Results Short CBC 11/14/19 11/15/19 Range/Units 13:22 05:52 WBC 4.93 4.08 L (4.8-10.8) K/uL Hgb 13.1 12.5 (12.0-16.0) g/dL Hct 41.7 39.2 (37-47) % Plt Count 116 L 114 L (130-400) K/uL BMP 11/14/19 11/15/19 13:22 05:52 Sodium 142 144 Potassium 3.7 4.5 D Chloride 102 105 Carbon Dioxide 32 36 H BUN 32 H 27 H Creatinine 1.49 H 1.33 H Glucose 116 H 104 H Calcium 9.6 8.8 Cardiac Enzymes 11/14/19 Range/Units 13:22 Troponin I < 0.015 (0-0.045) ng/ml Liver Function 11/14/19 Range/Units 13:22 Total Bilirubin 0.5 (0.2-1) mg/dl AST 24 (15-37) U/L ALT 20 (12-78) U/L Alkaline Phosphatase 47 (45-117) U/L Albumin 3.9 (3.4-5.0) gm/dl Medications Administered Current Inpatient Medications Acetaminophen (Acetaminophen 500 Mg Tab) 1,000 mg PO Q8 YOGESH Stop: 12/14/19 17:59 Last Admin: 11/15/19 05:40 Dose: 1,000 mg Documented by: Al Hydrox/Mg Hydrox/Simethicone (Aluminum/Magnesium Susp 30 Ml Udc) 15 ml PO Q4H PRN PRN Reason: Dyspepsia Stop: 12/14/19 17:38 Allopurinol (Allopurinol 100 Mg Tab) 100 mg PO DAILY YOGESH Stop: 12/15/19 08:59 Last Admin: 11/15/19 07:44 Dose: 100 mg Documented by: Calcitriol (Calcitriol 0.25 Mcg Capsule) 0.5 mcg PO DAILY YOGESH Stop: 12/15/19 08:59 Last Admin: 11/15/19 07:43 Dose: 0.5 mcg Documented by: Citalopram Hydrobromide (Citalopram 20 Mg Tab) 10 mg PO DAILY YOGESH Stop: 12/15/19 08:59 Last Admin: 11/15/19 07:43 Dose: 10 mg Documented by: Docusate Sodium (Docusate Sodium 100 Mg Cap) 100 mg PO BID YOGESH Stop: 12/14/19 20:59 Last Admin: 11/15/19 07:43 Dose: 100 mg Documented by: Folic Acid (Folic Acid 1 Mg Tab) 1 mg PO QAM [facility] Stop: 12/15/19 08:59 Last Admin: 11/15/19 07:43 Dose: 1 mg Documented by: Isosorbide Mononitrate (Isosorbide [place] Extended Rel 30 Mg Tabcr) 30 mg PO QAM [facility] Stop: 12/15/19 08:59 Last Admin: 11/15/19 07:43 Dose: 30 mg Documented by: Levothyroxine Sodium (Levothyroxine Sodium 175 Mcg Tablet) 175 mcg PO DAILYBB [facility] Stop: 12/15/19 06:29 Last Admin: 11/15/19 05:40 Dose: 175 mcg Documented by: Lidocaine (Lidocaine 5% 1 Patch) 1 patch TD QAM [facility]OGESH Stop: 12/14/19 18:14 Last Admin: 11/15/19 07:43 Dose: 1 patch Documented by: Magnesium Hydroxide (Magnesium Hydroxide Susp 30 Ml Udc) 30 ml PO Q12H PRN PRN Reason: Constipation Stop: 12/14/19 17:38 Miscellaneous (Ibrutinib 280 Mg: Order Awaiting Action) 1 ea N/A QS [facility] Stop: 12/14/19 17:59 Last Admin: 11/15/19 07:32 Dose: Not Given Documented by: Miscellaneous (Remove Lidoderm Patch) 1 ea N/A DAILY@2100 [facility] Stop: 12/14/19 20:59 Last Admin: 11/14/19 20:27 Dose: Not Given Documented by: Morphine Sulfate (Morphine Sulfate 2 Mg/Ml Carp) 2 mg IV Q3H PRN PRN Reason: Pain Stop: 11/28/19 17:38 Last Admin: 11/15/19 04:09 Dose: 2 mg Documented by: Multivitamins/Minerals (Calcium 600mg + Vit D 400 Iu Tab) 1 tab PO BIDM [facility] Stop: 12/14/19 17:59 Last Admin: 11/15/19 07:43 Dose: 1 tab Documented by: Nystatin (Nystatin Susp 500,000 U/5 Ml Udc) 5 ml PO QID [facility] Stop: 11/24/19 17:59 Last Admin: 11/15/19 07:44 Dose: 5 ml Documented by: Ondansetron HCl (Ondansetron Inj 2 Mg/Ml 2 Ml Vial) 4 mg IV Q6H PRN PRN Reason: Nausea Stop: 12/14/19 17:38 Oxycodone HCl (Oxycodone Hcl Ir 5 Mg Tab (Immediate Release)) 5 mg PO Q4H PRN PRN Reason: Pain Stop: 11/28/19 17:46 Last Admin: 11/15/19 07:44 Dose: 5 mg Documented by: Pantoprazole Sodium (Pantoprazole 40 Mg Tab) 40 mg PO BID [facility] Stop: 12/14/19 20:59 Last Admin: 11/15/19 07:44 Dose: 40 mg Documented by: Polyethylene Glycol (Polyethylene (Miralax) 17 Gm Pack) 17 gm PO DAILY PRN PRN Reason: Constipation Stop: 12/14/19 17:38 Polyethylene Glycol (Polyethylene (Miralax) 17 Gm Pack) 17 gm PO DAILY [facility] Stop: 12/15/19 08:59 Last Admin: 11/15/19 07:44 Dose: 17 gm Documented by: Prednisone (Prednisone 10 Mg Tablet) 10 mg PO Q2D@0900 [facility] Stop: 12/14/19 18:29 Last Admin: 11/14/19 19:28 Dose: 10 mg Documented by: Prochlorperazine (Prochlorperazine Maleate 10 Mg Tab) 10 mg PO Q6H PRN PRN Reason: Nausea And Vomiting Stop: 12/14/19 17:38 Senna/Docusate Sodium (Docusate Sodium/Senna 50/8.6mg Tab) 1 tab PO DAILY YOGESH Stop: 12/15/19 08:59 Last Admin: 11/15/19 07:44 Dose: 1 tab Documented by: Torsemide (Torsemide 10 Mg Tab) 10 mg PO DAILY YOGESH Stop: 12/15/19 08:59 Last Admin: 11/15/19 07:43 Dose: 10 mg Documented by:
[2019-11-15] MEDS: ENOXAPARIN INJ 40 MG/0.4 ML SYR SQ SCH (17:19)
[2019-11-16] MEDS: MoRPHine SULFATE 2 MG/ML CARP IV PRN ×3 (00:18→19:39)
[2019-11-16] MEDS: ONDANSETRON INJ 2 MG/ML 2 ML VIAL IV PRN ×2 (00:26→17:04)
[2019-11-16] MEDS: LEVOTHYROXINE SODIUM 175 MCG TABLET PO SCH (06:13)
[2019-11-16] MEDS: ACETAMINOPHEN 500 MG TAB PO SCH ×3 (06:13→21:55)
[2019-11-16 06:39] LABS: Hematocrit (blood only) 39.2 % (37-47); Hemoglobin 12.5 g/dL (12.0-16.0); Mean Corpuscular Hemoglobin 29.9 pg (25-34); Mean Corpuscular Hgb Conc 31.9 g/dL (32-36); Mean Corpuscular Volume 93.8 fL (80-100); Mean Platelet Volume 12.2 fL (7.4-10.4); Platelet Count 96 K/uL (130-400); RDW Coefficient of Variation 15.9 % (11.5-14.5); RDW Standard Deviation 54.8 fL (36.4-46.3); Red Blood Count 4.18 M/uL (4.2-5.4); White Blood Count 4.75 K/uL (4.8-10.8)
[2019-11-16 06:44] LABS: Giant Platelets 1+
[2019-11-16 07:12] LABS: ALC (manual) 2.38 K/uL (1.2-3.4); ANC (manual) 1.76 K/uL (1.4-6.5); Eosinophils # (manual) 0.05 K/uL (0-0.5); Large Granular Lymph # (manua 1.57 K/uL; Lymphocytes # (manual) 0.81 K/uL (1.2-3.4); Monocytes # (manual) 0.57 K/uL (0.11-0.59); Neutrophils # (manual) 1.76 K/uL (1.4-6.5)
[2019-11-16 07:13] LABS: BUN Creatinine Ratio 19.3 (10-20); Calcium 8.6 mg/dl (8.5-10.1); Creatinine Clr Calc Pharmacy 32.2 ml/min; Est GFR (African American) 38.1; Est GFR (Non-African American) 32.9; Potassium 3.5 mmol/L (3.5-5.1)
[2019-11-16] MEDS: predniSONE 10 MG TABLET PO SCH (08:34)
[2019-11-16] MEDS: DOCUSATE SODIUM/SENNA 50/8.6MG TAB PO SCH (08:34)
[2019-11-16] MEDS: CITALOPRAM 20 MG TAB PO SCH (08:34)
[2019-11-16] MEDS: FOLIC ACID 1 MG TAB PO SCH (08:35)
[2019-11-16] MEDS: CALCITRIOL 0.25 MCG CAPSULE PO SCH (08:35)
[2019-11-16] MEDS: ISOSORBIDE MONO EXTENDED REL 30 MG TABCR PO SCH (08:35)
[2019-11-16] MEDS: TORSEMIDE 10 MG TAB PO SCH (08:35)
[2019-11-16] MEDS: IBRUTINIB PO SCH (08:36)
[2019-11-16] MEDS: DOCUSATE SODIUM 100 MG CAP PO SCH ×2 (08:36→21:57)
[2019-11-16] MEDS: CALCIUM 600MG + VIT D 400 IU TAB PO SCH ×2 (08:36→17:04)
[2019-11-16] MEDS: PANTOprazole 40 MG TAB PO SCH ×2 (08:36→21:56)
[2019-11-16] MEDS: allopurinoL 100 MG TAB PO SCH (08:37)
[2019-11-16] MEDS: OXYCODONE HCL IR 5 MG TAB (IMMEDIATE RELEASE) PO PRN ×2 (08:37→17:04)
[2019-11-16] MEDS: ENOXAPARIN INJ 40 MG/0.4 ML SYR SQ SCH (08:38)
[2019-11-16] MEDS: NYSTATIN SUSP 500,000 U/5 ML UDC PO SCH ×5 (08:42→21:57)
[2019-11-16] MEDS: POLYETHYLENE (MIRALAX) 17 GM PACK PO SCH (08:42)
--- NOTE | 2019-11-16 12:32 | Hospitalist Progress Note ---
Date of Service November 16, 2019 Assessment & Plan (1) Ribs, multiple fractures: Clear lung sounds to the bases bilaterally on exam. Denies SOB or cough. Using IS. Ambulating with PT. States lidocaine patch is not helpful. Morphine/luis for pain control on top of scheduled APAP. Cont supportive care. Per PT can go home with help from her son and ?HH. Will need script for rolling walker. (2) Lymphoma: cont home cancer oral therapy. (3) Thyroid cancer: s/p thyroidectomy, TSH at goal, cont home levothyroxine. (4) Hemolytic anemia: cont last part of prednisone taper per Dr. Long. She was actually down to 5mg q2D prior to coming in so she was switched down to this now. (5) HTN (hypertension): At goal, cont home torsemide (6) CKD (chronic kidney disease) stage 3, GFR 30-59 ml/min: at baseline. (7) Diabetes mellitus: A!c 5.8, diet controlled. (8) Pulmonary nodule: follow-up as outpatient after discharge. (9) Thrombocytopenia: (10) DVT prophylaxis: Lovenox DNR Dispo-to home or SNF for short course rehab once pain is controlled with oral pain medications. Alma Hall DO [facility] and Anticipated Discharge Date Admission Date: November 14, 2019 Subjective Feels like today is worse than yesterday. She reports her pain in her side is worse and is continue to use morphine and Roxicodone. We I did discuss again about the fact that morphine does not last very long and depend more on oral medication if she can. We also discussed on how to stay ahead of pain and preempt when the pain medication will run out in order to know when to ask for more. NSAIDs are contraindicated secondary to chronic kidney disease. Continue scheduled Tylenol. She has not yet gotten her K pad and I have asked the nurse for that again. She is ambulating with a walker and a prescription has been provided for her for a rolling walker at home. She also reports significant heartburn that is not bothering her right now and this is also the case at home. She reports some help with Maalox given yesterday. She uses omeprazole 20 mg twice daily. In the hospital she is on Protonix 40 mg twice daily. We will add Pepcid for breakthrough twice daily. Review of Systems Review of Systems: All systems reviewed & are unremarkable except as noted in Subjective Physical Exam Physical Exam: CONSTITUTIONAL: obese, vitals as above, generally well- appearing with intermittent periods of grabbing her epigastric area. EYES: normal conjunctivae, no scleral icterus ENT: external ear and nose normal, oropharynx clear, MMM RESPIRATORY: clear to auscultation bilaterally, no crackles, rales or wheezes, normal respiratory effort CARDIOVASCULAR: regular rate and rhythm, 3/6 TONI heard at upper left lateral heart border, no gallops or rubs, no JVD, no peripheral edema GASTROINTESTINAL: soft, nontender, nondistended, no guarding MUSCULOSKELETAL: strength 5/5 throughout, head is normocephalic and atraumatic, significant tenderness to palpation of lateral chest wall without ecchymosis overlying SKIN: warm and dry NEUROLOGIC: CN 2-12 grossly intact, normal cognition, normal speech, no tremor PSYCHIATRIC: alert cooperative and oriented to person, place and time. Results & Data Results & Data ([facility]) Vital Signs (Past 12 Hours) Vital Signs Temp Pulse Resp BP BP Pulse Ox 11/16/19 11:22 36.6 C 106 H 20 131/79 90 11/16/19 07:16 36.5 C 78 18 159/84 H 91 11/16/19 04:00 37.2 C 101 H 19 154/81 H 91 Laboratory Results Short CBC 11/16/19 Range/Units 05:18 WBC 4.75 L (4.8-10.8) K/uL Hgb 12.5 (12.0-16.0) g/dL Hct 39.2 (37-47) % Plt Count 96 L (130-400) K/uL BMP 11/16/19 05:18 Sodium 143 Potassium 3.5 D Chloride 104 Carbon Dioxide 34 H BUN 28 H Creatinine 1.47 H Glucose 108 H Calcium 8.6 Medications Administered Current Inpatient Medications Acetaminophen (Acetaminophen 500 Mg Tab) 1,000 mg PO Q8 YOGESH Stop: 12/14/19 17:59 Last Admin: 11/16/19 06:13 Dose: 1,000 mg Documented by: Al Hydrox/Mg Hydrox/Simethicone (Aluminum/Magnesium Susp 30 Ml Udc) 15 ml PO Q4H PRN PRN Reason: Dyspepsia Stop: 12/14/19 17:38 Last Admin: 11/15/19 12:40 Dose: 15 ml Documented by: Allopurinol (Allopurinol 100 Mg Tab) 100 mg PO DAILY YOGESH Stop: 12/15/19 08:59 Last Admin: 11/16/19 08:37 Dose: 100 mg Documented by: Calcitriol (Calcitriol 0.25 Mcg Capsule) 0.5 mcg PO DAILY YOGESH Stop: 12/15/19 08:59 Last Admin: 11/16/19 08:35 Dose: 0.5 mcg Documented by: Citalopram Hydrobromide (Citalopram 20 Mg Tab) 10 mg PO DAILY YOGESH Stop: 12/15/19 08:59 Last Admin: 11/16/19 08:34 Dose: 10 mg Documented by: Docusate Sodium (Docusate Sodium 100 Mg Cap) 100 mg PO BID [facility]OGESH Stop: 12/14/19 20:59 Last Admin: 11/16/19 08:36 Dose: 100 mg Documented by: Enoxaparin Sodium (Enoxaparin Inj 40 Mg/0.4 Ml Syr) 40 mg SQ QAM [facility] Stop: 12/15/19 16:59 Last Admin: 11/16/19 08:38 Dose: 40 mg Documented by: Folic Acid (Folic Acid 1 Mg Tab) 1 mg PO QAM [facility] Stop: 12/15/19 08:59 Last Admin: 11/16/19 08:35 Dose: 1 mg Documented by: Ibrutinib (Ibrutinib) 2 ea PO DAILY [facility]OGESH Stop: 12/16/19 08:59 Last Admin: 11/16/19 08:36 Dose: 2 ea Documented by: Isosorbide Mononitrate (Isosorbide [place] Extended Rel 30 Mg Tabcr) 30 mg PO QAM [facility] Stop: 12/15/19 08:59 Last Admin: 11/16/19 08:35 Dose: 30 mg Documented by: Levothyroxine Sodium (Levothyroxine Sodium 175 Mcg Tablet) 175 mcg PO DAILYBB [facility] Stop: 12/15/19 06:29 Last Admin: 11/16/19 06:13 Dose: 175 mcg Documented by: Magnesium Hydroxide (Magnesium Hydroxide Susp 30 Ml Udc) 30 ml PO Q12H PRN PRN Reason: Constipation Stop: 12/14/19 17:38 Morphine Sulfate (Morphine Sulfate 2 Mg/Ml Carp) 2 mg IV Q3H PRN PRN Reason: Pain Stop: 11/28/19 17:38 Last Admin: 11/16/19 06:20 Dose: 2 mg Documented by: Multivitamins/Minerals (Calcium 600mg + Vit D 400 Iu Tab) 1 tab PO BIDM [facility]OG[facility] Stop: 12/14/19 17:59 Last Admin: 11/16/19 08:36 Dose: 1 tab Documented by: Nystatin (Nystatin Susp 500,000 U/5 Ml Udc) 5 ml PO QID [facility] Stop: 11/24/19 17:59 Last Admin: 11/16/19 08:42 Dose: 5 ml Documented by: Ondansetron HCl (Ondansetron Inj 2 Mg/Ml 2 Ml Vial) 4 mg IV Q6H PRN PRN Reason: Nausea Stop: 12/14/19 17:38 Last Admin: 11/16/19 00:26 Dose: 4 mg Documented by: Oxycodone HCl (Oxycodone Hcl Ir 5 Mg Tab (Immediate Release)) 5 mg PO Q4H PRN PRN Reason: Pain Stop: 11/28/19 17:46 Last Admin: 11/16/19 08:37 Dose: 5 mg Documented by: Pantoprazole Sodium (Pantoprazole 40 Mg Tab) 40 mg PO BID [facility] Stop: 12/14/19 20:59 Last Admin: 11/16/19 08:36 Dose: 40 mg Documented by: Polyethylene Glycol (Polyethylene (Miralax) 17 Gm Pack) 17 gm PO DAILY PRN PRN Reason: Constipation Stop: 12/14/19 17:38 Polyethylene Glycol (Polyethylene (Miralax) 17 Gm Pack) 17 gm PO DAILY [facility] Stop: 12/15/19 08:59 Last Admin: 11/16/19 08:42 Dose: 17 gm Documented by: Prednisone (Prednisone 10 Mg Tablet) 10 mg PO Q2D@0900 [facility] Stop: 12/14/19 18:29 Last Admin: 11/16/19 08:34 Dose: 10 mg Documented by: Prochlorperazine (Prochlorperazine Maleate 10 Mg Tab) 10 mg PO Q6H PRN PRN Reason: Nausea And Vomiting Stop: 12/14/19 17:38 Senna/Docusate Sodium (Docusate Sodium/Senna 50/8.6mg Tab) 1 tab PO DAILY [facility] Stop: 12/15/19 08:59 Last Admin: 11/16/19 08:34 Dose: 1 tab Documented by: Torsemide (Torsemide 10 Mg Tab) 10 mg PO DAILY YOGESH Stop: 12/15/19 08:59 Last Admin: 11/16/19 08:35 Dose: 10 mg Documented by:
[2019-11-17] MEDS: MoRPHine SULFATE 2 MG/ML CARP IV PRN ×2 (01:46→10:19)
[2019-11-17] MEDS: ACETAMINOPHEN 500 MG TAB PO SCH ×3 (06:01→20:40)
[2019-11-17] MEDS: LEVOTHYROXINE SODIUM 175 MCG TABLET PO SCH (06:02)
[2019-11-17 07:17] LABS: Hematocrit (blood only) 41.8 % (37-47); Hemoglobin 13.3 g/dL (12.0-16.0); Mean Corpuscular Hemoglobin 29.8 pg (25-34); Mean Corpuscular Hgb Conc 31.8 g/dL (32-36); Mean Corpuscular Volume 93.7 fL (80-100); Mean Platelet Volume 12.2 fL (7.4-10.4); Platelet Count 109 K/uL (130-400); RDW Coefficient of Variation 15.8 % (11.5-14.5); RDW Standard Deviation 54.2 fL (36.4-46.3); Red Blood Count 4.46 M/uL (4.2-5.4); White Blood Count 4.96 K/uL (4.8-10.8)
[2019-11-17 07:18] LABS: Basophils # (auto) 0.01 K/uL (0-0.2); Basophils % (auto) 0.2 %; Eosinophils # (auto) 0.14 K/uL (0-0.5); Eosinophils % (auto) 2.8 %; Giant Platelets 1+; Immature Granulocytes # (auto) 0.04 K/uL (0.00-0.02); Immature Granulocytes % (auto) 0.8 %; Lymphocytes % (auto) 44.4 %; Monocytes # (auto) 0.56 K/uL (0.11-0.59); Monocytes % (auto) 11.3 %; Neutrophils # (auto) 2.01 K/uL (1.4-6.5); Neutrophils % (auto) 40.5 %; Platelet Estimate Decreased (Normal)
[2019-11-17 07:21] LABS: BUN Creatinine Ratio 17.1 (10-20); Calcium 9.4 mg/dl (8.5-10.1); Creatinine Clr Calc Pharmacy 32.6 ml/min; Est GFR (African American) 38.8; Est GFR (Non-African American) 33.5; Potassium 3.3 mmol/L (3.5-5.1)
[2019-11-17] MEDS: OXYCODONE HCL IR 5 MG TAB (IMMEDIATE RELEASE) PO PRN (08:10)
[2019-11-17] MEDS: DOCUSATE SODIUM 100 MG CAP PO SCH ×2 (08:11→20:39)
[2019-11-17] MEDS: CALCIUM 600MG + VIT D 400 IU TAB PO SCH ×2 (08:11→16:33)
[2019-11-17] MEDS: ENOXAPARIN INJ 40 MG/0.4 ML SYR SQ SCH (08:11)
[2019-11-17] MEDS: CALCITRIOL 0.25 MCG CAPSULE PO SCH (08:12)
[2019-11-17] MEDS: allopurinoL 100 MG TAB PO SCH (08:12)
[2019-11-17] MEDS: TORSEMIDE 10 MG TAB PO SCH (08:12)
[2019-11-17] MEDS: DOCUSATE SODIUM/SENNA 50/8.6MG TAB PO SCH (08:12)
[2019-11-17] MEDS: CITALOPRAM 20 MG TAB PO SCH (08:13)
[2019-11-17] MEDS: POLYETHYLENE (MIRALAX) 17 GM PACK PO SCH (08:14)
[2019-11-17] MEDS: PANTOprazole 40 MG TAB PO SCH ×2 (08:14→20:40)
[2019-11-17] MEDS: FOLIC ACID 1 MG TAB PO SCH (08:14)
[2019-11-17] MEDS: ISOSORBIDE MONO EXTENDED REL 30 MG TABCR PO SCH (08:14)
[2019-11-17] MEDS: NYSTATIN SUSP 500,000 U/5 ML UDC PO SCH ×4 (08:15→20:40)
[2019-11-17] MEDS: IBRUTINIB PO SCH (08:15)
--- NOTE | 2019-11-17 16:27 | Hospitalist Progress Note ---
Date of Service November 17, 2019 Assessment & Plan (1) Ribs, multiple fractures: Secondary to fall, Pain symptoms appears to be better this afternoon DC IV morphine: Updated with patient, agreeable Patient will be continue with p.o. oxycodone, Plan to transfer to skilled rehab tomorrow with p.o. pain medication Patient is counseled regarding-to take stool softeners to prevent narcotic pain medication induced constipation (2) Lymphoma: CLL cont home cancer oral therapy. (3) Thyroid cancer: s/p thyroidectomy, TSH at goal, cont home levothyroxine. (4) Hemolytic anemia: Due to CLL, follows with hematology oncology cont last part of prednisone taper per Dr. Long. On 5mg q2D (5) HTN (hypertension): At goal, cont home torsemide (6) CKD (chronic kidney disease) stage 3, GFR 30-59 ml/min: at baseline. (7) Diabetes mellitus: A!c 5.8, diet controlled. (8) Pulmonary nodule: follow-up as outpatient after discharge. (9) Thrombocytopenia: Chronic-due to underlying hematologic malignancy/CLL (10) DVT prophylaxis: Will DC Lovenox secondary to thrombocytopenia, SCD and teds, patient is encouraged to be out of bed, ambulate as tolerated DNR Dispo-referral made to skilled rehab Patient is medically stable to be transferred to skilled rehab tomorrow 11/18/2019 Update given to patient son over the phone, agreeable with plan Admission and Anticipated Discharge Date Admission Date: November 14, 2019 Subjective Patient is sitting on chair, appears to be comfortable Complains of pain on the right rib cage wall, worse with taking a deep breath Morning she was very painful, much better this afternoon Does not have any cough, no shortness of breath, no fever or chills Agreeable to be transferred to skilled rehab tomorrow Review of Systems Review of Systems: All systems reviewed & are unremarkable except as noted in HPI & below Physical Exam Constitutional: WD/WN, vitals as above no acute distress Eyes: PERRL, conjunctivae normal, anicteric sclerae ENMT: external ear and nose normal, oropharynx normal Neck: trachea midline, no thyromegaly Respiratory: + abnormal respiratory effort, no respiratory distress and no cough Auscultation: no crackles, no rales, no rhonchi and no wheezes Cardiovascular: RRR, no murmur, no edema Gastrointestinal (Abdomen): Percussion/Palpation: abdomen soft; abdomen nontender Musculoskeletal: Pain on right rib cage area/worse with taking deep breath Skin: no rashes, warm and dry Neurologic: PERRL, EOMI, accommodation nl, no face palsy, no dysarthria Psychiatric: A+Ox3, euthymic affect Results & Data Results & Data ([facility]) Vital Signs (Past 12 Hours) Vital Signs Temp Pulse Resp BP Pulse Ox 11/17/19 08:11 37.0 C 100 H 20 153/78 H 92
[2019-11-17] MEDS ORDERED: POTASSIUM CHLORIDE 20 MEQ TABCR PO STA (16:34)
[2019-11-17] MEDS: ONDANSETRON INJ 2 MG/ML 2 ML VIAL IV PRN (16:37)
[2019-11-18] MEDS: ACETAMINOPHEN 500 MG TAB PO SCH ×3 (05:19→21:31)
[2019-11-18] MEDS: LEVOTHYROXINE SODIUM 175 MCG TABLET PO SCH (05:20)
[2019-11-18 07:44] LABS: Creatinine Clr Calc Pharmacy 35.1 ml/min; Est GFR (African American) 42.3; Est GFR (Non-African American) 36.5
[2019-11-18] MEDS ORDERED: predniSONE 5 MG TAB PO SCH (09:00)
[2019-11-18] MEDS: DOCUSATE SODIUM 100 MG CAP PO SCH ×2 (09:19→21:33)
[2019-11-18] MEDS: ISOSORBIDE MONO EXTENDED REL 30 MG TABCR PO SCH (09:20)
[2019-11-18] MEDS: DOCUSATE SODIUM/SENNA 50/8.6MG TAB PO SCH (09:20)
[2019-11-18] MEDS: FOLIC ACID 1 MG TAB PO SCH (09:20)
[2019-11-18] MEDS: CITALOPRAM 20 MG TAB PO SCH (09:21)
[2019-11-18] MEDS: TORSEMIDE 10 MG TAB PO SCH ×2 (09:21→09:31)
[2019-11-18] MEDS: CALCIUM 600MG + VIT D 400 IU TAB PO SCH ×2 (09:21→15:40)
[2019-11-18] MEDS: PANTOprazole 40 MG TAB PO SCH ×2 (09:21→21:33)
[2019-11-18] MEDS: allopurinoL 100 MG TAB PO SCH (09:22)
[2019-11-18] MEDS: POLYETHYLENE (MIRALAX) 17 GM PACK PO SCH ×2 (09:22→09:31)
[2019-11-18] MEDS: NYSTATIN SUSP 500,000 U/5 ML UDC PO SCH ×5 (09:22→21:33)
[2019-11-18] MEDS: CALCITRIOL 0.25 MCG CAPSULE PO SCH (09:22)
[2019-11-18] MEDS: ENOXAPARIN INJ 40 MG/0.4 ML SYR SQ SCH (09:23)
[2019-11-18] MEDS: IBRUTINIB PO SCH (09:23)
[2019-11-18] MEDS: OXYCODONE HCL IR 5 MG TAB (IMMEDIATE RELEASE) PO PRN ×3 (09:48→21:30)
--- NOTE | 2019-11-18 16:34 | Hospitalist Progress Note ---
Date of Service November 18, 2019 Assessment & Plan (1) Ribs, multiple fractures: Secondary to fall, Pain symptoms improved And is continued with her prior p.o. tramadol as needed Accepted at a skilled rehab Plan to transfer to skilled rehab tomorrow with p.o. pain medication Patient is counseled regarding-to take stool softeners to prevent narcotic pain medication induced constipation COVID-19 test ordered (2) Lymphoma: CLL cont home cancer oral therapy. (3) Thyroid cancer: s/p thyroidectomy, TSH at goal, cont home levothyroxine. (4) Hemolytic anemia: Due to CLL, follows with hematology oncology cont last part of prednisone taper per Dr. Long. On 5mg q2D (5) HTN (hypertension): At goal, cont home torsemide (6) CKD (chronic kidney disease) stage 3, GFR 30-59 ml/min: at baseline. (7) Diabetes mellitus: A!c 5.8, diet controlled. (8) Pulmonary nodule: follow-up as outpatient after discharge. (9) Thrombocytopenia: Chronic-due to underlying hematologic malignancy/CLL (10) DVT prophylaxis: Will DC Lovenox secondary to thrombocytopenia, SCD and teds, patient is encouraged to be out of bed, ambulate as tolerated SCD and teds DNR Dispo-referral made to skilled rehab Patient is medically stable to be transferred to skilled rehab tomorrow 11/19/2019 Admission and Anticipated Discharge Date Admission Date: November 14, 2019 Subjective Right-sided chest pain/rib cage pain improved Patient is on p.o. pain medications only Does not have any cough no fever or chills Denies of any other complain Review of Systems Review of Systems: All systems reviewed & are unremarkable except as noted in HPI & below Physical Exam Constitutional: WD/WN, vitals as above no acute distress Eyes: PERRL, conjunctivae normal, anicteric sclerae ENMT: external ear and nose normal, oropharynx normal Neck: trachea midline, no thyromegaly Respiratory: + abnormal respiratory effort, no respiratory distress and no cough Auscultation: no crackles, no rales, no rhonchi and no wheezes Cardiovascular: RRR, no murmur, no edema Gastrointestinal (Abdomen): Percussion/Palpation: abdomen soft; abdomen nontender Skin: no rashes, warm and dry Neurologic: PERRL, EOMI, accommodation nl, no face palsy, no dysarthria Psychiatric: A+Ox3, euthymic affect Results & Data Results & Data ([facility]) Vital Signs (Past 12 Hours) Vital Signs Temp Pulse Resp BP Pulse Ox 11/18/19 15:45 36.4 C L 100 H 18 111/71 91 11/18/19 08:13 36.7 C 18 121/77 95
[2019-11-19] MEDS: LEVOTHYROXINE SODIUM 175 MCG TABLET PO SCH (05:49)
[2019-11-19] MEDS: ACETAMINOPHEN 500 MG TAB PO SCH ×3 (05:49→16:20)
[2019-11-19] MEDS: CALCIUM 600MG + VIT D 400 IU TAB PO SCH ×2 (08:16→10:00)
[2019-11-19] MEDS: allopurinoL 100 MG TAB PO SCH ×2 (08:16→10:01)
[2019-11-19] MEDS: NYSTATIN SUSP 500,000 U/5 ML UDC PO SCH ×3 (08:16→14:04)
[2019-11-19] MEDS: TORSEMIDE 10 MG TAB PO SCH ×2 (08:16→10:00)
[2019-11-19] MEDS: PANTOprazole 40 MG TAB PO SCH ×2 (08:16→10:00)
[2019-11-19] MEDS: FOLIC ACID 1 MG TAB PO SCH ×2 (08:16→10:00)
[2019-11-19] MEDS: ISOSORBIDE MONO EXTENDED REL 30 MG TABCR PO SCH ×2 (08:17→10:00)
[2019-11-19] MEDS: CITALOPRAM 20 MG TAB PO SCH ×2 (08:17→10:00)
[2019-11-19] MEDS: CALCITRIOL 0.25 MCG CAPSULE PO SCH ×2 (08:17→10:01)
[2019-11-19] MEDS: DOCUSATE SODIUM 100 MG CAP PO SCH ×2 (08:24→10:00)
[2019-11-19] MEDS: POLYETHYLENE (MIRALAX) 17 GM PACK PO SCH ×2 (08:24→10:00)
[2019-11-19] MEDS: IBRUTINIB PO SCH ×2 (10:00→16:17)
[2019-11-19] MEDS: DOCUSATE SODIUM/SENNA 50/8.6MG TAB PO SCH (10:01)
--- NOTE | 2019-11-19 15:09 | Hospitalist Progress Note ---
Date of Service November 19, 2019 Assessment & Plan (1) Ribs, multiple fractures: Secondary to fall, Pain symptoms improved And is continued with her prior p.o. tramadol as needed-script given Accepted at a skilled rehab took last pain medication yesterday 4 pm pain appears to be well controlled Patient is counseled regarding-to take stool softeners to prevent narcotic pain medication induced constipation stable to be discharged to rehab today COVID-19 test negative (2) Lymphoma: CLL cont home cancer oral therapy. pt has been taking her own meds (3) Thyroid cancer: s/p thyroidectomy, TSH at goal, cont home levothyroxine. (4) Hemolytic anemia: Due to CLL, follows with hematology oncology H&H at baseline cont last part of prednisone taper per Dr. Long. On 5mg q2D (5) HTN (hypertension): At goal, cont home torsemide (6) CKD (chronic kidney disease) stage 3, GFR 30-59 ml/min: at baseline. (7) Diabetes mellitus: A!c 5.8, diet controlled. (8) Pulmonary nodule: follow-up as outpatient after discharge. (9) Thrombocytopenia: Chronic-due to underlying hematologic malignancy/CLL (10) DVT prophylaxis: Will DC Lovenox secondary to thrombocytopenia, SCD and teds, patient is encouraged to be out of bed, ambulate as tolerated SCD and teds DNR Dispo-referral made to skilled rehab Patient is medically stable to be transferred to skilled rehab today Admission and Anticipated Discharge Date Admission Date: November 14, 2019 Subjective had episode of confusion this AM was upset , refused to take any meds -thinking -she is not given right meds pt appeared to be lucid and appropriate this afternoon son present at bedside , pt is calm and co -operative , recognizes family members took all her meds rt sided chest pain much better , able to get out of bed with minimum assistance mental status back to baseline stable to be transferred to skilled rehab today Review of Systems Review of Systems: All systems reviewed & are unremarkable except as noted in HPI & below Physical Exam Constitutional: WD/WN, vitals as above no acute distress Eyes: PERRL, conjunctivae normal, anicteric sclerae ENMT: external ear and nose normal, oropharynx normal Neck: trachea midline, no thyromegaly Respiratory: + abnormal respiratory effort, no respiratory distress and no cough Auscultation: no crackles, no rales, no rhonchi and no wheezes Cardiovascular: RRR, no murmur, no edema Gastrointestinal (Abdomen): Percussion/Palpation: abdomen soft; abdomen nontender Skin: no rashes, warm and dry Neurologic: PERRL, EOMI, accommodation nl, no face palsy, no dysarthria Psychiatric: A+Ox3, euthymic affect Results & Data Results & Data ([facility]) Vital Signs (Past 12 Hours) Vital Signs Temp Pulse Resp BP Pulse Ox 11/19/19 14:42 36.6 C 86 18 146/54 H 93 11/19/19 07:42 36.6 C 83 16 148/75 H 95
--- NOTE | 2019-11-19 15:16 | Discharge Summary ---
Date of Service November 19, 2019 Admission HPI Per Admitting Provider Attending: Dr. 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 Patient states that she was folding blanket today and the next thing she knew she had fallen. She does not remember the fall but does not think that she had any loss of consciousness. She is unaware if she tripped on the blanket or if she slipped on the floor. She does not recall any lightheadedness or dizziness but her son states that she may have had some. She had no chest pain or tightness. She had no shortness of breath. She does not have exertional dyspnea. She denies any fever or chills. She has no recent illness. She has no recent sick contacts. She denies nausea or vomiting. She states that her appetite has been well. She does not report any acute complaints other than rib pain at this time. The patient has never been a smoker. She has never had ethanol abuse. She currently lives alone but has family in the [facility] and [place]. She has no pets. She has no prior episodes of syncope or presyncope and denies any other cardiac or pulmonary disease. 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 She follows with Dr. Chester Long for CLL and for her autoimmune hemolytic anemia. She has been on chronic prednisone use with 60 mg/day initially and now tapered down to 10 mg every other day. Titration is based on hemoglobin and is managed by Dr. Long. She reports that she has been on this prednisone for well over a year. Principal Diagnosis Multiple rib fracture on right side Fall History of B cell lymphoma Hemolytic anemia Chronic thrombocytopenia Hypertension Incidental finding of the small pulmonary nodules in the right upper lobe Discharge Exam Constitutional WD/WN, vitals as above no acute distress Eyes PERRL, conjunctivae normal, anicteric sclerae ENMT external ear and nose normal, oropharynx normal Neck trachea midline, no thyromegaly Respiratory + abnormal respiratory effort, no respiratory distress and no cough Auscultation: no crackles, no rales, no rhonchi and no wheezes Cardiovascular RRR, no murmur, no edema Gastrointestinal (Abdomen) Percussion/Palpation: abdomen soft; abdomen nontender Skin no rashes, warm and dry Neurologic PERRL, EOMI, accommodation nl, no face palsy, no dysarthria Psychiatric A+Ox3, euthymic affect Discharge Data Allergies Allergy/AdvReac Type Severity Reaction Status Date / Time lorazepam Allergy Unknown UNKNOWN Unverified 11/14/19 16:26 pneumococcal vaccine Allergy Unknown Unknown Verified 12/01/18 17:35 sulfamethoxazole AdvReac Nausea Verified 11/14/19 16:26 [From Bactrim] trimethoprim [From Bactrim] AdvReac Nausea Verified 11/14/19 16:23 Consultations 11/14/19 14:38 ED Decision to Admit Stat 11/14/19 17:39 Consult Case Management - Discharge Planning Routine Ordered Studies 11/14/19 13:17 CT abd pelvis wo con Stat CT chest wo con Stat 11/14/19 17:39 CT head/brain wo con Stat US carotid doppler BI Stat Hospital Course (1) Ribs, multiple fractures: Secondary to fall, Pain symptoms improved And is continued with her prior p.o. tramadol as needed-script given Accepted at a skilled rehab took last pain medication yesterday 4 pm pain appears to be well controlled Patient is counseled regarding-to take stool softeners to prevent narcotic pain medication induced constipation stable to be discharged to rehab today COVID-19 test negative (2) Lymphoma: CLL cont home cancer oral therapy. pt has been taking her own meds (3) Thyroid cancer: s/p thyroidectomy, TSH at goal, cont home levothyroxine. (4) Hemolytic anemia: Due to CLL, follows with hematology oncology H&H at baseline cont last part of prednisone taper per Dr. Long. On 5mg q2D (5) HTN (hypertension): At goal, cont home torsemide (6) CKD (chronic kidney disease) stage 3, GFR 30-59 ml/min: at baseline. (7) Diabetes mellitus: A!c 5.8, diet controlled. (8) Pulmonary nodule: follow-up as outpatient after discharge. (9) Thrombocytopenia: Chronic-due to underlying hematologic malignancy/CLL (10) DVT prophylaxis: Will DC Lovenox secondary to thrombocytopenia, SCD and teds, patient is encouraged to be out of bed, ambulate as tolerated SCD and teds DNR Dispo-referral made to skilled rehab Patient is medically stable to be transferred to skilled rehab today Total Time Total Time Spent Total Time Spent (In Minutes): 35 mins Total Time Includes: Examination of the Patient, Discharge Planning and Medication Reconciliation Discharge Plan Discharge Items Patient Disposition: Transfer [facility] Reason For Visit: RIB FRACTURES,FALL Discharge Diagnosis: Multiple rib fracture on right side Fall History of B cell lymphoma Hemolytic anemia Chronic thrombocytopenia Hypertension Incidental finding of the small pulmonary nodules in the right upper lobe Activity: As commented below Activity Comment: Continue physical therapy/occupational therapy at the rehab Non-emergency contact: Primary Care Provider Call non-emergency contact if: you have any medication questions Follow-up/Referrals: Lani Long MD [Physician] - 11/23/19 11:20 am (Date & Time 11/23/2019 11:20 AM Provider Lani Long MD Department General Internal Medicine [facility] ) Diet: Heart Healthy Addtl Attending Provider Instructions: Please continue to use incentive spirometry every 2-3 hours while awake Incidental finding of small pulmonary nodules in the right upper lobe Follow-up CT chest without contrast in 6 months per Fleischner criteria Pending Studies at Discharge: Yes Studies:: CT chest noncontrast in 6 months for right upper lobe pulmonary nodule Stand-Alone Forms: My [employer] Skilled Items Patient informed of condition?: Yes DNR: No Discharge Level of Care: Skilled Communicable Disease: No Discharge Prognosis: Stable Lines: None Urinary Catheter: No Medications and DC Order Prescriptions: New prednisone 5 mg Tablet 5 mg PO Q2D@0900 Qty: 0 RF: 0 Continued citalopram 10 mg Tablet 10 mg PO DAILY RF: 0 nystatin 100,000 unit/mL Suspension 5 ml PO QID RF: 0 sennosides-docusate sodium [Senna with Docusate Sodium] 8.6-50 mg Tablet 1 tab PO DAILY RF: 0 prochlorperazine maleate [Compazine] 10 mg Tablet 10 mg PO Q6H PRN (Reason: Nausea And Vomiting) RF: 0 triamcinolone acetonide 0.1 % Cream 1 applic TOPICAL BID PRN (Reason: Rash) RF: 0 torsemide 10 mg tablet 10 mg PO DAILY RF: 0 allopurinol 100 mg tablet 100 mg PO DAILY RF: 0 Colace 100 mg capsule 100 mg PO BID RF: 0 Zofran ODT 8 mg tablet 8 mg PO Q8H RF: 0 calcitriol 1 cap capsule 1 cap PO DAILY RF: 0 calcium carbonate 600 mg tablet 600 mg PO BIDM RF: 0 ibrutinib 140 mg capsule 280 mg PO DAILY RF: 0 polyethylene glycol 3350 17 g 17 g PO DAILY RF: 0 isosorbide mononitrate 30 mg Tablet Extended Release 24 Hr 30 mg PO QAM RF: 0 folic acid 1 mg Tablet 1 mg PO QAM RF: 0 clonazepam 1 mg Tablet 1 mg PO BID RF: 0 levothyroxine 150 mcg Tablet 175 mcg PO QAM RF: 0 omeprazole 20 mg Capsule,Delayed Release(Dr/Ec) 20 mg PO BID RF: 0 nystatin 100,000 unit/gram powder 1 applic topical TID RF: 0 Changed tramadol 50 mg Tablet 50 mg PO Q6 PRN (Reason: Pain) Qty: 12 RF: 0 Discontinued prednisone 10 mg Tablet 5 mg PO Q2D RF: 0 Discharge Orders: Discharge Order (Routine); Ordered 11/19/19 Ordered By: Airam Ogden Admission Data Admit Date/Time: 11/14/19 17:39 Attending Provider: Airam Ogden Admit Provider: Alma Hall Primary Care Provider: PCP,NO Other Providers: Alma Hall ; [facility]
== END 2019-11-19 17:12 | DRG 184 ==
LOC: ED 12:50 → 2N 14:38 → SUATTDRO 17:39 → 3N 11-18 06:19
DX: E89.2 Postprocedural hypoparathyroidism; R91.8 Other nonspecific abnormal finding of lung field; E89.0 Postprocedural hypothyroidism; Y93.E2 Activity, laundry; S22.41XA Multiple fractures of ribs, right side, initial encounter for closed fracture; W19.XXXA Unspecified fall, initial encounter; E11.9 Type 2 diabetes mellitus without complications; D69.59 Other secondary thrombocytopenia; Z88.2 Allergy status to sulfonamides; K20.0 Eosinophilic esophagitis; Y92.019 Unspecified place in single-family (private) house as the place of occurrence of the external cause; I12.9 Hypertensive chronic kidney disease with stage 1 through stage 4 chronic kidney disease, or unspecified chronic kidney disease; Z79.52 Long term (current) use of systemic steroids; Z66 Do not resuscitate; D59.1 Other autoimmune hemolytic anemias; I47.1 Supraventricular tachycardia; Z85.850 Personal history of malignant neoplasm of thyroid; Z79.890 Hormone replacement therapy; N18.3 Chronic kidney disease, stage 3 (moderate); Z92.3 Personal history of irradiation; C85.10 Unspecified B-cell lymphoma, unspecified site; Z88.8 Allergy status to other drugs, medicaments and biological substances; F41.8 Other specified anxiety disorders; Z79.899 Other long term (current) drug therapy; Z88.7 Allergy status to serum and vaccine

== ENCOUNTER 2020-11-16 17:52 | Inpatient (IN) ==
[2020-11-16] MEDS ORDERED: SODIUM CHLORIDE 0.9% 1000ML 1,000 ML IV ONE (19:49)
--- NOTE | 2020-11-16 20:21 | Emergency Department Note ---
Impression & Plan Weakness, Hypercalcemia, KEO (acute kidney injury), Acute UTI (urinary tract infection), Hypothyroidism ED Provider Note NAME: JOSH WEAVER AGE: 85 SEX: F : 1935 ARRIVES VIA: Walk-In INFORMANT: Patient, ED PROVIDER(S): Chris King DO CHIEF COMPLAINT: Weakness HPI: The patient is an 85-year-old female who presents emergency department for an evaluation of weakness. The patient has been experiencing symptoms over the course the last few days. She even states that over the last few weeks she is not been feeling right. She is been noticing significant weakness. She notices normally she can walk a very good distance with only a walker but lately has been having worsening weakness especially over longer distances. She also has noticed knee pain and bone pain. She is also noticed constipation. She went to see her family doctor today and had laboratory studies drawn. The patient was told to go to the emergency department because of abnormal labs. She presented with her son but was unaware of which labs were abnormal. The patient had an elevated creatinine as well as an elevated calcium. The patient states that she has been noticing that she has been urinating more than usual. She denies havin g any fever. She denies having any chest pain or difficulty breathing. ROS: See above HPI for pertinent positives & negatives. A total of 10 systems reviewed and were otherwise negative. PAST MEDICAL HISTORY: See Below PAST SURGICAL HISTORY: See Below FAMILY HISTORY: See Below SOCIAL HISTORY: See Below HOME MEDICATIONS: See Below ALLERGIES: See Below VITALS: See Below PHYSICAL EXAMINATION: GENERAL: The patient is a can alert. The patient is somewhat listless appear ing. EYES: The conjunctivae are clear. The pupils are round and reactive. EARS, NOSE, MOUTH AND THROAT: The nose is without any evidence of any deformity. Mucous membranes are dry. NECK: The neck is nontender and supple. RESPIRATORY: Normal respiratory effort is noted there is no evidence of wheezing rhonchi or rales CARDIOVASCULAR: Regular rate and rhythm was noted to auscultation. Systolic mu rmur was suggested. GASTROINTESTINAL: The abdomen is soft. Abdomen is nontender. MUSCULOSKELETAL/EXTREMITIES: There is no evidence of gross deformity full range of motion is noted in the hips and shoulders. SKIN: Pedal edema was noted bilaterally. There was venous stasis changes noted. Skin was warm and dry. NEUROLOGIC: Patient is awake alert and oriented x3. MEDICAL DECISION MAKING: The patient is an 85-year-old female who presented to the emergency department for an evaluation of generalized weakness and pain. The patient was seen by her primary care physician as an outpatient and had laboratory studies drawn. She was advised to come to the emergency department because of abnormal labs including an elevated calcium as well as elevated creatinine. The patient was treated with IV fluids in the emergency department. She was also treated with IV antibiotics for presumed urinary tract infection noted on urinalysis. I discussed the patient's laboratory and radiographic studies with her. Her calcium had improved. [facility] have agreed to evaluate the patient in the emergency de partment for further management and disposition. Triage Nursing notes reviewed. Prior medical records reviewed Vital Signs: reviewed and remarkable for no significant abnormalities Differential diagnosis: Infection, dehydration, metabolic abnormality, hypo/hyperglycemia, electrolyte disturbance, anemia, hypoxia, cardiac sources, intracerebral event, toxicologic, neurologic, as well as other pathologies. ER treatment provided: See below Diagnostics interpreted by me: ECG: EKG was pain in the emergency department. My interpretation is normal sinus rhythm at 71 bpm. There is no ectopy. Nonspecific T wave flattening was noted. QTC was 467 ms. This was compared to a tracing from November 142019. The T wave abnormalities are new compared to earlier tracing. Cardiac Monitoring: An order was placed for continuous cardiac monitoring. The monitor shows a rate of 79 beats per minute with sinus rhythm. Laboratory studies: As stated above and show below. Imaging studies: See below Consultation(s): I discussed the patient's case with Dr. Ferguson who [facility] He will evaluate the patient in the emergency department for further management. Past Med/Surg History Medical History Acute renal failure Asthma Diabetes mellitus Hemolytic anemia Kailyn positive hemolytic anemia; dx in 2013 HTN (hypertension) Hypocalcemia Kidney stones Lymphoma B-cell CLL, dx in 2013 Non-STEMI (non-ST elevated myocardial infarction) Sepsis Thyroid cancer recurrent papillary thyroid cancer; s/p surgery; dx in 2009 TIA (transient ischemic attack) Surgical History History of hernia repair History of knee surgery b/l knees History of thyroidectomy several cancer surgeries on thyroid Family History Mother Colorectal cancer Brother Diabetes Sister Diabetes Social History Smoking Status: Never smoker Second Hand Exposure: No; Hx Alcohol Use: No Hx Substance Use: No Preferred Language: Montserratian Communication Ability: Effective Wafer Substrate Tester Required: No Beliefs That Will Affect Care: None marital status: / Current Living Situation: Alone Current Living Situation Comment: pt son lives in pt basement until he is able to find a new place to live. current occupational status: retired How many Children do You have: 3 Feels Safe at Home: Yes Assistive Devices: Denture - Upper and Walker Allergies Allergies Allergy/AdvReac Type Severity Reaction Status Date / Time lorazepam Allergy Unknown SEE COMMENT Verified 11/16/20 21:31 pneumococcal vaccine Allergy Unknown Unknown Verified 11/16/20 21:31 sulfamethoxazole AdvReac Intermediate Nausea Verified 11/16/20 21:31 [From Bactrim] trimethoprim [From Bactrim] AdvReac Intermediate Nausea Verified 11/16/20 21:31 Home Meds Home Medications Medication Instructions Recorded Confirmed folic acid 1 mg tablet 1 mg PO QAM 09/05/18 11/16/20 isosorbide mononitrate 30 mg 30 mg PO QAM 09/05/18 11/16/20 tablet,extended release 24 hr omeprazole 20 mg capsule,delayed 20 mg PO BID 09/05/18 11/16/20 release citalopram 10 mg tablet 10 mg PO DAILY 09/24/18 11/16/20 prochlorperazine maleate 10 mg 10 mg PO Q6H PRN 10/15/18 11/16/20 tablet (Compazine) nystatin 100,000 unit/gram topical 1 applic TOPICAL TID PRN 12/01/18 11/16/20 powder allopurinol 100 mg tablet 100 mg PO DAILY 11/14/19 11/16/20 torsemide 10 mg tablet 10 mg PO DAILY 11/14/19 11/16/20 calcitriol 0.5 mcg capsule 0.5 mcg PO DAILY 11/16/20 11/16/20 calcium carbonate 600 mg calcium 600 mg PO BID 11/16/20 11/16/20 (1,500 mg) tablet clonazepam 0.5 mg tablet 0.5 mg PO HS 11/16/20 11/16/20 diltiazem HCl 120 mg capsule,24 120 mg PO DAILY 11/16/20 11/16/20 hr,extended release docusate sodium 100 mg capsule 100 mg PO BID PRN 11/16/20 11/16/20 ibrutinib 140 mg capsule 280 mg PO DAILY 11/16/20 11/16/20 (Imbruvica) lactobacillus rhamnosus R0011 20 20 cell PO DAILY 11/16/20 11/16/20 billion cell capsule (Probiotic Digestive Care) levothyroxine 175 mcg tablet 175 mcg PO DAILY 11/16/20 11/16/20 magnesium oxide 400 mg PO DAILY 11/16/20 11/16/20 ondansetron HCl 8 mg tablet 8 mg PO Q8H PRN 11/16/20 11/16/20 polyethylene glycol 3350 17 17 g PO DAILY PRN 11/16/20 11/16/20 gram/dose oral powder (Miralax) potassium chloride 10 mEq 20 meq PO DAILY 11/16/20 11/16/20 capsule,extended release tramadol 50 mg tablet 50 mg PO BID PRN 11/16/20 11/16/20 Results & Data (ED) Vital Signs Vital Signs - 24 hr 11/16/20 18:19 11/16/20 19:48 Temperature 36.4 C L Temperature Source Oral Pulse Rate 79 Pulse Rhythm Regular Pulse Strength Normal Respiratory Rate 18 Respiratory Effort / Characteristics Non-Labored Spontaneous Respiratory Depth Normal Respiratory Pattern Regular Blood Pressure 140/85 Blood Pressure Mean 103 Blood Pressure Position Sitting Pulse Oximetry 98 98 Oxygen Delivery Method Room Air Room Air Sepsis Recent Fever Within 48 Hours No Sepsis New/Unexplained Change in Mental Status No Sepsis Action Taken by Nursing No Action Required Home Medications Current Medication List: was personally reviewed by me Laboratory Data Attestation: I reviewed the patient's lab results. Result diagrams: 11/16/20 20:16 11/16/20 20:16 Lab Results 11/16/20 11/16/20 11/16/20 Range/Units 20:16 20:16 20:16 WBC 9.79 (4.8-10.8) K/uL RBC 4.04 L (4.2-5.4) M/uL Hgb 12.5 (12.0-16.0) g/dL Hct 38.5 (37-47) % MCV 95.3 (80-100) fL MCH 30.9 (25-34) pg MCHC 32.5 (32-36) g/dL RDW Std Deviation 52.8 H (36.4-46.3) fL RDW Coeff of Marcelina 15.2 H (11.5-14.5) % Plt Count 105 L (130-400) K/uL MPV 12.4 H (7.4-10.4) fL Neutrophils % (Manual) 46.1 % Lymphocytes % (Manual) 30.4 % Monocytes % (Manual) 1.7 % Eosinophils % (Manual) 0.9 % Basophils % (Manual) 0.9 % Myelocytes % (Man) 0.9 % Neutrophils # (Manual) 4.51 (1.4-6.5) K/uL Total Absolute Neuts 4.51 (1.4-6.5) K/uL Lymphocytes # (Manual) 2.98 (1.2-3.4) K/uL Total Abs Lymphocytes 4.85 H (1.2-3.4) K/uL Monocytes # (Manual) 0.17 (0.11-0.59) K/uL Eosinophils # (Manual) 0.09 (0-0.5) K/uL Basophils # (Manual) 0.09 (0-0.2) K/uL Myelocytes # (Manual) 0.09 H (0-0) K/uL Large Granular Lymphs 19.1 % # Lrg Granular Lymphs 1.87 K/uL Polychromasia 1+ PT (9.0-12.0) Seconds INR (0.9-1.1) APTT 26.1 (21.0-31.0) Seconds PTT Ratio 1.0 Sodium 142 (136-145) mmol/L Potassium 3.7 (3.5-5.1) mmol/L Chloride 102 (98-107) mmol/L Carbon Dioxide 34 H (21-32) mmol/L Anion Gap 6.0 (3-11) BUN 40 H (7-18) mg/dl Creatinine 2.40 H (0.6-1.2) mg/dl Est Cr Clr Drug Dosing 19.6 ml/min Est GFR ( Amer) 20.9 ml/min Est GFR (Non-Af Amer) 18.1 ml/min BUN/Creatinine Ratio 16.5 (10-20) Glucose 109 H (70-99) mg/dl Calcium 11.1 H (8.5-10.1) mg/dl Magnesium 2.7 H (1.8-2.4) mg/dl Total Bilirubin 0.5 (0.2-1) mg/dl AST 31 (15-37) U/L ALT 28 (12-78) U/L Alkaline Phosphatase 54 (45-117) U/L Total Creatine Kinase 117 (26-192) U/L Troponin I < 0.015 (0-0.045) ng/ml Total Protein 7.5 (6.4-8.2) gm/dl Albumin 4.6 (3.4-5.0) gm/dl Globulin 2.9 (2.5-4.0) gm/dl Albumin/Globulin Ratio 1.6 (0.9-2) TSH 196.000 H (0.300-4.500) uIu/ml Free T4 0.18 L (0.8-1.6) ng/dl Urine Color Urine Appearance (Clear) Urine pH (4.5-7.5) Ur Specific [place] (1.000-1.030) Urine Protein (Negative) Urine Glucose (UA) (Negative) Urine Ketones (Negative) Urine Blood (Negative) Urine Nitrite (Negative) Urine Bilirubin (Negative) Urine Urobilinogen (Negative) Ur Leukocyte Esterase (Negative) Urine WBC (Auto) (0-5) /hpf Urine RBC (Auto) (0-4) /hpf U Hyaline Cast (Auto) (0-5) /lpf U Epithel Cells (Auto) (0-5) /lpf Urine Bacteria (Auto) (Negative) COVID-19 Eval Order SARS-CoV-2 (PCR) (Negative) 11/16/20 11/16/20 11/16/20 Range/Units 20:16 20:20 20:25 WBC (4.8-10.8) K/uL RBC (4.2-5.4) M/uL Hgb (12.0-16.0) g/dL Hct (37-47) % MCV (80-100) fL MCH (25-34) pg MCHC (32-36) g/dL RDW Std Deviation (36.4-46.3) fL RDW Coeff of Marcelina (11.5-14.5) % Plt Count (130-400) K/uL MPV (7.4-10.4) fL Neutrophils % (Manual) % Lymphocytes % (Manual) % Monocytes % (Manual) % Eosinophils % (Manual) % Basophils % (Manual) % Myelocytes % (Man) % Neutrophils # (Manual) (1.4-6.5) K/uL Total Absolute Neuts (1.4-6.5) K/uL Lymphocytes # (Manual) (1.2-3.4) K/uL Total Abs Lymphocytes (1.2-3.4) K/uL Monocytes # (Manual) (0.11-0.59) K/uL Eosinophils # (Manual) (0-0.5) K/uL Basophils # (Manual) (0-0.2) K/uL Myelocytes # (Manual) (0-0) K/uL Large Granular Lymphs % # Lrg Granular Lymphs K/uL Polychromasia PT 10.5 (9.0-12.0) Seconds INR 1.0 (0.9-1.1) APTT (21.0-31.0) Seconds PTT Ratio Sodium (136-145) mmol/L Potassium (3.5-5.1) mmol/L Chloride (98-107) mmol/L Carbon Dioxide (21-32) mmol/L Anion Gap (3-11) BUN (7-18) mg/dl Creatinine (0.6-1.2) mg/dl Est Cr Clr Drug Dosing ml/min Est GFR ( Amer) ml/min Est GFR (Non-Af Amer) ml/min BUN/Creatinine Ratio (10-20) Glucose (70-99) mg/dl Calcium (8.5-10.1) mg/dl Magnesium (1.8-2.4) mg/dl Total Bilirubin (0.2-1) mg/dl AST (15-37) U/L ALT (12-78) U/L Alkaline Phosphatase (45-117) U/L Total Creatine Kinase (26-192) U/L Troponin I (0-0.045) ng/ml Total Protein (6.4-8.2) gm/dl Albumin (3.4-5.0) gm/dl Globulin (2.5-4.0) gm/dl Albumin/Globulin Ratio (0.9-2) TSH (0.300-4.500) uIu/ml Free T4 (0.8-1.6) ng/dl Urine Color [place] Urine Appearance Cloudy A (Clear) Urine pH 7.0 (4.5-7.5) Ur Specific [place] 1.014 (1.000-1.030) Urine Protein 2+ H (Negative) Urine Glucose (UA) Negative (Negative) Urine Ketones Negative (Negative) Urine Blood 3+ H (Negative) Urine Nitrite Negative (Negative) Urine Bilirubin Negative (Negative) Urine Urobilinogen Negative (Negative) Ur Leukocyte Esterase 2+ H (Negative) Urine WBC (Auto) >30 H (0-5) /hpf Urine RBC (Auto) >30 H (0-4) /hpf U Hyaline Cast (Auto) 5-10 H (0-5) /lpf U Epithel Cells (Auto) 0-5 (0-5) /lpf Urine Bacteria (Auto) Negative (Negative) COVID-19 Eval Order Covid19 at [facility] SARS-CoV-2 (PCR) (Negative) 11/16/20 Range/Units 20:25 WBC (4.8-10.8) K/uL RBC (4.2-5.4) M/uL Hgb (12.0-16.0) g/dL Hct (37-47) % MCV (80-100) fL MCH (25-34) pg MCHC (32-36) g/dL RDW Std Deviation (36.4-46.3) fL RDW Coeff of Marcelina (11.5-14.5) % Plt Count (130-400) K/uL MPV (7.4-10.4) fL Neutrophils % (Manual) % Lymphocytes % (Manual) % Monocytes % (Manual) % Eosinophils % (Manual) % Basophils % (Manual) % Myelocytes % (Man) % Neutrophils # (Manual) (1.4-6.5) K/uL Total Absolute Neuts (1.4-6.5) K/uL Lymphocytes # (Manual) (1.2-3.4) K/uL Total Abs Lymphocytes (1.2-3.4) K/uL Monocytes # (Manual) (0.11-0.59) K/uL Eosinophils # (Manual) (0-0.5) K/uL Basophils # (Manual) (0-0.2) K/uL Myelocytes # (Manual) (0-0) K/uL Large Granular Lymphs % # Lrg Granular Lymphs K/uL Polychromasia PT (9.0-12.0) Seconds INR (0.9-1.1) APTT (21.0-31.0) Seconds PTT Ratio Sodium (136-145) mmol/L Potassium (3.5-5.1) mmol/L Chloride (98-107) mmol/L Carbon Dioxide (21-32) mmol/L Anion Gap (3-11) BUN (7-18) mg/dl Creatinine (0.6-1.2) mg/dl Est Cr Clr Drug Dosing ml/min Est GFR ( Amer) ml/min Est GFR (Non-Af Amer) ml/min BUN/Creatinine Ratio (10-20) Glucose (70-99) mg/dl Calcium (8.5-10.1) mg/dl Magnesium (1.8-2.4) mg/dl Total Bilirubin (0.2-1) mg/dl AST (15-37) U/L ALT (12-78) U/L Alkaline Phosphatase (45-117) U/L Total Creatine Kinase (26-192) U/L Troponin I (0-0.045) ng/ml Total Protein (6.4-8.2) gm/dl Albumin (3.4-5.0) gm/dl Globulin (2.5-4.0) gm/dl Albumin/Globulin Ratio (0.9-2) TSH (0.300-4.500) uIu/ml Free T4 (0.8-1.6) ng/dl Urine Color Urine Appearance (Clear) Urine pH (4.5-7.5) Ur Specific [place] (1.000-1.030) Urine Protein (Negative) Urine Glucose (UA) (Negative) Urine Ketones (Negative) Urine Blood (Negative) Urine Nitrite (Negative) Urine Bilirubin (Negative) Urine Urobilinogen (Negative) Ur Leukocyte Esterase (Negative) Urine WBC (Auto) (0-5) /hpf Urine RBC (Auto) (0-4) /hpf U Hyaline Cast (Auto) (0-5) /lpf U Epithel Cells (Auto) (0-5) /lpf Urine Bacteria (Auto) (Negative) COVID-19 Eval Order SARS-CoV-2 (PCR) NEGATIVE (Negative) Administered Medications Discontinued Medications Sodium Chloride (Nss 1000ml) 1,000 mls @ 999 mls/hr IV .[id number] ONE Stop: 11/16/20 20:49 Last Admin: 11/16/20 20:25 Dose: 999 mls/hr Documented by: [id number] Ceftriaxone Sodium (Rocephin) 1,000 mg in 50 mls @ 100 mls/hr IV NOW STA Stop: 11/16/20 21:56 Last Admin: 11/16/20 21:35 Dose: 100 mls/hr Documented by: [id number] Imaging Data Radiologist's Impression: Chest X-Ray 11/16/20 19:48 SINGLE VIEW CHEST CLINICAL HISTORY: Generalized weakness. FINDINGS: An AP, portable, semierect chest radiograph is compared to chest x-ray and chest CT dated 11/14/2019. The examination is degraded by portable technique and patient rotation. The heart is top normal for projection noting atherosclerotic calcification of the thoracic aorta. The pulmonary vasculature is noncongested. There are calcified hilar lymph nodes. Chronic interstitial thickening is similar to previous. There is bibasilar scarring/atelectasis. Calcified granulomas are incidentally noted. No airspace consolidation or large pleural effusion is identified. No pneumothorax is seen. The skeletal structures are osteopenic. The bony thorax is grossly intact. Degenerative change is noted in the shoulders and thoracic spine. IMPRESSION: No active disease in the chest. ACT 112: Negative or not required by law. Electronically signed by: Luis Cruz M.D. 11/16/2020 9:22 PM Discharge Plan Visit Data Chief Complaint: Abnormal Labs/Diagnostic Testing Stated Complaint: ABNORMAL LAB WORK ED Provider: Chris King Discharge Problem: Weakness, Hypercalcemia, KEO (acute kidney injury), Acute UTI (urinary tract infection), Hypothyroidism Patient Disposition: Being Evaluated by Hospitalist Condition: Good Forms Stand Alone Forms: My RollCall (roll.to) Prescriptions Prescriptions: No Action citalopram 10 mg Tablet 10 mg PO DAILY RF: 0 prochlorperazine maleate [Compazine] 10 mg Tablet 10 mg PO Q6H PRN (Reason: Nausea And Vomiting) RF: 0 torsemide 10 mg tablet 10 mg PO DAILY RF: 0 allopurinol 100 mg tablet 100 mg PO DAILY RF: 0 isosorbide mononitrate 30 mg Tablet Extended Release 24 Hr 30 mg PO QAM RF: 0 folic acid 1 mg Tablet 1 mg PO QAM RF: 0 omeprazole 20 mg Capsule,Delayed Release(Dr/Ec) 20 mg PO BID RF: 0 nystatin 100,000 unit/gram powder 1 applic topical TID PRN (Reason: Skin Irritation) RF: 0 levothyroxine 175 mcg Tablet 175 mcg PO DAILY RF: 0 potassium chloride 10 mEq Capsule, Extended Release 20 meq PO DAILY RF: 0 ondansetron HCl [Zofran] 8 mg Tablet 8 mg PO Q8H PRN (Reason: Nausea) RF: 0 clonazepam 0.5 mg Tablet 0.5 mg PO HS RF: 0 calcium carbonate 600 mg calcium (1,500 mg) Tablet 600 mg PO BID RF: 0 diltiazem HCl 120 mg Capsule,Extended Release 24 Hr 120 mg PO DAILY RF: 0 calcitriol 0.5 mcg Capsule 0.5 mcg PO DAILY RF: 0 docusate sodium 100 mg Capsule 100 mg PO BID PRN (Reason: Constipation) RF: 0 polyethylene glycol 3350 [Miralax] 17 gram/dose Powder 17 g PO DAILY PRN (Reason: Constipation) RF: 0 Probiotic Digestive Care 20 billion cell Capsule 20 cell PO DAILY RF: 0 Imbruvica 140 mg Capsule 280 mg PO DAILY RF: 0 magnesium oxide 400 mg magnesium Tablet 400 mg PO DAILY RF: 0 tramadol 50 mg tablet 50 mg PO BID PRN (Reason: Pain, Moderate) RF: 0 Referrals Referrals: PCP,NO [Physician] -
[2020-11-16 20:42] LABS: Appearance Urine Cloudy (Clear); Bacteria Urine Automated Negative (Negative); Bilirubin Urine Negative (Negative); Blood Urine 3+ (Negative); Color Urine Orange; Epithelial Cell Urine Auto 0-5 /lpf (0-5); Glucose Urine UA Negative (Negative); Ketones Urine Negative (Negative); Leukocyte Esterase Urine 2+ (Negative); Nitrite Urine Negative (Negative); Protein Urine 2+ (Negative); RBC Urine Automated >30 /hpf (0-4); Specific Gravity Urine 1.014 (1.000-1.030); Urobilinogen Urine Negative (Negative); WBC Urine Automated >30 /hpf (0-5)
[2020-11-16 20:43] LABS: Hematocrit (blood only) 38.5 % (37-47); Hemoglobin 12.5 g/dL (12.0-16.0); Mean Corpuscular Hemoglobin 30.9 pg (25-34); Mean Corpuscular Hgb Conc 32.5 g/dL (32-36); Mean Corpuscular Volume 95.3 fL (80-100); Mean Platelet Volume 12.4 fL (7.4-10.4); Platelet Count 105 K/uL (130-400); RDW Coefficient of Variation 15.2 % (11.5-14.5); RDW Standard Deviation 52.8 fL (36.4-46.3); Red Blood Count 4.04 M/uL (4.2-5.4); White Blood Count 9.79 K/uL (4.8-10.8)
[2020-11-16 20:46] LABS: Partial Thromboplastin Time 26.1 Seconds (21.0-31.0)
[2020-11-16 20:56] LABS: Alanine Aminotransferase 28 U/L (12-78); Albumin Level 4.6 gm/dl (3.4-5.0); Aspartate Aminotransferase 31 U/L (15-37); BUN Creatinine Ratio 16.5 (10-20); Blood Urea Nitrogen 40 mg/dl (7-18); Calcium 11.1 mg/dl (8.5-10.1); Carbon Dioxide 34 mmol/L (21-32); Chloride 102 mmol/L (98-107); Creatinine Clr Calc Pharmacy 19.6 ml/min; Est GFR (African American) 20.9 ml/min; Est GFR (Non-African American) 18.1 ml/min; Glucose 109 mg/dl (70-99); Magnesium 2.7 mg/dl (1.8-2.4); Potassium 3.7 mmol/L (3.5-5.1); Sodium 142 mmol/L (136-145)
[2020-11-16 21:10] LABS: Prothrombin Time 10.5 Seconds (9.0-12.0)
--- NOTE | 2020-11-16 21:24 | XRay Report ---
SINGLE VIEW CHEST CLINICAL HISTORY: Generalized weakness. FINDINGS: An AP, portable, semierect chest radiograph is compared to chest x-ray and chest CT dated . The examination is degraded by portable technique and patient rotation. The heart is top no rmal for projection noting atherosclerotic calcification of the thoracic aorta. The pulmonary vascula ture is noncongested. There are calcified hilar lymph nodes. Chronic interstitial thickening is simil ar to previous. There is bibasilar scarring/atelectasis. Calcified granulomas are incidentally noted. No airspace consolidation or large pleural effusion is identified. No pneumothorax is seen. The skel etal structures are osteopenic. The bony thorax is grossly intact. Degenerative change is noted in th e shoulders and thoracic spine. IMPRESSION: No active disease in the chest. ACT 112: Negative or not required by law. Electronically signed by: Luis Cruz M.D. 11/16/2020 9:22 PM
[2020-11-16] MEDS ORDERED: cefTRIAXone SODIUM 1,000 MG/50 ML BAG IV STA (21:27)
[2020-11-16 21:28] LABS: Albumin Globulin Ratio 1.6 (0.9-2); Alkaline Phosphatase 54 U/L (45-117); Bilirubin,Total 0.5 mg/dl (0.2-1); Creatine Kinase 117 U/L (26-192); Globulin 2.9 gm/dl (2.5-4.0); Total Protein 7.5 gm/dl (6.4-8.2); Troponin I < 0.015 ng/ml (0-0.045)
[2020-11-16 21:41] LABS: T4 Free Thyroxine 0.18 ng/dl (0.8-1.6)
[2020-11-16 21:44] LABS: ALC (manual) 4.85 K/uL (1.2-3.4); ANC (manual) 4.51 K/uL (1.4-6.5); Basophils # (manual) 0.09 K/uL (0-0.2); Basophils % (manual) 0.9 %; Eosinophils # (manual) 0.09 K/uL (0-0.5); Eosinophils % (manual) 0.9 %; Large Granular Lymph # (manua 1.87 K/uL; Large Granular Lymph % (manual) 19.1 %; Lymphocytes # (manual) 2.98 K/uL (1.2-3.4); Lymphocytes % (manual) 30.4 %; Monocytes # (manual) 0.17 K/uL (0.11-0.59); Monocytes % (manual) 1.7 %; Myelocytes # (manual) 0.09 K/uL (0-0); Myelocytes % (manual) 0.9 %; Neutrophils # (manual) 4.51 K/uL (1.4-6.5); Neutrophils % (manual) 46.1 %; Polychromasia 1+
[2020-11-17] MEDS ORDERED: ONDANSETRON INJ 2 MG/ML 2 ML VIAL IV PRN (01:33)
[2020-11-17] MEDS ORDERED: DOCUSATE SODIUM 100 MG CAP PO PRN (01:33)
[2020-11-17] MEDS ORDERED: ACETAMINOPHEN 325 MG TAB PO PRN (01:33)
[2020-11-17] MEDS ORDERED: NYSTATIN POWDER 15GM BTL EXT PRN (01:33)
[2020-11-17] MEDS ORDERED: traMADol HCL 50 MG TABLET PO PRN (01:33)
[2020-11-17] MEDS ORDERED: NITROGLYCERIN SL 0.4 MG/TAB TAB SL PRN (01:33)
[2020-11-17] MEDS ORDERED: POLYETHYLENE (MIRALAX) 17 GM PACK PO PRN (01:33)
[2020-11-17] MEDS ORDERED: PROCHLORPERAZINE MALEATE 10 MG TAB PO PRN (01:33)
[2020-11-17] MEDS: SODIUM CHLORIDE 0.9% 1000ML 1,000 ML IV SCH ×4 (01:48→14:37)
[2020-11-17] MEDS ORDERED: ONDANSETRON 8MG OD TAB PO PRN (01:54)
--- NOTE | 2020-11-17 03:48 | History and Physical Report ---
DATE OF ADMISSION: 11/16/2020. CHIEF COMPLAINT: Abnormal labs. 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 The patient says she is not feeling good. She was feeling weak and tired and also had lower extremity pain, when she went and saw the her oncologist and outpatient labs were done, which shows creatinine is 2.4, baseline is around 1.5-1.7 and also calcium was 12.1. So she was advised to come to the hospital. The patient says she is also constipated, did not move her bowels for the last 4 days. Feeling cold and tired. Appetite is not that great. Generalized weakness. Denies any chest pain. No shortness of breath, no cough, no fevers, no headache, no blurred visions, no earache, no runny nose, no sore throat, no nausea, no dysphagia. Normal bladder movements. Ambulating okay. Ambulates with a walker. Currently, hemodynamically stable. The patient's labs showed calcium of 11.1 and creatinine of 2.4 and TSH is 196 and free T4 of 0.18. Urinalysis is positive for leukocyte esterase. The patient says she is not taking her thyroid medications regularly because she has to get up early in the morning for that and she is missing the doses. ALLERGIES: LORAZEPAM, PNEUMOCOCCAL VACCINE, BACTRIM. PAST MEDICAL HISTORY: As mentioned above. PAST SURGICAL HISTORY: Cystoscopy with stent placement and lithotripsy, knee arthroscopy, partial removal of thyroid lobe, cervical lymphadenectomy, completion of thyroidectomy, inguinal hernia repair. MEDICATIONS: The patient is on allopurinol 100 mg p.o. daily, calcitriol 0.5 mcg p.o. daily, calcium carbonate 600 mg p.o. b.i.d., citalopram 10 mg p.o. daily, Klonopin 0.5 mg p.o. at bedtime, diltiazem 120 mg p.o. daily, Colace 100 mg p.o. b.i.d. p.r.n., folic acid 1 mg p.o. a.m., Imbruvica 280mg p.o. daily, isosorbide mononitrate 30 mg p.o. daily, lactobacillus daily, levothyroxine 175 mcg p.o. daily, magnesium oxide 400 mg p.o. daily, nystatin topical t.i.d., omeprazole 20 mg p.o. b.i.d., Zofran 8 mg p.o. 8 hours p.r.n., MiraLax 17 g p.o. daily p.r.n., potassium chloride 20 mEq p.o. daily, Compazine 10 mg p.o. q. 6 hours p.r.n., torsemide 10 mg p.o. daily, tramadol 50 mg p.o. b.i.d. p.r.n. FAMILY HISTORY: Significant for mother has cancer, brother has diabetes, sister has diabetes, brother has Parkinson's disease. SOCIAL HISTORY: Currently living alone. No smoking, no alcohol, no drug use. REVIEW OF SYSTEMS: As per HPI. Rest of the review of systems is negative. PHYSICAL EXAMINATION: GENERAL: The patient is obese, not in acute distress. VITAL SIGNS: Temperature 36.4, pulse 67, respiratory rate 18, blood pressure 143/98, oxygen 99% on room air. HEENT: Pupils equal, round and reactive to light. Oral mucosa moist. NECK: No JVD, no neck masses. CARDIOVASCULAR: S1 and S2 heard. Regular rate and rhythm. No murmur, no gallop. RESPIRATORY SYSTEM: Normal AP diameter. No accessory muscle use. No wheezing, no crackles. ABDOMEN: Soft, bowel sounds present, nontender, no distention. CENTRAL NERVOUS SYSTEM: Cranial nerves II-XII grossly intact, nonfocal. EXTREMITIES: Trace pedal edema, no erythema seen. LABORATORY DATA: WBC 9.7, hemoglobin 12.5, hematocrit 38.5, platelets 105. PT 10.5, INR 1, APTT 26.1. Sodium 142, potassium 3.7, chloride 102, bicarbonate 34, BUN 40, creatinine 2.4, serum glucose 109, calcium 11.1, magnesium 2.7, total bilirubin 0.5, AST 31, ALT 28, alkaline phosphatase 54, total creatinine kinase 117. Troponin I less than 0.015. TSH is 196, free T4 of 0.18. Urinalysis cloudy, +3 blood, +2 leukocyte esterase. SARS-CoV-2 PCR negative. IMAGING DATA: Chest x-ray, no acute disease in the chest. EKG: Normal sinus rhythm at a rate of 71. Nonspecific T-wave abnormalities present. Q-waves in inferior leads. QTc of 467. ASSESSMENT AND PLAN: This is an 85-year-old female who presents with abnormal labs. 1. Abnormal labs,acute kidney injury and hypercalcemia: Baseline creatinine of 1.5-1.7, presently with a creatinine of 2.4, calcium of 11.2. We are going to avoid nephrotoxic agents. Aggressive IV fluids, normal saline 200 mL per hour. Will check vitamin D. Hold her calcitriol and calcium supplements. . Will check PTH and rpth levels. Consult nephrology in the a.m. Closely monitor in the med tele. Will also discuss with hem/onc in the a.m. 2. Hypothyroidism: She says she gained about 10 pounds of weight and constipation and feeling weak and tired and cold .She has postsurgical hypothyroidism. She says she is not taking her pills every day in the morning that she is supposed to take. Will place on IV levothyroxine. May need to discuss with endocrinology at [place] in the a.m. 3. Possible urinary tract infection: Could be contributing to her symptoms. Started on Rocephin. Will follow the cultures. 4. History of CLL: Currently on ibrutinib, follows with hem/onc. 5. History of thyroid cancer: Status post thyroidectomy. 6. Diabetes: Currently not on any medications. Will follow HbA1c levels, diabetic diet. 7. History of chronic kidney disease stage IV: Baseline creatinine 1.5-1.7. 8. History of autoimmune hemolytic anemia, transfusion dependent anemia: Currently hemoglobin is stable. 9. Generalized anxiety and depression: Continue her citalopram and Klonopin. 10. Hypertension: Continue her Imdur. Holding her diuretics. Continue her diltiazem. We will monitor the blood pressure. 11. History of supraventricular tachycardia: On diltiazem. 12. Deep venous thrombosis prophylaxis: On heparin subcutaneous. DISPOSITION: Closely monitor in the med tele. PT/OT prior to OT prior to discharge. Social service to help with discharge planning. Job ID: [id number] NASRA
[2020-11-17] MEDS: HEPARIN SOD 5,000 UNIT/0.5 ML VIAL SQ SCH ×3 (05:58→21:31)
[2020-11-17 06:30] LABS: Hematocrit (blood only) 41.4 % (37-47); Hemoglobin 13.3 g/dL (12.0-16.0); Mean Corpuscular Hemoglobin 30.9 pg (25-34); Mean Corpuscular Hgb Conc 32.1 g/dL (32-36); Mean Corpuscular Volume 96.1 fL (80-100); Mean Platelet Volume 12.1 fL (7.4-10.4); Platelet Count 100 K/uL (130-400); RDW Coefficient of Variation 15.3 % (11.5-14.5); RDW Standard Deviation 53.4 fL (36.4-46.3); Red Blood Count 4.31 M/uL (4.2-5.4); White Blood Count 9.87 K/uL (4.8-10.8)
[2020-11-17 06:44] LABS: Basophils # (auto) 0.02 K/uL (0-0.2); Basophils % (auto) 0.2 %; Eosinophils # (auto) 0.14 K/uL (0-0.5); Eosinophils % (auto) 1.4 %; Giant Platelets 1+; Immature Granulocytes # (auto) 0.04 K/uL (0.00-0.02); Immature Granulocytes % (auto) 0.4 %; Lymphocytes % (auto) 46.6 %; Monocytes # (auto) 0.48 K/uL (0.11-0.59); Monocytes % (auto) 4.9 %; Neutrophils # (auto) 4.59 K/uL (1.4-6.5); Neutrophils % (auto) 46.5 %
[2020-11-17 06:58] LABS: BUN Creatinine Ratio 16.7 (10-20); Calcium 10.1 mg/dl (8.5-10.1); Creatinine Clr Calc Pharmacy 21.8 ml/min; Est GFR (African American) 23.8 ml/min; Est GFR (Non-African American) 20.5 ml/min; Magnesium 2.6 mg/dl (1.8-2.4); Potassium 3.4 mmol/L (3.5-5.1)
[2020-11-17] MEDS ORDERED: LACTULOSE SYRUP 30 GM/45 ML UDP PO ONE (08:00)
[2020-11-17 08:24] LABS: Estimated Average Glucose 114 mg/dl; Hemoglobin A1C 5.6 % (4.5-5.6)
[2020-11-17] MEDS: allopurinoL 100 MG TAB PO SCH (08:29)
[2020-11-17] MEDS: ISOSORBIDE MONO EXTENDED REL 30 MG TABCR PO SCH (08:29)
[2020-11-17] MEDS: FOLIC ACID 1 MG TAB PO SCH (08:29)
[2020-11-17] MEDS: dilTIAZem ER 120 MG CAPCR PO SCH (08:29)
[2020-11-17] MEDS: PANTOprazole 40 MG TAB PO SCH ×2 (08:29→20:28)
[2020-11-17] MEDS: CITALOPRAM 20 MG TAB PO SCH (08:29)
[2020-11-17] MEDS: LACTOBACILLUS ACIDOPHILUS 1 GM PACK PO SCH (08:29)
[2020-11-17] MEDS: POTASSIUM CHLORIDE CRTAB 20 MEQ TABCR PO SCH (08:30)
[2020-11-17] MEDS: MAGNESIUM OXIDE 400 MG TAB PO SCH (08:30)
[2020-11-17] MEDS ORDERED: LEVOTHYROXINE SODIUM 87.5 MCG in SYRINGE 0 ML IV SCH (09:00)
--- NOTE | 2020-11-17 09:59 | Electrocardiogram Report ---
Test Reason : Blood Pressure : / mmHG Vent. Rate : 071 BPM Atrial Rate : 071 BPM P-R Int : 146 ms QRS Dur : 070 ms QT Int : 430 ms P-R-T Axes : 007 000 039 degrees QTc Int : 467 ms Normal sinus rhythm Cannot rule out Inferior infarct , age undetermined Nonspecific T wave abnormality Abnormal ECG When compared with ECG of 15-NOV-2019 06:50, Nonspecific T wave abnormality now evident in Lateral leads Confirmed by Chris Moeller ([id number]) on 11/17/2020 9:59:03 AM Referred By: Marcell Long Confirmed By:Chris Moeller
--- NOTE | 2020-11-17 10:18 | Electrocardiogram Report ---
Test Reason : Blood Pressure : / mmHG Vent. Rate : 084 BPM Atrial Rate : 066 BPM P-R Int : 146 ms QRS Dur : 074 ms QT Int : 338 ms P-R-T Axes : -12 008 -21 degrees QTc Int : 399 ms Poor data quality, interpretation may be adversely affected Sinus rhythm Low voltage QRS Nonspecific T wave abnormality Abnormal ECG When compared with ECG of 16-NOV-2020 20:19, (unconfirmed) Nonspecific T wave abnormality, worse in Inferior leads Nonspecific T wave abnormality now evident in Anterior leads QT has shortened Confirmed by Chris Moeller ([id number]) on 11/17/2020 10:18:13 AM Referred By: Marcell Long Confirmed By:Chris Moeller
--- NOTE | 2020-11-17 10:45 | CT Scan Report ---
ABDOMEN AND PELVIS CT WITHOUT CONTRAST CT DOSE: 1645.75 mGy.cm HISTORY: Leukemia. Pulmonary nodules. Follow-up. metastatic disease? TECHNIQUE: Multiaxial CT images of the abdomen and pelvis were performed without contrast. A dose lo wering technique was utilized adhering to the principles of ALARA. COMPARISON STUDY: Chest CTA 11/14/2019. FINDINGS: Please refer the same day chest CT for further evaluation of the lung bases. There is impro rose aeration within the lung bases with a few tiny nodules remaining. These measure up to 3 mm. No pn eumoperitoneum. No pneumatosis. There is bilateral L5 spondylolysis. Old, healed right posterior rib fractures. No suspicious lytic or blastic osseous lesions. There is a small hiatus hernia, unchanged. Stable anterior pericardial a millimeter lymph node. Small fat-containing umbilical hernia, unchange d. Scattered calcified granulomas again noted within the liver and spleen. No hepatic or splenic mass es. Cholelithiasis. No gallbladder wall thickening. The unenhanced pancreas and adrenal glands are un remarkable. Increase in size in the multiple bilateral renal calculi including the 1.5 cm stones with in the bilateral renal pelvises. No change in the mild right hydronephrosis. No obstructing ureteral stones. There is urothelial thickening and periureteral fat stranding within the right renal collecti ng system/ureter. There is also moderate bladder wall thickening with adjacent fat stranding. This is similar to the prior study and could be chronic or represent a pyelitis/cystitis. The uterus and ciarra ateral adnexa are unremarkable. Normal caliber abdominal aorta. Enlarged and partially calcified tom portal/peripancreatic lymph nodes are again noted. Dominant periportal lymph node measures 3.2 x 1.9 cm. This previously measured 3.3 x 2.7 cm. Overall, the periportal/peripancreatic and retroperitoneal lymphadenopathy has improved in the interval. Dominant retroperitoneal lymph node measures 1.7 cm, p reviously measuring 2.6 cm. Mild perirectal edema is noted. Moderate to large amount of well-formed s tool within the rectum. Colonic diverticulosis. No evidence for acute diverticulitis. Suboptimal eval uation for bowel pathology due to the lack of intravenous and oral contrast. However, there is no def inite bowel wall thickening or obstruction. Normal appendix. Moderate well-formed stool seen througho ut the colon. IMPRESSION: 1. Slight improvement in the upper abdominal lymphadenopathy as described above. 2. No change in the mild right hydronephrosis. No obstructing ureteral stones. 3. There is urothelial thickening and periureteral fat stranding within the right renal collecting sy stem/ureter. There is also moderate bladder wall thickening with adjacent fat stranding. This is cyndy lar to the prior study and could be chronic or represent a pyelitis/cystitis. 4. Moderate to large amount well-formed stool seen throughout the colon. 5. Cholelithiasis. 6. Bilateral nephrolithiasis. No ureteral calculi. 7. Additional findings as described above. ACT 112: Negative or not required by law. Electronically signed by: Gautam Ramirez M.D. 11/17/2020 10:44 AM
--- NOTE | 2020-11-17 11:08 | Nephrology Consultation ---
Date of Consultation November 17, 2020 Assessment & Plan (1) KEO (acute kidney injury): nonoliguric stage 1 acute on chronic stage 4 renal failure, with baseline creatinine 1.5-1.7 and likely worsened recently d/t polyuria from hypercalcemia: prerenal versus ATN. she has chronically inflamed urine and admission culture is negative for UTI. her R hydronephrosis and bladder wall thickening are stable from at least a year back. no evidence of active stone disease, though she has significant stone burden. 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 she was admitted here in fall 2018 with serum calcium 5.1 and multifocal atrial tachycardia; she was d/c on high dose calcium and D supplements which she was still on at admission last evening. ->>recheck bmp ordered for now >> may need to resume at least some calcium supplements soon >>absolutely needs to be seen in nephrology clinic after discharge History of Present Illness Reason for Consultation: hypercalcemia, KEO Requesting Physician: Dr Ferguson Attending Physician: Arash Amor MD History of Present Illness 85 y/o F whom I'm asked to see for KEO and hypercalcemia was sent to ER by copy writer yesterday d/t findings of same on OP labs. Her OP creatinine was 2.4 (baseline mid ones) and calcium 12; on arrival values were 2.4 and 11.1 respectively. PMH includes CLL on ibrutinib, autoimmune hemolytic anemia s/p 2 rounds of rituxan, chronic thrombocytopenia, hypothyroid, CKD 4/3 w/ chronically inflamed urine, hypoparathyroid s/p XRT and hypothyroid status post thyroid cancer surgery, SVT, anxiety, nephrolithiasis s/p multiple urologic surgeries in the remote past. In addition to labs above, TSH on presentation was 201 w/ FT4 0.18; she had stopped taking her thyroid replacement b/c schedule to wait for breakfast and to take water pill was too burdensome. Endorses constipation and weakness, mild malaise. no sob; mild LE edema. her OP calcitriol adn calcium supplements were stopped; PTH was ordered and came back at less than 6; D levels were 21; PTHrp pending. she was started in NS at 200 mL hourly, lowered to 80 mL hourly when Ca on labs this am normalized to 10.1; creat on am labs to 2.2. Allergies Allergy/AdvReac Type Severity Reaction Status Date / Time lorazepam Allergy Unknown SEE COMMENT Verified 11/16/20 21:31 pneumococcal vaccine Allergy Unknown Unknown Verified 11/16/20 21:31 sulfamethoxazole AdvReac Intermediate Nausea Verified 11/16/20 21:31 [From Bactrim] trimethoprim [From Bactrim] AdvReac Intermediate Nausea Verified 11/16/20 21:31 Home Medications Medication Instructions Recorded Confirmed Type folic acid 1 mg tablet 1 mg PO QAM 09/05/18 11/16/20 History isosorbide mononitrate 30 mg 30 mg PO QAM 09/05/18 11/16/20 History tablet,extended release 24 hr omeprazole 20 mg capsule,delayed 20 mg PO BID 09/05/18 11/16/20 History release citalopram 10 mg tablet 10 mg PO DAILY 09/24/18 11/16/20 History prochlorperazine maleate 10 mg 10 mg PO Q6H PRN 10/15/18 11/16/20 History tablet (Compazine) nystatin 100,000 unit/gram topical 1 applic TOPICAL TID PRN 12/01/18 11/16/20 History powder allopurinol 100 mg tablet 100 mg PO DAILY 11/14/19 11/16/20 History torsemide 10 mg tablet 10 mg PO DAILY 11/14/19 11/16/20 History calcitriol 0.5 mcg capsule 0.5 mcg PO DAILY 11/16/20 11/16/20 History calcium carbonate 600 mg calcium 600 mg PO BID 11/16/20 11/16/20 History (1,500 mg) tablet clonazepam 0.5 mg tablet 0.5 mg PO HS 11/16/20 11/16/20 History diltiazem HCl 120 mg capsule,24 120 mg PO DAILY 11/16/20 11/16/20 History hr,extended release docusate sodium 100 mg capsule 100 mg PO BID PRN 11/16/20 11/16/20 History ibrutinib 140 mg capsule 280 mg PO DAILY 11/16/20 11/16/20 History (Imbruvica) lactobacillus rhamnosus R0011 20 20 cell PO DAILY 11/16/20 11/16/20 History billion cell capsule (Probiotic Digestive Care) levothyroxine 175 mcg tablet 175 mcg PO DAILY 11/16/20 11/16/20 History magnesium oxide 400 mg PO DAILY 11/16/20 11/16/20 History ondansetron HCl 8 mg tablet 8 mg PO Q8H PRN 11/16/20 11/16/20 History polyethylene glycol 3350 17 17 g PO DAILY PRN 11/16/20 11/16/20 History gram/dose oral powder (Miralax) potassium chloride 10 mEq 20 meq PO DAILY 11/16/20 11/16/20 History capsule,extended release tramadol 50 mg tablet 50 mg PO BID PRN 11/16/20 11/16/20 History Patient History Medical History (Updated 11/17/20 @ 18:11 by Thais Tran MD, PhD) Asthma CKD (chronic kidney disease) stage 4, GFR 15-29 ml/min Diabetes mellitus diet controlled Hemolytic anemia Kailyn positive hemolytic anemia; dx in 2013 HTN (hypertension) Hydronephrosis R; mild Hypocalcemia during Fall 2018 admission > d/c on aggressive calcium supplements Kidney stones s/p multiple lithotripsies, ureteroscopies Lymphoma B-cell CLL, dx in 2013 Non-STEMI (non-ST elevated myocardial infarction) Sepsis Thyroid cancer recurrent papillary thyroid cancer; s/p surgery; dx in 2009 TIA (transient ischemic attack) Surgical History History of hernia repair History of knee surgery b/l knees History of thyroidectomy several cancer surgeries on thyroid Family History Mother Colorectal cancer Brother Diabetes Sister Diabetes Social History Smoking Status: Never smoker Second Hand Exposure: Yes; Hx Alcohol Use: No Hx Substance Use: No Preferred Language: Kittitian Communication Ability: Effective Plaster Model And Mold Maker Required: No Beliefs That Will Affect Care: None marital status: / Current Living Situation: Alone Current Living Situation Comment: pt son lives in pt basement until he is able to find a new place to live. current occupational status: retired How many Children do You have: 3 Other Information That Helps Us Care for You: No Feels Safe at Home: Yes Safety Concerns: Feels Safe At This Time Assistive Devices: Walker Review of Systems Review of Systems: All systems reviewed & are unremarkable except as noted in HPI & below Genitourinary: endorses some recent dysuria and polyuria Physical Exam Constitutional: well developed and well nourished Eyes: EOM intact bilaterally ENMT: Ears: no external ear abnormality Nose: no external nose abnormality Mouth: + dry oral mucous membranes Neck: no nuchal rigidity Respiratory: normal respiratory effort Auscultation: + diminished lung sounds Cardiovascular: Rate/Rhythm: regular rate and regular rhythm Extremities: + edema (trace BLE) Gastrointestinal (Abdomen): Inspection/Auscultation: normal bowel sounds Percussion/Palpation: abdomen soft; abdomen nontender Musculoskeletal: Extremities: strength 5/5 throughout Skin: no rashes, warm and dry Neurologic: calh[place], fluent speech, no tremor Psychiatric: Orientation: oriented x 3 Results & Data ([facility]) Vital Signs (Past 12 Hours) Vital Signs Temp Pulse Pulse Resp BP BP Pulse Ox 11/17/20 08:03 63 11/17/20 07:37 36.4 C L 64 18 173/82 H 91 11/17/20 03:02 36.5 C 65 18 149/79 H 90 11/17/20 02:25 72 11/17/20 01:33 36.6 C 70 16 175/93 H 93 11/17/20 00:00 99 11/16/20 23:30 96 11/16/20 23:27 97 Pulse Ox 11/17/20 08:03 11/17/20 07:37 11/17/20 03:02 11/17/20 02:25 11/17/20 01:33 93 11/17/20 00:00 11/16/20 23:30 11/16/20 23:27 Laboratory Results 11/17/20 05:42 11/17/20 05:42 SHY labs as above Diagnostic Findings abd/pelvis noncon CT FINDINGS: Please refer the same day chest CT for further evaluation of the lung bases. There is improved aeration within the lung bases with a few tiny nodules remaining. These measure up to 3 mm. No pneumoperitoneum. No pneumatosis. There is bilateral L5 spondylolysis. Old, healed right posterior rib fractures. No suspicious lytic or blastic osseous lesions. There is a small hiatus hernia, unchanged. Stable anterior pericardial a millimeter lymph node. Small fat- containing umbilical hernia, unchanged. Scattered calcified granulomas again noted within the liver and spleen. No hepatic or splenic masses. Cholelithiasis. No gallbladder wall thickening. The unenhanced pancreas and adrenal glands are unremarkable. Increase in size in the multiple bilateral renal calculi including the 1.5 cm stones within the bilateral renal pelvises. No change in the mild right hydronephrosis. No obstructing ureteral stones. There is urothelial thickening and periureteral fat stranding within the right renal collecting system/ureter. There is also moderate bladder wall thickening with adjacent fat stranding. This is similar to the prior study and could be chronic or represent a pyelitis/cystitis. The uterus and bilateral adnexa are unremarkable. Normal caliber abdominal aorta. Enlarged and partially calcified pe riportal/peripancreatic lymph nodes are again noted. Dominant periportal lymph node measures 3.2 x 1.9 cm. This previously measured 3.3 x 2.7 cm. Overall, the periportal/peripancreatic and retroperitoneal lymphadenopathy has improved in the interval. Dominant retroperitoneal lymph node measures 1.7 cm, previously measuring 2.6 cm. Mild perirectal edema is noted. Moderate to large amount of well-formed stool within the rectum. Colonic diverticulosis. No evidence for acute diverticulitis. Suboptimal evaluation for bowel pathology due to the lack of intravenous and oral contrast. However, there is no definite bowel wall thickening or obstruction. Normal appendix. Moderate well-formed stool seen throughout the colon. IMPRESSION: 1. Slight improvement in the upper abdominal lymphadenopathy as described above. 2. No change in the mild right hydronephrosis. No obstructing ureteral stones. 3. There is urothelial thickening and periureteral fat stranding within the right renal collecting system/ureter. There is also moderate bladder wall thickening with adjacent fat stranding. This is similar to the prior study and could be chronic or represent a pyelitis/cystitis. 4. Moderate to large amount well-formed stool seen throughout the colon. 5. Cholelithiasis. 6. Bilateral nephrolithiasis. No ureteral calculi. 7. Additional findings as described above.
--- NOTE | 2020-11-17 11:55 | CT Scan Report ---
CT chest diagnostic wo con CLINICAL HISTORY: 85 years-old Female with metastatic disease. Subsequent treatment strategy. Follow -up exam in a patient with history of leukemia and thyroid cancer TECHNIQUE: Multiaxial CT images of the chest were performed without contrast. A dose lowering techni que was utilized adhering to the principles of ALARA. COMPARISON: CT abdomen and pelvis of same day, chest CT 11/14/2019. FINDINGS: No thyroid nodule identified. Calcified mediastinal and hilar lymph nodes are suggestive of prior granulomatous disease. 10 x 7 mm nodule within the anterior epicardial tissues on image 145 pr eviously measured 9 x 7 mm and is suggestive of a probable lymph node. There is a 10 x 10 mm left par atracheal nodule of the upper mediastinum on image 45 series 4 which in retrospect measured 8 x 6 mm. This demonstrates mildly increased attenuation with mild surrounding stranding. A nonenlarged 7 mm r ight supraclavicular lymph node is present on image 47 of series 4. Mild cardiomegaly. Mitral annular with extensive coronary artery calcifications. Atherosclerotic plaque of the thoracic aorta without aneurysm. No pneumothorax, pleural effusion or overt pulmonary edema. Mild dependent bibasilar atelectasis. Keyshawn cified granuloma of the right upper lobe. The previously noted 6 mm subpleural solid nodule of the ri ght upper lobe is not identified on today's study. Numerous tiny scattered bilateral tree-in-bud nodu les of the bilateral lungs, most which measure 1-2 mm are redemonstrated. No definite new or enlargin g nodules are identified. The central airways are patent. Calcified granuloma of the liver and spleen. Small hiatal hernia. Debris-filled esophagus demonstrate s mild diffuse wall thickening. Mild upper abdominal adenopathy. Unremarkable soft tissues. Degenerat ngozi changes of the shoulders and spine. No acute fracture or new suspicious bone lesion identified. IMPRESSION: 1. 10 x 10 mm nodule within the left tracheoesophageal recess of the upper mediastinum is indetermina te. Attention at follow-up is needed to exclude metastatic disease. 2. Indeterminate 10 x 7 mm anterior mediastinal lymph node should also be evaluated at follow-up. 3. The previously noted 6 mm solid nodule of the right lung apex is no longer present. Numerous bilat eral 1-2 mm solid pulmonary nodules are unchanged from comparison and are likely benign. No definite evidence of pulmonary metastatic disease. 4. Debris-filled esophagus with small hiatal hernia. 5. Additional findings as above. ACT 112: Negative or not required by law. Electronically signed by: Darrian Price M.D. 11/17/2020 11:54 AM
[2020-11-17] MEDS: POLYETHYLENE (MIRALAX) 17 GM PACK PO SCH ×2 (14:35→20:29)
--- NOTE | 2020-11-17 16:05 | Hospitalist Progress Note ---
Date of Service November 17, 2020 Assessment & Plan (1) Hypercalcemia: Plan: This is an 85-year-old female who presents with abnormal labs. 1. Abnormal labs,acute kidney injury and hypercalcemia: Baseline creatinine of 1.5-1.7, presently with a creatinine of 2.4, calcium of 11.2. We are going to avoid nephrotoxic agents. Aggressive IV fluids, normal saline 200 mL per hour initially, will now decrease to 80 mL/hr. - discussed with nephrology check vitamin D. Hold her calcitriol and calcium supplements for now - per nephrology has hx of hypocalcemia and supplement may be restarted. check PTH and rpth levels. Nephrology consulted - appreciate their input Admitting provider also discussed with hem/onc - Dr. Long who sent pt to the hospital - recommends CT chest abd. pelvis - ordered 2. Hypothyroidism: She says she gained about 10 pounds of weight and constipation and feeling weak and tired and cold She has postsurgical hypothyroidism. She says she is not taking her pills every day in the morning that she is supposed to take. Placed on IV levothyroxine. May need to discuss further with endocrinology at [place] 3. Possible urinary tract infection: Could be contributing to her symptoms. Started on Rocephin. Will follow the cultures. 4. History of CLL: Currently on ibrutinib, follows with hem/onc. 5. History of thyroid cancer: Status post thyroidectomy. 6. Diabetes: Currently not on any medications. Will follow HbA1c levels, diabetic diet. 7. History of CKD stage IV: Baseline creatinine 1.5-1.7. management as above (nephrology following) 8. History of autoimmune hemolytic anemia, transfusion dependent anemia: Currently hemoglobin is stable. 9. Generalized anxiety and depression: Continue her citalopram and Klonopin. 10. Hypertension: Continue her Imdur. Holding her diuretics. Continue her diltiazem. We will monitor the blood pressure. 11. History of supraventricular tachycardia: On diltiazem. DVT prophylaxis: On heparin subcutaneous. DISPOSITION: Closely monitor in the med tele. PT/OT prior to OT prior to discharge. Social service to help with discharge planning. Admission and Anticipated Discharge Date Admission Date: November 16, 2020 Subjective Patient seen in follow-up of hypercalcemia, sent by oncologist, Dr. Long Currently her calcium is improved, she has also KEO and nephrology was consulted Patient is lying in bed, no acute distress, reading a book and inquiring about the discharge Denies any fever chills, chest pain, shortness of breath, abdominal pain, n/v Review of Systems Review of Systems: All systems reviewed & are unremarkable except as noted in Subjective Physical Exam Physical Exam: GENERAL: obese elderly F, not in acute distress. HEENT: NC/AT, Pupils equal, round and reactive to light. Oral mucosa moist. NECK: No JVD, no neck masses. CARDIOVASCULAR: S1 and S2 heard. Regular rate and rhythm. No murmur, no gallop. RESPIRATORY: Normal AP diameter. No accessory muscle use. No wheezing, no crackles. ABDOMEN: Soft, bowel sounds present, nontender, no distention. NEURO: Alert oriented, answering questions appropriately, no facial asymmetry, speech fluent, moves extremities EXTREMITIES: Trace pedal edema, no erythema seen. Results & Data Results & Data ([facility]) Vital Signs (Past 12 Hours) Vital Signs Temp Pulse Pulse Resp BP Pulse Ox 11/17/20 15:44 71 11/17/20 11:32 36.7 C 74 18 155/90 H 95 11/17/20 08:03 63 11/17/20 07:37 36.4 C L 64 18 173/82 H 91 Laboratory Results 11/17/20 11/17/20 11/17/20 Range/Units 12:07 08:06 05:42 WBC (4.8-10.8) K/uL RBC (4.2-5.4) M/uL Hgb (12.0-16.0) g/dL Hct (37-47) % MCV (80-100) fL MCH (25-34) pg MCHC (32-36) g/dL RDW Std Deviation (36.4-46.3) fL RDW Coeff of Marcelina (11.5-14.5) % Plt Count (130-400) K/uL MPV (7.4-10.4) fL Immature Gran % (Auto) % Neut % (Auto) % Lymph % (Auto) % Hardy % (Auto) % Eos % (Auto) % Baso % (Auto) % Neut # (Auto) (1.4-6.5) K/uL Lymph # (Auto) (1.2-3.4) K/uL Hardy # (Auto) (0.11-0.59) K/uL Eos # (Auto) (0-0.5) K/uL Baso # (Auto) (0-0.2) K/uL Immature Gran # (Auto) (0.00-0.02) K/uL Neutrophils % (Manual) % Lymphocytes % (Manual) % Monocytes % (Manual) % Eosinophils % (Manual) % Basophils % (Manual) % Myelocytes % (Man) % Neutrophils # (Manual) (1.4-6.5) K/uL Total Absolute Neuts (1.4-6.5) K/uL Lymphocytes # (Manual) (1.2-3.4) K/uL Total Abs Lymphocytes (1.2-3.4) K/uL Monocytes # (Manual) (0.11-0.59) K/uL Eosinophils # (Manual) (0-0.5) K/uL Basophils # (Manual) (0-0.2) K/uL Myelocytes # (Manual) (0-0) K/uL Large Granular Lymphs % # Lrg Granular Lymphs K/uL Blood Smear Review Giant Platelets Polychromasia PT (9.0-12.0) Seconds INR (0.9-1.1) APTT (21.0-31.0) Seconds PTT Ratio Sodium (136-145) mmol/L Potassium (3.5-5.1) mmol/L Chloride (98-107) mmol/L Carbon Dioxide (21-32) mmol/L Anion Gap (3-11) BUN (7-18) mg/dl Creatinine (0.6-1.2) mg/dl Est Cr Clr Drug Dosing ml/min Est GFR ( Amer) ml/min Est GFR (Non-Af Amer) ml/min BUN/Creatinine Ratio (10-20) Glucose (70-99) mg/dl POC Glucose 98 103 H (70-99) mg/dl Estimat Average Glucose mg/dl Hemoglobin A1c (4.5-5.6) % Calcium (8.5-10.1) mg/dl Magnesium (1.8-2.4) mg/dl Total Bilirubin (0.2-1) mg/dl AST (15-37) U/L ALT (12-78) U/L Alkaline Phosphatase (45-117) U/L Total Creatine Kinase (26-192) U/L Troponin I (0-0.045) ng/ml Total Protein (6.4-8.2) gm/dl Albumin (3.4-5.0) gm/dl Globulin (2.5-4.0) gm/dl Albumin/Globulin Ratio (0.9-2) 25-OH Vitamin D Total (30-100) ng/ml TSH (0.300-4.500) uIu/ml Free T4 (0.8-1.6) ng/dl PTH Intact (18.4-80.1) pg/ml PTH Related Protein Pending Urine Color Urine Appearance (Clear) Urine pH (4.5-7.5) Ur Specific [place] (1.000-1.030) Urine Protein (Negative) Urine Glucose (UA) (Negative) Urine Ketones (Negative) Urine Blood (Negative) Urine Nitrite (Negative) Urine Bilirubin (Negative) Urine Urobilinogen (Negative) Ur Leukocyte Esterase (Negative) Urine WBC (Auto) (0-5) /hpf Urine RBC (Auto) (0-4) /hpf U Hyaline Cast (Auto) (0-5) /lpf U Epithel Cells (Auto) (0-5) /lpf Urine Bacteria (Auto) (Negative) COVID-19 Eval Order SARS-CoV-2 (PCR) (Negative) 11/17/20 11/17/20 11/17/20 Range/Units 05:42 05:42 05:42 WBC (4.8-10.8) K/uL RBC (4.2-5.4) M/uL Hgb (12.0-16.0) g/dL Hct (37-47) % MCV (80-100) fL MCH (25-34) pg MCHC (32-36) g/dL RDW Std Deviation (36.4-46.3) fL RDW Coeff of Marcelina (11.5-14.5) % Plt Count (130-400) K/uL MPV (7.4-10.4) fL Immature Gran % (Auto) % Neut % (Auto) % Lymph % (Auto) % Hardy % (Auto) % Eos % (Auto) % Baso % (Auto) % Neut # (Auto) (1.4-6.5) K/uL Lymph # (Auto) (1.2-3.4) K/uL Hardy # (Auto) (0.11-0.59) K/uL Eos # (Auto) (0-0.5) K/uL Baso # (Auto) (0-0.2) K/uL Immature Gran # (Auto) (0.00-0.02) K/uL Neutrophils % (Manual) % Lymphocytes % (Manual) % Monocytes % (Manual) % Eosinophils % (Manual) % Basophils % (Manual) % Myelocytes % (Man) % Neutrophils # (Manual) (1.4-6.5) K/uL Total Absolute Neuts (1.4-6.5) K/uL Lymphocytes # (Manual) (1.2-3.4) K/uL Total Abs Lymphocytes (1.2-3.4) K/uL Monocytes # (Manual) (0.11-0.59) K/uL Eosinophils # (Manual) (0-0.5) K/uL Basophils # (Manual) (0-0.2) K/uL Myelocytes # (Manual) (0-0) K/uL Large Granular Lymphs % # Lrg Granular Lymphs K/uL Blood Smear Review Giant Platelets Polychromasia PT (9.0-12.0) Seconds INR (0.9-1.1) APTT (21.0-31.0) Seconds PTT Ratio Sodium (136-145) mmol/L Potassium (3.5-5.1) mmol/L Chloride (98-107) mmol/L Carbon Dioxide (21-32) mmol/L Anion Gap (3-11) BUN (7-18) mg/dl Creatinine (0.6-1.2) mg/dl Est Cr Clr Drug Dosing ml/min Est GFR ( Amer) ml/min Est GFR (Non-Af Amer) ml/min BUN/Creatinine Ratio (10-20) Glucose (70-99) mg/dl POC Glucose (70-99) mg/dl Estimat Average Glucose 114 mg/dl Hemoglobin A1c 5.6 (4.5-5.6) % Calcium (8.5-10.1) mg/dl Magnesium (1.8-2.4) mg/dl Total Bilirubin (0.2-1) mg/dl AST (15-37) U/L ALT (12-78) U/L Alkaline Phosphatase (45-117) U/L Total Creatine Kinase (26-192) U/L Troponin I (0-0.045) ng/ml Total Protein (6.4-8.2) gm/dl Albumin (3.4-5.0) gm/dl Globulin (2.5-4.0) gm/dl Albumin/Globulin Ratio (0.9-2) 25-OH Vitamin D Total 21.0 L (30-100) ng/ml TSH (0.300-4.500) uIu/ml Free T4 (0.8-1.6) ng/dl PTH Intact < 6.3 L (18.4-80.1) pg/ml PTH Related Protein Urine Color Urine Appearance (Clear) Urine pH (4.5-7.5) Ur Specific Pet[place] (1.000-1.030) Urine Protein (Negative) Urine Glucose (UA) (Negative) Urine Ketones (Negative) Urine Blood (Negative) Urine Nitrite (Negative) Urine Bilirubin (Negative) Urine Urobilinogen (Negative) Ur Leukocyte Esterase (Negative) Urine WBC (Auto) (0-5) /hpf Urine RBC (Auto) (0-4) /hpf U Hyaline Cast (Auto) (0-5) /lpf U Epithel Cells (Auto) (0-5) /lpf Urine Bacteria (Auto) (Negative) COVID-19 Eval Order SARS-CoV-2 (PCR) (Negative) 11/17/20 11/17/20 11/16/20 Range/Units 05:42 05:42 20:25 WBC 9.87 (4.8-10.8) K/uL RBC 4.31 (4.2-5.4) M/uL Hgb 13.3 (12.0-16.0) g/dL Hct 41.4 (37-47) % MCV 96.1 (80-100) fL MCH 30.9 (25-34) pg MCHC 32.1 (32-36) g/dL RDW Std Deviation 53.4 H (36.4-46.3) fL RDW Coeff of Marcelina 15.3 H (11.5-14.5) % Plt Count 100 L (130-400) K/uL MPV 12.1 H (7.4-10.4) fL Immature Gran % (Auto) 0.4 % Neut % (Auto) 46.5 % Lymph % (Auto) 46.6 % Hardy % (Auto) 4.9 % Eos % (Auto) 1.4 % Baso % (Auto) 0.2 % Neut # (Auto) 4.59 (1.4-6.5) K/uL Lymph # (Auto) 4.60 H (1.2-3.4) K/uL Hardy # (Auto) 0.48 (0.11-0.59) K/uL Eos # (Auto) 0.14 (0-0.5) K/uL Baso # (Auto) 0.02 (0-0.2) K/uL Immature Gran # (Auto) 0.04 H (0.00-0.02) K/uL Neutrophils % (Manual) % Lymphocytes % (Manual) % Monocytes % (Manual) % Eosinophils % (Manual) % Basophils % (Manual) % Myelocytes % (Man) % Neutrophils # (Manual) (1.4-6.5) K/uL Total Absolute Neuts (1.4-6.5) K/uL Lymphocytes # (Manual) (1.2-3.4) K/uL Total Abs Lymphocytes (1.2-3.4) K/uL Monocytes # (Manual) (0.11-0.59) K/uL Eosinophils # (Manual) (0-0.5) K/uL Basophils # (Manual) (0-0.2) K/uL Myelocytes # (Manual) (0-0) K/uL Large Granular Lymphs % # Lrg Granular Lymphs K/uL Blood Smear Review Giant Platelets 1+ Polychromasia PT (9.0-12.0) Seconds INR (0.9-1.1) APTT (21.0-31.0) Seconds PTT Ratio Sodium 143 (136-145) mmol/L Potassium 3.4 L (3.5-5.1) mmol/L Chloride 106 (98-107) mmol/L Carbon Dioxide 33 H (21-32) mmol/L Anion Gap 4.0 (3-11) BUN 36 H (7-18) mg/dl Creatinine 2.16 H (0.6-1.2) mg/dl Est Cr Clr Drug Dosing 21.8 ml/min Est GFR ( Amer) 23.8 ml/min Est GFR (Non-Af Amer) 20.5 ml/min BUN/Creatinine Ratio 16.7 (10-20) Glucose 113 H (70-99) mg/dl POC Glucose (70-99) mg/dl Estimat Average Glucose mg/dl Hemoglobin A1c (4.5-5.6) % Calcium 10.1 (8.5-10.1) mg/dl Magnesium 2.6 H (1.8-2.4) mg/dl Total Bilirubin (0.2-1) mg/dl AST (15-37) U/L ALT (12-78) U/L Alkaline Phosphatase (45-117) U/L Total Creatine Kinase (26-192) U/L Troponin I (0-0.045) ng/ml Total Protein (6.4-8.2) gm/dl Albumin (3.4-5.0) gm/dl Globulin (2.5-4.0) gm/dl Albumin/Globulin Ratio (0.9-2) 25-OH Vitamin D Total (30-100) ng/ml TSH 201.000 H (0.300-4.500) uIu/ml Free T4 (0.8-1.6) ng/dl PTH Intact (18.4-80.1) pg/ml PTH Related Protein Urine Color Urine Appearance (Clear) Urine pH (4.5-7.5) Ur Specific Peterman (1.000-1.030) Urine Protein (Negative) Urine Glucose (UA) (Negative) Urine Ketones (Negative) Urine Blood (Negative) Urine Nitrite (Negative) Urine Bilirubin (Negative) Urine Urobilinogen (Negative) Ur Leukocyte Esterase (Negative) Urine WBC (Auto) (0-5) /hpf Urine RBC (Auto) (0-4) /hpf U Hyaline Cast (Auto) (0-5) /lpf U Epithel Cells (Auto) (0-5) /lpf Urine Bacteria (Auto) (Negative) COVID-19 Eval Order SARS-CoV-2 (PCR) NEGATIVE (Negative) 11/16/20 11/16/20 11/16/20 Range/Units 20:25 20:20 20:16 WBC (4.8-10.8) K/uL RBC (4.2-5.4) M/uL Hgb (12.0-16.0) g/dL Hct (37-47) % MCV (80-100) fL MCH (25-34) pg MCHC (32-36) g/dL RDW Std Deviation (36.4-46.3) fL RDW Coeff of Marcelina (11.5-14.5) % Plt Count (130-400) K/uL MPV (7.4-10.4) fL Immature Gran % (Auto) % Neut % (Auto) % Lymph % (Auto) % Hardy % (Auto) % Eos % (Auto) % Baso % (Auto) % Neut # (Auto) (1.4-6.5) K/uL Lymph # (Auto) (1.2-3.4) K/uL Hardy # (Auto) (0.11-0.59) K/uL Eos # (Auto) (0-0.5) K/uL Baso # (Auto) (0-0.2) K/uL Immature Gran # (Auto) (0.00-0.02) K/uL Neutrophils % (Manual) % Lymphocytes % (Manual) % Monocytes % (Manual) % Eosinophils % (Manual) % Basophils % (Manual) % Myelocytes % (Man) % Neutrophils # (Manual) (1.4-6.5) K/uL Total Absolute Neuts (1.4-6.5) K/uL Lymphocytes # (Manual) (1.2-3.4) K/uL Total Abs Lymphocytes (1.2-3.4) K/uL Monocytes # (Manual) (0.11-0.59) K/uL Eosinophils # (Manual) (0-0.5) K/uL Basophils # (Manual) (0-0.2) K/uL Myelocytes # (Manual) (0-0) K/uL Large Granular Lymphs % # Lrg Granular Lymphs K/uL Blood Smear Review Giant Platelets Polychromasia PT 10.5 (9.0-12.0) Seconds INR 1.0 (0.9-1.1) APTT (21.0-31.0) Seconds PTT Ratio Sodium (136-145) mmol/L Potassium (3.5-5.1) mmol/L Chloride (98-107) mmol/L Carbon Dioxide (21-32) mmol/L Anion Gap (3-11) BUN (7-18) mg/dl Creatinine (0.6-1.2) mg/dl Est Cr Clr Drug Dosing ml/min Est GFR ( Amer) ml/min Est GFR (Non-Af Amer) ml/min BUN/Creatinine Ratio (10-20) Glucose (70-99) mg/dl POC Glucose (70-99) mg/dl Estimat Average Glucose mg/dl Hemoglobin A1c (4.5-5.6) % Calcium (8.5-10.1) mg/dl Magnesium (1.8-2.4) mg/dl Total Bilirubin (0.2-1) mg/dl AST (15-37) U/L ALT (12-78) U/L Alkaline Phosphatase (45-117) U/L Total Creatine Kinase (26-192) U/L Troponin I (0-0.045) ng/ml Total Protein (6.4-8.2) gm/dl Albumin (3.4-5.0) gm/dl Globulin (2.5-4.0) gm/dl Albumin/Globulin Ratio (0.9-2) 25-OH Vitamin D Total (30-100) ng/ml TSH (0.300-4.500) uIu/ml Free T4 (0.8-1.6) ng/dl PTH Intact (18.4-80.1) pg/ml PTH Related Protein Urine Color [place] Urine Appearance Cloudy A (Clear) Urine pH 7.0 (4.5-7.5) Ur Specific Peterman 1.014 (1.000-1.030) Urine Protein 2+ H (Negative) Urine Glucose (UA) Negative (Negative) Urine Ketones Negative (Negative) Urine Blood 3+ H (Negative) Urine Nitrite Negative (Negative) Urine Bilirubin Negative (Negative) Urine Urobilinogen Negative (Negative) Ur Leukocyte Esterase 2+ H (Negative) Urine WBC (Auto) >30 H (0-5) /hpf Urine RBC (Auto) >30 H (0-4) /hpf U Hyaline Cast (Auto) 5-10 H (0-5) /lpf U Epithel Cells (Auto) 0-5 (0-5) /lpf Urine Bacteria (Auto) Negative (Negative) COVID-19 Eval Order Covid19 at [facility] SARS-CoV-2 (PCR) (Negative) 11/16/20 11/16/20 11/16/20 Range/Units 20:16 20:16 20:16 WBC 9.79 (4.8-10.8) K/uL RBC 4.04 L (4.2-5.4) M/uL Hgb 12.5 (12.0-16.0) g/dL Hct 38.5 (37-47) % MCV 95.3 (80-100) fL MCH 30.9 (25-34) pg MCHC 32.5 (32-36) g/dL RDW Std Deviation 52.8 H (36.4-46.3) fL RDW Coeff of Marcelina 15.2 H (11.5-14.5) % Plt Count 105 L (130-400) K/uL MPV 12.4 H (7.4-10.4) fL Immature Gran % (Auto) % Neut % (Auto) % Lymph % (Auto) % Hardy % (Auto) % Eos % (Auto) % Baso % (Auto) % Neut # (Auto) (1.4-6.5) K/uL Lymph # (Auto) (1.2-3.4) K/uL Hardy # (Auto) (0.11-0.59) K/uL Eos # (Auto) (0-0.5) K/uL Baso # (Auto) (0-0.2) K/uL Immature Gran # (Auto) (0.00-0.02) K/uL Neutrophils % (Manual) 46.1 % Lymphocytes % (Manual) 30.4 % Monocytes % (Manual) 1.7 % Eosinophils % (Manual) 0.9 % Basophils % (Manual) 0.9 % Myelocytes % (Man) 0.9 % Neutrophils # (Manual) 4.51 (1.4-6.5) K/uL Total Absolute Neuts 4.51 (1.4-6.5) K/uL Lymphocytes # (Manual) 2.98 (1.2-3.4) K/uL Total Abs Lymphocytes 4.85 H (1.2-3.4) K/uL Monocytes # (Manual) 0.17 (0.11-0.59) K/uL Eosinophils # (Manual) 0.09 (0-0.5) K/uL Basophils # (Manual) 0.09 (0-0.2) K/uL Myelocytes # (Manual) 0.09 H (0-0) K/uL Large Granular Lymphs 19.1 % # Lrg Granular Lymphs 1.87 K/uL Blood Smear Review Giant Platelets Polychromasia 1+ PT (9.0-12.0) Seconds INR (0.9-1.1) APTT 26.1 (21.0-31.0) Seconds PTT Ratio 1.0 Sodium 142 (136-145) mmol/L Potassium 3.7 (3.5-5.1) mmol/L Chloride 102 (98-107) mmol/L Carbon Dioxide 34 H (21-32) mmol/L Anion Gap 6.0 (3-11) BUN 40 H (7-18) mg/dl Creatinine 2.40 H (0.6-1.2) mg/dl Est Cr Clr Drug Dosing 19.6 ml/min Est GFR ( Amer) 20.9 ml/min Est GFR (Non-Af Amer) 18.1 ml/min BUN/Creatinine Ratio 16.5 (10-20) Glucose 109 H (70-99) mg/dl POC Glucose (70-99) mg/dl Estimat Average Glucose mg/dl Hemoglobin A1c (4.5-5.6) % Calcium 11.1 H (8.5-10.1) mg/dl Magnesium 2.7 H (1.8-2.4) mg/dl Total Bilirubin 0.5 (0.2-1) mg/dl AST 31 (15-37) U/L ALT 28 (12-78) U/L Alkaline Phosphatase 54 (45-117) U/L Total Creatine Kinase 117 (26-192) U/L Troponin I < 0.015 (0-0.045) ng/ml Total Protein 7.5 (6.4-8.2) gm/dl Albumin 4.6 (3.4-5.0) gm/dl Globulin 2.9 (2.5-4.0) gm/dl Albumin/Globulin Ratio 1.6 (0.9-2) 25-OH Vitamin D Total (30-100) ng/ml TSH 196.000 H (0.300-4.500) uIu/ml Free T4 0.18 L (0.8-1.6) ng/dl PTH Intact (18.4-80.1) pg/ml PTH Related Protein Urine Color Urine Appearance (Clear) Urine pH (4.5-7.5) Ur Specific [place] (1.000-1.030) Urine Protein (Negative) Urine Glucose (UA) (Negative) Urine Ketones (Negative) Urine Blood (Negative) Urine Nitrite (Negative) Urine Bilirubin (Negative) Urine Urobilinogen (Negative) Ur Leukocyte Esterase (Negative) Urine WBC (Auto) (0-5) /hpf Urine RBC (Auto) (0-4) /hpf U Hyaline Cast (Auto) (0-5) /lpf U Epithel Cells (Auto) (0-5) /lpf Urine Bacteria (Auto) (Negative) COVID-19 Eval Order SARS-CoV-2 (PCR) (Negative)
[2020-11-17 19:43] LABS: BUN Creatinine Ratio 15.1 (10-20); Creatinine Clr Calc Pharmacy 22.6 ml/min; Est GFR (African American) 24.9 ml/min; Est GFR (Non-African American) 21.5 ml/min; Potassium 3.3 mmol/L (3.5-5.1)
[2020-11-17] MEDS: clonazePAM 0.5 MG TAB PO SCH (20:28)
[2020-11-17] MEDS: cefTRIAXone SODIUM 2,000 MG in DEXTROSE 5% 50 ML IV SCH (20:29)
[2020-11-18] MEDS: SODIUM CHLORIDE 0.9% 1000ML 1,000 ML IV SCH ×3 (00:21→12:45)
[2020-11-18] MEDS: HEPARIN SOD 5,000 UNIT/0.5 ML VIAL SQ SCH ×3 (06:23→21:39)
[2020-11-18 07:42] LABS: Hematocrit (blood only) 37.4 % (37-47); Hemoglobin 12.1 g/dL (12.0-16.0); Mean Corpuscular Hemoglobin 30.9 pg (25-34); Mean Corpuscular Hgb Conc 32.4 g/dL (32-36); Mean Corpuscular Volume 95.4 fL (80-100); RDW Coefficient of Variation 15.2 % (11.5-14.5); RDW Standard Deviation 51.9 fL (36.4-46.3); Red Blood Count 3.92 M/uL (4.2-5.4); White Blood Count 7.16 K/uL (4.8-10.8)
[2020-11-18 08:03] LABS: BUN Creatinine Ratio 13.4 (10-20); Calcium 8.7 mg/dl (8.5-10.1); Creatinine Clr Calc Pharmacy 23.7 ml/min; Est GFR (African American) 26.4 ml/min; Est GFR (Non-African American) 22.8 ml/min; Magnesium 2.3 mg/dl (1.8-2.4); Phosphorus 3.3 mg/dl (2.5-4.9); Potassium 3.4 mmol/L (3.5-5.1)
[2020-11-18 08:06] LABS: Mean Platelet Volume 11.2 fL (7.4-10.4); Platelet Count 78 K/uL (130-400); Platelet Estimate Decreased (Normal)
[2020-11-18] MEDS: allopurinoL 100 MG TAB PO SCH (08:54)
[2020-11-18] MEDS: PANTOprazole 40 MG TAB PO SCH ×2 (08:54→20:44)
[2020-11-18] MEDS: CITALOPRAM 20 MG TAB PO SCH (08:55)
[2020-11-18] MEDS: MAGNESIUM OXIDE 400 MG TAB PO SCH (08:55)
[2020-11-18] MEDS: dilTIAZem ER 120 MG CAPCR PO SCH (08:55)
[2020-11-18] MEDS: ISOSORBIDE MONO EXTENDED REL 30 MG TABCR PO SCH (08:56)
[2020-11-18] MEDS: POLYETHYLENE (MIRALAX) 17 GM PACK PO SCH ×2 (08:56→20:43)
[2020-11-18] MEDS: LACTOBACILLUS ACIDOPHILUS 1 GM PACK PO SCH (08:56)
[2020-11-18] MEDS: POTASSIUM CHLORIDE CRTAB 20 MEQ TABCR PO SCH (08:56)
[2020-11-18] MEDS: FOLIC ACID 1 MG TAB PO SCH (08:56)
--- NOTE | 2020-11-18 14:59 | Hospitalist Progress Note ---
Date of Service November 18, 2020 Assessment & Plan (1) KEO (acute kidney injury): Plan: Patient is an 85 yr female who presents with abnormal labs. 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 Hypothyroidism could have contributed as well Calcitriol, calcium supplements initially held Calcium:11.1>>8.7 Vitamin D levels: 21 PTH Related Protein pending Continue IV fluids Appreciate nephrology input Calcium levels improved Needs follow-up with nephrology upon discharge Calcium supplements restarted Hypothyroidism Admits to being non complaint to Levothyroxine use TSH:201 Free T4: 0.18 Received IV levothyroxine Previously followed with Discussed with on 11/18/20 Advised to resume home dose of levothyroxine Needs repeat TSH/free T4 as outpatient Needs follow-up with endocrinology upon discharge UTI Ruled out Urine Cx: Mixed probable skin dyana Mild right hydronephrosis Urothelial thickening and periureteral fat stranding within the right renal collecting system Empirically on Rocephin Left Tracheoesophageal recess Nodule Anterior mediastinal lymph node Pulmonary nodules Incidental findings on CT Chest Follow up as outpatient H/O CLL On ibrutinib Follows with oncology Thyroid cancer: S/P Thyroidectomy DM II HbA1C: 5.6 Currently not on any medications at home Diet controlled H/O Autoimmune hemolytic anemia Transfusion dependent anemia Hb stable Generalized anxiety disorder Depression Continue citalopram and Klonopin Hypertension Hold diuretics Continue Diltiazem H/O SVT On diltiazem DVT Px: Heparin SQ CODE STATUS Full code Admission and Anticipated Discharge Date Admission Date: November 16, 2020 Subjective Patient is seen and examined at bedside States feeling much better today Generalized weakness, tiredness resolved States having dysuria at the time of admission but currently resolved Eager to get discharged Denies chest pain, dyspnea, dizziness, nausea, abdominal pain Discussed with patient's son over the phone in detail Also discussed with silver steward today Review of Systems Review of Systems: All systems reviewed & are unremarkable except as noted in Subjective Physical Exam Physical Exam: Physical Exam: Vitals signs as noted above General Appearance:Moderately built and nourished, no apparent distress Head: normocephalic, Atraumatic Eyes: normal inspection, EOMI Neck: supple, Trachea midline Respiratory/Chest: Normal breath sounds, CTA, No accessory muscle use Cardiovascular: S1, S2, No murmur Abdomen/GI:Soft, Non tender, Bowel sounds present Extremities/Musculoskeletal:normal inspection, no edema Neurologic/Psych:AAOX3, grossly no focal neurological deficits, +Chronic facial droop Skin: normal color, warm Results & Data Results & Data ([facility]) Vital Signs (Past 12 Hours) Vital Signs Temp Pulse Pulse Resp BP Pulse Ox 11/18/20 11:34 36.8 C 75 18 146/78 H 99 11/18/20 08:00 36.7 C 66 75 18 155/69 H 97 11/18/20 03:56 36.4 C L 65 18 154/82 H 94 Laboratory Results Short CBC 11/18/20 Range/Units 07:21 WBC 7.16 (4.8-10.8) K/uL Hgb 12.1 (12.0-16.0) g/dL Hct 37.4 (37-47) % Plt Count 78 L (130-400) K/uL BMP 11/17/20 11/18/20 19:01 07:21 Sodium 144 145 Potassium 3.3 L 3.4 L Chloride 106 109 H Carbon Dioxide 32 33 H BUN 32 H 27 H Creatinine 2.08 H 1.98 H Glucose 112 H 100 H Calcium 10.0 8.7
--- NOTE | 2020-11-18 15:02 | Nephrology Progress Note ---
Date of Service November 18, 2020 Assessment & Plan Admission and Anticipated Discharge Date Admission Date: November 16, 2020 Subjective Assessment & Plan (1) KEO (acute kidney injury): nonoliguric stage 1 acute on chronic stage 4 renal failure, with baseline creatinine 1.5-1.7 and likely worsened recently d/t polyuria from hypercalcemia: prerenal versus ATN. she has chronically inflamed urine and admission culture is negative for UTI. her R hydronephrosis and bladder wall thickening are stable from at least a year back. no evidence of active stone disease, though she has significant stone burden. 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 she was admitted here in fall 2018 with serum calcium 5.1 and multifocal atrial tachycardia; she was d/c on high dose calcium and D supplements which she was still on at admission last evening. recheck bmp ordered for now daily. NS at 80/hr. hold lasix Will resume at least some calcium TUMS 1500bid for now. No Calcitriol yet. needs to be seen in nephrology clinic after discharge Physical Exam Constitutional: well developed and well nourished Eyes: EOM intact bilaterally ENMT: Ears: no external ear abnormality Nose: no external nose abnormality Mouth: + dry oral mucous membranes Neck: no nuchal rigidity Respiratory: normal respiratory effort Auscultation: + diminished lung so unds Cardiovascular: Rate/Rhythm: regular rate and regular rhythm Extremities: + edema (trace BLE) Gastrointestinal (Abdomen): Inspection/Auscultation: normal bowel sounds Percussion/Palpation: abdomen soft; abdomen nontender Musculoskeletal: Extremities: strength 5/5 throughout Skin: no rashes, warm and dry Neurologic: cahl[place], fluent speech, no tremor Psychiatric: Orientation: oriented x 3 Results & Data ([facility]) Vital Signs (Past 12 Hours) Vital Signs Temp Pulse Pulse Resp BP Pulse Ox 11/18/20 11:34 36.8 C 75 18 146/78 H 99 11/18/20 08:00 36.7 C 66 75 18 155/69 H 97 11/18/20 03:56 36.4 C L 65 18 154/82 H 94
[2020-11-18] MEDS: clonazePAM 0.5 MG TAB PO SCH (20:42)
[2020-11-18] MEDS: cefTRIAXone SODIUM 2,000 MG in DEXTROSE 5% 50 ML IV SCH (20:42)
[2020-11-18] MEDS: CALCIUM CARBONATE 500 MG CHEWABLE TAB PO SCH (20:44)
[2020-11-19] MEDS: SODIUM CHLORIDE 0.9% 1000ML 1,000 ML IV SCH (01:30)
[2020-11-19] MEDS: HEPARIN SOD 5,000 UNIT/0.5 ML VIAL SQ SCH (06:35)
[2020-11-19] MEDS: LEVOTHYROXINE SODIUM 175 MCG TABLET PO SCH (06:35)
[2020-11-19 07:06] LABS: BUN Creatinine Ratio 14.2 (10-20); Calcium 8.6 mg/dl (8.5-10.1); Creatinine Clr Calc Pharmacy 25.7 ml/min; Est GFR (African American) 28.9 ml/min; Est GFR (Non-African American) 24.9 ml/min
[2020-11-19] MEDS: CALCIUM CARBONATE 500 MG CHEWABLE TAB PO SCH ×2 (08:51→20:38)
[2020-11-19] MEDS: POTASSIUM CHLORIDE CRTAB 20 MEQ TABCR PO SCH (10:08)
[2020-11-19] MEDS: FOLIC ACID 1 MG TAB PO SCH (10:08)
[2020-11-19] MEDS: ISOSORBIDE MONO EXTENDED REL 30 MG TABCR PO SCH (10:08)
[2020-11-19] MEDS: CITALOPRAM 20 MG TAB PO SCH (10:09)
[2020-11-19] MEDS: LACTOBACILLUS ACIDOPHILUS 1 GM PACK PO SCH (10:09)
[2020-11-19] MEDS: dilTIAZem ER 120 MG CAPCR PO SCH (10:09)
[2020-11-19] MEDS: MAGNESIUM OXIDE 400 MG TAB PO SCH (10:09)
--- NOTE | 2020-11-19 10:09 | Urology Consultation ---
Date of Consultation November 19, 2020 Assessment & Plan (1) Bilateral nephrolithiasis: (2) Gross hematuria: 85-year-old female who was admitted to the hospitalist service due to KEO and hypercalcemia. Nephrology has been consulted. Her creatinine has down trended from 2.4-1.[address] scan show large bilateral renal pelvis stone burden and mom mild hydronephrosis on the right. This appears stable from a CT scan 1 year prior. Urology was consulted for hematuria and ureteral thickening. 1. Reviewed labs and CT scan findings. Stone burden has grown when comparing CT scan from 1 year ago. There is mild hydronephrosis on the right side and very minimal on the left, which appears largely stable. She is currently asymptomatic outside of hematuria. Her creatinine has down trended and appears to be more related to hypercalcemia than obstruction. Prior urine culture was negative for infection. There is no acute need for intervention from a urologic perspective. I reviewed her kidney stone diagnosis with her and discussed options. She would prefer to have treatment. Treatment options would include bilateral staged ureteroscopy's due to her large renal stone burden as we do not have PCNL capabilities here. The other option would be referral to a tertiary care center for discussion of PCNL or possibly perform staged ureteroscopy's there. I explained that I was able to perform staged ureteroscopy here but I suspect that she may need 2-3 procedures on each kidney to get her stone gree. We discussed briefly PCNL and that PCNL could render her stone free in 1 surgery per kidney. She ultimately requested referral to [facility] for stone management, which I think is reasonable. I will have my office send a referral tomorrow to get her set up in their system. 2. I suspect her hematuria is from her large stone burden. That can be further evaluated when she is worked up for her stones at [facility]. History of Present Illness Reason for Consultation: Hematuria, bilateral nephrolithiasis Attending Physician: Faheem Smith MD History of Present Illness 85 yo female currently admitted to the hospitalist service. She initially had on 11/16/2020 after generally not feeling well and an outside creatinine was noted to be elevated 2.4, up from a baseline of 1.5-1.7 with additional hypercalcemia at 12.1. She has been afebrile with stable vital signs. Creatinine is slowly down trended to a value of 1.84 today. Urinalysis was positive for pyuria, microscopic hematuria but was negative for signs of infection. A urine culture finalized mixed dyana. She has reported gross hematuria and a urine sample was light red. CT scan of the abdomen pelvis was performed on 11/17/2020 which shows significant bilateral stone burden. Her stone in the left renal pelvis has a diameter of 1.8 cm and the stone in her right renal pelvis measures 1.5 cm in diameter there is very mild pelviectasis on the left side and stable moderate right pelviectasis. On comparison of her CT scan from 11/13/2020 hydronephrosis is relatively stable but her stone burden has increased. Nephrology has been consulted and felt that her KEO was due to hypercalcemia and was prerenal versus ATN. Her other medical issues include chronic kidney disease, hypothyroidism, history of CLL and thyroid cancer, diabetes mellitus, autoimmune hemolytic anemia, hypertension, history of SVT, anxiety. She reports multiple stone surgeries both at [facility] greater than 20 years ago and several procedures at [facility]. She is not currently on any blood Discussed with stone size and options for treatment, she expressed that she would like to be referred back to [facility] for stone treatment. Allergies Allergy/AdvReac Type Severity Reaction Status Date / Time lorazepam Allergy Unknown SEE COMMENT Verified 11/16/20 21:31 pneumococcal vaccine Allergy Unknown Unknown Verified 11/16/20 21:31 sulfamethoxazole AdvReac Intermediate Nausea Verified 11/16/20 21:31 [From Bactrim] trimethoprim [From Bactrim] AdvReac Intermediate Nausea Verified 11/16/20 21:31 Home Medications Medication Instructions Recorded Confirmed Type folic acid 1 mg tablet 1 mg PO QAM 09/05/18 11/16/20 History isosorbide mononitrate 30 mg 30 mg PO QAM 09/05/18 11/16/20 History tablet,extended release 24 hr omeprazole 20 mg capsule,delayed 20 mg PO BID 09/05/18 11/16/20 History release citalopram 10 mg tablet 10 mg PO DAILY 09/24/18 11/16/20 History prochlorperazine maleate 10 mg 10 mg PO Q6H PRN 10/15/18 11/16/20 History tablet (Compazine) nystatin 100,000 unit/gram topical 1 applic TOPICAL TID PRN 12/01/18 11/16/20 History powder allopurinol 100 mg tablet 100 mg PO DAILY 11/14/19 11/16/20 History torsemide 10 mg tablet 10 mg PO DAILY 11/14/19 11/16/20 History calcitriol 0.5 mcg capsule 0.5 mcg PO DAILY 11/16/20 11/16/20 History calcium carbonate 600 mg calcium 600 mg PO BID 11/16/20 11/16/20 History (1,500 mg) tablet clonazepam 0.5 mg tablet 0.5 mg PO HS 11/16/20 11/16/20 History diltiazem HCl 120 mg capsule,24 120 mg PO DAILY 11/16/20 11/16/20 History hr,extended release docusate sodium 100 mg capsule 100 mg PO BID PRN 11/16/20 11/16/20 History ibrutinib 140 mg capsule 280 mg PO DAILY 11/16/20 11/16/20 History (Imbruvica) lactobacillus rhamnosus R0011 20 20 cell PO DAILY 11/16/20 11/16/20 History billion cell capsule (Probiotic Digestive Care) levothyroxine 175 mcg tablet 175 mcg PO DAILY 11/16/20 11/16/20 History magnesium oxide 400 mg PO DAILY 11/16/20 11/16/20 History ondansetron HCl 8 mg tablet 8 mg PO Q8H PRN 11/16/20 11/16/20 History polyethylene glycol 3350 17 17 g PO DAILY PRN 11/16/20 11/16/20 History gram/dose oral powder (Miralax) potassium chloride 10 mEq 20 meq PO DAILY 11/16/20 11/16/20 History capsule,extended release tramadol 50 mg tablet 50 mg PO BID PRN 11/16/20 11/16/20 History Patient History Medical History Asthma CKD (chronic kidney disease) stage 4, GFR 15-29 ml/min Diabetes mellitus diet controlled Hemolytic anemia Kailyn positive hemolytic anemia; dx in 2013 HTN (hypertension) Hydronephrosis R; mild Hypocalcemia during Fall 2018 admission > d/c on aggressive calcium supplements Kidney stones s/p multiple lithotripsies, ureteroscopies Lymphoma B-cell CLL, dx in 2013 Non-STEMI (non-ST elevated myocardial infarction) Sepsis Thyroid cancer recurrent papillary thyroid cancer; s/p surgery; dx in 2009 TIA (transient ischemic attack) Surgical History History of hernia repair History of knee surgery b/l knees History of thyroidectomy several cancer surgeries on thyroid Family History Mother Colorectal cancer Brother Diabetes Sister Diabetes Social History Smoking Status: Never smoker Second Hand Exposure: Yes; Hx Alcohol Use: No Hx Substance Use: No Preferred Language: Estonian Communication Ability: Effective Supervisor Coating Required: No Beliefs That Will Affect Care: None marital status: / Current Living Situation: Alone Current Living Situation Comment: pt son lives in pt basement until he is able to find a new place to live. current occupational status: retired How many Children do You have: 3 Other Information That Helps Us Care for You: No Feels Safe at Home: Yes Safety Concerns: Feels Safe At This Time Assistive Devices: Walker Review of Systems Review of Systems: 14 point review of systems negative outside of what is listed above in HPI Physical Exam Physical Exam: General: Alert and oriented, no acute distress HEENT: Normocephalic, mucous membranes moist Cardiovascular: Regular rate Pulmonary: Nonlabored respirations Abdomen: Nondistended Extremities: Moves all 4 spontaneously Neuro: No gross deficits Skin: Warm, dry, no rashes noted Results & Data ([facility]) Vital Signs (Past 12 Hours) Vital Signs Temp Pulse Pulse Resp BP Pulse Ox 11/19/20 07:47 36.5 C 68 70 16 161/77 H 91 11/19/20 04:29 37.0 C 68 17 148/72 H 91 11/19/20 02:15 69 11/18/20 22:23 36.8 C 70 18 120/80 96 PG Care Time/CCT Total # of Minutes Spent Total Time Spent with Patient: Total time spent is greater than 50% in coordination of care (as documented) at patient's floor/unit and/or counseling patient: [place] [address] Inpt Consult Level 5 Patient Type New History Detailed Exam Expanded Problem Focused Medical Decision Making Moderate Complexity Diagnoses Bilateral nephrolithiasis N20.0 Gross hematuria R31.0
[2020-11-19] MEDS: allopurinoL 100 MG TAB PO SCH (10:10)
[2020-11-19] MEDS: PANTOprazole 40 MG TAB PO SCH ×2 (10:10→20:37)
[2020-11-19] MEDS: POLYETHYLENE (MIRALAX) 17 GM PACK PO SCH ×2 (10:11→20:50)
[2020-11-19 10:33] LABS: Hematocrit (blood only) 37.4 % (37-47); Hemoglobin 12.2 g/dL (12.0-16.0); Mean Corpuscular Hemoglobin 31.6 pg (25-34); Mean Corpuscular Hgb Conc 32.6 g/dL (32-36); Mean Corpuscular Volume 96.9 fL (80-100); Mean Platelet Volume 12.1 fL (7.4-10.4); Platelet Count 90 K/uL (130-400); RDW Coefficient of Variation 15.2 % (11.5-14.5); Red Blood Count 3.86 M/uL (4.2-5.4); White Blood Count 6.71 K/uL (4.8-10.8)
[2020-11-19 10:34] LABS: Platelet Estimate Decreased (Normal)
--- NOTE | 2020-11-19 15:38 | Nephrology Progress Note ---
Date of Service November 19, 2020 Assessment & Plan Admission and Anticipated Discharge Date Admission Date: November 16, 2020 Subjective Assessment & Plan Admission and Anticipated Discharge Date Admission Date: November 16, 2020 Subjective Assessment & Plan (1) KEO (acute kidney injury): nonoliguric stage 1 acute on chronic stage 4 renal failure, with baseline creatinine 1.5-1.7 and likely worsened recently d/t polyuria from hypercalcemia: prerenal versus ATN. she has chronically inflamed urine and admission culture is negative for UTI. her R hydronephrosis and bladder wall thickening are stable from at least a year back. no evidence of active stone disease, though she has significant stone burden. 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 she was admitted here in fall 2018 with serum calcium 5.1 and multifocal atrial tachycardia; she was d/c on high dose calcium and D supplements which she was still on at admission last evening. recheck bmp ordered for now daily. Stop iv fluid now and continue to hold lasix TUMS 1500bid for now. No Calcitriol yet. needs to be seen in nephrology clinic after discharge. also will need frequent labs post discharge 4 --Stone and hematuria--Appreciate Urology eval. Likely surgery post discharge Physical Exam Constitutional: well developed and well nourished Eyes: EOM intact bilaterally ENMT: Ears: no external ear abnormality Nose: no external nose abnormality Mouth: + dry oral mucous membranes Neck: no nuchal rigidity Respiratory: normal respiratory effort Auscultation: + diminished lung sounds Cardiovascular: Rate/Rhythm: regular rate and regular rhythm Extremities: + edema (trace BLE) Gastrointestinal (Abdomen): Inspection/Auscultation: normal bowel sounds Percussion/Palpation: abdomen soft; abdomen nontender Musculoskeletal: Extremities: strength 5/5 throughout Skin: no rashes, warm and dry Neurologic: calhoun, fluent speech, no tremor Psychiatric: Orientation: oriented x 3 Results & Data ([facility]) Vital Signs (Past 12 Hours) Vital Signs Temp Pulse Pulse Resp BP BP Pulse Ox 11/19/20 15:26 37.1 C 70 18 152/93 H 91 11/19/20 12:00 36.8 C 74 18 129/71 96 11/19/20 07:47 36.5 C 68 70 16 161/77 H 91 11/19/20 04:29 37.0 C 68 17 148/72 H 91
--- NOTE | 2020-11-19 16:27 | Hospitalist Progress Note ---
Date of Service November 19, 2020 Assessment & Plan (1) KEO (acute kidney injury): Plan: Patient is an 85 yr female who presents with abnormal labs. Acute kidney injury on CKD IV Creatinine 1.5-1.7 KEO likely due to hypercalcemia DD: ATN Cr:2.4>1.98>1.84 Appreciate nephrology input Monitor renal function IV fluids discontinued Continue to hold Lasix for now Needs follow-up with nephrology clinic upon discharge Nephrolithiasis Hematuria Heparin SQ discontinued Monitor CBC Appreciate Urology Input Stone burden has grown since prior CT No acute need for intervention as per urology We will need staged ureteroscopy due to large renal stone burden Vs PCNL at tertiary care facility Patient/Family prefers to discuss with Urology prior to making decision. Needs follow-up with urology upon discharge Hypercalcemia H/O Hypocalcemia due to hypoparathyroidism/thyroid cancer treatment Hypothyroidism could have contributed as well Calcitriol, calcium supplements initially held Calcium:11.1>>8.6 Vitamin D levels: 21 PTH Related Protein pending Received IV fluids Appreciate nephrology input Calcium levels improved Calcium supplements restarted No Calcitriol for now Hypothyroidism Admits to being non complaint to Levothyroxine use TSH:201 Free T4: 0.18 Received IV levothyroxine Previously followed with Discussed with on 11/18/20 Advised to resume home dose of levothyroxine Needs repeat TSH/free T4 as outpatient Needs follow-up with endocrinology upon discharge UTI Ruled out Urine Cx: Mixed probable skin dyana Mild right hydronephrosis Urothelial thickening and periureteral fat stranding within the right renal collecting system Empirically on Rocephin Further management as above Left Tracheoesophageal recess Nodule Anterior mediastinal lymph node Pulmonary nodules Incidental findings on CT Chest Follow up as outpatient H/O CLL On ibrutinib Follows with oncology Thyroid cancer: S/P Thyroidectomy DM II HbA1C: 5.6 Currently not on any medications at home Diet controlled H/O Autoimmune hemolytic anemia Transfusion dependent anemia Hb stable Generalized anxiety disorder Depression Continue citalopram and Klonopin Hypertension Hold diuretics Continue Diltiazem H/O SVT On diltiazem DVT Px: Heparin SQ CODE STATUS Full code Disposition PT OT prior to discharge Admission and Anticipated Discharge Date Admission Date: November 16, 2020 Subjective Patient is seen and examined at bedside States having hematuria today No other complaints Discussed with urology and patient's son Denies chest pain, dyspnea, dizziness, nausea, abdominal pain, dysuria Review of Systems Review of Systems: All systems reviewed & are unremarkable except as noted in Subjective Physical Exam Physical Exam: Physical Exam: Vitals signs as noted above General Appearance:Moderately built and nourished, no apparent distress Head: normocephalic, Atraumatic Eyes: normal inspection, EOMI Neck: supple, Trachea midline Respiratory/Chest: Normal breath sounds, CTA, No accessory muscle use Cardiovascular: S1, S2, No murmur Abdomen/GI:Soft, Non tender, Bowel sounds present Extremities/Musculoskeletal:normal inspection, no edema Neurologic/Psych:AAOX3, grossly no focal neurological deficits, +Chronic facial droop Skin: normal color, warm Results & Data Results & Data ([facility]) Vital Signs (Past 12 Hours) Vital Signs Temp Pulse Pulse Resp BP BP Pulse Ox 11/19/20 15:26 37.1 C 70 18 152/93 H 91 11/19/20 12:00 36.8 C 74 18 129/71 96 11/19/20 07:47 36.5 C 68 70 16 161/77 H 91 11/19/20 04:29 37.0 C 68 17 148/72 H 91 Laboratory Results Short CBC 11/19/20 Range/Units 10:02 WBC 6.71 (4.8-10.8) K/uL Hgb 12.2 (12.0-16.0) g/dL Hct 37.4 (37-47) % Plt Count 90 L (130-400) K/uL BMP 11/19/20 11/19/20 05:50 10:02 Sodium 143 Potassium 3.5 Chloride 111 H Carbon Dioxide 27 BUN 26 H Creatinine 1.84 H Glucose 95 Calcium 8.6
--- NOTE | 2020-11-19 20:06 | Electrocardiogram Report ---
Test Reason : Blood Pressure : / mmHG Vent. Rate : 070 BPM Atrial Rate : 070 BPM P-R Int : 218 ms QRS Dur : 074 ms QT Int : 440 ms P-R-T Axes : 048 017 041 degrees QTc Int : 475 ms Sinus rhythm with 1st degree A-V block Nonspecific T wave abnormality Abnormal ECG When compared with ECG of 17-NOV-2020 06:47, No significant change Confirmed by Miguel Rios ([id number]) on 11/19/2020 8:06:27 PM Referred By: Marcell Long Confirmed By:Miguel Rios
[2020-11-19] MEDS: cefTRIAXone SODIUM 2,000 MG in DEXTROSE 5% 50 ML IV SCH (20:37)
[2020-11-19] MEDS: clonazePAM 0.5 MG TAB PO SCH (20:50)
[2020-11-20] MEDS: LEVOTHYROXINE SODIUM 175 MCG TABLET PO SCH (05:35)
[2020-11-20 06:51] LABS: Hematocrit (blood only) 34.9 % (37-47); Hemoglobin 11.3 g/dL (12.0-16.0); Mean Corpuscular Hemoglobin 30.7 pg (25-34); Mean Corpuscular Hgb Conc 32.4 g/dL (32-36); Mean Corpuscular Volume 94.8 fL (80-100); Platelet Count 79 K/uL (130-400); RDW Coefficient of Variation 15.3 % (11.5-14.5); RDW Standard Deviation 52.6 fL (36.4-46.3); Red Blood Count 3.68 M/uL (4.2-5.4); White Blood Count 6.18 K/uL (4.8-10.8)
[2020-11-20 07:06] LABS: BUN Creatinine Ratio 12.7 (10-20); Calcium 8.2 mg/dl (8.5-10.1); Creatinine Clr Calc Pharmacy 23.4 ml/min; Est GFR (African American) 25.6 ml/min; Est GFR (Non-African American) 22.1 ml/min; Potassium 3.4 mmol/L (3.5-5.1)
[2020-11-20] MEDS: LACTOBACILLUS ACIDOPHILUS 1 GM PACK PO SCH (08:37)
[2020-11-20] MEDS: MAGNESIUM OXIDE 400 MG TAB PO SCH (08:37)
[2020-11-20] MEDS: dilTIAZem ER 120 MG CAPCR PO SCH (08:37)
[2020-11-20] MEDS: PANTOprazole 40 MG TAB PO SCH ×2 (08:38→21:05)
[2020-11-20] MEDS: FOLIC ACID 1 MG TAB PO SCH (08:38)
[2020-11-20] MEDS: POTASSIUM CHLORIDE CRTAB 20 MEQ TABCR PO SCH ×2 (08:38→21:06)
[2020-11-20] MEDS: ISOSORBIDE MONO EXTENDED REL 30 MG TABCR PO SCH (08:38)
[2020-11-20] MEDS: allopurinoL 100 MG TAB PO SCH (08:38)
[2020-11-20] MEDS: CITALOPRAM 20 MG TAB PO SCH (08:38)
[2020-11-20] MEDS: POLYETHYLENE (MIRALAX) 17 GM PACK PO SCH ×2 (08:39→21:06)
[2020-11-20] MEDS: CALCIUM CARBONATE 500 MG CHEWABLE TAB PO SCH ×2 (08:40→21:04)
--- NOTE | 2020-11-20 09:01 | Hospitalist Progress Note ---
Date of Service November 20, 2020 Assessment & Plan (1) KEO (acute kidney injury): Plan: Patient is an 85 yr female who presents with abnormal labs. Acute kidney injury on CKD IV Creatinine 1.5-1.7 KEO likely due to hypercalcemia DD: ATN Cr:2.4>1.98>1.84 Appreciate nephrology input Monitor renal function IV fluids discontinued Continue to hold Lasix for now Needs follow-up with nephrology clinic upon discharge Per nephrology -no more IV fluids, continue to hold Lasix, continue Tums 1500 twice daily for now no calcitriol yet. Needs to be seen by nephrology after discharge and will need frequent labs. Nephrolithiasis Hematuria Heparin SQ discontinued Monitor CBC Appreciate Urology Input Stone burden has grown since prior CT No acute need for intervention as per urology Will need staged ureteroscopy due to large renal stone burden Vs PCNL at tertiary care facility Patient/Family prefers to discuss with Urology prior to making decision. Needs follow-up with urology upon discharge -referral to [facility] urology sent Hypercalcemia H/O Hypocalcemia due to hypoparathyroidism/thyroid cancer treatment Hypothyroidism could have contributed as well Calcitriol, calcium supplements initially held Calcium:11.1>>8.6 Vitamin D levels: 21 PTH Related Protein pending Received IV fluids Appreciate nephrology input Calcium levels improved Calcium supplements restarted No Calcitriol for now Hypothyroidism Admits to being non complaint to Levothyroxine use TSH:201 Free T4: 0.18 Received IV levothyroxine Previously followed with Discussed with on 11/18/20 Advised to resume home dose of levothyroxine Needs repeat TSH/free T4 as outpatient Needs follow-up with endocrinology upon discharge UTI Ruled out Urine Cx: Mixed probable skin dyana Mild right hydronephrosis Urothelial thickening and periureteral fat stranding within the right renal collecting system Empirically on Rocephin Further management as above Left Tracheoesophageal recess Nodule Anterior mediastinal lymph node Pulmonary nodules Incidental findings on CT Chest Follow up as outpatient H/O CLL On ibrutinib Follows with oncology Thyroid cancer: S/P Thyroidectomy DM II HbA1C: 5.6 Currently not on any medications at home Diet controlled H/O Autoimmune hemolytic anemia Transfusion dependent anemia Hb stable Generalized anxiety disorder Depression Continue citalopram and Klonopin Hypertension Hold diuretics Continue Diltiazem H/O SVT: On diltiazem DVT Px:: Heparin SQ CODE STATUS: Full code Disposition: PT OT prior to discharge (2) Hypercalcemia: Admission and Anticipated Discharge Date Admission Date: November 16, 2020 Subjective Patient seen in follow-up of hypercalcemia Currently her calcium is improved, she has also KEO and nephrology was consulted Patient is sitting up in chair, no acute distress Denies any fever chills, chest pain, shortness of breath, abdominal pain, n/v Review of Systems Review of Systems: All systems reviewed & are unremarkable except as noted in Subjective Physical Exam Physical Exam: GENERAL: obese elderly F, not in acute distress. HEENT: NC/AT, Pupils equal, round and reactive to light. Oral mucosa moist. NECK: No JVD, no neck masses. CARDIOVASCULAR: S1 and S2 heard. Regular rate and rhythm. No murmur, no gallop. RESPIRATORY: Normal AP diameter. No accessory muscle use. No wheezing, no crackles. ABDOMEN: Soft, bowel sounds present, nontender, no distention. NEURO: Alert oriented, answering questions appropriately, no facial asymmetry, speech fluent, moves extremities EXTREMITIES: Trace pedal edema, no erythema seen. Results & Data Results & Data ([facility]) Vital Signs (Past 12 Hours) Vital Signs Temp Pulse Pulse Resp BP BP Pulse Ox 11/20/20 07:42 36.5 C 72 16 154/81 H 96 11/20/20 03:12 36.9 C 76 16 156/89 H 95 11/19/20 23:15 37 C 71 16 127/78 95 11/19/20 22:19 73 Laboratory Results 11/20/20 11/20/20 11/20/20 Range/Units 07:24 06:09 06:09 WBC 6.18 (4.8-10.8) K/uL RBC 3.68 L (4.2-5.4) M/uL Hgb 11.3 L (12.0-16.0) g/dL Hct 34.9 L (37-47) % MCV 94.8 (80-100) fL MCH 30.7 (25-34) pg MCHC 32.4 (32-36) g/dL RDW Std Deviation 52.6 H (36.4-46.3) fL RDW Coeff of Marcelina 15.3 H (11.5-14.5) % Plt Count 79 L (130-400) K/uL MPV 12.0 H (7.4-10.4) fL Platelet Estimate (Normal) Sodium 143 (136-145) mmol/L Potassium 3.4 L (3.5-5.1) mmol/L Chloride 110 H (98-107) mmol/L Carbon Dioxide 28 (21-32) mmol/L Anion Gap 5.0 (3-11) BUN 26 H (7-18) mg/dl Creatinine 2.03 H (0.6-1.2) mg/dl Est Cr Clr Drug Dosing 23.4 ml/min Est GFR ( Amer) 25.6 ml/min Est GFR (Non-Af Amer) 22.1 ml/min BUN/Creatinine Ratio 12.7 (10-20) Glucose 105 H (70-99) mg/dl POC Glucose 97 (70-99) mg/dl Calcium 8.2 L (8.5-10.1) mg/dl 11/19/20 11/19/20 Range/Units 10:02 10:02 WBC 6.71 (4.8-10.8) K/uL RBC 3.86 L (4.2-5.4) M/uL Hgb 12.2 (12.0-16.0) g/dL Hct 37.4 (37-47) % MCV 96.9 (80-100) fL MCH 31.6 (25-34) pg MCHC 32.6 (32-36) g/dL RDW Std Deviation 54.0 H (36.4-46.3) fL RDW Coeff of Marcelina 15.2 H (11.5-14.5) % Plt Count 90 L (130-400) K/uL MPV 12.1 H (7.4-10.4) fL Platelet Estimate Decreased L (Normal) Sodium (136-145) mmol/L Potassium 3.5 (3.5-5.1) mmol/L Chloride (98-107) mmol/L Carbon Dioxide (21-32) mmol/L Anion Gap (3-11) BUN (7-18) mg/dl Creatinine (0.6-1.2) mg/dl Est Cr Clr Drug Dosing ml/min Est GFR ( Amer) ml/min Est GFR (Non-Af Amer) ml/min BUN/Creatinine Ratio (10-20) Glucose (70-99) mg/dl POC Glucose (70-99) mg/dl Calcium (8.5-10.1) mg/dl Medications Administered Current Inpatient Medications Acetaminophen (Acetaminophen 325 Mg Tab) 650 mg PO Q4H PRN PRN Reason: Pain or Fever Stop: 12/17/20 01:32 Allopurinol (Allopurinol 100 Mg Tab) 100 mg PO DAILY YOGESH Stop: 12/17/20 08:59 Last Admin: 11/20/20 08:38 Dose: 100 mg Documented by: Calcium Carbonate (Calcium Carbonate 500 Mg Chewable Tab) 1,500 mg PO BID YOGESH Stop: 12/18/20 20:59 Last Admin: 11/20/20 08:40 Dose: Not Given Documented by: Citalopram Hydrobromide (Citalopram 20 Mg Tab) 10 mg PO DAILY YOGESH Stop: 12/17/20 08:59 Last Admin: 11/20/20 08:38 Dose: 10 mg Documented by: Clonazepam (Clonazepam 0.5 Mg Tab) 0.5 mg PO HS YOGESH Stop: 12/17/20 20:59 Last Admin: 11/19/20 20:50 Dose: 0.5 mg Documented by: Diltiazem HCl (Diltiazem Er 120 Mg Capcr) 120 mg PO DAILY YOGESH Stop: 12/17/20 08:59 Last Admin: 11/20/20 08:37 Dose: 120 mg Documented by: Docusate Sodium (Docusate Sodium 100 Mg Cap) 100 mg PO BID PRN PRN Reason: Constipation Stop: 12/17/20 01:32 Last Admin: 11/19/20 10:38 Dose: 100 mg Documented by: Folic Acid (Folic Acid 1 Mg Tab) 1 mg PO QAM YOGESH Stop: 12/17/20 08:59 Last Admin: 11/20/20 08:38 Dose: 1 mg Documented by: Heparin Sodium (Porcine) (Heparin Sod 5,000 Unit/0.5 Ml Vial) 7,500 units SQ Q8 YOGESH Stop: 12/17/20 05:59 Last Admin: 11/19/20 06:35 Dose: 7,500 units Documented by: Ceftriaxone Sodium 2,000 mg/ (Dextrose) 70 mls @ 140 mls/hr IV Q24H YOGESH; Protocol Stop: 11/27/20 20:59 Last Infusion: 11/19/20 21:17 Dose: Infused Documented by: Isosorbide Mononitrate (Isosorbide [place] Extended Rel 30 Mg Tabcr) 30 mg PO QAM [facility] Stop: 12/17/20 08:59 Last Admin: 11/20/20 08:38 Dose: 30 mg Documented by: Lactobacillus Acidophilus (Lactobacillus Acidophilus 1 Gm Pack) 1 gm PO DAILY [facility]; Protocol Stop: 12/17/20 08:59 Last Admin: 11/20/20 08:37 Dose: 1 gm Documented by: Levothyroxine Sodium (Levothyroxine Sodium 175 Mcg Tablet) 175 mcg PO DAILYBB [facility] Stop: 12/19/20 06:29 Last Admin: 11/20/20 05:35 Dose: 175 mcg Documented by: Magnesium Oxide (Magnesium Oxide 400 Mg Tab) 400 mg PO DAILY [facility] Stop: 12/17/20 08:59 Last Admin: 11/20/20 08:37 Dose: 400 mg Documented by: Miscellaneous (*Imbruvica*Order Awaiting Action) 1 ea N/A QS [facility] Stop: 12/17/20 01:52 Last Admin: 11/20/20 08:52 Dose: Not Given Documented by: Nitroglycerin (Nitroglycerin Sl 0.4 Mg/Tab Tab) 0.4 mg SL UD PRN PRN Reason: Chest Pain Stop: 12/17/20 01:32 Nystatin (Nystatin Powder 15gm Btl) 1 appln EXT TID PRN PRN Reason: Skin Irritation Stop: 12/17/20 01:32 Ondansetron HCl (Ondansetron Inj 2 Mg/Ml 2 Ml Vial) 4 mg IV Q6H PRN PRN Reason: Nausea Stop: 12/17/20 01:32 Ondansetron HCl (Ondansetron 8mg Od Tab) 8 mg PO Q8H PRN PRN Reason: Nausea And Vomiting Stop: 12/17/20 01:53 Pantoprazole Sodium (Pantoprazole 40 Mg Tab) 40 mg PO BID [facility]; Protocol Stop: 12/17/20 08:59 Last Admin: 11/20/20 08:38 Dose: 40 mg Documented by: Polyethylene Glycol (Polyethylene (Miralax) 17 Gm Pack) 17 gm PO BID [facility] Stop: 12/17/20 13:44 Last Admin: 11/20/20 08:39 Dose: Not Given Documented by: Potassium Chloride (Potassium Chloride Crtab 20 Meq Tabcr) 20 meq PO DAILY YOGESH Stop: 12/17/20 08:59 Last Admin: 11/20/20 08:38 Dose: 20 meq Documented by: Prochlorperazine (Prochlorperazine Maleate 10 Mg Tab) 10 mg PO Q6H PRN PRN Reason: Nausea And Vomiting Stop: 12/17/20 01:32 Tramadol HCl (Tramadol Hcl 50 Mg Tablet) 50 mg PO BID PRN PRN Reason: Pain, Moderate Stop: 12/17/20 01:32
--- NOTE | 2020-11-20 09:22 | Nephrology Progress Note ---
Date of Service November 20, 2020 Assessment & Plan Admission and Anticipated Discharge Date Admission Date: November 16, 2020 Subjective Assessment & Plan Admission and Anticipated Discharge Date Admission Date: November 16, 2020 Subjective Assessment & Plan Admission and Anticipated Discharge Date Admission Date: November 16, 2020 Subjective Assessment & Plan (1) KEO (acute kidney injury): nonoliguric stage 1 acute on chronic stage 4 renal failure, with baseline creatinine 1.5-1.7 and likely worsened recently d/t polyuria from hypercalcemia: prerenal versus ATN. she has chronically inflamed urine and admission culture is negative for UTI. her R hydronephrosis and bladder wall thickening are stable from at least a year back. no evidence of active stone disease, though she has significant stone burden. 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 she was admitted here in fall 2018 with serum calcium 5.1 and multifocal atrial tachycardia; she was d/c on high dose calcium and D supplements which she was still on at admission last evening. BMP daily. continue to hold lasix TUMS 1500bid for now. No Calcitriol yet. needs to be seen in nephrology clinic after discharge. also will need frequent labs post discharge. Current creat of around 2 might be her new baseline for now. No need to restart iv fluid. Raise k.cl 20 bid 4 --Stone and hematuria--Appreciate Urology eval. Likely surgery post discharge Physical Exam Constitutional: well developed and well nourished Eyes: EOM intact bilaterally ENMT: Ears: no external ear abnormality Nose: no external nose abnormality Mouth: + dry oral mucous membranes Neck: no nuchal rigidity Respiratory: normal respiratory effort Auscultation: + diminished lung sounds Cardiovascular: Rate/Rhythm: regular rate and regular rhythm Extremities: + edema (trace BLE) Gastrointestinal (Abdomen): Inspection/Auscultation: normal bowel sounds Percussion/Palpation: abdomen soft; abdomen nontender Musculoskeletal: Extremities: strength 5/5 throughout Skin: no rashes, warm and dry Neurologic: calhoun, fluent speech, no tremor Psychiatric: Orientation: oriented x 3 Results & Data ([facility]) Vital Signs (Past 12 Hours) Vital Signs Temp Pulse Pulse Resp BP BP Pulse Ox 11/20/20 07:42 36.5 C 72 16 154/81 H 96 11/20/20 03:12 36.9 C 76 16 156/89 H 95 11/19/20 23:15 37 C 71 16 127/78 95 11/19/20 22:19 73
[2020-11-20] MEDS ORDERED: IBRUTINIB PO SCH (21:00)
[2020-11-20] MEDS: clonazePAM 0.5 MG TAB PO SCH (21:04)
[2020-11-20] MEDS: cefTRIAXone SODIUM 2,000 MG in DEXTROSE 5% 50 ML IV SCH (21:04)
[2020-11-21] MEDS: LEVOTHYROXINE SODIUM 175 MCG TABLET PO SCH (05:52)
[2020-11-21 07:23] LABS: BUN Creatinine Ratio 13.7 (10-20); Creatinine Clr Calc Pharmacy 24.3 ml/min; Est GFR (African American) 26.6 ml/min; Est GFR (Non-African American) 22.9 ml/min; Magnesium 2.4 mg/dl (1.8-2.4); Phosphorus 2.9 mg/dl (2.5-4.9)
[2020-11-21] MEDS: FOLIC ACID 1 MG TAB PO SCH (08:17)
[2020-11-21] MEDS: POLYETHYLENE (MIRALAX) 17 GM PACK PO SCH (08:17)
[2020-11-21] MEDS: CITALOPRAM 20 MG TAB PO SCH (08:17)
[2020-11-21] MEDS: dilTIAZem ER 120 MG CAPCR PO SCH (08:17)
[2020-11-21] MEDS: CALCIUM CARBONATE 500 MG CHEWABLE TAB PO SCH (08:17)
[2020-11-21] MEDS: PANTOprazole 40 MG TAB PO SCH (08:18)
[2020-11-21] MEDS: MAGNESIUM OXIDE 400 MG TAB PO SCH (08:18)
[2020-11-21] MEDS: POTASSIUM CHLORIDE CRTAB 20 MEQ TABCR PO SCH (08:18)
[2020-11-21] MEDS: LACTOBACILLUS ACIDOPHILUS 1 GM PACK PO SCH (08:18)
[2020-11-21] MEDS: ISOSORBIDE MONO EXTENDED REL 30 MG TABCR PO SCH (08:23)
[2020-11-21] MEDS ORDERED: Nursing to Pharmacy Communication SCH (08:30)
--- NOTE | 2020-11-21 11:35 | Nephrology Progress Note ---
Date of Service November 21, 2020 Assessment & Plan Admission and Anticipated Discharge Date Admission Date: November 16, 2020 Subjective Subjective Assessment & Plan No new symptoms and wants to go home Assessment & Plan (1) KEO (acute kidney injury): nonoliguric stage 1 acute on chronic stage 4 renal failure, with baseline creatinine 1.5-1.7 and likely worsened recently d/t polyuria from hypercalcemia: prerenal versus ATN. she has chronically inflamed urine and admission culture is negative for UTI. her R hydronephrosis and bladder wall thickening are stable from at least a year back. no evidence of active stone disease, though she has significant stone burden. she usually takes loop diuretics as OP; would continue to hold for now for discharge. Creat higher than baseline but stable ar ound 2. 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 she was admitted here in fall 2018 with serum calcium 5.1 and multifocal atrial tachycardia; she was d/c on high dose calcium and D supplements which she was still on at admission last evening. BMP daily. continue to hold lasix for D/c TUMS 1500bid for now. No Calcitriol . needs to be seen in nephrology clinic after discharge. also will need frequent labs post discharge. Current creat of around 2 ( stable) might be her new baseline for now. K normal today--lower to 20 daily. 4 --Stone and hematuria--Appreciate Urology eval. Likely surgery post discharge Physical Exam Constitutional: well developed and well nourished Eyes: EOM intact bilaterally ENMT: Ears: no external ear abnormality Nose: no external nose abnormality Mouth: + dry oral mucous membranes Neck: no nuchal rigidity Respiratory: normal respiratory effort Auscultation: + diminished lung sounds Cardiovascular: Rate/Rhythm: regular rate and regular rhythm Extremities: + edema (trace BLE) Gastrointestinal (Abdomen): Inspection/Auscultation: normal bowel sounds Percussion/Palpation: abdomen soft; abdomen nontender Musculoskeletal: Extremities: strength 5/5 throughout Skin: no rashes, warm and dry Neurologic: fluent speech, no tremor Psychiatric: Orientation: oriented x 3 Results & Data ([facility]) Vital Signs (Past 12 Hours) Vital Signs Temp Pulse Pulse Resp BP Pulse Ox 11/21/20 07:26 36.6 C 70 16 155/93 H 95 11/21/20 07:10 66 11/21/20 00:07 73
--- NOTE | 2020-11-21 11:39 | Hospitalist Progress Note ---
Date of Service November 21, 2020 Assessment & Plan (1) KEO (acute kidney injury): Plan: Patient is an 85 yr female who presents with abnormal labs. Acute kidney injury on CKD IV Creatinine 1.5-1.7 KEO likely due to hypercalcemia DD: ATN Cr:2.4>1.98>1.84 Appreciate nephrology input Monitor renal function IV fluids discontinued Continue to hold Lasix for now Needs follow-up with nephrology clinic upon discharge Per nephrology -no more IV fluids, continue to hold Lasix, continue Tums 1500 twice daily for now no calcitriol yet. Needs to be seen by nephrology after discharge and will need frequent labs. Nephrolithiasis Hematuria Heparin SQ discontinued Monitor CBC Appreciate Urology Input Stone burden has grown since prior CT No acute need for intervention as per urology Will need staged ureteroscopy due to large renal stone burden Vs PCNL at tertiary care facility Patient/Family prefers to discuss with Urology prior to making decision. 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/thyroid cancer treatment Hypothyroidism could have contributed as well Calcitriol, calcium supplements initially held Calcium:11.1>>8.6 Vitamin D levels: 21 PTH Related Protein pending Received IV fluids Appreciate nephrology input Calcium levels improved Calcium supplements restarted No Calcitriol for now Hypothyroidism Admits to being non complaint to Levothyroxine use TSH:201 Free T4: 0.18 Received IV levothyroxine Previously followed with Discussed with on 11/18/20 Advised to resume home dose of levothyroxine Needs repeat TSH/free T4 as outpatient Needs follow-up with endocrinology upon discharge UTI Ruled out Urine Cx: Mixed probable skin dyana Mild right hydronephrosis Urothelial thickening and periureteral fat stranding within the right renal collecting system Empirically on Rocephin - will dc on cipro - renally dosed - discussed w/ pharmacy Further management as above Left Tracheoesophageal recess Nodule Anterior mediastinal lymph node Pulmonary nodules Incidental findings on CT Chest Follow up as outpatient H/O CLL On ibrutinib Follows with oncology Thyroid cancer: S/P Thyroidectomy DM II HbA1C: 5.6 Currently not on any medications at home Diet controlled H/O Autoimmune hemolytic anemia Transfusion dependent anemia Hb stable Generalized anxiety disorder Depression Continue citalopram and Klonopin Hypertension Hold diuretics Continue Diltiazem H/O SVT: On diltiazem DVT Px:: Heparin SQ CODE STATUS: Full code Disposition: Plan to DC home (2) Hypercalcemia: Admission and Anticipated Discharge Date Admission Date: November 16, 2020 Subjective Patient seen in follow-up of hypercalcemia Currently her calcium is improved, she has also KEO and nephrology was consulted Patient is sitting up in chair, no acute distress Denies any fever chills, chest pain, shortness of breath, abdominal pain, n/v Creatinine stable at 2, calcium within normal limit Review of Systems Review of Systems: All systems reviewed & are unremarkable except as noted in Subjective Physical Exam Physical Exam: GENERAL: obese elderly F, not in acute distress. HEENT: NC/AT, Pupils equal, round and reactive to light. Oral mucosa moist. NECK: No JVD, no neck masses. CARDIOVASCULAR: S1 and S2 heard. Regular rate and rhythm. No murmur, no gallop. RESPIRATORY: Normal AP diameter. No accessory muscle use. No wheezing, no crackles. ABDOMEN: Soft, bowel sounds present, nontender, no distention. NEURO: Alert oriented, answering questions appropriately, no facial asymmetry, speech fluent, moves extremities EXTREMITIES: Trace pedal edema, no erythema seen. Results & Data Results & Data ([facility]) Vital Signs (Past 12 Hours) Vital Signs Temp Pulse Pulse Resp BP Pulse Ox 11/21/20 07:26 36.6 C 70 16 155/93 H 95 11/21/20 07:10 66 11/21/20 00:07 73 Laboratory Results 11/21/20 11/21/20 11/20/20 Range/Units 07:20 05:32 15:55 Sodium 145 (136-145) mmol/L Potassium 4.0 D (3.5-5.1) mmol/L Chloride 109 H (98-107) mmol/L Carbon Dioxide 31 (21-32) mmol/L Anion Gap 5.0 (3-11) BUN 27 H (7-18) mg/dl Creatinine 1.97 H (0.6-1.2) mg/dl Est Cr Clr Drug Dosing 24.3 ml/min Est GFR ( Amer) 26.6 ml/min Est GFR (Non-Af Amer) 22.9 ml/min BUN/Creatinine Ratio 13.7 (10-20) Glucose 94 (70-99) mg/dl POC Glucose 84 90 (70-99) mg/dl Calcium 9.0 (8.5-10.1) mg/dl Phosphorus 2.9 (2.5-4.9) mg/dl Magnesium 2.4 (1.8-2.4) mg/dl Medications Administered Current Inpatient Medications Acetaminophen (Acetaminophen 325 Mg Tab) 650 mg PO Q4H PRN PRN Reason: Pain or Fever Stop: 12/17/20 01:32 Allopurinol (Allopurinol 100 Mg Tab) 100 mg PO DAILY@1430 [facility] Stop: 12/17/20 08:59 Calcium Carbonate (Calcium Carbonate 500 Mg Chewable Tab) 1,500 mg PO BID YOGESH Stop: 12/18/20 20:59 Last Admin: 11/21/20 08:17 Dose: 1,500 mg Documented by: Citalopram Hydrobromide (Citalopram 20 Mg Tab) 10 mg PO DAILY YOGESH Stop: 12/17/20 08:59 Last Admin: 11/21/20 08:17 Dose: 10 mg Documented by: Clonazepam (Clonazepam 0.5 Mg Tab) 0.5 mg PO HS YOGESH Stop: 12/17/20 20:59 Last Admin: 11/20/20 21:04 Dose: 0.5 mg Documented by: Diltiazem HCl (Diltiazem Er 120 Mg Capcr) 120 mg PO DAILY YOGESH Stop: 12/17/20 08:59 Last Admin: 11/21/20 08:17 Dose: 120 mg Documented by: Docusate Sodium (Docusate Sodium 100 Mg Cap) 100 mg PO BID PRN PRN Reason: Constipation Stop: 12/17/20 01:32 Last Admin: 11/19/20 10:38 Dose: 100 mg Documented by: Folic Acid (Folic Acid 1 Mg Tab) 1 mg PO QAM YOGESH Stop: 12/17/20 08:59 Last Admin: 11/21/20 08:17 Dose: 1 mg Documented by: Heparin Sodium (Porcine) (Heparin Sod 5,000 Unit/0.5 Ml Vial) 7,500 units SQ Q8 YOGESH Stop: 12/17/20 05:59 Last Admin: 11/19/20 06:35 Dose: 7,500 units Documented by: Ceftriaxone Sodium 2,000 mg/ (Dextrose) 70 mls @ 140 mls/hr IV Q24H [facility]; Protocol Stop: 11/27/20 20:59 Last Infusion: 11/20/20 21:51 Dose: Infused Documented by: Ibrutinib (Ibrutinib) 2 ea PO DAILY@1430 [facility] Stop: 12/20/20 20:59 Isosorbide Mononitrate (Isosorbide [place] Extended Rel 30 Mg Tabcr) 30 mg PO QAM [facility] Stop: 12/17/20 08:59 Last Admin: 11/21/20 08:23 Dose: 30 mg Documented by: Lactobacillus Acidophilus (Lactobacillus Acidophilus 1 Gm Pack) 1 gm PO DAILY [facility]; Protocol Stop: 12/17/20 08:59 Last Admin: 11/21/20 08:18 Dose: 1 gm Documented by: Levothyroxine Sodium (Levothyroxine Sodium 175 Mcg Tablet) 175 mcg PO DAILYBB [facility] Stop: 12/19/20 06:29 Last Admin: 11/21/20 05:52 Dose: 175 mcg Documented by: Magnesium Oxide (Magnesium Oxide 400 Mg Tab) 400 mg PO DAILY [facility] Stop: 12/17/20 08:59 Last Admin: 11/21/20 08:18 Dose: 400 mg Documented by: Nitroglycerin (Nitroglycerin Sl 0.4 Mg/Tab Tab) 0.4 mg SL UD PRN PRN Reason: Chest Pain Stop: 12/17/20 01:32 Nystatin (Nystatin Powder 15gm Btl) 1 appln EXT TID PRN PRN Reason: Skin Irritation Stop: 12/17/20 01:32 Ondansetron HCl (Ondansetron Inj 2 Mg/Ml 2 Ml Vial) 4 mg IV Q6H PRN PRN Reason: Nausea Stop: 12/17/20 01:32 Ondansetron HCl (Ondansetron 8mg Od Tab) 8 mg PO Q8H PRN PRN Reason: Nausea And Vomiting Stop: 12/17/20 01:53 Pantoprazole Sodium (Pantoprazole 40 Mg Tab) 40 mg PO BID [facility]; Protocol Stop: 12/17/20 08:59 Last Admin: 11/21/20 08:18 Dose: 40 mg Documented by: Polyethylene Glycol (Polyethylene (Miralax) 17 Gm Pack) 17 gm PO BID [facility] Stop: 12/17/20 13:44 Last Admin: 11/21/20 08:17 Dose: Not Given Documented by: Potassium Chloride (Potassium Chloride Crtab 20 Meq Tabcr) 20 meq PO DAILY YOG[facility] Stop: 12/22/20 08:59 Prochlorperazine (Prochlorperazine Maleate 10 Mg Tab) 10 mg PO Q6H PRN PRN Reason: Nausea And Vomiting Stop: 12/17/20 01:32 Tramadol HCl (Tramadol Hcl 50 Mg Tablet) 50 mg PO BID PRN PRN Reason: Pain, Moderate Stop: 12/17/20 01:32
--- NOTE | 2020-11-21 12:52 | Discharge Summary ---
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 The patient says she is not feeling good. She was feeling weak and tired and also had lower extremity pain, when she went and saw the her oncologist and outpatient labs were done, which shows creatinine is 2.4, baseline is around 1.5-1.7 and also calcium was 12.1. So she was advised to come to the hospital. The patient says she is also constipated, did not move her bowels for the last 4 days. Feeling cold and tired. Appetite is not that great. Generalized weakness. Denies any chest pain. No shortness of breath, no cough, no fevers, no headache, no blurred visions, no earache, no runny nose, no sore throat, no nausea, no dysphagia. Normal bladder movements. Ambulating okay. Ambulates with a walker. Currently, hemodynamically stable. The patient's labs showed calcium of 11.1 and creatinine of 2.4 and TSH is 196 and free T4 of 0.18. Urinalysis is positive for leukocyte esterase. The patient says she is not taking her thyroid medications regularly because she has to get up early in the morning for that and she is missing the doses. Admission Exam Per Admitting Provider GENERAL: The patient is obese, not in acute distress. VITAL SIGNS: Temperature 36.4, pulse 67, respiratory rate 18, blood pressure 143/98, oxygen 99% on room air. HEENT: Pupils equal, round and reactive to light. Oral mucosa moist. NECK: No JVD, no neck masses. CARDIOVASCULAR: S1 and S2 heard. Regular rate and rhythm. No murmur, no gallop. RESPIRATORY SYSTEM: Normal AP diameter. No accessory muscle use. No wheezing, no crackles. ABDOMEN: Soft, bowel sounds present, nontender, no distention. CENTRAL NERVOUS SYSTEM: Cranial nerves II-XII grossly intact, nonfocal. EXTREMITIES: Trace pedal edema, no erythema seen. Principal Diagnosis Hypercalcemia, KEO Renal stones, concern for pyelonephritis Discharge Exam GENERAL: obese elderly F, not in acute distress. HEENT: NC/AT, Pupils equal, round and reactive to light. Oral mucosa moist. NECK: No JVD, no neck masses. CARDIOVASCULAR: S1 and S2 heard. Regular rate and rhythm. No murmur, no gallop. RESPIRATORY: Normal AP diameter. No accessory muscle use. No wheezing, no crackles. ABDOMEN: Soft, bowel sounds present, nontender, no distention. NEURO: Alert oriented, answering questions appropriately, no facial asymmetry, speech fluent, moves extremities EXTREMITIES: Trace pedal edema, no erythema seen. Discharge Data Allergies Allergy/AdvReac Type Severity Reaction Status Date / Time pneumococcal vaccine Allergy Unknown Unknown Verified 11/16/20 21:31 sulfamethoxazole AdvReac Intermediate Nausea Verified 11/16/20 21:31 [From Bactrim] trimethoprim [From Bactrim] AdvReac Intermediate Nausea Verified 11/16/20 21:31 lorazepam AdvReac Unknown SEE COMMENT Verified 11/19/20 15:42 Consultations 11/16/20 21:28 ED Decision to Admit Stat 11/17/20 08:00 Consult Nephrology Routine 11/19/20 09:01 Consult Urology Routine Ordered Studies 11/17/20 08:15 CT abd pelvis wo con Routine CT chest diagnostic wo con Routine Hospital Course (1) KEO (acute kidney injury): Patient is an 85 yr female who presents with abnormal labs. Acute kidney injury on CKD IV Creatinine 1.5-1.7 KEO likely due to hypercalcemia DD: ATN Cr:2.4>1.98>1.84 Now stable at ~2 Appreciate nephrology input Monitor renal function IV fluids discontinued Continue to hold Lasix for now Needs follow-up with nephrology clinic upon discharge Per nephrology -no more IV fluids, continue to hold Lasix, continue Tums 1500 twice daily for now no calcitriol yet. Needs to be seen by nephrology after discharge and will need frequent labs. Nephrolithiasis Hematuria - resolved Heparin SQ discontinued Monitor CBC Appreciate Urology Input Stone burden has grown since prior CT No acute need for intervention as per urology Will need staged ureteroscopy due to large renal stone burden Vs PCNL at tertiary care facility Patient/Family prefers to discuss with Urology prior to making decision. Needs follow-up with urology upon discharge - referral to [facility] urology sent Hypercalcemia H/O Hypocalcemia due to hypoparathyroidism/thyroid cancer treatment Hypothyroidism could have contributed as well Calcitriol, calcium supplements initially held Calcium:11.1>>8.6 Vitamin D levels: 21 PTH Related Protein pending Received IV fluids Appreciate nephrology input Calcium levels improved Calcium supplements restarted No Calcitriol for now Hypothyroidism Admits to being non complaint to Levothyroxine use TSH:201 Free T4: 0.18 Received IV levothyroxine Previously followed with Discussed with on 11/18/20 Advised to resume home dose of levothyroxine Needs repeat TSH/free T4 as outpatient Needs follow-up with endocrinology upon discharge UTI Ruled out Urine Cx: Mixed probable skin dyana Mild right hydronephrosis Urothelial thickening and periureteral fat stranding within the right renal collecting system Empirically on Rocephin - will dc on cipro - renally dosed - discussed w/ pharmacy Further management as above Left Tracheoesophageal recess Nodule Anterior mediastinal lymph node Pulmonary nodules Incidental findings on CT Chest Follow up as outpatient H/O CLL On ibrutinib Follows with oncology Thyroid cancer: S/P Thyroidectomy DM II HbA1C: 5.6 Currently not on any medications at home Diet controlled H/O Autoimmune hemolytic anemia Transfusion dependent anemia Hb stable Generalized anxiety disorder Depression Continue citalopram and Klonopin Hypertension Hold diuretics Continue Diltiazem H/O SVT: On diltiazem DVT Px:: Heparin SQ CODE STATUS: Full code Disposition: Plan to DC home (2) Hypercalcemia: Total Time Total Time Spent Total Time Spent (In Minutes): 40 Discharge Plan Discharge Items Patient Disposition: Home - Self-Care Reason For Visit: ABNORMAL LABS Discharge Diagnosis: Hypercalcemia, KEO Renal stones, concern for pyelonephritis Condition on Discharge: Good Activity: Per Instructions section Non-emergency contact: 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 It is also important that you follow-up with nephrology (kidney doctors, regarding your kidneys and calcium level) and endocrinology, for your thyroid. 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 You will need more frequent blood work now, to monitor your electrolytes It is crucial that you take your thyroid medication, levothyroxine, first thing in the morning and not take any other medications or food for at least half an hour to an hour after taking levothyroxine. Your thyroid levels will need to be re-checked again by your healthcare providers/sheather. Referral will also placed for urology, at [facility], to further work-up /and manage your kidney stones. You will be contacted about the appointment. Pending Studies at Discharge: No Stand-Alone Forms: My [facility], Smoking Cessation Medications and DC Order Prescriptions: New ciprofloxacin HCl 500 mg tablet 500 mg PO QAM Qty: 6 RF: 0 Continued citalopram 10 mg Tablet 10 mg PO DAILY RF: 0 prochlorperazine maleate [Compazine] 10 mg Tablet 10 mg PO Q6H PRN (Reason: Nausea And Vomiting) RF: 0 allopurinol 100 mg tablet 100 mg PO DAILY RF: 0 isosorbide mononitrate 30 mg Tablet Extended Release 24 Hr 30 mg PO QAM RF: 0 folic acid 1 mg Tablet 1 mg PO QAM RF: 0 omeprazole 20 mg Capsule,Delayed Release(Dr/Ec) 20 mg PO BID RF: 0 nystatin 100,000 unit/gram powder 1 applic topical TID PRN (Reason: Skin Irritation) RF: 0 levothyroxine 175 mcg Tablet 175 mcg PO DAILY RF: 0 potassium chloride 10 mEq Capsule, Extended Release 20 meq PO DAILY RF: 0 ondansetron HCl 8 mg Tablet 8 mg PO Q8H PRN (Reason: Nausea) RF: 0 clonazepam 0.5 mg Tablet 0.5 mg PO HS RF: 0 calcium carbonate 600 mg calcium (1,500 mg) Tablet 600 mg PO BID RF: 0 diltiazem HCl 120 mg Capsule,Extended Release 24 Hr 120 mg PO DAILY RF: 0 docusate sodium 100 mg Capsule 100 mg PO BID PRN (Reason: Constipation) RF: 0 polyethylene glycol 3350 [Miralax] 17 gram/dose Powder 17 g PO DAILY PRN (Reason: Constipation) RF: 0 Probiotic Digestive Care 20 billion cell Capsule 20 cell PO DAILY RF: 0 Imbruvica 140 mg Capsule 280 mg PO DAILY RF: 0 magnesium oxide 400 mg magnesium Tablet 400 mg PO DAILY RF: 0 tramadol 50 mg tablet 50 mg PO BID PRN (Reason: Pain, Moderate) RF: 0 Discontinued torsemide 10 mg tablet 10 mg PO DAILY RF: 0 calcitriol 0.5 mcg Capsule 0.5 mcg PO DAILY RF: 0 Discharge Orders: Discharge Order (Routine); Ordered 11/21/20 Ordered By: Arash Amor Admission Data Admit Date/Time: 11/16/20 23:57 Attending Provider: Arash Amor Admit Provider: Cameron Ferguson Primary Care Provider: Lani Long Other Providers: Cameron Ferguson ; Thais Tran ; Alejandro Benavides ; Faheem Smith
[2020-11-21] MEDS ORDERED: allopurinoL 100 MG TAB PO SCH (14:30)
[2020-11-21] MEDS ORDERED: IBRUTINIB PO SCH (14:30)
[2020-11-22] MEDS ORDERED: POTASSIUM CHLORIDE CRTAB 20 MEQ TABCR PO SCH (09:00)
--- NOTE | 2020-11-28 08:00 | Coding Query ---
CODING QUERY To promote full compliance with coding requirements relating to patient care, provider participation is requested in all cases of spindraw operator uncertainty. Please assist us with the question(s) below: Coding Question(s): Nephrology documentation states, KEO: nonoliguric stage 1 acute on chronic stage 4 renal failure w/ baseline creatinine 1.5-1.7 and likely worsened recently d/t polyuria from hypercalcemia: prerenal versus ATN." Please clarify patient's condition below: ( ) Patient with KEO (Acute Kidney Injury) ( ) Patient with ATN (Acute Tubular Necrosis) ( x) Other Please Explain: KEO on CKD stage IV Thank you Kevin Nava Principal Diagnosis: "that condition established after study, to be chiefly responsible for occasioning the admission of the patient to the hospital for care." Co-Existing Principal Diagnosis: "when two or more diagnoses equally meet the criteria for principal diagnosis as determined by the circumstances of admission, diagnostic work up, and/or therapy provided, and the Alphabetic Index, Tabular List, or another coding guideline does not provide sequencing direction, any one of the diagnoses may be sequenced first." "When the physician has documented what appears to be a current diagnosis in the body of the record, but has not included the diagnosis in the final diagnostic statement, the physician should be asked whether the diagnosis should be added." (Source Coding [facility] 2 QTR90. p3-4) NASRA
== END 2020-11-21 17:20 | disposition home or self-care (01) | DRG 683 ==
LOC: ED 17:52 → SUATTDRO 23:57 → 2N 23:57

== ENCOUNTER 2022-02-05 12:47 | Inpatient (IN) ==
--- NOTE | 2022-02-05 13:51 | XRay Report ---
XR chest 2V PA/lateral HISTORY: Shortness of breath. Chest tightness. COMPARISON: Chest 11/17/2020. FINDINGS: Consolidation within the right mid to lower lung zone which is new from the prior study. Th is primarily involves the right middle lobe. Left basilar linear densities remain stable and favor mckeon bsegmental atelectasis. The heart is top normal in size. No pneumothorax. No definite pleural effusio ns. Surgical clips within the left upper quadrant again noted. There are low lung volumes. No evidenc e for pulmonary edema. Old, healed right-sided rib fractures. IMPRESSION: Dense consolidation within the right middle lobe which favors a pneumonia. This is new from the prior study. Recommend one to 2 month chest x-ray follow-up to ensure resolution. ACT 112: Negative or not required by law. Electronically signed by: Gautam Ramirez M.D. 02/05/2022 1:49 PM
[2022-02-05 14:05] LABS: Basophils # (auto) 0.13 K/uL (0-0.2); Basophils % (auto) 0.6 %; Eosinophils # (auto) 0.01 K/uL (0-0.50); Hematocrit (blood only) 33.5 % (34.1-44.9); Hemoglobin 10.7 g/dl (12.0-16.0); Immature Granulocytes # (auto) 0.43 K/uL (0.00-0.02); Immature Granulocytes % (auto) 2.1 %; Lymphocytes # (auto) 1.99 K/uL (1.2-3.4); Lymphocytes % (auto) 9.8 %; Mean Corpuscular Hemoglobin 24.9 pg (25.0-34.0); Mean Corpuscular Hgb Conc 31.9 g/dL (32.0-36.0); Mean Corpuscular Volume 78.1 fL (80.0-100.0); Mean Platelet Volume 12.9 fL (9.4-12.3); Monocytes # (auto) 1.09 K/uL (0.24-0.82); Monocytes % (auto) 5.3 %; Neutrophils # (auto) 16.76 K/uL (1.4-6.5); Neutrophils % (auto) 82.2 %; Platelet Count 189 K/uL (130-400); RDW Coefficient of Variation 16.9 % (11.5-14.5); RDW Standard Deviation 47.4 fL (36.4-46.3); Red Blood Count 4.29 M/uL (3.93-5.22); White Blood Count 20.41 K/ul (4.8-10.8)
[2022-02-05 14:25] LABS: INR 1.1 (0.9-1.1); Partial Thromboplastin Ratio 1.3; Prothrombin Time 11.6 Seconds (9.0-12.0)
[2022-02-05 14:37] LABS: Alanine Aminotransferase 16 U/L (7-52); Albumin Globulin Ratio 1.1 (0.9-2); Albumin Level 3.9 gm/dl (3.4-5.0); Alkaline Phosphatase 107 U/L (34-104); Anion Gap 13 (3-11); BUN Creatinine Ratio 24.1 (10-20); Bilirubin,Total 0.6 mg/dl (0.2-1.0); Blood Urea Nitrogen 41 mg/dl (6-23); Calcium 7.2 mg/dl (8.5-10.1); Carbon Dioxide 25 mmol/L (21-32); Chloride 97 mmol/L (98-107); Creatinine Clr Calc Pharmacy 26.5 ml/min; Est GFR (African American) 31.5 ml/min; Est GFR (Non-African American) 27.2 ml/min; Globulin 3.7 gm/dl (2.5-4.0); Glucose 94 mg/dl (70-99(Fasting)); Magnesium 2.3 mg/dl (1.7-2.4); Sodium 135 mmol/L (136-145); Total Protein 7.6 gm/dl (6.0-8.3); Troponin I High Sensitivity 24.4 pg/ml (0-14)
[2022-02-05] MEDS ORDERED: CEFEPIME 2,000 MG/20 ML VIAL IV STA (16:42)
--- NOTE | 2022-02-05 16:52 | Electrocardiogram Report ---
Test Reason : Blood Pressure : / mmHG Vent. Rate : 107 BPM Atrial Rate : 107 BPM P-R Int : 158 ms QRS Dur : 068 ms QT Int : 378 ms P-R-T Axes : 027 -04 021 degrees QTc Int : 504 ms Poor data quality, interpretation may be adversely affected Sinus tachycardia with Premature supraventricular complexes Moderate voltage criteria for LVH, may be normal variant Inferior infarct , age undetermined Abnormal ECG When compared with ECG of 18-NOV-2020 06:18, Significant changes have occurred Confirmed by Chris Moeller ([id number]) on 02/05/2022 4:52:46 PM Referred By: ED Confirmed By:Chris Moeller
--- NOTE | 2022-02-05 17:06 | History & Physical Report ---
Date of Service February 05, 2022 Assessment & Plan (1) RML pneumonia: (2) Weakness: (3) Acute on chronic renal failure: (4) Anemia of chronic disease: (5) CKD (chronic kidney disease) stage 4, GFR 15-29 ml/min: (6) HTN (hypertension): (7) Lymphoma: (8) Hypothyroidism: (9) Diabetes mellitus: (10) Thyroid cancer: Plan 86-year-old female with cough and fever. and weakness x1 we diagnosed with RML pneumonia. IV antibiotics, IV steroids, supportive treatment, with speech th erapy consult. Acute on chronic renal failure with elevated creatinine; fluid challenge and reassess. Patient also has CLL and sees Dr. Long every 3 months. DM2 diet controlled. RML community-acquired PNA: Weakness: Cough: Chest x-ray RML pneumonia with low lung volumes WBC 20.41 Troponin 24.4 unlikely ACS but rather ischemic demand on heart with hypoxic trend troponin x1. Started on cefepime in the ED; will switch to Rocephin and Doxy Bio fire pending Sputum culture pending Lactate 0.7 and procalcitonin pending Does not appear to look septic at this time; however has Patient unvaccinated against COVID and pneumonia; has received influenza vaccine Mucinex started; obtain sputum culture if possible Methylprednisone IV Q8; monitor glucose levels CXR in a.m. Possible increased aspiration risk; ST evaluation for bedside swallow PT/OT eval Acute on chronic renal failure Baseline creatinine 1.3-1.5 1.70 in ED; fluid challenge x2 L and reassess Hold nephrotoxic agents mild tachycardia and WBC 20.41; reassess after fluids. Nephro consult if no improvement Anemia of chronic disease: Hemoglobin 10.7; baseline 11.3. Follows with hematology outpatient; trend hemoglobin No signs of active bleeding during exam or ROS DM2: Diet controlled; not on any oral or injectable agents 08/30/2021 A1c 6.0; recheck A1c in a.m. Be mindful of glucose levels with steroids HTN: Patient takes Imdur and diltiazem; possibly consider alternative agents if no h/o atrial fibrillation or CAD; continue for now. 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 Long Q3 months H/O Papillary thyroid cancer: s/p surgery 2009 Hypothyroidism: Takes Synthroid; continue Check TSH Gout: No acute flare. Takes allopurinol; continue Disposition: PCP: Dr. Mehta Code Status: Full code VTE prophylaxis: Heparin SQ I personally was able to review all current laboratory work and diagnostic images obtained in the ED. Additionally, I was able to review the patients past medication reconciliation and history with direct visualization in the patients chart. This patient was seen in collaboration with Dr. Hall. Please see her addendum for further details. History of Present Illness Chief Complaint: fever and cough Primary Care Provider: Lani Long MD Юлия is an 86-year-old female that presented to the ED after not feeling well from her outpatient PCP office and she went to be seen for cough, fever, weakness and LEVY x1 week. SHe states that last Friday she called to possibly have a prescription filled as she was having URI symptoms, including sore throat, insomnia, and decreased appetite. Patient was noted to be hypoxic in outpatient clinic SPO2 88%; .sent to ED for further evaluation. Patient past medical history includes CLL, CKD stage IV, diabetes mellitus type 2 (diet managed and not on any oral or injectable agents), hypoparathyroidism's status post papillary thyroid cancer and surgery in 2009, eosinophilic esophagitis, vitamin D deficiency, autoimmune hemolytic anemia, anxiety depression, hypertension, and hypothyroidism. Pt is vaccinated against Influenza but is unvaccinated against COVID as she did not think it was necessary. Pt reports that she is quite tired after getting up from sitting since last week. Pt denies ANDREA, dizziness, chest pain, palpitations, abdominal pain, N/V/D. Pt reports feeling constipated since her PO intake has decreased. Pt lives alone at home in a one story house, ambulates with a walker and does her own ADLs independently including meal planning. She has a son Jan who is her decision-maker in the event that she cannot participate in conversation who lives in [place]. In the ED she is tachycardic low 100s; however does not appear in acute distress. Suspect that she is dehydrated due to decreased appetite and poor intake over the past few days. Patient is currently afebrile and lactate is 0.7. Initial troponin 24.7 suspect more ischemic demand rather than ACS; will trend 1 more troponin. Most recent echo 10/22 EF 65% with mild aortic and mitral valve changes. Patient is a non-smoker. procalcitonin pending and blood cultures done. Patient will be admitted for further evaluation and management. Please see A/P for further details. Allergies Allergy/AdvReac Type Severity Reaction Status Date / Time pneumococcal vaccine Allergy Unknown Unknown Verified 11/16/20 21:31 sulfamethoxazole AdvReac Intermediate Nausea Verified 11/16/20 21:31 [From Bactrim] trimethoprim [From Bactrim] AdvReac Intermediate Nausea Verified 11/16/20 21:31 lorazepam AdvReac Unknown SEE COMMENT Verified 11/19/20 15:42 Home Medications Medication Instructions Recorded Confirmed Type folic acid 1 mg tablet 1 mg PO QAM 09/05/18 02/05/22 History isosorbide mononitrate 30 mg 30 mg PO QAM 09/05/18 02/05/22 History tablet,extended release 24 hr omeprazole 20 mg capsule,delayed 20 mg PO BID 09/05/18 02/05/22 History release nystatin 100,000 unit/gram topical 1 applic topical TID PRN Skin 12/01/18 02/05/22 History powder Irritation allopurinol 100 mg tablet 100 mg PO DAILY 11/14/19 02/05/22 History Lactobacillus rhamnosus GG 20 20 cell PO DAILY 11/16/20 02/05/22 History billion cell capsule (Probiotic Digestive Care) calcium carbonate 600 mg calcium 4,500 mg PO BID 11/16/20 02/05/22 History (1,500 mg) tablet clonazepam 0.5 mg tablet 0.5 mg PO HS 11/16/20 02/05/22 History diltiazem HCl 120 mg capsule,24 120 mg PO DAILY 11/16/20 02/05/22 History hr,extended release docusate sodium 100 mg capsule 100 mg PO BID PRN Constipation 11/16/20 02/05/22 History ibrutinib 140 mg capsule 280 mg PO DAILY 11/16/20 02/05/22 History (Imbruvica) levothyroxine 175 mcg tablet 175 mcg PO DAILY 11/16/20 02/05/22 History magnesium oxide 400 mg PO DAILY 11/16/20 02/05/22 History polyethylene glycol 3350 17 17 g PO DAILY PRN Constipation 11/16/20 02/05/22 History gram/dose oral powder (Miralax) potassium chloride 10 mEq 20 meq PO DAILY 11/16/20 02/05/22 History capsule,extended release Past Med/Surg History Medical History (Updated 02/05/22 @ 18:26 by MICHELE Martin) Acute on chronic renal failure Anemia of chronic disease Asthma CKD (chronic kidney disease) stage 4, GFR 15-29 ml/min Diabetes mellitus diet controlled Hemolytic anemia Kailyn positive hemolytic anemia; dx in 2013 HTN (hypertension) Hydronephrosis R; mild Hypocalcemia during Fall 2018 admission > d/c on aggressive calcium supplements Kidney stones s/p multiple lithotripsies, ureteroscopies Lymphoma B-cell CLL, dx in 2013 Non-STEMI (non-ST elevated myocardial infarction) RML pneumonia Sepsis Thyroid cancer recurrent papillary thyroid cancer; s/p surgery; dx in 2009 TIA (transient ischemic attack) Surgical History History of hernia repair History of knee surgery b/l knees History of thyroidectomy several cancer surgeries on thyroid Family History Mother Colorectal cancer Brother Diabetes Sister Diabetes Social History Smoking Status: Never smoker Second Hand Exposure: Yes; Hx Alcohol Use: No Hx Substance Use: No Preferred Language: Mongolian Communication Ability: Effective Commercial Glazier Required: No Beliefs That Will Affect Care: None marital status: / Current Living Situation: Alone Current Living Situation Comment: pt son lives in pt basement until he is able to find a new place to live. current occupational status: retired How many Children do You have: 3 Feels Safe at Home: Yes Assistive Devices: None Review of Systems Review of Systems: Neuro: (-) Falls, trauma, slurred speech HEENT: (-) ANDREA, dizziness, dysphagia, visual or auditory changes CV: (-) CP, palpitations, swelling Resp: (+) SOB GI: (+) appetite changes, N/V/D, (+) constipation. bowel changes : (-) urinary changes Skin: (-) rashes Psych: (-) anxiety, depression Physical Exam Physical Exam: Neuro: AAOx4, PERRLA, no aphagia, memory changes, CNII-XII grossly intact HEENT: head normocephalic, moist mucus membranes CV: S1/S2, (-) M/G/R, (-) edema, cap refill < 3 seconds Resp: Lungs CTA in all [place]. On RA GI: Abdomen S/NT/ND, Ax4 bowel sounds, (-) CVA tenderness Musculoskeletal: 5/5 B/L UE strength, 5/5 B/L LE strength. No gait disturbance Skin: (-) rashes , (-) erythema. Psych: euthymic mood Results & Data Results & Data ([facility]) Vital Signs (Past 12 Hours) Vital Signs Temp Pulse Pulse Resp BP BP Pulse Ox 02/05/22 16:57 107 H 154/71 H 99 02/05/22 16:56 99 02/05/22 16:56 02/05/22 16:56 107 H 154/71 H 99 02/05/22 13:17 37 C 105 H 20 123/75 92 O2 Del Method 02/05/22 16:57 Room Air 02/05/22 16:56 Room Air 02/05/22 16:56 Room Air 02/05/22 16:56 Room Air 02/05/22 13:17 Room Air Laboratory Results Short CBC 02/05/22 Range/Units 13:48 WBC 20.41 H (4.8-10.8) K/ul Hgb 10.7 L (12.0-16.0) g/dl Hct 33.5 L (34.1-44.9) % Plt Count 189 (130-400) K/uL BMP 02/05/22 13:48 Sodium 135 L Potassium TNP Chloride 97 L Carbon Dioxide 25 BUN 41 H Creatinine 1.70 H Glucose 94 Calcium 7.2 L Liver Function 02/05/22 Range/Units 13:48 Total Bilirubin 0.6 (0.2-1.0) mg/dl AST TNP ALT 16 (7-52) U/L Alkaline Phosphatase 107 H (34-104) U/L Albumin 3.9 (3.4-5.0) gm/dl Diagnostic Findings Chest X-Ray 02/05/22 13:23 XR chest 2V PA/lateral HISTORY: Shortness of breath. Chest tightness. COMPARISON: Chest 11/17/2020. FINDINGS: Consolidation within the right mid to lower lung zone which is new from the prior study. This primarily involves the right middle lobe. Left basilar linear densities remain stable and favor subsegmental atelectasis. The heart is top normal in size. No pneumothorax. No definite pleural effusions. Surgical clips within the left upper quadrant again noted. There are low lung volumes. No evidence for pulmonary edema. Old, healed right-sided rib fractures. IMPRESSION: Dense consolidation within the right middle lobe which favors a pneumonia. This is new from the prior study. Recommend one to 2 month chest x-ray follow-up to ensure resolution. ACT 112: Negative or not required by law. Electronically signed by: Gautam Ramirez M.D. 02/05/2022 1:49 PM ECG Additional Comments: Vent. Rate : 107 BPM Atrial Rate : 107 BPM P-R Int : 158 ms QRS Dur : 068 ms QT Int : 378 ms P-R-T Axes : 027 -04 021 degrees QTc Int : 504 ms Code Status & VTE Plan Code Status Full code in the event of cardiac or respiratory arrest VTE Prophylaxis Plan VTE Prophylaxis will be ordered: Yes Supervising Physician Co-Signing Physician Notes I have seen and examined the patient and have discussed the case with the provider above. I agree with the assessment and plan as stated with the following exceptions. The patient is an 86 yo F with cough and congestion for the past week. She developed progressive shortness of breath and was found to be hypoxic on room air today. She is now improved on oxygen. Reports not eating or drinking well and clinically is dehydrated. Reports no fever or chills. Denies any issues with swallowing or any choking on foods or liquids. On physical exam she is sitting comfortably in a chair at bedside. She is not working to breathe and has no conversational dyspnea. Pulmonary auscultation reveals rales bilaterally without rales or wheezes. She has upper airway congestion. Cardiac auscultation reveals 3/6 TONI across precordium. Rate is tachycardic and rhythm is regular. Abdomen is soft NTND, skin is warm and dry. Workup today reveals an elevated WBC with a left shift, elevated troponin (likely related to demand ischemia in the setting of clinical dehydration and tachycardia related to pulmonary infection). Lactate is negative and procalcitonin is mildly elevated at 0.71. Respiratory panel is negative for covid, flu, RSV. Potassium is 2.2 with a normal Mag. CXR reveals RML pneumonia. She was started on cefepime and NSS in the ER. Overall this is an elderly female presenting with pneumonia. She is clinically dehydrated and improving with temporary supplemental oxygen and IVF with antibiotics. Cont broad spectrum antibiotics pending culture results and clinical improvement. Acute kidney injury is present and hypokalemia likely secondary to poor PO intake and dehydration from acute illness. DO Rafael (1) Hypothyroidism Hypothyroidism type: unspecified Qualified Code(s): E03.9 - Hypothyroidism, unspecified
[2022-02-05] MEDS: SODIUM CHLORIDE 0.9% 1000ML 1,000 ML IV SCH ×2 (17:16→19:53)
--- NOTE | 2022-02-05 17:33 | Emergency Department Note ---
History of Present Illness General Chief complaint: Shortness of Breath/Dyspnea Stated complaint: FLU SYMPTOMS, SOB, FEVER, WEAKNESS Time Seen by Provider: 02/05/22 16:37 History of Present Illness Maximum Pain Intensity: 5 86-year-old female presents to the ED with a chief complaint of shortness of breath, weakness and a cough as well as a fever. The patient states that her symptoms started a week ago. She saw her PCP today and had a fever of 101.4 at the office and was hypoxic, per the son. She was sent here for further evaluation. Symptoms are made worse with exertion. She has not taken anything for her symptoms. Home Medications Medication Instructions Recorded Confirmed Type folic acid 1 mg tablet 1 mg PO QAM 09/05/18 11/16/20 History isosorbide mononitrate 30 mg 30 mg PO QAM 09/05/18 11/16/20 History tablet,extended release 24 hr omeprazole 20 mg capsule,delayed 20 mg PO BID 09/05/18 11/16/20 History release citalopram 10 mg tablet 10 mg PO DAILY 09/24/18 11/16/20 History prochlorperazine maleate 10 mg 10 mg PO Q6H PRN Nausea And 10/15/18 11/16/20 History tablet (Compazine) Vomiting nystatin 100,000 unit/gram topical 1 applic topical TID PRN Skin 12/01/18 History powder Irritation allopurinol 100 mg tablet 100 mg PO DAILY 11/14/19 11/16/20 History Lactobacillus rhamnosus GG 20 20 cell PO DAILY 11/16/20 11/16/20 History billion cell capsule (Probiotic Digestive Care) calcium carbonate 600 mg calcium 600 mg PO BID 11/16/20 11/16/20 History (1,500 mg) tablet clonazepam 0.5 mg tablet 0.5 mg PO HS 11/16/20 11/16/20 History diltiazem HCl 120 mg capsule,24 120 mg PO DAILY 11/16/20 11/16/20 History hr,extended release docusate sodium 100 mg capsule 100 mg PO BID PRN Constipation 11/16/20 11/16/20 History ibrutinib 140 mg capsule 280 mg PO DAILY 11/16/20 11/16/20 History (Imbruvica) levothyroxine 175 mcg tablet 175 mcg PO DAILY 11/16/20 11/16/20 History magnesium oxide 400 mg PO DAILY 11/16/20 11/16/20 History ondansetron HCl 8 mg tablet 8 mg PO Q8H PRN Nausea 11/16/20 11/16/20 History polyethylene glycol 3350 17 17 g PO DAILY PRN Constipation 11/16/20 11/16/20 History gram/dose oral powder (Miralax) potassium chloride 10 mEq 20 meq PO DAILY 11/16/20 11/16/20 History capsule,extended release tramadol 50 mg tablet 50 mg PO BID PRN Pain, Moderate 11/16/20 11/16/20 History ciprofloxacin HCl 500 mg tablet 500 mg PO QAM #6 tabs 11/21/20 Rx Allergies Allergy/AdvReac Type Severity Reaction Status Date / Time pneumococcal vaccine Allergy Unknown Unknown Verified 11/16/20 21:31 sulfamethoxazole AdvReac Intermediate Nausea Verified 11/16/20 21:31 [From Bactrim] trimethoprim [From Bactrim] AdvReac Intermediate Nausea Verified 11/16/20 21:31 lorazepam AdvReac Unknown SEE COMMENT Verified 11/19/20 15:42 Past Med/Surg History Medical History Asthma CKD (chronic kidney disease) stage 4, GFR 15-29 ml/min Diabetes mellitus diet controlled Hemolytic anemia Kailyn positive hemolytic anemia; dx in 2013 HTN (hypertension) Hydronephrosis R; mild Hypocalcemia during Fall 2018 admission > d/c on aggressive calcium supplements Kidney stones s/p multiple lithotripsies, ureteroscopies Lymphoma B-cell CLL, dx in 2013 Non-STEMI (non-ST elevated myocardial infarction) RML pneumonia Sepsis Thyroid cancer recurrent papillary thyroid cancer; s/p surgery; dx in 2009 TIA (transient ischemic attack) Surgical History History of hernia repair History of knee surgery b/l knees History of thyroidectomy several cancer surgeries on thyroid Family History Mother Colorectal cancer Brother Diabetes Sister Diabetes Social History Smoking Status: Never smoker Second Hand Exposure: Yes; Hx Alcohol Use: No Hx Substance Use: No Preferred Language: Kyrgyz Communication Ability: Effective Supervisor Contingents Required: No Beliefs That Will Affect Care: None marital status: / Current Living Situation: Alone Current Living Situation Comment: pt son lives in pt basement until he is able to find a new place to live. current occupational status: retired How many Children do You have: 3 Feels Safe at Home: Yes Assistive Devices: None Review of Systems A total of 10 systems reviewed and were otherwise negative Physical Exam Vital Signs Vital Signs - 24 hr 02/05/22 13:17 02/05/22 13:17 02/05/22 16:56 Temperature 37 C Temperature Source Temporal Artery Scan Pulse Rate 105 H Pulse Rate [Right Finger] 107 H Pulse Rhythm Regular Pulse Strength Normal Respiratory Rate 20 Respiratory Effort / Characteristics Spontaneous Short of Breath SOB on Exertion Non-Labored Spontaneous Respiratory Depth Normal Normal Respiratory Pattern Regular Regular Blood Pressure 123/75 Blood Pressure [Right Arm] 154/71 H Blood Pressure Mean 91 Blood Pressure Mean [Right Arm] 98 Blood Pressure Position Sitting Pulse Oximetry 92 99 Oxygen Delivery Method Room Air Room Air Sepsis Recent Fever Within 48 Hours Yes Sepsis New/Unexplained Change in Mental Status No Sepsis Action Taken by Nursing No Action Required Pulse Oximetry Post Tiitration 02/05/22 16:56 02/05/22 16:56 02/05/22 16:57 Temperature Temperature Source Pulse Rate Pulse Rate [Right Finger] 107 H Pulse Rhythm Pulse Strength Respiratory Rate Respiratory Effort / Characteristics Respiratory Depth Respiratory Pattern Blood Pressure Blood Pressure [Right Arm] 154/71 H Blood Pressure Mean Blood Pressure Mean [Right Arm] 98 Blood Pressure Position Pulse Oximetry 99 99 Oxygen Delivery Method Room Air Room Air Room Air Sepsis Recent Fever Within 48 Hours Sepsis New/Unexplained Change in Mental Status Sepsis Action Taken by Nursing Pulse Oximetry Post Tiitration 99 02/05/22 17:20 02/05/22 17:22 Temperature Temperature Source Pulse Rate Pulse Rate [Right Finger] 105 H Pulse Rhythm Pulse Strength Respiratory Rate Respiratory Effort / Characteristics Labored Respiratory Depth Respiratory Pattern Blood Pressure Blood Pressure [Right Arm] Blood Pressure Mean Blood Pressure Mean [Right Arm] Blood Pressure Position Pulse Oximetry 98 98 Oxygen Delivery Method Room Air Room Air Sepsis Recent Fever Within 48 Hours Sepsis New/Unexplained Change in Mental Status Sepsis Action Taken by Nursing Pulse Oximetry Post Tiitration CONSTITUTIONAL/VITAL SIGNS: Reviewed / noted above. GENERAL: Non-toxic in appearance. INTEGUMENTARY: Warm, dry, and [place]. HEAD: Normocephalic. EYES: without scleral icterus or trauma. ENT/OROPHARYNX: clear and moist. LYMPHADENOPATHY/NECK: Is supple without lymphadenopathy or meningismus. RESPIRATORY: Clear to auscultation bilaterally. No increased work of breathing. CARDIOVASCULAR: Regular rate and rhythm. GI/ABDOMEN: Soft and nontender. No organomegaly or pulsatile mass. EXTREMITIES: Warm and well perfused. BACK: No CVA tenderness. NEUROLOGICAL: Intact without focal deficits. PSYCHIATRIC: normal affect. MUSCULOSKELETAL: Normally developed with good muscle tone. TRIAGE NURSING DOCUMENTATION REVIEWED. Course Administered Medications Sodium Chloride (Nss 1000ml) 1,000 mls @ 999 mls/hr IV .Q1H1M YOGESH Stop: 02/05/22 18:45 Last Admin: 02/05/22 17:16 Dose: 999 mls/hr Documented By: ALMA Medical Decision Making Differential Diagnosis Differential includes acute coronary syndrome, myocardial infarction, CVA, TIA, anemia, infection, pneumonia, UTI, pyelonephritis, poor nutrition, dehydration, electrolyte disturbance,hypoglycemia. Medical Records Attestation: I reviewed the patient's medical records. Home Medications Current Medication List: was personally reviewed by [place] Laboratory Data Attestation: I reviewed the patient's lab results. Result diagrams: 02/05/22 13:48 02/05/22 13:48 Lab Results 02/05/22 02/05/22 02/05/22 Range/Units 13:48 13:48 13:48 WBC 20.41 H (4.8-10.8) K/ul RBC 4.29 (3.93-5.22) M/uL Hgb 10.7 L (12.0-16.0) g/dl Hct 33.5 L (34.1-44.9) % MCV 78.1 L (80.0-100.0) fL MCH 24.9 L (25.0-34.0) pg MCHC 31.9 L (32.0-36.0) g/dL RDW Std Deviation 47.4 H (36.4-46.3) fL RDW Coeff of Marcelina 16.9 H (11.5-14.5) % Plt Count 189 (130-400) K/uL MPV 12.9 H (9.4-12.3) fL Immature Gran % (Auto) 2.1 % Neut % (Auto) 82.2 % Lymph % (Auto) 9.8 % [place] % (Auto) 5.3 % Eos % (Auto) 0.0 % Baso % (Auto) 0.6 % Neut # (Auto) 16.76 H (1.4-6.5) K/uL Lymph # (Auto) 1.99 (1.2-3.4) K/uL [place] # (Auto) 1.09 H (0.24-0.82) K/uL Eos # (Auto) 0.01 (0-0.50) K/uL Baso # (Auto) 0.13 (0-0.2) K/uL Immature Gran # (Auto) 0.43 H (0.00-0.02) K/uL PT 11.6 (9.0-12.0) Seconds INR 1.1 (0.9-1.1) APTT 37.0 H (21.0-31.0) Seconds PTT Ratio 1.3 Sodium 135 L (136-145) mmol/L Potassium TNP Chloride 97 L (98-107) mmol/L Carbon Dioxide 25 (21-32) mmol/L Anion Gap 13 H (3-11) BUN 41 H (6-23) mg/dl Creatinine 1.70 H (0.6-1.2) mg/dl Est Cr Clr Drug Dosing 26.5 ml/min Est GFR ( Amer) 31.5 ml/min Est GFR (Non-Af Amer) 27.2 ml/min BUN/Creatinine Ratio 24.1 H (10-20) Glucose 94 (70-99(Fasting)) mg/dl Calcium 7.2 L (8.5-10.1) mg/dl Magnesium 2.3 (1.7-2.4) mg/dl Total Bilirubin 0.6 (0.2-1.0) mg/dl AST TNP ALT 16 (7-52) U/L Alkaline Phosphatase 107 H (34-104) U/L Troponin I High Sens 24.4 H (0-14) pg/ml Total Protein 7.6 (6.0-8.3) gm/dl Albumin 3.9 (3.4-5.0) gm/dl Globulin 3.7 (2.5-4.0) gm/dl Albumin/Globulin Ratio 1.1 (0.9-2) Imaging Data Radiologist's Impression: Chest X-Ray 02/05/22 13:23 XR chest 2V PA/lateral HISTORY: Shortness of breath. Chest tightness. COMPARISON: Chest 11/17/2020. FINDINGS: Consolidation within the right mid to lower lung zone which is new from the prior study. This primarily involves the right middle lobe. Left basilar linear densities remain stable and favor subsegmental atelectasis. The heart is top normal in size. No pneumothorax. No definite pleural effusions. Surgical clips within the left upper quadrant again noted. There are low lung volumes. No evidence for pulmonary edema. Old, healed right-sided rib fractures. IMPRESSION: Dense consolidation within the right middle lobe which favors a pneumonia. This is new from the prior study. Recommend one to 2 month chest x-ray follow-up to ensure resolution. ACT 112: Negative or not required by law. Electronically signed by: Gautam Ramirez M.D. 02/05/2022 1:49 PM ECG Data Attestation: I personally reviewed and interpreted this ECG as follows: Additional Comments: Twelve-lead EKG: Per my interpretation shows a sinus tach at a rate of 107. No ST elevation. No PVCs. Normal QTC. MDM Narrative Patient presents with weakness as well as a cough and fever. She has had the symptoms for a week. Her chest x-ray suggested right middle lobe pneumonia. Level to count is 20,000. BUN and creatinine are slightly elevated although near baseline. Troponin is slightly elevated. The patient was treated with IV cefepime and 2 L normal saline IV. She has not administered more fluids as her blood pressure was elevated and she does not appear dehydrated. She will be seen by the hospitalist for further evaluation and care. Impression & Plan Right middle lobe pneumonia, Sepsis Discharge Plan Visit Data Chief Complaint: Shortness of Breath/Dyspnea Stated Complaint: FLU SYMPTOMS, SOB, FEVER, WEAKNESS ED Provider: Jeet Willson Discharge Problem: Right middle lobe pneumonia, Sepsis Patient Disposition: Being Evaluated by Hospitalist Forms Stand Alone Forms: My appCREAR Prescriptions Prescriptions: No Action citalopram 10 mg Tablet 10 mg PO DAILY Label Comments: Last filled on External Med History 06/23/18 for 90 day supply. Patient is unsure what meds she takes. Unknown if patient is still on this med. (12/01/18) prochlorperazine maleate [Compazine] 10 mg Tablet 10 mg PO Q6H PRN (Reason: Nausea And Vomiting) Label Comments: No evidence of this med on External Med History. Patient unable to verify any meds she takes. (12/01/18) allopurinol 100 mg tablet 100 mg PO DAILY isosorbide mononitrate 30 mg Tablet Extended Release 24 Hr 30 mg PO QAM Label Comments: Last filled on External Med History 08/18/18 for 90 day supply. Patient is unsure what meds she takes. Unknown if patient is still on this med. (12/01/18) folic acid 1 mg Tablet 1 mg PO QAM Label Comments: Sourced through External Med History filled 11/03/18 for 90 day supply. (12/01/18) omeprazole 20 mg Capsule,Delayed Release(Dr/Ec) 20 mg PO BID nystatin 100,000 unit/gram powder 1 applic topical TID PRN (Reason: Skin Irritation) Label Comments: Last filled on External Med History 10/28/18 for 7 day supply. Patient is unsure what meds she takes. Unknown if patient is still on this med. (12/01/18) levothyroxine 175 mcg Tablet 175 mcg PO DAILY potassium chloride 10 mEq Capsule, Extended Release 20 meq PO DAILY ondansetron HCl 8 mg Tablet 8 mg PO Q8H PRN (Reason: Nausea) clonazepam 0.5 mg Tablet 0.5 mg PO HS calcium carbonate 600 mg calcium (1,500 mg) Tablet 600 mg PO BID diltiazem HCl 120 mg Capsule,Extended Release 24 Hr 120 mg PO DAILY docusate sodium 100 mg Capsule 100 mg PO BID PRN (Reason: Constipation) polyethylene glycol 3350 [Miralax] 17 gram/dose Powder 17 g PO DAILY PRN (Reason: Constipation) Probiotic Digestive Care 20 billion cell Capsule 20 cell PO DAILY Imbruvica 140 mg Capsule 280 mg PO DAILY Rx Instructions: TAKE SAME TIME EVERYDAY. magnesium oxide 400 mg magnesium Tablet 400 mg PO DAILY tramadol 50 mg tablet 50 mg PO BID PRN (Reason: Pain, Moderate) ciprofloxacin HCl 500 mg tablet 500 mg PO QAM Qty: 6 0RF Referrals Referrals: Lani Long MD [Primary Care Provider] -
[2022-02-05] MEDS ORDERED: NYSTATIN POWDER 15GM BTL EXT PRN (17:49)
[2022-02-05] MEDS ORDERED: DOCUSATE SODIUM 100 MG CAP PO PRN (17:49)
[2022-02-05 18:20] LABS: Influenza A virus by PCR Negative (Neg); Influenza B virus by PCR Negative (Neg); RSV by PCR Negative (Neg); SARS CoV2 RNA(COVID-19) Ceph NEGATIVE (Negative)
[2022-02-05 18:50] LABS: Potassium 2.2 mmol/L (3.5-5.1)
[2022-02-05] MEDS ORDERED: POTASSIUM CHLORIDE 10 MEQ TABCR PO STA (19:28)
[2022-02-05] MEDS ORDERED: POTASSIUM CHLORIDE 40 MEQ in SODIUM CHLORIDE 0.9% 1000ML 1,000 ML IV SCH (19:45)
[2022-02-05] MEDS ORDERED: ALUMINUM/MAGNESIUM SUSP 30 ML UDC PO PRN (20:49)
[2022-02-05] MEDS ORDERED: ACETAMINOPHEN 325 MG TAB PO PRN (20:49)
[2022-02-05] MEDS ORDERED: MAGNESIUM HYDROXIDE SUSP 30 ML UDC PO PRN (20:49)
[2022-02-05] MEDS ORDERED: cefTRIAXone SODIUM 1,000 MG in DEXTROSE 5% AD-VAN 50 ML IV SCH (20:49)
[2022-02-05] MEDS ORDERED: ONDANSETRON INJ 2 MG/ML 2 ML VIAL IV PRN (20:49)
[2022-02-05] MEDS ORDERED: POLYETHYLENE (MIRALAX) 17 GM PACK PO PRN (20:49)
[2022-02-05] MEDS ORDERED: CALCIUM CARBONATE 1250MG TAB PO SCH (21:00)
[2022-02-05] MEDS: DOXYCYCLINE HYCLATE 100 MG in DEXTROSE 5% 100 ML IV SCH (21:20)
[2022-02-05] MEDS ORDERED: guaiFENesin/CODEINE 100MG/10MG 5ML UDC PO ONE (21:20)
[2022-02-05] MEDS: HEPARIN SOD 5,000 UNIT/0.5 ML VIAL SQ SCH (21:21)
[2022-02-05] MEDS: clonazePAM 0.5 MG TAB PO SCH (21:21)
[2022-02-05] MEDS: guaiFENesin 600 MG TABCR PO SCH (21:21)
[2022-02-05] MEDS: PANTOprazole 40 MG TAB PO SCH (21:21)
[2022-02-05] MEDS: cefTRIAXone SODIUM 2,000 MG in DEXTROSE 5% 50 ML IV SCH (21:27)
[2022-02-05 22:00] LABS: Appearance Urine Clear (Clear); Bacteria Urine Automated Negative (Negative); Bilirubin Urine Negative (Negative); Blood Urine 3+ (Negative); Color Urine Yellow; Glucose Urine UA Negative (Negative); Ketones Urine 1+ (Negative); Leukocyte Esterase Urine 1+ (Negative); Nitrite Urine Negative (Negative); Protein Urine 2+ (Negative); RBC Urine Automated >30 /hpf (0-4); Specific Gravity Urine 1.021 (1.000-1.030); Urobilinogen Urine Negative (Negative); pH Urine 5.5 (4.5-7.5)
[2022-02-05] MEDS: POTASSIUM CHLORIDE CRTAB 20 MEQ TABCR PO SCH (23:03)
[2022-02-06] MEDS: CALCIUM CARBONATE 1250MG TAB PO SCH ×3 (00:25→20:39)
[2022-02-06] MEDS: POTASSIUM CHLORIDE CRTAB 20 MEQ TABCR PO SCH ×2 (01:54→11:47)
[2022-02-06 04:29] LABS: Hematocrit (blood only) 33.4 % (34.1-44.9); Hemoglobin 10.4 g/dl (12.0-16.0); Mean Corpuscular Hemoglobin 24.8 pg (25.0-34.0); Mean Corpuscular Hgb Conc 31.1 g/dL (32.0-36.0); Mean Corpuscular Volume 79.5 fL (80.0-100.0); Platelet Count 176 K/uL (130-400); RDW Coefficient of Variation 17.2 % (11.5-14.5); RDW Standard Deviation 49.9 fL (36.4-46.3); White Blood Count 21.68 K/ul (4.8-10.8)
[2022-02-06 04:59] LABS: BUN Creatinine Ratio 27.3 (10-20); Calcium 6.8 mg/dl (8.5-10.1); Creatinine Clr Calc Pharmacy 32.5 ml/min; Est GFR (African American) 40.2 ml/min; Est GFR (Non-African American) 34.7 ml/min; Potassium 5.1 mmol/L (3.5-5.1)
[2022-02-06] MEDS: LEVOTHYROXINE SODIUM 175 MCG TABLET PO SCH (06:33)
--- NOTE | 2022-02-06 07:30 | XRay Report ---
XR chest 1V portable HISTORY: 86 years-old Female RML PNA acute shortness of breath with reported pneumonia COMPARISON: Chest radiograph 02/05/2022, chest CT 11/17/2020 TECHNIQUE: AP view of the chest FINDINGS: Cardiomediastinal and hilar silhouettes are within normal limits. There is no pneumothorax or overt p ulmonary edema. Subsegmental linear calcified granulomata of the right lung. Dense consolidation of t he right middle lobe is redemonstrated which appears similar to yesterday's exam. Degenerative change s of the shoulders and spine. Surgical clips project over the left upper quadrant abdomen. IMPRESSION: Similar appearance of the dense right middle lobe airspace consolidation suggestive of pn eumonia. 2 month follow-up chest radiograph recommended. ACT 112: Negative or not required by law. The above report was generated using voice recognition software. It may contain grammatical, syntax o r spelling errors. Electronically signed by: Darrian Price M.D. 02/06/2022 7:29 AM
[2022-02-06] MEDS: ADVANCED PROBIOTIC 1250 MG CAPSULE PO SCH (11:45)
[2022-02-06] MEDS: HEPARIN SOD 5,000 UNIT/0.5 ML VIAL SQ SCH ×2 (11:45→20:39)
[2022-02-06] MEDS: DOXYCYCLINE HYCLATE 100 MG in DEXTROSE 5% 100 ML IV SCH ×2 (11:45→20:43)
[2022-02-06] MEDS: FOLIC ACID 1 MG TAB PO SCH (11:46)
[2022-02-06] MEDS: guaiFENesin 600 MG TABCR PO SCH ×2 (11:46→20:40)
[2022-02-06] MEDS: ISOSORBIDE MONO EXTENDED REL 30 MG TABCR PO SCH (11:46)
[2022-02-06] MEDS: MAGNESIUM OXIDE 400 MG TAB PO SCH (11:46)
[2022-02-06] MEDS: PANTOprazole 40 MG TAB PO SCH ×2 (11:46→20:40)
[2022-02-06] MEDS: dilTIAZem HCL 120 MG CAPCR PO SCH (11:46)
[2022-02-06] MEDS: allopurinoL 100 MG TAB PO SCH (11:46)
--- NOTE | 2022-02-06 16:39 | Hospitalist Progress Note ---
Date of Service February 06, 2022 Assessment & Plan (1) RML pneumonia: (2) Weakness: (3) Acute on chronic renal failure: (4) Anemia of chronic disease: (5) CKD (chronic kidney disease) stage 4, GFR 15-29 ml/min: (6) HTN (hypertension): (7) Lymphoma: (8) Hypothyroidism: (9) Diabetes mellitus: (10) Thyroid cancer: Plan 86-year-old female with cough and fever. and weakness x1 we diagnosed with RML pneumonia. IV antibiotics, IV steroids, supportive treatment, with speech th erapy consult. Acute on chronic renal failure with elevated creatinine; fluid challenge and reassess. Patient also has CLL and sees Dr. Long every 3 months. DM2 diet controlled. RML community-acquired PNA: Weakness: Cough: Chest x-ray RML pneumonia with low lung volumes WBC 20.41 Troponin 24.4 unlikely ACS but rather ischemic demand on heart with hypoxic trend troponin x1. s/p cefepime in the ED - continue on Rocephin and Doxy - blood cultures pending - Lactate 0.7 and procalcitonin 0.71 - improving - weaned off oxgyen - continue to monitor for further improvement Acute on chronic renal failure Baseline creatinine 1.3-1.5 1.70 in ED - likely prerenal in setting of pneumonia and decreased PO intake Hold nephrotoxic agents - Cr improving with IVF Anemia of chronic disease: Hemoglobin 10.7; baseline 11.3. Follows with hematology outpatient; trend hemoglobin No signs of active bleeding during exam or ROS DM2: Diet controlled; not on any oral or injectable agents 08/30/2021 A1c 6.0; recheck A1c in a.m. - monitor for now HTN: Patient takes Imdur and diltiazem; possibly consider alternative agents if no h/o atrial fibrillation or CAD; continue for now. 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 Long Q3 months WBC to 20s - will monitor on treatment for pneumonia H/O Papillary thyroid cancer: s/p surgery 2009 Hypothyroidism: Takes Synthroid; continue Check TSH Gout: No acute flare. Takes allopurinol; continue Disposition: PCP: Dr. Mehta Code Status: Full code VTE prophylaxis: Heparin SQ El Colunga MD Hospital Medicine Admission and Anticipated Discharge Date Admission Date: February 05, 2022 Subjective Patient with CLL, CKD, DM2, hypoparathyroidism/hypothyroidism s/p papillary thyroid cancer and thyroidectomy 2010, vitamin D deficiency, HTN presented with URI symptoms, found to have substantial RML consolidation on CXR, started on abx with improvement. Also with KEO which improved with IVF. Patient reports improvement in symptoms since admission. Denies chest pain, shortness of breath, n/v/d, abdominal pain, dysuria, improved cough, leg swelling. Review of Systems Review of Systems: All systems reviewed & are unremarkable except as noted in Subjective Physical Exam Physical Exam: Neuro: AAOx4, PERRLA, no aphagia, memory changes, CNII-XII grossly intact HEENT: head normocephalic, moist mucus membranes CV: S1/S2, (-) M/G/R, (-) edema, cap refill < 3 seconds Resp: Lungs CTA in all smallwood. On RA GI: Abdomen S/NT/ND, Ax4 bowel sounds, (-) CVA tenderness Musculoskeletal: 5/5 B/L UE strength, 5/5 B/L LE strength. No gait disturbance Skin: (-) rashes , (-) erythema. Psych: euthymic mood Results & Data Results & Data ([facility]) Vital Signs (Past 12 Hours) Vital Signs Temp Pulse Pulse Resp BP BP Pulse Ox 02/06/22 16:27 02/06/22 14:50 36.8 C 94 H 18 118/70 95 02/06/22 12:10 93 H 19 97 02/06/22 12:04 100 02/06/22 11:50 93 H 22 99 02/06/22 11:47 92 H 19 96 02/06/22 11:47 118/60 02/06/22 11:40 90 15 97 02/06/22 11:30 95 H 14 97 02/06/22 11:30 105/60 02/06/22 11:20 94 H 14 97 02/06/22 11:10 94 H 14 96 02/06/22 11:00 96 H 14 96 02/06/22 11:00 115/49 L 02/06/22 12:09 02/06/22 10:00 96 H 24 105/52 L 94 02/06/22 06:30 96 H 20 99 02/06/22 06:20 98 H 16 99 02/06/22 06:10 99 H 18 99 02/06/22 06:00 99 H 17 99 02/06/22 05:50 101 H 24 96 02/06/22 05:40 97 H 20 97 02/06/22 05:30 100 H 17 93 02/06/22 05:20 100 H 23 94 02/06/22 05:10 100 H 23 98 02/06/22 05:00 103 H 22 90 02/06/22 04:58 103 H 23 02/06/22 04:40 98 H 22 98 O2 Del Method O2 Flow Rate 02/06/22 16:27 Room Air 02/06/22 14:50 Room Air 02/06/22 12:10 02/06/22 12:04 02/06/22 11:50 02/06/22 11:47 02/06/22 11:47 02/06/22 11:40 02/06/22 11:30 02/06/22 11:30 02/06/22 11:20 02/06/22 11:10 02/06/22 11:00 02/06/22 11:00 02/06/22 12:09 Nasal Cannula 3 02/06/22 10:00 Nasal Cannula 3 02/06/22 06:30 Nasal Cannula 3 02/06/22 06:20 3 02/06/22 06:10 Nasal Cannula 3 02/06/22 06:00 Nasal Cannula 3 02/06/22 05:50 3 02/06/22 05:40 Nasal Cannula 3 02/06/22 05:30 3 02/06/22 05:20 Nasal Cannula 3 02/06/22 05:10 3 02/06/22 05:00 2 02/06/22 04:58 02/06/22 04:40 2 Diagnostic Findings Laboratory Results WBC 21.68 K/ul (4.8-10.8) H 02/06/22 03:56 RBC 4.20 M/uL (3.93-5.22) 02/06/22 03:56 Hgb 10.4 g/dl (12.0-16.0) L 02/06/22 03:56 Hct 33.4 % (34.1-44.9) L 02/06/22 03:56 MCV 79.5 fL (80.0-100.0) L 02/06/22 03:56 MCH 24.8 pg (25.0-34.0) L 02/06/22 03:56 MCHC 31.1 g/dL (32.0-36.0) L 02/06/22 03:56 RDW Std Deviation 49.9 fL (36.4-46.3) H 02/06/22 03:56 RDW Coeff of Marcelina 17.2 % (11.5-14.5) H 02/06/22 03:56 Plt Count 176 K/uL (130-400) 02/06/22 03:56 MPV 12.0 fL (9.4-12.3) 02/06/22 03:56 Immature Gran % (Auto) 2.1 % 02/05/22 13:48 Neut % (Auto) 82.2 % 02/05/22 13:48 Lymph % (Auto) 9.8 % 02/05/22 13:48 [place] % (Auto) 5.3 % 02/05/22 13:48 Eos % (Auto) 0.0 % 02/05/22 13:48 Baso % (Auto) 0.6 % 02/05/22 13:48 Neut # (Auto) 16.76 K/uL (1.4-6.5) H 02/05/22 13:48 Lymph # (Auto) 1.99 K/uL (1.2-3.4) 02/05/22 13:48 [place] # (Auto) 1.09 K/uL (0.24-0.82) H 02/05/22 13:48 Eos # (Auto) 0.01 K/uL (0-0.50) 02/05/22 13:48 Baso # (Auto) 0.13 K/uL (0-0.2) 02/05/22 13:48 Immature Gran # (Auto) 0.43 K/uL (0.00-0.02) H 02/05/22 13:48 PT 11.6 Seconds (9.0-12.0) 02/05/22 13:48 INR 1.1 (0.9-1.1) 02/05/22 13:48 APTT 37.0 Seconds (21.0-31.0) H 02/05/22 13:48 PTT Ratio 1.3 02/05/22 13:48 Sodium 136 mmol/L (136-145) 02/06/22 03:56 Potassium 5.1 mmol/L (3.5-5.1) D 02/06/22 03:56 Chloride 104 mmol/L (98-107) 02/06/22 03:56 Carbon Dioxide 20 mmol/L (21-32) L 02/06/22 03:56 Anion Gap 12 (3-11) H 02/06/22 03:56 BUN 38 mg/dl (6-23) H 02/06/22 03:56 Creatinine 1.39 mg/dl (0.6-1.2) H D 02/06/22 03:56 Est Cr Clr Drug Dosing 32.5 ml/min 02/06/22 03:56 Est GFR ( Amer) 40.2 ml/min 02/06/22 03:56 Est GFR (Non-Af Amer) 34.7 ml/min 02/06/22 03:56 BUN/Creatinine Ratio 27.3 (10-20) H 02/06/22 03:56 Glucose 96 mg/dl (70-99(Fasting)) 02/06/22 03:56 Lactate 0.7 mmol/L (0.4-2.0) 02/05/22 17:15 Calcium 6.8 mg/dl (8.5-10.1) L 02/06/22 03:56 Phosphorus 4.0 mg/dl (2.5-4.9) 02/06/22 03:56 Magnesium 2.3 mg/dl (1.7-2.4) 02/05/22 13:48 Total Bilirubin 0.6 mg/dl (0.2-1.0) 02/05/22 13:48 AST 8 U/L (13-39) L 02/05/22 17:40 ALT 16 U/L (7-52) 02/05/22 13:48 Alkaline Phosphatase 107 U/L (34-104) H 02/05/22 13:48 Troponin I High Sens 21.8 pg/ml (0-14) H 02/05/22 21:44 Total Protein 7.6 gm/dl (6.0-8.3) 02/05/22 13:48 Albumin 3.9 gm/dl (3.4-5.0) 02/05/22 13:48 Globulin 3.7 gm/dl (2.5-4.0) 02/05/22 13:48 Albumin/Globulin Ratio 1.1 (0.9-2) 02/05/22 13:48 Procalcitonin 0.71 ng/ml (0-0.5) H 02/05/22 17:43 TSH 3.217 uIu/ml (0.300-4.500) 02/05/22 17:40 Urine Color Yellow 02/05/22 21:15 Urine Appearance Clear (Clear) 02/05/22 21:15 Urine pH 5.5 (4.5-7.5) 02/05/22 21:15 Ur Specific [place] 1.021 (1.000-1.030) 02/05/22 21:15 Urine Protein 2+ (Negative) H 02/05/22 21:15 Urine Glucose (UA) Negative (Negative) 02/05/22 21:15 Urine Ketones 1+ (Negative) H 02/05/22 21:15 Urine Blood 3+ (Negative) H 02/05/22 21:15 Urine Nitrite Negative (Negative) 02/05/22 21:15 Urine Bilirubin Negative (Negative) 02/05/22 21:15 Urine Urobilinogen Negative (Negative) 02/05/22 21:15 Ur Leukocyte Esterase 1+ (Negative) H 02/05/22 21:15 Urine WBC (Auto) 5-10 /hpf (0-5) H 02/05/22 21:15 Urine RBC (Auto) >30 /hpf (0-4) H 02/05/22 21:15 U Hyaline Cast (Auto) 1-5 /lpf (0-5) 02/05/22 21:15 U Epithel Cells (Auto) 10-20 /lpf (0-5) H 02/05/22 21:15 Urine Bacteria (Auto) Negative (Negative) 02/05/22 21:15 Urine Yeast Not Reportable 02/05/22 21:15 SARS-CoV-2 (PCR) NEGATIVE (Negative) 02/05/22 13:45 Influenza Type A (PCR) Negative (Neg) 02/05/22 13:45 Influenza Type B (PCR) Negative (Neg) 02/05/22 13:45 RSV (RT-PCR) Negative (Neg) 02/05/22 13:45 Impressions Chest X-Ray 02/06/22 08:00 XR chest 1V portable HISTORY: 86 years-old Female RML PNA acute shortness of breath with reported pneumonia COMPARISON: Chest radiograph 02/05/2022, chest CT 11/17/2020 TECHNIQUE: AP view of the chest FINDINGS: Cardiomediastinal and hilar silhouettes are within normal limits. There is no pneumothorax or overt pulmonary edema. Subsegmental linear calcified granulomata of the right lung. Dense consolidation of the right middle lobe is redemonstrated which appears similar to yesterday's exam. Degenerative changes of the shoulders and spine. Surgical clips project over the left upper quadrant abdomen. IMPRESSION: Similar appearance of the dense right middle lobe airspace consolidation suggestive of pneumonia. 2 month follow-up chest radiograph recommended. ACT 112: Negative or not required by law. The above report was generated using voice recognition software. It may contain grammatical, syntax or spelling errors. Electronically signed by: Darrian Price M.D. 02/06/2022 7:29 AM Medications Administered Current Inpatient Medications Acetaminophen (Acetaminophen 325 Mg Tab) 650 mg PO Q4H PRN PRN Reason: Pain or Fever Stop: 03/07/22 20:48 Al Hydrox/Mg Hydrox/Simethicone (Aluminum/Magnesium Susp 30 Ml Udc) 15 ml PO Q4H PRN PRN Reason: Dyspepsia Stop: 03/07/22 20:48 Allopurinol (Allopurinol 100 Mg Tab) 100 mg PO DAILY YOGESH Stop: 03/08/22 08:59 Last Admin: 02/06/22 11:46 Dose: 100 mg Calcium Carbonate (Calcium Carbonate 1250mg Tab) 2,500 mg PO BID YOGESH Stop: 03/07/22 21:29 Last Admin: 02/06/22 11:45 Dose: 2,500 mg Clonazepam (Clonazepam 0.5 Mg Tab) 0.5 mg PO HS YOGESH Stop: 03/07/22 20:59 Last Admin: 02/05/22 21:21 Dose: 0.5 mg Diltiazem HCl (Diltiazem Hcl 120 Mg Capcr) 120 mg PO DAILY YOGESH Stop: 03/08/22 08:59 Last Admin: 02/06/22 11:46 Dose: 120 mg Docusate Sodium (Docusate Sodium 100 Mg Cap) 100 mg PO BID PRN PRN Reason: Constipation Stop: 03/07/22 17:48 Last Admin: 02/05/22 19:39 Dose: 100 mg Folic Acid (Folic Acid 1 Mg Tab) 1 mg PO QAM [facility] Stop: 03/08/22 08:59 Last Admin: 02/06/22 11:46 Dose: 1 mg Guaifenesin (Guaifenesin 600 Mg Tabcr) 1,200 mg PO Q12 YOGESH Stop: 03/07/22 20:59 Last Admin: 02/06/22 11:46 Dose: 1,200 mg Guaifenesin/Codeine Phosphate (Guaifenesin/Codeine 200mg/20mg 10ml Udc) 10 ml PO Q6H PRN PRN Reason: Cough Stop: 03/07/22 20:48 Last Admin: 02/06/22 00:25 Dose: 10 ml Heparin Sodium (Porcine) (Heparin Sod 5,000 Unit/0.5 Ml Vial) 5,000 units SQ Q12 YOGESH Stop: 03/07/22 20:59 Last Admin: 02/06/22 11:45 Dose: 5,000 units Doxycycline Hyclate 100 mg/ (Dextrose) 110 mls @ 50 mls/hr IV Q12H YOGESH Stop: 02/12/22 20:59 Last Infusion: 02/06/22 14:00 Dose: Infused Ceftriaxone Sodium 2,000 mg/ (Dextrose) 70 mls @ 140 mls/hr IV Q24H [facility] Stop: 02/12/22 21:59 Last Infusion: 02/05/22 22:00 Dose: Infused Isosorbide Mononitrate (Isosorbide [place] Extended Rel 30 Mg Tabcr) 30 mg PO QAM [facility] Stop: 03/08/22 08:59 Last Admin: 02/06/22 11:46 Dose: 30 mg Lactobacillus Acidophilus (Advanced Probiotic 1250 Mg Capsule) 2 cap PO DAILY [facility] Stop: 03/08/22 08:59 Last Admin: 02/06/22 11:45 Dose: 2 cap Levothyroxine Sodium (Levothyroxine Sodium 175 Mcg Tablet) 175 mcg PO DAILYBB [facility] Stop: 03/08/22 06:29 Last Admin: 02/06/22 06:33 Dose: 175 mcg Magnesium Hydroxide (Magnesium Hydroxide Susp 30 Ml Udc) 30 ml PO Q12H PRN PRN Reason: Constipation Stop: 03/07/22 20:48 Magnesium Oxide (Magnesium Oxide 400 Mg Tab) 400 mg PO DAILY YOGESH Stop: 03/08/22 08:59 Last Admin: 02/06/22 11:46 Dose: 400 mg Miscellaneous (Ibrutinib [Imbruvica] - Order Awaiting Action) 1 each N/A QS YOGESH Stop: 03/08/22 00:00 Last Admin: 02/06/22 16:16 Dose: Not Given Nystatin (Nystatin Powder 15gm Btl) 1 appln EXT TID PRN PRN Reason: Skin Irritation Stop: 03/07/22 17:48 Ondansetron HCl (Ondansetron Inj 2 Mg/Ml 2 Ml Vial) 4 mg IV Q6H PRN PRN Reason: Nausea Stop: 03/07/22 20:48 Pantoprazole Sodium (Pantoprazole 40 Mg Tab) 40 mg PO BID YOGESH Stop: 03/07/22 20:59 Last Admin: 02/06/22 11:46 Dose: 40 mg Polyethylene Glycol (Polyethylene (Miralax) 17 Gm Pack) 17 gm PO DAILY PRN PRN Reason: Constipation Stop: 03/07/22 20:48 Potassium Chloride (Potassium Chloride Crtab 20 Meq Tabcr) 20 meq PO DAILY YOGESH Stop: 03/08/22 08:59 Last Admin: 02/06/22 11:47 Dose: 20 meq (1) Hypothyroidism Hypothyroidism type: unspecified Qualified Code(s): E03.9 - Hypothyroidism, unspecified
[2022-02-06] MEDS: clonazePAM 0.5 MG TAB PO SCH (20:43)
[2022-02-06] MEDS ORDERED: guaiFENesin/CODEINE 100MG/10MG 5ML UDC PO ONE (22:00)
[2022-02-06] MEDS: cefTRIAXone SODIUM 2,000 MG in DEXTROSE 5% 50 ML IV SCH (22:58)
[2022-02-07] MEDS: LEVOTHYROXINE SODIUM 175 MCG TABLET PO SCH (05:39)
[2022-02-07 08:51] LABS: Basophils # (auto) 0.09 K/uL (0-0.2); Basophils % (auto) 0.7 %; Eosinophils # (auto) 0.14 K/uL (0-0.50); Eosinophils % (auto) 1.1 %; Hematocrit (blood only) 30.8 % (34.1-44.9); Hemoglobin 9.7 g/dl (12.0-16.0); Immature Granulocytes # (auto) 0.32 K/uL (0.00-0.02); Immature Granulocytes % (auto) 2.4 %; Lymphocytes # (auto) 1.82 K/uL (1.2-3.4); Lymphocytes % (auto) 13.8 %; Mean Corpuscular Hemoglobin 24.7 pg (25.0-34.0); Mean Corpuscular Hgb Conc 31.5 g/dL (32.0-36.0); Mean Corpuscular Volume 78.4 fL (80.0-100.0); Mean Platelet Volume 11.5 fL (9.4-12.3); Monocytes # (auto) 0.57 K/uL (0.24-0.82); Monocytes % (auto) 4.3 %; Neutrophils # (auto) 10.21 K/uL (1.4-6.5); Neutrophils % (auto) 77.7 %; Platelet Count 205 K/uL (130-400); RDW Coefficient of Variation 17.5 % (11.5-14.5); RDW Standard Deviation 49.9 fL (36.4-46.3); Red Blood Count 3.93 M/uL (3.93-5.22); White Blood Count 13.15 K/ul (4.8-10.8)
[2022-02-07 08:57] LABS: INR 1.1 (0.9-1.1); Prothrombin Time 11.8 Seconds (9.0-12.0)
[2022-02-07] MEDS: POTASSIUM CHLORIDE CRTAB 20 MEQ TABCR PO SCH (09:02)
[2022-02-07] MEDS: DOXYCYCLINE HYCLATE 100 MG in DEXTROSE 5% 100 ML IV SCH (09:02)
[2022-02-07] MEDS: ADVANCED PROBIOTIC 1250 MG CAPSULE PO SCH (09:02)
[2022-02-07] MEDS: ISOSORBIDE MONO EXTENDED REL 30 MG TABCR PO SCH (09:03)
[2022-02-07] MEDS: allopurinoL 100 MG TAB PO SCH (09:04)
[2022-02-07] MEDS: FOLIC ACID 1 MG TAB PO SCH (09:04)
[2022-02-07] MEDS: dilTIAZem HCL 120 MG CAPCR PO SCH (09:04)
[2022-02-07] MEDS: CALCIUM CARBONATE 1250MG TAB PO SCH (09:04)
[2022-02-07] MEDS: HEPARIN SOD 5,000 UNIT/0.5 ML VIAL SQ SCH (09:06)
[2022-02-07 09:30] LABS: Albumin Globulin Ratio 1.2 (0.9-2); Albumin Level 3.6 gm/dl (3.4-5.0); BUN Creatinine Ratio 30.1 (10-20); Bilirubin,Total 0.3 mg/dl (0.2-1.0); Calcium 7.3 mg/dl (8.5-10.1); Creatinine Clr Calc Pharmacy 33.9 ml/min; Est GFR (African American) 42.4 ml/min; Est GFR (Non-African American) 36.6 ml/min; Globulin 3.1 gm/dl (2.5-4.0); Magnesium 2.2 mg/dl (1.7-2.4); Phosphorus 3.3 mg/dl (2.5-4.9); Total Protein 6.7 gm/dl (6.0-8.3)
[2022-02-07] MEDS ORDERED: guaiFENesin/DEXTROM SYRUP 100MG/10MG 5ML UDC PO PRN (10:11)
[2022-02-07] MEDS: guaiFENesin 600 MG TABCR PO SCH (11:14)
--- NOTE | 2022-02-07 12:54 | Discharge Summary ---
Date of Service February 07, 2022 Admission HPI Per Admitting Provider Юлия is an 86-year-old female that presented to the ED after not feeling well from her outpatient PCP office and she went to be seen for cough, fever, weakness and LEVY x1 week. SHe states that last Friday she called to possibly have a prescription filled as she was having URI symptoms, including sore throat, insomnia, and decreased appetite. Patient was noted to be hypoxic in outpatient clinic SPO2 88%; .sent to ED for further evaluation. Patient past medical history includes CLL, CKD stage IV, diabetes mellitus type 2 (diet managed and not on any oral or injectable agents), hypoparathyroidism's status post papillary thyroid cancer and surgery in 2009, eosinophilic esophagitis, vitamin D deficiency, autoimmune hemolytic anemia, anxiety depression, hypertension, and hypothyroidism. Pt is vaccinated against Influenza but is unvaccinated against COVID as she did not think it was necessary. Pt reports that she is quite tired after getting up from sitting since last week. Pt denies ANDREA, dizziness, chest pain, palpitations, abdominal pain, N/V/D. Pt reports feeling constipated since her PO intake has decreased. Pt lives alone at home in a one story house, ambulates with a walker and does her own ADLs independently including meal planning. She has a son Jan who is her decision-maker in the event that she cannot participate in conversation who lives in [place]. In the ED she is tachycardic low 100s; however does not appear in acute distress. Suspect that she is dehydrated due to decreased appetite and poor intake over the past few days. Patient is currently afebrile and lactate is 0.7. Initial troponin 24.7 suspect more ischemic demand rather than ACS; will trend 1 more troponin. Most recent echo 10/22 EF 65% with mild aortic and mitral valve changes. Patient is a non-smoker. procalcitonin pending and blood cultures done. Patient will be admitted for further evaluation and management. Please see A/P for further details. Admission Exam Per Admitting Provider Neuro: AAOx4, PERRLA, no aphagia, memory changes, CNII-XII grossly intact HEENT: head normocephalic, moist mucus membranes CV: S1/S2, (-) M/G/R, (-) edema, cap refill < 3 seconds Resp: Lungs CTA in all smallwood. On RA GI: Abdomen S/NT/ND, Ax4 bowel sounds, (-) CVA tenderness Musculoskeletal: 5/5 B/L UE strength, 5/5 B/L LE strength. No gait disturbance Skin: (-) rashes , (-) erythema. Psych: euthymic mood Principal Diagnosis RML pneumonia Discharge Exam Neuro: AAOx4, PERRLA, no aphagia, memory changes, CNII-XII grossly intact HEENT: head normocephalic, moist mucus membranes CV: S1/S2, (-) M/G/R, (-) edema, cap refill < 3 seconds Resp: Lungs CTA in all [place]. On RA GI: Abdomen S/NT/ND, Ax4 bowel sounds, (-) CVA tenderness Musculoskeletal: 5/5 B/L UE strength, 5/5 B/L LE strength. No gait disturbance Skin: (-) rashes , (-) erythema. Psych: euthymic mood Discharge Data Allergies Allergy/AdvReac Type Severity Reaction Status Date / Time pneumococcal vaccine Allergy Unknown Unknown Verified 11/16/20 21:31 sulfamethoxazole AdvReac Intermediate Nausea Verified 11/16/20 21:31 [From Bactrim] trimethoprim [From Bactrim] AdvReac Intermediate Nausea Verified 11/16/20 21:31 lorazepam AdvReac Unknown SEE COMMENT Verified 11/19/20 15:42 Consultations 02/05/22 17:17 ED Decision to Admit Stat Hospital Course (1) RML pneumonia: (2) Weakness: (3) Acute on chronic renal failure: (4) Anemia of chronic disease: (5) CKD (chronic kidney disease) stage 4, GFR 15-29 ml/min: (6) HTN (hypertension): (7) Lymphoma: (8) Hypothyroidism: (9) Diabetes mellitus: (10) Thyroid cancer: Plan 86-year-old female with cough and fever. and weakness x1 we diagnosed with RML pneumonia. IV antibiotics, IV steroids, supportive treatment, with speech therapy consult. Acute on chronic renal failure with elevated creatinine; fluid challenge and reassess. Patient also has CLL and sees Dr. Long every 3 months. DM2 diet controlled. RML community-acquired PNA: Weakness: Cough: Chest x-ray RML pneumonia with low lung volumes WBC 20.41 Troponin 24.4 unlikely ACS but rather ischemic demand on heart with hypoxic trend troponin x1. s/p cefepime in the ED - continue on Rocephin and Doxy - changed to augmentin and doxycylcine on discharge - blood cultures NGTD - Lactate 0.7 and procalcitonin 0.71 - improving - weaned off oxgyen - 2 step without need for home oxygen - PT/OT recommending home with HH but son going to greens picker patient and possible take to his house and would not need HH set up at patient's home address Acute on chronic renal failure Baseline creatinine 1.3-1.5 1.70 in ED - likely prerenal in setting of pneumonia and decreased PO intake Hold nephrotoxic agents - stable at baseline Anemia of chronic disease: Hemoglobin 10.7; baseline 11.3. Follows with hematology outpatient; trend hemoglobin No signs of active bleeding during exam or ROS DM2: Diet controlled; not on any oral or injectable agents 08/30/2021 A1c 6.0; recheck A1c in a.m. - monitor for now HTN: Patient takes Imdur and diltiazem; possibly consider alternative agents if no h/o atrial fibrillation or CAD; continue for now. 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 Long Q3 months WBC to 20s --> 13s with treatment - will monitor on treatment for pneumonia H/O Papillary thyroid cancer: s/p surgery 2009 Hypothyroidism: Takes Synthroid; continue Gout: No acute flare. Takes allopurinol; continue Disposition: PCP: Dr. Mehta Code Status: Full code VTE prophylaxis: Heparin SQ El Colunga MD [facility] Medicine Total Time Total Time Spent Total Time Spent (In Minutes): 45 Total Time Includes: Examination of the Patient, Discharge Planning and Medication Reconciliation Discharge Plan Discharge Items Patient Disposition: Home - Home Health Services Reason For Visit: SOB Discharge Diagnosis: RML pneumonia Activity: Resume your previous activity Non-emergency contact: Primary Care Provider Call non-emergency contact if: you have any medication questions and your symptoms worsen Follow-up/Referrals: Lani Long MD [Primary Care Provider] - Diet: Carb Consistent or DM2 and Heart Healthy Addtl Attending Provider Instructions: You were admitted for a pneumonia and received IV antibiotics with improvement in you symptoms. You tolerated a diet. You had respiratory team assess your need for oxygen at home, which you did not need and did well with walking without oxygen. You were ok to be discharged home to finish 5 days of antibiotics. You should follow up with your primary care doctor in 1 week after discharge. Pending Studies at Discharge: No Stand-Alone Forms: My [facility], Smoking Cessation Medications and DC Order Prescriptions: New doxycycline hyclate 100 mg Capsule 100 mg PO BID Qty: 7 0RF amoxicillin-pot clavulanate 875-125 mg tablet 1 tab PO BID Qty: 7 0RF benzonatate 200 mg capsule 200 mg PO BID PRN (Reason: cough) Qty: 14 0RF Continued allopurinol 100 mg tablet 100 mg PO DAILY isosorbide mononitrate 30 mg Tablet Extended Release 24 Hr 30 mg PO QAM Label Comments: Last filled on External Med History 08/18/18 for 90 day supply. Patient is unsure what meds she takes. Unknown if patient is still on this med. (12/01/18) folic acid 1 mg Tablet 1 mg PO QAM omeprazole 20 mg Capsule,Delayed Release(Dr/Ec) 20 mg PO BID nystatin 100,000 unit/gram powder 1 applic topical TID PRN (Reason: Skin Irritation) Label Comments: Last filled on External Med History 10/28/18 for 7 day supply. Patient is unsure what meds she takes. Unknown if patient is still on this med. (12/01/18) calcium carbonate 600 mg calcium (1,500 mg) tablet 3,000 mg PO BID levothyroxine 175 mcg Tablet 175 mcg PO DAILY potassium chloride 10 mEq Capsule, Extended Release 20 meq PO DAILY clonazepam 0.5 mg Tablet 0.5 mg PO HS diltiazem HCl 120 mg Capsule,Extended Release 24 Hr 120 mg PO DAILY docusate sodium 100 mg Capsule 100 mg PO BID PRN (Reason: Constipation) polyethylene glycol 3350 [Miralax] 17 gram/dose Powder 17 g PO DAILY PRN (Reason: Constipation) Probiotic Digestive Care 20 billion cell Capsule 20 cell PO DAILY Imbruvica 140 mg Capsule 280 mg PO DAILY Rx Instructions: TAKE SAME TIME EVERYDAY. magnesium oxide 400 mg magnesium Tablet 400 mg PO DAILY Discharge Orders: Discharge Order (Routine); Ordered 02/07/22 Ordered By: El Colunga Admission Data Admit Date/Time: 02/05/22 17:06 Attending Provider: El Colunga Admit Provider: Alma Hall Primary Care Provider: Lani Long Other Providers: Alma Hall
[2022-02-07] MEDS: MAGNESIUM OXIDE 400 MG TAB PO SCH (15:08)
[2022-02-07] MEDS: PANTOprazole 40 MG TAB PO SCH (15:08)
[2022-02-07] MEDS ORDERED: DOXYCYCLINE HYCLATE 100 MG CAP PO SCH (21:00)
== END 2022-02-07 19:29 | disposition home or self-care (01) | DRG 194 ==
LOC: ED 12:47 → EDINP 17:06 → SUATTDRO 17:06 → 2W 20:49